=== PATIENT | male | born 1990 | race Two or more races ===

== ENCOUNTER 2019-01-20 19:28 | Inpatient (IN) | payer OTHER, BC ==
[~2019-01-20] VITALS: Ht 177.8 cm; Wt 84.4 kg
[2019-01-20] MEDS ORDERED: Piperacillin/Tazobactam 4.5 GM in NS 110 ML IVPB ONE (19:45)
--- NOTE | 2019-01-20 20:32 | Emergency Room Report ---
History of Present Illness General Chief Complaint: Flu Like Symptoms Source: Patient (Rod Carey) Present Illness HPI 28-year-old male with no significant past medical history brought in by paramedics complaining of 1 week of worsening cough and fever. Patient reports that for the past 4 months he has been coughing green mucus and feeling feverish on and off with night sweats. Denies recent travel or unintentional weight loss. Denies hemoptysis. Reports that this morning he realized that his fever has spiked and took ibuprofen, went to work however started throwing up. Denies chest pain and shortness of breath. Reports that his primary care doctor has worked him up for possible pneumonia or bronchitis however labs have been normal. Denies exposure to tuberculosis. 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 Reports that he is sexually active with men. Denies penile discharge or urinary symptoms. Patient has elevated heart rate, elevated temperature, and appears to be mildly distressed. Patient laid there tells me that he has been sexually active with the same partner for the past several months who has a positive HIV status and is compliant with taking medication. Patient admits to receiving anal intercourse. Reports that he has been tested for HIV twice in the past year and both tested negative. However has not been tested in the past 5 months. (Rod Carey) Allergies: Coded Allergies: No Known Allergies (Unverified , 01/20/19) Patient History Past Medical History: see triage record Past Surgical History: unable to obtain Pertinent Family History: none Immunizations: UTD Reviewed Nursing Documentation: PMH: Agreed; PSxH: Agreed (Rod Carey) Nursing Documentation-PMH Past Medical History: No Stated History (Rod Carey) Review of Systems All Other Systems: negative except mentioned in HPI (Rod Carey) Physical Exam Vital Signs Date Time Temp Pulse Resp B/P (MAP) Pulse Ox O2 Delivery O2 Flow Rate FiO2 01/20/19 19:21 102.7 147 18 117/68 (84) 98 Room Air Sp02 EP Interpretation: abnormal General Appearance: mild distress Head: normocephalic, atraumatic Eyes: bilateral eye normal inspection, bilateral eye PERRL ENT: hearing grossly normal, normal pharynx, no angioedema, normal voice Neck: full range of motion, supple/symm/no masses Respiratory: chest non-tender, lungs clear, normal breath sounds, no rhonchi, no wheezing, speaking full sentences Cardiovascular #1: normal inspection, normal peripheral pulses, regular rate, rhythm, no edema, no gallop, no murmur, JVD, normal capillary refill Gastrointestinal: normal bowel sounds, non tender, soft, non-distended, no guarding, no rebound Genitourinary: no CVA tenderness, no vertebral tenderness Musculoskeletal: back normal, gait/station normal, normal range of motion, non- tender, no calf tenderness, pelvis stable Neurologic: normal inspection, alert, oriented x3, responsive, activity aid III-XII nml as tested Psychiatric: judgement/insight normal, memory normal, mood/affect normal, no suicidal/homicidal ideation Skin: no rash Lymphatic: normal inspection, no adenopathy (Rod Carey) Medical Decision Making PA Attestation All diagnoses and treatment plans were reviewed and discussed with my supervising physician Dr. Fraser (Rod Carey) PA Attestation I supervised the care of this patient along with TALIB Miranda Briefly, this a 28-year-old male presented for evaluation of persistent fevers and cough going on for several months. No recent travel, no known sick contacts. Symptoms have been worsening over the past few days. He is in a same sex relationship with an HIV-positive partner but states his own HIV testing has been negative thus far. Patient is now found to be HIV presumptive positive. No obvious infiltrate or cavitary lesion seen on chest x-ray but chest x-ray did show pneumonia. He was treated with Bactrim, Zosyn on arrival. Admitted to respiratory isolation for further work-up. (Wilian Fraser MD) Diagnostic Impression: Primary Impression: Pneumonia Additional Impression: HIV (human immunodeficiency virus infection) ER Course 28-year-old male with no significant past medical history brought in by paramedics complaining of 1 week of worsening cough and fever. Patient reports that for the past 4 months he has been coughing green mucus and feeling feverish on and off with night sweats. Denies recent travel or unintentional weight loss. Denies hemoptysis. Reports that this morning he realized that his fever has spiked and took ibuprofen, went to work however started throwing up. Denies chest pain and shortness of breath. Reports that his primary care doctor has worked him up for possible pneumonia or bronchitis however labs have been normal. Denies exposure to tuberculosis. 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 Reports that he is sexually active with men. Denies penile discharge or urinary symptoms. Patient has elevated heart rate, elevated temperature, and appears to be mildly distressed. Patient laid there tells me that he has been sexually active with the same partner for the past several months who has a positive HIV status and is compliant with taking medication. Patient admits to receiving anal intercourse. Reports that he has been tested for HIV twice in the past year and both tested negative. However has not been tested in the past 5 months. Ddx considered but are not limited to: Sepsis septic shock, HIV positive, pneumonia bronchitis, PNA, URI viral, bacterial bronchitis Vital signs: are WNL, pt. is febrile H&PE are most consistent with: Pneumonia secondary to HIV ORDERS: Sepsis work-up ED INTERVENTIONS: NS bolus, Zosyn, Bactrim Patient was admitted with diagnosis of pneumonia secondary to HIV to Dr. Barron under supervision of : Evelio pt stable at time of admission (Rod Caery) EKG Diagnostic Results Rate: tachycardiac Rhythm: other - tachycardic ST Segments: no acute changes Other Impression No acute ST changes (Rod Carey) Chest X-Ray Diagnostic Results Chest X-Ray Diagnostic Results : Chest X-Ray Ordered: Yes # of Views/Limited/Complete: 1 View Indication: Other EP Interpretation: Yes PA Xray: Interpretation reviewed, by supervising MD, and agrees with findings. Interpretation: no pneumothorax, other - infiltrates RLL Impression: Other - PNA RLL Electronically Signed by: Rod Buchanan PA-C (oRd Carey) CT/MRI/US Diagnostic Results CT/MRI/US Diagnostic Results : Imaging Test Ordered: CT chest/abd/pelvis with contrast Impression CT ABDOMEN & PELVIS With Contrast: Severe Splenomegaly. Cholecystectomy clips. Normal appendix and remainder of the bowel. Prominent periaortic lymph nodes and bilateral inguinal lymph nodes are nonspecific. CT CHEST With Contrast: Small consolidation in posterior medial right lower lobe indicates pneumonia. Subtle airspace opacities in left lower lobe on series 3 image 35-37, may suggest early pneumonia. Prominent bilateral axillary lymph nodes are nonspecific. (Rod Carey) Last Vital Signs Date Time Temp Pulse Resp B/P (MAP) Pulse Ox O2 Delivery O2 Flow Rate FiO2 01/20/19 19:21 102.7 147 18 117/68 (84) 98 Room Air (Rod Carey) Disposition: ADMITTED INPATIENT Condition: Stable Rod Carey Jan 20, 2019 20:32 Wilian Fraser MD Jan 20, 2019 22:51
[2019-01-20 20:35] LABS: HEMATOCRIT 29.5 % (42.0-52.0); HEMOGLOBIN 10.1 G/DL (14.2-18.0); MEAN CORPUSCULAR VOLUME 82 FL (80-99); PLATELET COUNT 34 K/UL (150-450); RED CELL DISTRIBUTION WIDTH 14.9 % (11.6-14.8); WHITE BLOOD COUNT 3.9 K/UL (4.8-10.8)
[2019-01-20 20:36] LABS: APPEARANCE,URINE CLEAR; BILIRUBIN, URINE NEGATIVE (NEGATIVE); GLUCOSE, URINE (UA) NEGATIVE (NEGATIVE); KETONES,URINE NEGATIVE (NEGATIVE); LEUKOCYTE ESTERASE ,URINE 1+ (NEGATIVE); NITRITE,URINE NEGATIVE (NEGATIVE); PH,URINE 7 (4.5-8.0); PROTEIN,URINE 3+ (NEGATIVE); UROBILINOGEN,URINE 4 MG/DL (0.0-1.0)
[2019-01-20 20:37] LABS: COLOR,URINE YELLOW
[2019-01-20 20:46] LABS: INR 1.2 (0.9-1.1)
[2019-01-20 20:59] LABS: ALANINE AMINOTRANSFERASE 26 U/L (12-78); ALBUMIN 2.6 G/DL (3.4-5.0); ALBUMIN/GLOBULIN RATIO 0.5 (1.0-2.7); ALKALINE PHOSPHATASE 111 U/L (46-116); ASPARTATE AMINO TRANSFERASE 26 U/L (15-37); BLOOD UREA NITROGEN 8 mg/dL (7-18); CALCIUM 8.3 MG/DL (8.5-10.1); CKMB < 0.5 NG/ML (0.0-3.6); CREATINE KINASE 18 U/L (26-308); CREATININE 0.7 MG/DL (0.55-1.30)
[2019-01-20 21:00] VITALS: BP 121/71
[2019-01-20] MEDS ORDERED: Omnipaque-300 100ml vial INJ PRN (21:00)
[2019-01-20] MEDS ORDERED: Bactrim-DS 1 tab ORAL ONE (21:15)
[2019-01-20] MEDS ORDERED: Trimethoprim/Sulfamethoxazole 20 ML in D5W 500ml 550 ML IV ONE (21:15)
[2019-01-20 21:27] LABS: ANION GAP 13 mmol/L (5-15); CARBON DIOXIDE 22 MMOL/L (21-32); CHLORIDE 100 MMOL/L (98-107); POTASSIUM 3.3 MMOL/L (3.5-5.1); SODIUM 135 MMOL/L (136-145)
[2019-01-20 22:30] VITALS: BP 126/68
--- NOTE | 2019-01-20 22:57 | Diagnostic Imaging Report ---
CLINICAL INDICATION:Cough, fever, unintentional weight loss, vomiting TECHNIQUE: No oral contrast, per referring physician request . Multiphasic spiral acquisitions obtained through the chest, abdomen, and pelvis. Multiplanar reconstructions were generated. Total dose length product 2054 mGycm. CTDIvol(s) 90, 88, 55, 18, 17 mGy. Radiation dose was minimized using automated exposure control COMPARISON: none FINDINGS Chest: There is a cluster of masslike opacities in the right lower lobe with some slight surrounding groundglass opacity. In aggregate, this area measures 4 cm x 3 cm x 2.8 cm craniocaudad. This is located at the level of the pulmonary hilum. There are some small irregular faint opacities seen within the superior segment of the left lower lobe, measuring up to 7 mm long axis dimension. No other pulmonary parenchymal abnormalities are demonstrated. No pleural effusions. The heart size is normal. No pericardial effusion. There are abundant mediastinal lymph nodes. The largest of these is a subcarinal node which measures 2.5 x 1.5 cm. The remainder are abundant, prominent, but not frankly enlarged. However, there is extensive axillary, supraclavicular, and lower cervical lymphadenopathy. There is mild bilateral gynecomastia. The bones are unremarkable. Abdomen pelvis: There is no evidence of colonic diverticulosis or diverticulitis. The appendix is normal. No small bowel distention. No free or loculated intraperitoneal gas or fluid is evident. The stomach and duodenum are unremarkable. The spleen is massively enlarged, measuring over 20 cm long axis dimension. There is extensive lymphadenopathy, with abundant and enlarged nodes seen in the lesser sac, the peripancreatic region, periaortic and pericaval region, the bilateral iliac chains and bilateral inguinal regions. Only minimal if any mesenteric lymphadenopathy is demonstrated. The liver is mildly enlarged. There are cholecystectomy clips. No focal hepatic abnormality. No biliary ductal dilatation. The pancreas, adrenals, kidneys are unremarkable. The bones are unremarkable. IMPRESSION: Massive splenomegaly Hepatomegaly Extensive lymphadenopathy, involving the bilateral inguinal regions, bilateral iliac chains, retroaortic and retrocaval region, peripancreatic and lesser sac regions, bilateral axillae, bilateral cervical and supraclavicular regions, and the mediastinum. This may reflect infectious or inflammatory lymphadenopathy, particularly in view of recent diagnosis of HIV positivity, or could indicate a lymphoproliferative disorder. 4 x 3 x 2.8 cm aggregate cluster of masslike opacities in the right lower lobe. This could most likely represents an area of infiltrate, but could conceivably represent cluster of small masses. Nonspecific small irregular opacities in the left lower lobe, may reflect early infiltrates. This agrees with the preliminary interpretation provided overnight by [facility]. . The CT scanner at [facility] is accredited by the [employer] and the scans are performed using protocols designed to limit radiation exposure to as low as reasonably achievable to attain images of sufficient resolution adequate for diagnostic evaluation.
[2019-01-21 01:00] VITALS: BP 113/65
[2019-01-21 04:00] VITALS: BP 108/62
[2019-01-21] MEDS ORDERED: Azithromycin 250mg tab ORAL ONE (05:45)
--- NOTE | 2019-01-21 06:10 | Diagnostic Imaging Report ---
Indication: Cough Technique: One view of the chest Comparison: 01/20/2019 Findings: Lungs and pleural spaces are clear. Heart size is normal. No significant interim change Impression: No acute process This agrees with the preliminary interpretation provided overnight by [facility].
[2019-01-21 06:58] LABS: HEMATOCRIT 29.6 % (42.0-52.0); HEMOGLOBIN 10.2 G/DL (14.2-18.0); MEAN CORPUSCULAR VOLUME 83 FL (80-99); PLATELET COUNT 26 K/UL (150-450); RED BLOOD COUNT 3.58 M/UL (4.70-6.10); RED CELL DISTRIBUTION WIDTH 15.1 % (11.6-14.8); WHITE BLOOD COUNT 3.4 K/UL (4.8-10.8)
[2019-01-21 07:27] LABS: ALANINE AMINOTRANSFERASE 20 U/L (12-78); ALBUMIN 2.4 G/DL (3.4-5.0); ALBUMIN/GLOBULIN RATIO 0.5 (1.0-2.7); ALKALINE PHOSPHATASE 98 U/L (46-116); ANION GAP 4 mmol/L (5-15); ASPARTATE AMINO TRANSFERASE 23 U/L (15-37); BLOOD UREA NITROGEN 6 mg/dL (7-18); CARBON DIOXIDE 29 MMOL/L (21-32); CHLORIDE 103 MMOL/L (98-107); CREATININE 0.6 MG/DL (0.55-1.30); LACTATE DEHYDROGENASE 143 U/L (81-234); PHOSPHORUS 2.9 MG/DL (2.5-4.9); POTASSIUM 3.6 MMOL/L (3.5-5.1); SODIUM 135 MMOL/L (136-145)
[2019-01-21 08:00] VITALS: BP 121/80
[2019-01-21] MEDS: cefTRIAXone 1 GM in D5W 55 ML IVPB SCH (08:18)
[2019-01-21 12:00] VITALS: BP 112/66
--- NOTE | 2019-01-21 12:21 | Diagnostic Imaging Report ---
Indication: Chest pain Technique: One view of the chest Comparison: none Findings: Lungs and pleural spaces are clear. Heart size is normal Impression: No acute process
--- NOTE | 2019-01-21 12:42 | Consultation ---
History of Present Illness General Chief Complaint: Flu Like Symptoms Present Illness HPI 28-year-old male with no significant past medical history brought in by paramedics complaining of 1 week of worsening cough and fever. Patient reports that for the past 4 months he has been coughing green mucus and feeling feverish on and off with night sweats. His CT of chest showed confluent infiltrate or mass in right lower lobe. He has new lesions on his right leg and right wrist. Allergies: Coded Allergies: No Known Allergies (Unverified , 01/20/19) Medication History No Active Prescriptions or Reported Meds Patient History Healthcare decision maker Resuscitation status Full Code Advanced Directive on File No Past Medical/Surgical History Past Medical/Surgical History: (1) HIV (human immunodeficiency virus infection) Review of Systems All Other Systems: negative except mentioned in HPI Physical Exam General Appearance: WD/WN, no apparent distress Lines, tubes and drains: peripheral HEENT: normocephalic, atraumatic Neck: non-tender, other - right anterior and left posterior lymph nodes Respiratory/Chest: chest wall non-tender, lungs clear Breasts: no masses Cardiovascular/Chest: normal peripheral pulses Abdomen: normal bowel sounds, non tender Genitourinary/Rectal: normal genital exam Extremities: normal range of motion, non-tender Skin Exam: normal pigmentation, other - right leg, right wrist Kaposi like lesions Last 24 Hour Vital Signs Date Time Temp Pulse Resp B/P (MAP) Pulse Ox O2 Delivery O2 Flow Rate FiO2 01/21/19 08:50 99.3 01/21/19 08:49 99.3 01/21/19 08:00 100.2 124 20 121/80 (94) 97 01/21/19 04:00 98.2 111 17 108/62 (77) 99 01/21/19 02:21 Room Air 01/21/19 01:00 97.7 96 17 113/65 (81) 99 01/21/19 00:55 98.3 103 18 126/68 99 Room Air 01/20/19 22:30 98.3 103 18 126/68 99 Room Air 01/20/19 21:00 98.4 111 18 121/71 99 Room Air 01/20/19 19:35 147 18 Room Air 01/20/19 19:21 102.7 147 18 117/68 (84) 98 Room Air Intake and Output 01/20/19 01/21/19 19:00 07:00 Intake Total 500 ml Output Total 500 ml Balance 0 ml Intake Oral 500 ml Output Urine Total 500 ml # Voids 4 Laboratory Tests Test 01/20/19 19:50 01/20/19 19:53 01/20/19 19:55 01/21/19 05:45 White Blood Count 3.9 K/UL (4.8-10.8) L Pending Red Blood Count 3.60 M/UL (4.70-6.10) L 3.58 M/UL (4.70-6.10) L Hemoglobin 10.1 G/DL (14.2-18.0) L 10.2 G/DL (14.2-18.0) L Hematocrit 29.5 % (42.0-52.0) L 29.6 % (42.0-52.0) L Mean Corpuscular Volume 82 FL (80-99) 83 FL (80-99) Mean Corpuscular Hemoglobin 28.1 PG (27.0-31.0) 28.4 PG (27.0-31.0) Mean Corpuscular Hemoglobin Concent 34.3 G/DL (32.0-36.0) 34.4 G/DL (32.0-36.0) Red Cell Distribution Width 14.9 % (11.6-14.8) H 15.1 % (11.6-14.8) H Platelet Count 34 K/UL (150-450) L 26 K/UL (150-450) L Mean Platelet Volume 9.1 FL (6.5-10.1) 7.8 FL (6.5-10.1) Neutrophils (%) (Auto) % (45.0-75.0) % (45.0-75.0) Lymphocytes (%) (Auto) % (20.0-45.0) % (20.0-45.0) Monocytes (%) (Auto) % (1.0-10.0) % (1.0-10.0) Eosinophils (%) (Auto) % (0.0-3.0) % (0.0-3.0) Basophils (%) (Auto) % (0.0-2.0) % (0.0-2.0) Differential Total Cells Counted 50 100 Neutrophils % (Manual) 38 % (45-75) L 40 % (45-75) L Lymphocytes % (Manual) 38 % (20-45) 47 % (20-45) H Monocytes % (Manual) 14 % (1-10) H 12 % (1-10) H Eosinophils % (Manual) 0 % (0-3) 1 % (0-3) Basophils % (Manual) 0 % (0-2) 0 % (0-2) Band Neutrophils 10 % (0-8) H 0 % (0-8) Platelet Estimate Decreased L Decreased L Platelet Morphology Normal Normal Polychromasia 1+ Anisocytosis 1+ 1+ Prothrombin Time 12.2 SEC (9.30-11.50) H Prothromb Time International Ratio 1.2 (0.9-1.1) H Activated Partial Thromboplast Time 32 SEC (23-33) Sodium Level 135 MMOL/L (136-145) L 135 MMOL/L (136-145) L Potassium Level 3.3 MMOL/L (3.5-5.1) L 3.6 MMOL/L (3.5-5.1) Chloride Level 100 MMOL/L (98-107) 103 MMOL/L (98-107) Carbon Dioxide Level 22 MMOL/L (21-32) 29 MMOL/L (21-32) Anion Gap 13 mmol/L (5-15) 4 mmol/L (5-15) L Blood Urea Nitrogen 8 mg/dL (7-18) 6 mg/dL (7-18) L Creatinine 0.7 MG/DL (0.55-1.30) 0.6 MG/DL (0.55-1.30) Estimat Glomerular Filtration Rate > 60 mL/min (>60) > 60 mL/min (>60) Glucose Level 127 MG/DL (74-106) H 98 MG/DL (74-106) Lactic Acid Level 1.30 mmol/L (0.4-2.0) Calcium Level 8.3 MG/DL (8.5-10.1) L 8.0 MG/DL (8.5-10.1) L Total Bilirubin 1.0 MG/DL (0.2-1.0) 1.0 MG/DL (0.2-1.0) Aspartate Amino Transf (AST/SGOT) 26 U/L (15-37) 23 U/L (15-37) Alanine Aminotransferase (ALT/SGPT) 26 U/L (12-78) 20 U/L (12-78) Alkaline Phosphatase 111 U/L (46-116) 98 U/L (46-116) Total Creatine Kinase 18 U/L (26-308) L Creatine Kinase MB < 0.5 NG/ML (0.0-3.6) Creatine Kinase MB Relative Index 2.7 Troponin I 0.000 ng/mL (0.000-0.056) Pro-B-Type Natriuretic Peptide 69 pg/mL (0-125) Total Protein 8.0 G/DL (6.4-8.2) 7.6 G/DL (6.4-8.2) Albumin 2.6 G/DL (3.4-5.0) L 2.4 G/DL (3.4-5.0) L Globulin 5.4 g/dL 5.2 g/dL Albumin/Globulin Ratio 0.5 (1.0-2.7) L 0.5 (1.0-2.7) L HIV (1&2) Antibody Rapid Preliminary positive Arterial Blood pH 7.525 (7.350-7.450) Arterial Blood Partial Pressure CO2 30.7 mmHg (35.0-45.0) L Arterial Blood Partial Pressure O2 100.1 mmHg (75.0-100.0) H Arterial Blood HCO3 24.8 mmol/L (22.0-26.0) Arterial Blood Oxygen Saturation 97.2 % (95-100) Arterial Blood Base Excess 2.4 (-2-2) H Merrill Test Positive Urine Color Yellow Urine Appearance Clear Urine pH 7 (4.5-8.0) Urine Specific [place] 1.005 (1.005-1.035) Urine Protein 3+ (NEGATIVE) H Urine Glucose (UA) Negative (NEGATIVE) Urine Ketones Negative (NEGATIVE) Urine Blood 2+ (NEGATIVE) H Urine Nitrite Negative (NEGATIVE) Urine Bilirubin Negative (NEGATIVE) Urine Urobilinogen 4 MG/DL (0.0-1.0) H Urine Leukocyte Esterase 1+ (NEGATIVE) H Urine RBC 2-4 /HPF (0 - 0) H Urine WBC 0-2 /HPF (0 - 0) Urine Squamous Epithelial Cells None /LPF (NONE/OCC) Urine Bacteria Occasional /HPF (NONE) Urine Opiates Screen Negative (NEGATIVE) Urine Barbiturates Screen Negative (NEGATIVE) Phencyclidine (PCP) Screen Negative (NEGATIVE) Urine Amphetamines Screen Negative (NEGATIVE) Urine Benzodiazepines Screen Negative (NEGATIVE) Urine Cocaine Screen Negative (NEGATIVE) Urine Marijuana (THC) Screen Negative (NEGATIVE) Lymphocytes Pending Phosphorus Level 2.9 MG/DL (2.5-4.9) Magnesium Level 1.4 MG/DL (1.8-2.4) L Lactate Dehydrogenase 143 U/L (81-234) Percent CD3 Cells Pending Absolute CD3 Count Pending Percent CD4 Cells Pending Absolute CD4 Count Pending T-Lymphocyte CD4/CD8 Ratio Pending Percent CD8 Cells Pending Absolute CD8 Count Pending Microbiology Date/Time Source Procedure Growth Status 01/20/19 19:50 Nasal Nares - Final Complete 01/20/19 19:50 Nasal Nares - Final Complete Height (Feet): 5 Height (Inches): 10.00 Weight (Pounds): 150 Medications Current Medications Medications (Trade) Dose Ordered Sig/Jeff Route PRN Reason Start Time Stop Time Status Last Admin Dose Admin Acetaminophen (Tylenol) 650 mg Q6H PRN ORAL Mild Pain/Temp > 100.5 01/21/19 05:45 02/20/19 05:44 01/21/19 08:19 Azithromycin (Zithromax) 250 mg DAILY ORAL 01/22/19 09:00 01/25/19 09:01 Ceftriaxone Sodium 1 gm/ Dextrose 55 ml @ 110 mls/hr Q24H IVPB 01/21/19 09:00 01/28/19 08:59 01/21/19 08:18 Iohexol (OMNIPAQUE-300 100ml) 100 ml NOW PRN INJ Radiology Procedure 01/20/19 21:00 01/22/19 20:50 Ondansetron HCl (Zofran) 4 mg Q4H PRN IVP Nausea & Vomiting 01/21/19 05:45 02/20/19 05:44 Tuberculin PPD (Tubersol (PPD)) 0.1 ml ONCE ONCE IDERMAL 01/21/19 13:30 01/21/19 13:31 Assessment/Plan Problem List: (1) Pneumonia ICD Codes: J18.9 - Pneumonia, unspecified organism SNOMED: 239187224 (2) Lymphadenopathy ICD Codes: R59.1 - Generalized enlarged lymph nodes SNOMED: 74531535 (3) Lymphadenopathy, cervical ICD Codes: R59.0 - Localized enlarged lymph nodes SNOMED: 331201792 (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 Dr. Gibbs called ID evaluation serology for opportunistic infections Suzanne Terrell MD Jan 21, 2019 12:42
[2019-01-21] MEDS ORDERED: PPD Tuberculin Skin Test 5TU IDERMAL ONE (13:30)
--- NOTE | 2019-01-21 14:44 | Diagnostic Imaging Report ---
Indication: An mass Technique: IV administration nonionic contrast. Spiral acquisitions obtained through the neck. Multiplanar reconstructions were generated. Total dose length product and 64 mGycm. CTDIvol(s) 39, 262, 25 mGy. Dose reduction achieved using automated exposure control Comparison: none Findings: There is bilateral cervical lymphadenopathy. The largest jugulodigastric nodes on the right measure 30 mm long axis dimension by 19 mm short axis dimension. On the left, largest node measures 24 x 20 mm. Numerous other nodes measuring up to 2.4 cm are demonstrated in the bilateral anterior and posterior triangles. Innumerable other prominent smaller nodes are seen throughout the neck, including in the anterior and posterior triangles, submandibular region and bilateral supraclavicular fossae. Nodes are also seen in the subcutaneous fat, particularly of the left nuchal region and left upper back. No necrotic nodes are demonstrated. There is prominence to the adenoids. There is mild asymmetric right tonsillar pillar prominence. The nasopharynx, oropharynx, hypopharynx and larynx are otherwise unremarkable. The thyroid is unremarkable. The salivary glands are unremarkable. The dentition is intact. There is right maxillary sinus disease incidentally noted. The bones are unremarkable. Findings in the upper thorax are described on separate chest abdomen pelvis CT report Impression: Extensive cervical and supraclavicular lymphadenopathy, as described. Could be reactive or infectious, possibly related to stated clinical history of recent HIV diagnosis. However, the possibility of lymphoproliferative disorder should also be considered Mild adenoidal and right tonsillar pillar prominence, if real possibly related to the above Incidental finding right maxillary sinus disease The CT scanner at [facility] is accredited by the [employer] and the scans are performed using protocols designed to limit radiation exposure to as low as reasonably achievable to attain images of sufficient resolution adequate for diagnostic evaluation.
[2019-01-21 16:00] VITALS: BP 127/72
--- NOTE | 2019-01-21 16:45 | Consultation ---
DATE OF CONSULTATION: 01/21/2019 PREOPERATIVE CONSULTATION CONSULTING PHYSICIAN: Fidelina Guerra M.D. REFERRING PHYSICIAN: Suzanne Terrell M.D. REASON FOR CONSULTATION: Skin lesion on the right leg. HISTORY OF PRESENT ILLNESS: This is a 28-year-old male, who presented to emergency room complaining of cough for about 4 months. The patient stated that has been coughing for 4 months with greenish sputum. He has had a low-grade fever off and on and recently has felt cold. He denies any weight loss. He denies diarrhea. He has noticed some bumps on his neck. He stated that he has been checked for HIV twice before, but it had been negative, but the test at this hospital has been positive. He has noticed small lesion on the right leg about a month ago, which has gradually enlarged. He denies any bleeding or itching. He has similar lesions on his hand. PAST MEDICAL HISTORY: He denies allergies, asthma, diabetes, hypertension, and cardiac and renal diseases. PAST SURGICAL HISTORY: None. MEDICATIONS: None. SOCIAL HISTORY: The patient is a 28-year-old male who lives with his partner. No children. 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 He denies smoking and drinks occasionally. REVIEW OF SYSTEMS: Noncontributory. PHYSICAL EXAMINATION: GENERAL: The patient appeared to be a well-developed, well-nourished, 28-year-old male, in no acute distress. HEENT: Head is normocephalic and atraumatic. Eyes, pupils are equal, round, and reactive to light. Mouth is clear. NECK: He has adenopathy on the posterior chain of the neck especially on the left side. CHEST: Breath sounds are reduced. HEART: Rate is tachycardic. ABDOMEN: Soft, flat, nontender. There is no palpable organomegaly. GENITAL: Deferred. EXTREMITIES: The right leg at the lateral side of the calf, he has elevated skin lesion about 1.5 x 1 inch, rough, pigmented, hard. ASSESSMENT: Skin lesion, rule out Kaposi sarcoma. PLAN: The patient requires biopsy of this lesion, which will be performed in the next day or two. The risks and benefits have been explained to him. He understood and granted consent. Fidelina Guerra M.D. DR: MANDO JOB#: [id number] CC:
[2019-01-21] MEDS ORDERED: Lidocaine 1% 10mg/ml/Epi 0.005mg/ml 30ml vial INJ PRN (17:15)
--- NOTE | 2019-01-21 17:40 | History & Physical ---
History and Physical History & Physicial Akil Barron MD Jan 21, 2019 17:40
[2019-01-21] MEDS ORDERED: Lidocaine 1% Plain 30 ml INJ PRN (18:00)
--- NOTE | 2019-01-21 18:14 | Consultation ---
History of Present Illness General Date patient seen: Jan 21, 2019 Chief Complaint: Flu Like Symptoms Present Illness HPI 28 y/o M with no prior medical history presented to ED on 01/20 with R leg skin lesion, 4 months of productive cough, intermittent low grade fever and night sweats. has also noted some bumps on his neck. Reported has been checked for HIV twice before (last one 5 months ago) and negative but now the one done here is positive. R leg lesion appeared 1 month ago. Patient has been sexually active with the same partner for the past several months and partner is HIV positive and is complaint with taking medication. Admits to anal intercourse. Denied wt loss, diarrhea, recent travel wt loss, hemoptysis, chest pain, SOB, TB exposure, penile discharge, urinary symptoms. Allergies: Coded Allergies: No Known Allergies (Unverified , 01/20/19) Medication History No Active Prescriptions or Reported Meds Patient History Healthcare decision maker Resuscitation status Full Code Advanced Directive on File No Patient History Narrative Pmhx: as above Shx: reviewed Fhx: non contributory Review of Systems All Other Systems: negative except mentioned in HPI Physical Exam Physical Exam Narrative GENERAL: The patient appeared to be a well-developed, well-nourished, 28-year-old male, in no acute distress. HEENT: Head is normocephalic and atraumatic. Eyes, pupils are equal, round, and reactive to light. Mouth is clear. NECK: He has adenopathy on the posterior chain of the neck especially on the left side. CHEST: Breath sounds are reduced. HEART: Rate is tachycardic. ABDOMEN: Soft, flat, nontender. There is no palpable organomegaly. EXTREMITIES: The right leg at the lateral side of the calf, he has elevated skin lesion about 1.5 x 1 inch, rough, pigmented, hard. Last 24 Hour Vital Signs Date Time Temp Pulse Resp B/P (MAP) Pulse Ox O2 Delivery O2 Flow Rate FiO2 01/21/19 16:00 97.0 123 20 127/72 (90) 97 01/21/19 12:00 99.7 111 20 112/66 (81) 97 01/21/19 09:00 Room Air 01/21/19 08:50 99.3 01/21/19 08:49 99.3 01/21/19 08:00 100.2 124 20 121/80 (94) 97 01/21/19 04:00 98.2 111 17 108/62 (77) 99 01/21/19 02:21 Room Air 01/21/19 01:00 97.7 96 17 113/65 (81) 99 01/21/19 00:55 98.3 103 18 126/68 99 Room Air 01/20/19 22:30 98.3 103 18 126/68 99 Room Air 01/20/19 21:00 98.4 111 18 121/71 99 Room Air 01/20/19 19:35 147 18 Room Air 01/20/19 19:21 102.7 147 18 117/68 (84) 98 Room Air Intake and Output 01/20/19 01/21/19 18:59 06:59 Intake Total 500 ml Output Total 500 ml Balance 0 ml Intake Oral 500 ml Output Urine Total 500 ml # Voids 4 Laboratory Tests Test 01/20/19 19:50 01/20/19 19:53 01/20/19 19:55 01/21/19 05:45 White Blood Count 3.9 K/UL (4.8-10.8) L Pending Red Blood Count 3.60 M/UL (4.70-6.10) L 3.58 M/UL (4.70-6.10) L Hemoglobin 10.1 G/DL (14.2-18.0) L 10.2 G/DL (14.2-18.0) L Hematocrit 29.5 % (42.0-52.0) L 29.6 % (42.0-52.0) L Mean Corpuscular Volume 82 FL (80-99) 83 FL (80-99) Mean Corpuscular Hemoglobin 28.1 PG (27.0-31.0) 28.4 PG (27.0-31.0) Mean Corpuscular Hemoglobin Concent 34.3 G/DL (32.0-36.0) 34.4 G/DL (32.0-36.0) Red Cell Distribution Width 14.9 % (11.6-14.8) H 15.1 % (11.6-14.8) H Platelet Count 34 K/UL (150-450) L 26 K/UL (150-450) L Mean Platelet Volume 9.1 FL (6.5-10.1) 7.8 FL (6.5-10.1) Neutrophils (%) (Auto) % (45.0-75.0) % (45.0-75.0) Lymphocytes (%) (Auto) % (20.0-45.0) % (20.0-45.0) Monocytes (%) (Auto) % (1.0-10.0) % (1.0-10.0) Eosinophils (%) (Auto) % (0.0-3.0) % (0.0-3.0) Basophils (%) (Auto) % (0.0-2.0) % (0.0-2.0) Differential Total Cells Counted 50 100 Neutrophils % (Manual) 38 % (45-75) L 40 % (45-75) L Lymphocytes % (Manual) 38 % (20-45) 47 % (20-45) H Monocytes % (Manual) 14 % (1-10) H 12 % (1-10) H Eosinophils % (Manual) 0 % (0-3) 1 % (0-3) Basophils % (Manual) 0 % (0-2) 0 % (0-2) Band Neutrophils 10 % (0-8) H 0 % (0-8) Platelet Estimate Decreased L Decreased L Platelet Morphology Normal Normal Polychromasia 1+ Anisocytosis 1+ 1+ Prothrombin Time 12.2 SEC (9.30-11.50) H Prothromb Time International Ratio 1.2 (0.9-1.1) H Activated Partial Thromboplast Time 32 SEC (23-33) Sodium Level 135 MMOL/L (136-145) L 135 MMOL/L (136-145) L Potassium Level 3.3 MMOL/L (3.5-5.1) L 3.6 MMOL/L (3.5-5.1) Chloride Level 100 MMOL/L (98-107) 103 MMOL/L (98-107) Carbon Dioxide Level 22 MMOL/L (21-32) 29 MMOL/L (21-32) Anion Gap 13 mmol/L (5-15) 4 mmol/L (5-15) L Blood Urea Nitrogen 8 mg/dL (7-18) 6 mg/dL (7-18) L Creatinine 0.7 MG/DL (0.55-1.30) 0.6 MG/DL (0.55-1.30) Estimat Glomerular Filtration Rate > 60 mL/min (>60) > 60 mL/min (>60) Glucose Level 127 MG/DL (74-106) H 98 MG/DL (74-106) Lactic Acid Level 1.30 mmol/L (0.4-2.0) Calcium Level 8.3 MG/DL (8.5-10.1) L 8.0 MG/DL (8.5-10.1) L Total Bilirubin 1.0 MG/DL (0.2-1.0) 1.0 MG/DL (0.2-1.0) Aspartate Amino Transf (AST/SGOT) 26 U/L (15-37) 23 U/L (15-37) Alanine Aminotransferase (ALT/SGPT) 26 U/L (12-78) 20 U/L (12-78) Alkaline Phosphatase 111 U/L (46-116) 98 U/L (46-116) Total Creatine Kinase 18 U/L (26-308) L Creatine Kinase MB < 0.5 NG/ML (0.0-3.6) Creatine Kinase MB Relative Index 2.7 Troponin I 0.000 ng/mL (0.000-0.056) Pro-B-Type Natriuretic Peptide 69 pg/mL (0-125) Total Protein 8.0 G/DL (6.4-8.2) 7.6 G/DL (6.4-8.2) Albumin 2.6 G/DL (3.4-5.0) L 2.4 G/DL (3.4-5.0) L Globulin 5.4 g/dL 5.2 g/dL Albumin/Globulin Ratio 0.5 (1.0-2.7) L 0.5 (1.0-2.7) L HIV (1&2) Antibody Rapid Preliminary positive Arterial Blood pH 7.525 (7.350-7.450) Arterial Blood Partial Pressure CO2 30.7 mmHg (35.0-45.0) L Arterial Blood Partial Pressure O2 100.1 mmHg (75.0-100.0) H Arterial Blood HCO3 24.8 mmol/L (22.0-26.0) Arterial Blood Oxygen Saturation 97.2 % (95-100) Arterial Blood Base Excess 2.4 (-2-2) H Merrill Test Positive Urine Color Yellow Urine Appearance Clear Urine pH 7 (4.5-8.0) Urine Specific [place] 1.005 (1.005-1.035) Urine Protein 3+ (NEGATIVE) H Urine Glucose (UA) Negative (NEGATIVE) Urine Ketones Negative (NEGATIVE) Urine Blood 2+ (NEGATIVE) H Urine Nitrite Negative (NEGATIVE) Urine Bilirubin Negative (NEGATIVE) Urine Urobilinogen 4 MG/DL (0.0-1.0) H Urine Leukocyte Esterase 1+ (NEGATIVE) H Urine RBC 2-4 /HPF (0 - 0) H Urine WBC 0-2 /HPF (0 - 0) Urine Squamous Epithelial Cells None /LPF (NONE/OCC) Urine Bacteria Occasional /HPF (NONE) Urine Opiates Screen Negative (NEGATIVE) Urine Barbiturates Screen Negative (NEGATIVE) Phencyclidine (PCP) Screen Negative (NEGATIVE) Urine Amphetamines Screen Negative (NEGATIVE) Urine Benzodiazepines Screen Negative (NEGATIVE) Urine Cocaine Screen Negative (NEGATIVE) Urine Marijuana (THC) Screen Negative (NEGATIVE) Lymphocytes Pending Phosphorus Level 2.9 MG/DL (2.5-4.9) Magnesium Level 1.4 MG/DL (1.8-2.4) L Lactate Dehydrogenase 143 U/L (81-234) Percent CD3 Cells Pending Absolute CD3 Count Pending Percent CD4 Cells Pending Absolute CD4 Count Pending T-Lymphocyte CD4/CD8 Ratio Pending Percent CD8 Cells Pending Absolute CD8 Count Pending Microbiology Date/Time Source Procedure Growth Status 01/20/19 19:50 Nasal Nares - Final Complete 01/20/19 19:50 Nasal Nares - Final Complete Height (Feet): 5 Height (Inches): 10.00 Weight (Pounds): 150 Medications Current Medications Medications (Trade) Dose Ordered Sig/Jeff Route PRN Reason Start Time Stop Time Status Last Admin Dose Admin Acetaminophen (Tylenol) 650 mg Q6H PRN ORAL Mild Pain/Temp > 100.5 01/21/19 05:45 02/20/19 05:44 01/21/19 08:19 Azithromycin (Zithromax) 250 mg DAILY ORAL 01/22/19 09:00 01/25/19 09:01 Ceftriaxone Sodium 1 gm/ Dextrose 55 ml @ 110 mls/hr Q24H IVPB 01/21/19 09:00 01/28/19 08:59 01/21/19 08:18 Iohexol (OMNIPAQUE-300 100ml) 100 ml NOW PRN INJ Radiology Procedure 01/20/19 21:00 01/22/19 20:50 Lidocaine/ Epinephrine (Lidocaine 1% 10mg/ml/Epi 0.005mg/ml 30ml vial) 30 ml NEEDED PRN INJ FOR BIOPSY 01/21/19 17:15 01/23/19 17:14 Ondansetron HCl (Zofran) 4 mg Q4H PRN IVP Nausea & Vomiting 01/21/19 05:45 02/20/19 05:44 Assessment/Plan Assessment/Plan: Abx: Ceftriaxone 01/21- Azithromycin 01/21- IV Zosyn x1 01/20 Bactrim x 01/20 Assessment: Sepsis Pneumonia- r/o TB Diffuse lymphadenopathy/splenomegaly/hepatomegaly - DDx: TB, lymphoma, HIV/AIDS related, [place] disease -CT neck: : Extensive cervical and supraclavicular lymphadenopathy, as described. Could be reactive or infectious, possibly related to stated clinical history of recent HIV diagnosis. However, the possibility of lymphoproliferative disorder should also be considered. Mild adenoidal and right tonsillar pillar prominence, if real possibly related to the above. Incidental finding right maxillary sinus disease. -CT c/ab/p: Massive splenomegaly. Hepatomegaly. Extensive lymphadenopathy, involving the bilateral inguinal regions, bilateral iliac chains, retroaortic and retrocaval region, peripancreatic and lesser sac regions, bilateral axillae , bilateral cervical and supraclavicular regions, and the mediastinum. This may reflect infectious or inflammatory lymphadenopathy, particularly in view of recent diagnosis of HIV positivity, or could indicate a lymphoproliferative disorder. 4 x 3 x 2.8 cm aggregate cluster of masslike opacities in the right lower lobe. This could most likely represents an area of infiltrate, but could conceivably represent cluster of small masses. Nonspecific small irregular opacities in the left lower lobe, may reflect early infiltrates. New diagnosis of HIV- high suspicion for AIDS -HIV ab sc preliminary positive -CD4 p Fever pancytopenia R leg skin lesion- suspicious for Kaposi Plan: -Continue empiric Ceftriaxone #1 and Switch Azithromycin #1 to PO Doxycycline -Airborne isolation: AFB sputum x3, MTB PCR -biopsy of Leg skin lesion as well as core biopsy cervical lymph node -send lymph node for culture (bacterial, fungal, AFB, MTB PCR) and path -Cocci, CrAg, RPR, GC/CL, TB spot, AFB sp cx, ESR, CRP, CD4, HIV VL, fungitell, histoplasma ag and ab, Blasto ab, PCP DFA -f/u cx -Monitor CBC/CMP, temperatures Thank you for this consultation. Will continue to follow along with you. Discussed with Ana Rosa Sheffield M.D. Jan 21, 2019 18:14
[2019-01-21 19:19] LABS: HEMATOCRIT 28.9 % (42.0-52.0); HEMOGLOBIN 10.1 G/DL (14.2-18.0); MEAN CORPUSCULAR VOLUME 83 FL (80-99); PLATELET COUNT 29 K/UL (150-450); RED BLOOD COUNT 3.48 M/UL (4.70-6.10); RED CELL DISTRIBUTION WIDTH 13.5 % (11.6-14.8)
[2019-01-21 20:00] VITALS: BP 131/65
--- NOTE | 2019-01-21 23:15 | History and Physical Report ---
DATE OF ADMISSION: 01/20/2019 CHIEF COMPLAINT: Dry cough, weakness, and fatigue. HISTORY OF PRESENT ILLNESS: This is a 28-year-old gentleman, denies any past medical history or past surgical history, who has presented to the hospital complaining about 4 months of coughing, greenish mucosa, and feeling feverish, on and off with night sweats. The patient denies any recent travel or unintentional weight loss. Denies any hemoptysis. He has been treated with multiple series of antibiotics and has been taking ibuprofen for his fever and he was worked up for possible pneumonia versus bronchitis by his primary physician and denies any tuberculosis exposure in the past. 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 He lives with the same partner for the past several months, who has a positive HIV status and is compliant with his medication intake. The patient has been having anal intercourse and he has been tested for the human immunodeficiency virus twice past year and has been negative. Recent one was 5 months ago. Shortly after initial evaluation in the emergency room, the patient was admitted to the hospital with a chronic cough as well as fever, chills, general nephropathy, possible due to the opportunistic infection versus tuberculosis. The patient has noted that the human immunodeficiency virus test has been positive. PAST MEDICAL/PAST SURGICAL HISTORY: None. MEDICATIONS AT HOME: None. ALLERGIES: No known drug allergies. SOCIAL HISTORY: Denies any smoking. Socially drinks. No substance abuse. FAMILY HISTORY: Noncontributory. REVIEW OF SYSTEMS: Mostly as above. Denies any dysuria, frequency, or hematuria. Complained about fever and chills. Denies any hemoptysis or hematochezia. Denies any bright red blood per rectum. Denies any loss of consciousness. PHYSICAL EXAMINATION: VITAL SIGNS: On admission, temperature was 102.7, pulse of 147, respirations 18, and blood pressure 117/68. GENERAL: The patient is awake and responsive, in no acute distress. HEAD AND NECK: Pupils are reactive to light. Extraocular movements intact. Neck was supple. No JVD. LUNGS: Good air entry. No wheezing or rales. HEART: Reveals S1, S2. Regular rhythm. No gallops. ABDOMEN: Soft, nondistended, and nontender. Positive bowel sounds. EXTREMITIES: No cyanosis, clubbing, edema NEUROLOGIC: Cranial nerves II through XII grossly intact. Motor is 5/5 in all extremities. Gait is intact. RECTAL/GENITOURINARY: Refused and deferred. PSYCHIATRIC: Mood and affect is intact. LYMPH NODES: Showed the patient has a positive lymphadenopathy in the cervical lymph node in the neck as well as in the pelvic area. LABORATORY DATA: On admission from the ER, WBC 3.9, hemoglobin 10, hematocrit 29, and platelets is 34,000. The patient's neutrophil percentage is at 38, low and neutrophil bands 10%. ABG, pH of 7.52, pCO2 of 30, PO2 of 100, and saturating 97%. Sodium 135, potassium 3.3, chloride 100, bicarb 22, BUN 8, creatinine 0.7, and glucose is 127. Calcium is 8.3. Total bilirubin of 1.0. AST of 26, ALT of 26. The patient's LDH is 143. Troponin 0.00. Total protein is 8.0. PT 12, INR 1.2, and PTT of 32. Urine drug screen is negative. Urinalysis, +3 protein, +4 urine bilirubin, +1 leukocytes, 2 to 4 rbc's. The patient's human immunodeficiency virus 1 and 2 antibody rapid test positive. Chest x-ray, no acute process. CT of the chest, abdomen, and pelvis noted the patient has massive splenomegaly, hepatomegaly, and extensive lymphadenopathy involving the bilateral inguinal region, bilateral iliac chain, retroaortic and retrocaval region, peripancreatic, and lesser sac region, and mediastinum. This may be reflection of an infection or inflammatory lymphadenopathy, particularly in view of the recent diagnosis of human immunodeficiency virus positive or could indicate a lymph node proliferative disorder. A 4 x 3 x 2.8 cm aggregated cluster of the mass-like opacities in the right lower lobe. This could most likely represent an area of the infiltrate, but could basically represents cluster of the small masses. Nonspecific small irregular opacity in the left lower lobe may reflect early infiltrate. CT of the neck also confirmed the patient has an extensive cervical as well as supraclavicular lymphadenopathy could be reactive to the infectious and mild adenoid and right tonsillar prominence. Incidental finding of the right maxillary sinus disease. ASSESSMENT: 1. Generalized lymphadenopathy. 2. New diagnosis of human immunodeficiency virus. 3. Lung infiltrate, possible pneumonia versus tuberculosis. 4. Splenomegaly. 5. LEO. 6. Hepatomegaly. 7. Thrombocytopenia. PLAN: 1. Admit the patient to respiratory isolation. 2. Follow up with the AFB x3. 3. Discussed case with Dr. Terrell from Pulmonary Critical Care and Infectious Disease consultation. 4. Follow up with the infection workup. 5. Code status is Full code. 6. DVT prophylaxis with heparin subcutaneous. 7. We will discuss with the mother extensively at the bedside. 8. The patient at this time does not want the mother or any family member informed about the human immunodeficiency virus status. Akil Barron M.D. DR: FABIANA JOB#: [id number] CC:
[2019-01-21] MEDS: Guaifenesin/DM 10ml syrup ORAL PRN (23:18)
[2019-01-22] VITALS: BP 118/69
[2019-01-22 04:30] VITALS: BP 127/63
[2019-01-22 08:00] VITALS: BP 124/73
[2019-01-22] MEDS: Guaifenesin/DM 10ml syrup ORAL PRN ×2 (08:45→17:56)
[2019-01-22] MEDS: Doxycycline Monohydrate 100mg ORAL SCH ×2 (08:45→21:39)
[2019-01-22] MEDS: cefTRIAXone 1 GM in D5W 55 ML IVPB SCH (08:45)
[2019-01-22] MEDS ORDERED: Azithromycin 250mg tab ORAL SCH (09:00)
--- NOTE | 2019-01-22 09:44 | Pulmonology Progress Note ---
Assessment/Plan Assessment/Plan ASSESSMENT Sepsis Pneumonia, rule out TB HIV, newly diagnosed, - AIDS/CD4-41 Pancytopenia Electrolyte abnormalities: hypo K, hypo Mg Lymphadenopathy Right LE skin lesion r/o Kaposi's sarcoma PLAN OF CARE MS floor airborne isolation empiric abx as per ID BCX 04/02 GPC SCX negative O2 HHN PRN PPD antitussive PRN CXR, CT chest and CT neck noted. AFB x3, induced sputum as needed MTB PCR, TB spot fungal serology RPR, GC/CL, PCP by DFA CD4-41, c/w AIDS, VL pending start IVF a/emetic oprn replace Mg, check Mg in am dietary eval biopsy of skin lesion pending replace electrolytes as needed monitor counts Addendum: tachycardia up to 140, will transfer to tele case discussed and evaluated by supervising physician Subjective Allergies: Coded Allergies: No Known Allergies (Unverified , 01/20/19) Subjective low grade fever last night, currently afebrile +dry cough +SOB +gen weakness Objective Last 24 Hour Vital Signs Date Time Temp Pulse Resp B/P (MAP) Pulse Ox O2 Delivery O2 Flow Rate FiO2 01/22/19 08:00 99.3 134 18 124/73 (90) 98 01/22/19 04:30 99.0 118 20 127/63 (84) 98 01/22/19 00:00 98.6 137 20 118/69 (85) 98 01/21/19 21:00 Room Air 01/21/19 20:00 100.2 122 20 131/65 (87) 95 01/21/19 16:00 97.0 123 20 127/72 (90) 97 01/21/19 12:00 99.7 111 20 112/66 (81) 97 Intake and Output 01/21/19 01/22/19 19:00 07:00 Intake Total 700 ml 750 ml Balance 700 ml 750 ml Intake Oral 700 ml 750 ml # Voids 4 4 General Appearance: no acute distress HEENT: normocephalic, atraumatic, anicteric, mucous membranes moist Respiratory/Chest: lungs clear, no respiratory distress, no accessory muscle use Cardiovascular: normal peripheral pulses, normal rate, no JVD Abdomen: normal bowel sounds, soft, non tender, non distended Extremities: no edema, pedal pulses normal Skin: other - The right leg at the lateral side of the calf, he has pigmented red lesion, hard Neurologic/Psychiatric: no motor/sensory deficits, alert, oriented x 3, responsive Musculoskeletal: normal muscle bulk Microbiology Date/Time Source Procedure Growth Status 01/20/19 20:00 Blood Blood Culture - Preliminary Resulted 01/20/19 19:50 Blood Blood Culture - Preliminary NO GROWTH AFTER 24 HOURS Resulted 01/21/19 08:30 Sputum Induced Gram Stain Pending Resulted 01/21/19 08:30 Sputum Induced Sputum Culture - Preliminary NORMAL UPPER RESPIRATORY WILFRIDO PRESENT Resulted 01/20/19 19:50 Nasal Nares - Final Complete 01/20/19 19:50 Nasal Nares - Final Complete Laboratory Tests 01/21/19 18:30: White Blood Count 3.0L, Red Blood Count 3.48L, Hemoglobin 10.1L, Hematocrit 28.9L, Mean Corpuscular Volume 83, Mean Corpuscular Hemoglobin 28.9, Mean Corpuscular Hemoglobin Concent 34.8, Red Cell Distribution Width 13.5, Platelet Count 29L, Mean Platelet Volume 9.8, Neutrophils (%) (Auto) , Lymphocytes (%) ( Auto) , Monocytes (%) (Auto) , Eosinophils (%) (Auto) , Basophils (%) (Auto) , Differential Total Cells Counted 100, Neutrophils % (Manual) 38L, Lymphocytes % (Manual) 6L, Monocytes % (Manual) 16H, Eosinophils % (Manual) 0, Basophils % ( Manual) 0, Band Neutrophils 0, Platelet Estimate DecreasedL, Platelet Morphology Normal, Giant Platelets Occasional, Anisocytosis 1+, Lactate Dehydrogenase 153, Carcinoembryonic Antigen [Pending], Blastomyces Ab Immunodiffusion [Pending], Cryptococcus Antigen [Pending], Histoplasma Mycelial Antibody [Pending], Histoplasma Antibody w Mycelial Ag [Pending], Histoplasma Antibody with Yeast Ag [Pending] 01/22/19 06:00: Erythrocyte Sedimentation Rate [Pending], C-Reactive Protein, Quantitative 19.4H , Rapid Plasma Reagin [Pending], Coccidioides Antibody (Comp Fix) [Pending], Cytomegalovirus DNA Qual (PCR) [Pending], Cassie-Melgar DNA Quant copies/mL [ Pending], Cassie-Melgar Quant PCR Plasma log10 [Pending], HIV-1 RNA, Quantitative copies/mL [Pending], HIV-1 RNA (PCR) log10 Value [Pending], HIV-1 RNA Ultraquantitative (PCR) [Pending], HIV Genotype [Pending] Current Medications Medications (Trade) Dose Ordered Sig/Jeff Route PRN Reason Start Time Stop Time Status Last Admin Dose Admin Acetaminophen (Tylenol) 650 mg Q6H PRN ORAL Mild Pain/Temp > 100.5 01/21/19 05:45 02/20/19 05:44 01/22/19 01:27 Ceftriaxone Sodium 1 gm/ Dextrose 55 ml @ 110 mls/hr Q24H IVPB 01/21/19 09:00 01/28/19 08:59 01/22/19 08:45 Doxycycline Monohydrate (Doxycycline Monohydrate) 100 mg EVERY 12 HOURS ORAL 01/22/19 09:00 01/29/19 08:59 01/22/19 08:45 Guaifenesin/ Dextromethorphan (Robitussin DM Syrup) 10 ml Q6HR PRN ORAL For Cough 01/21/19 22:30 02/20/19 22:29 01/22/19 08:45 Iohexol (OMNIPAQUE-300 100ml) 100 ml NOW PRN INJ Radiology Procedure 01/20/19 21:00 01/22/19 20:50 Lidocaine HCl (Xylocaine 1% 30ml) 30 ml NOW PRN INJ Radiology Procedure 01/21/19 18:00 01/23/19 17:57 Lidocaine/ Epinephrine (Lidocaine 1% 10mg/ml/Epi 0.005mg/ml 30ml vial) 30 ml NEEDED PRN INJ FOR BIOPSY 01/21/19 17:15 01/23/19 17:14 Ondansetron HCl (Zofran) 4 mg Q4H PRN IVP Nausea & Vomiting 01/21/19 05:45 02/20/19 05:44 01/22/19 07:08 Janae Wu NP Jan 22, 2019 09:44
[2019-01-22 12:00] VITALS: BP 114/75
--- NOTE | 2019-01-22 12:03 | Infectious Diseases Prog Note ---
Assessment/Plan Assessment/Plan Assessment: Sepsis Pneumonia- r/o TB Diffuse lymphadenopathy/splenomegaly/hepatomegaly - DDx: TB, lymphoma, HIV/AIDS related, [place]man disease -CT neck: : Extensive cervical and supraclavicular lymphadenopathy, as described. Could be reactive or infectious, possibly related to stated clinical history of recent HIV diagnosis. However, the possibility of lymphoproliferative disorder should also be considered. Mild adenoidal and right tonsillar pillar prominence, if real possibly related to the above. Incidental finding right maxillary sinus disease. -CT c/ab/p: Massive splenomegaly. Hepatomegaly. Extensive lymphadenopathy, involving the bilateral inguinal regions, bilateral iliac chains, retroaortic and retrocaval region, peripancreatic and lesser sac regions, bilateral axillae , bilateral cervical and supraclavicular regions, and the mediastinum. This may reflect infectious or inflammatory lymphadenopathy, particularly in view of recent diagnosis of HIV positivity, or could indicate a lymphoproliferative disorder. 4 x 3 x 2.8 cm aggregate cluster of masslike opacities in the right lower lobe. This could most likely represents an area of infiltrate, but could conceivably represent cluster of small masses. Nonspecific small irregular opacities in the left lower lobe, may reflect early infiltrates. Gram positive bacteremia- real vs contaminant -01/20 Bcx 1/ GPC clusters New diagnosis of HIV/ AIDS -HIV ab sc preliminary positive -CD4 41 (2.7%) Fever pancytopenia R leg skin lesion- suspicious for Kaposi Plan: -Continue empiric Ceftriaxone #2 and PO Doxycycline #2 -01/21 SP Azithromycin #1 -01/20 SP Zosyn x1, Bactrim x1 -Airborne isolation: AFB sputum x3, MTB PCR -biopsy of Leg skin lesion as well as core biopsy cervical lymph node -send lymph node for culture (bacterial, fungal, AFB, MTB PCR) and path -f/u Cocci, CrAg, RPR, GC/CL, TB spot, AFB sp cx, ESR, CRP, HIV VL, fungitell, histoplasma ag and ab, Blasto ab, PCP DFA -f/u cx -Monitor CBC/CMP, temperatures -Repeat Bcx x2 -Heme onc c/s Thank you for this consultation. Will continue to follow along with you. Discussed with RN Subjective Allergies: Coded Allergies: No Known Allergies (Unverified , 01/20/19) Subjective Tm 100.2 bacteremic at RA Objective Vital Signs Last 24 Hour Vital Signs Date Time Temp Pulse Resp B/P (MAP) Pulse Ox O2 Delivery O2 Flow Rate FiO2 01/22/19 09:00 Room Air 01/22/19 08:00 99.3 134 18 124/73 (90) 98 01/22/19 04:30 99.0 118 20 127/63 (84) 98 01/22/19 00:00 98.6 137 20 118/69 (85) 98 01/21/19 21:00 Room Air 01/21/19 20:00 100.2 122 20 131/65 (87) 95 01/21/19 16:00 97.0 123 20 127/72 (90) 97 01/21/19 12:00 99.7 111 20 112/66 (81) 97 Height (Feet): 5 Height (Inches): 10.00 Weight (Pounds): 150 Objective GENERAL: The patient appeared to be a well-developed, well-nourished, 28-year-old male, in no acute distress. HEENT: Head is normocephalic and atraumatic. Eyes, pupils are equal, round, and reactive to light. Mouth is clear. NECK: He has adenopathy on the posterior chain of the neck especially on the left side. CHEST: Breath sounds are reduced. HEART: Rate is tachycardic. ABDOMEN: Soft, flat, nontender. There is no palpable organomegaly. EXTREMITIES: The right leg at the lateral side of the calf, he has elevated skin lesion about 1.5 x 1 inch, rough, pigmented, hard. Microbiology Date/Time Source Procedure Growth Status 01/20/19 20:00 Blood Blood Culture - Preliminary Resulted 01/20/19 19:50 Blood Blood Culture - Preliminary NO GROWTH AFTER 24 HOURS Resulted 01/21/19 08:30 Sputum Induced Gram Stain Pending Resulted 01/21/19 08:30 Sputum Induced Sputum Culture - Preliminary NORMAL UPPER RESPIRATORY WILFRIDO PRESENT Resulted 01/20/19 19:50 Nasal Nares - Final Complete 01/20/19 19:50 Nasal Nares - Final Complete Laboratory Tests Test 01/21/19 18:30 01/22/19 06:00 White Blood Count 3.0 K/UL (4.8-10.8) L Red Blood Count 3.48 M/UL (4.70-6.10) L Hemoglobin 10.1 G/DL (14.2-18.0) L Hematocrit 28.9 % (42.0-52.0) L Mean Corpuscular Volume 83 FL (80-99) Mean Corpuscular Hemoglobin 28.9 PG (27.0-31.0) Mean Corpuscular Hemoglobin Concent 34.8 G/DL (32.0-36.0) Red Cell Distribution Width 13.5 % (11.6-14.8) Platelet Count 29 K/UL (150-450) L Mean Platelet Volume 9.8 FL (6.5-10.1) Neutrophils (%) (Auto) % (45.0-75.0) Lymphocytes (%) (Auto) % (20.0-45.0) Monocytes (%) (Auto) % (1.0-10.0) Eosinophils (%) (Auto) % (0.0-3.0) Basophils (%) (Auto) % (0.0-2.0) Differential Total Cells Counted 100 Neutrophils % (Manual) 38 % (45-75) L Lymphocytes % (Manual) 6 % (20-45) L Monocytes % (Manual) 16 % (1-10) H Eosinophils % (Manual) 0 % (0-3) Basophils % (Manual) 0 % (0-2) Band Neutrophils 0 % (0-8) Platelet Estimate Decreased L Platelet Morphology Normal Giant Platelets Occasional Anisocytosis 1+ Lactate Dehydrogenase 153 U/L (81-234) Carcinoembryonic Antigen Pending Blastomyces Ab Immunodiffusion Pending Cryptococcus Antigen Pending Histoplasma Mycelial Antibody Pending Histoplasma Antibody w Mycelial Ag Pending Histoplasma Antibody with Yeast Ag Pending Erythrocyte Sedimentation Rate 105 MM/HR (0-15) H C-Reactive Protein, Quantitative 19.4 mg/dL (0.00-0.90) H Rapid Plasma Reagin Pending Coccidioides Antibody (Comp Fix) Pending Cytomegalovirus DNA Qual (PCR) Pending Cassie-Melgar DNA Quant copies/mL Pending Cassie-Melgar Quant PCR Plasma log10 Pending HIV-1 RNA, Quantitative copies/mL Pending HIV-1 RNA (PCR) log10 Value Pending HIV-1 RNA Ultraquantitative (PCR) Pending HIV Genotype Pending Current Medications Medications (Trade) Dose Ordered Sig/Jeff Route PRN Reason Start Time Stop Time Status Last Admin Dose Admin Acetaminophen (Tylenol) 650 mg Q6H PRN ORAL Mild Pain/Temp > 100.5 01/21/19 05:45 02/20/19 05:44 01/22/19 11:33 Albuterol/ Ipratropium (Albuterol/ Ipratropium) 3 ml Q4H PRN HHN Shortness of Breath 01/22/19 11:30 01/27/19 11:29 Ceftriaxone Sodium 1 gm/ Dextrose 55 ml @ 110 mls/hr Q24H IVPB 01/21/19 09:00 01/28/19 08:59 01/22/19 08:45 Doxycycline Monohydrate (Doxycycline Monohydrate) 100 mg EVERY 12 HOURS ORAL 01/22/19 09:00 01/29/19 08:59 01/22/19 08:45 Guaifenesin/ Dextromethorphan (Robitussin DM Syrup) 10 ml Q6HR PRN ORAL For Cough 01/21/19 22:30 02/20/19 22:29 01/22/19 08:45 Iohexol (OMNIPAQUE-300 100ml) 100 ml NOW PRN INJ Radiology Procedure 01/20/19 21:00 01/22/19 20:50 Lidocaine HCl (Xylocaine 1% 30ml) 30 ml NOW PRN INJ Radiology Procedure 01/21/19 18:00 01/23/19 17:57 Lidocaine/ Epinephrine (Lidocaine 1% 10mg/ml/Epi 0.005mg/ml 30ml vial) 30 ml NEEDED PRN INJ FOR BIOPSY 01/21/19 17:15 01/23/19 17:14 Magnesium Sulfate 100 ml @ 100 mls/hr Q1H IVPB 01/22/19 12:30 01/22/19 14:29 Ondansetron HCl (Zofran) 4 mg Q4H PRN IVP Nausea & Vomiting 01/21/19 05:45 02/20/19 05:44 01/22/19 07:08 Potassium Chloride 10 meq/ Dextrose/Sodium Chloride 1,005 ml @ 75 mls/hr [id number] IV 01/22/19 13:00 02/21/19 12:59 Ana Rosa Sam M.D. Jan 22, 2019 12:03
--- NOTE | 2019-01-22 12:12 | Consultation ---
History of Present Illness General Chief Complaint: Flu Like Symptoms Present Illness Allergies: Coded Allergies: No Known Allergies (Unverified , 01/20/19) Medication History No Active Prescriptions or Reported Meds Patient History Healthcare decision maker Resuscitation status Full Code Advanced Directive on File No Physical Exam Last 24 Hour Vital Signs Date Time Temp Pulse Resp B/P (MAP) Pulse Ox O2 Delivery O2 Flow Rate FiO2 01/22/19 09:00 Room Air 01/22/19 08:00 99.3 134 18 124/73 (90) 98 01/22/19 04:30 99.0 118 20 127/63 (84) 98 01/22/19 00:00 98.6 137 20 118/69 (85) 98 01/21/19 21:00 Room Air 01/21/19 20:00 100.2 122 20 131/65 (87) 95 01/21/19 16:00 97.0 123 20 127/72 (90) 97 Intake and Output 01/21/19 01/22/19 19:00 07:00 Intake Total 700 ml 750 ml Balance 700 ml 750 ml Intake Oral 700 ml 750 ml # Voids 4 4 Laboratory Tests Test 01/21/19 18:30 01/22/19 06:00 White Blood Count 3.0 K/UL (4.8-10.8) L Red Blood Count 3.48 M/UL (4.70-6.10) L Hemoglobin 10.1 G/DL (14.2-18.0) L Hematocrit 28.9 % (42.0-52.0) L Mean Corpuscular Volume 83 FL (80-99) Mean Corpuscular Hemoglobin 28.9 PG (27.0-31.0) Mean Corpuscular Hemoglobin Concent 34.8 G/DL (32.0-36.0) Red Cell Distribution Width 13.5 % (11.6-14.8) Platelet Count 29 K/UL (150-450) L Mean Platelet Volume 9.8 FL (6.5-10.1) Neutrophils (%) (Auto) % (45.0-75.0) Lymphocytes (%) (Auto) % (20.0-45.0) Monocytes (%) (Auto) % (1.0-10.0) Eosinophils (%) (Auto) % (0.0-3.0) Basophils (%) (Auto) % (0.0-2.0) Differential Total Cells Counted 100 Neutrophils % (Manual) 38 % (45-75) L Lymphocytes % (Manual) 6 % (20-45) L Monocytes % (Manual) 16 % (1-10) H Eosinophils % (Manual) 0 % (0-3) Basophils % (Manual) 0 % (0-2) Band Neutrophils 0 % (0-8) Platelet Estimate Decreased L Platelet Morphology Normal Giant Platelets Occasional Anisocytosis 1+ Lactate Dehydrogenase 153 U/L (81-234) Carcinoembryonic Antigen Pending Blastomyces Ab Immunodiffusion Pending Cryptococcus Antigen Pending Histoplasma Mycelial Antibody Pending Histoplasma Antibody w Mycelial Ag Pending Histoplasma Antibody with Yeast Ag Pending Erythrocyte Sedimentation Rate 105 MM/HR (0-15) H C-Reactive Protein, Quantitative 19.4 mg/dL (0.00-0.90) H Rapid Plasma Reagin Pending Coccidioides Antibody (Comp Fix) Pending Cytomegalovirus DNA Qual (PCR) Pending Cassie-Melgar DNA Quant copies/mL Pending Cassie-Melgar Quant PCR Plasma log10 Pending HIV-1 RNA, Quantitative copies/mL Pending HIV-1 RNA (PCR) log10 Value Pending HIV-1 RNA Ultraquantitative (PCR) Pending HIV Genotype Pending Height (Feet): 5 Height (Inches): 10.00 Weight (Pounds): 150 Medications Current Medications Medications (Trade) Dose Ordered Sig/Jeff Route PRN Reason Start Time Stop Time Status Last Admin Dose Admin Acetaminophen (Tylenol) 650 mg Q6H PRN ORAL Mild Pain/Temp > 100.5 01/21/19 05:45 02/20/19 05:44 01/22/19 11:33 Albuterol/ Ipratropium (Albuterol/ Ipratropium) 3 ml Q4H PRN HHN Shortness of Breath 01/22/19 11:30 01/27/19 11:29 Ceftriaxone Sodium 1 gm/ Dextrose 55 ml @ 110 mls/hr Q24H IVPB 01/21/19 09:00 01/28/19 08:59 01/22/19 08:45 Doxycycline Monohydrate (Doxycycline Monohydrate) 100 mg EVERY 12 HOURS ORAL 01/22/19 09:00 01/29/19 08:59 01/22/19 08:45 Guaifenesin/ Dextromethorphan (Robitussin DM Syrup) 10 ml Q6HR PRN ORAL For Cough 01/21/19 22:30 02/20/19 22:29 01/22/19 08:45 Iohexol (OMNIPAQUE-300 100ml) 100 ml NOW PRN INJ Radiology Procedure 01/20/19 21:00 01/22/19 20:50 Lidocaine HCl (Xylocaine 1% 30ml) 30 ml NOW PRN INJ Radiology Procedure 01/21/19 18:00 01/23/19 17:57 Lidocaine/ Epinephrine (Lidocaine 1% 10mg/ml/Epi 0.005mg/ml 30ml vial) 30 ml NEEDED PRN INJ FOR BIOPSY 01/21/19 17:15 01/23/19 17:14 Magnesium Sulfate 100 ml @ 100 mls/hr Q1H IVPB 01/22/19 12:30 01/22/19 14:29 01/22/19 12:04 Ondansetron HCl (Zofran) 4 mg Q4H PRN IVP Nausea & Vomiting 01/21/19 05:45 02/20/19 05:44 01/22/19 07:08 Potassium Chloride 10 meq/ Dextrose/Sodium Chloride 1,005 ml @ 75 mls/hr [id number] IV 01/22/19 13:00 02/21/19 12:59 Assessment/Plan Assessment/Plan: Consulted -- New Dx AIDS, diffuse LAD, hepatosplenomegaly,pancytopenia, 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 Damaso Ventura MD Jan 22, 2019 12:12
[2019-01-22] MEDS: Potassium Chloride 10 MEQ in D5 1/2NS 1,000 ML IV SCH (13:08)
[2019-01-22 13:25] LABS: FERRITIN 1239 NG/ML (8-388)
[2019-01-22 14:13] LABS: % IRON SATURATION 9 % (15-50); IRON 15 ug/dL (50-175); TOTAL IRON BINDING CAPACITY 175 ug/dL (250-450)
[2019-01-22 16:00] VITALS: BP 119/69
--- NOTE | 2019-01-22 16:54 | Internal Med Progress Note ---
Subjective Date of Service: Jan 22, 2019 Physician Name Abhijeet Uriostegui Attending Physician Akil Barron MD Current Medications Medications (Trade) Dose Ordered Sig/Jeff Route PRN Reason Start Time Stop Time Status Last Admin Dose Admin Acetaminophen (Tylenol) 650 mg Q6H PRN ORAL Mild Pain/Temp > 100.5 01/21/19 05:45 02/20/19 05:44 01/22/19 11:33 Albuterol/ Ipratropium (Albuterol/ Ipratropium) 3 ml Q4H PRN HHN Shortness of Breath 01/22/19 11:30 01/27/19 11:29 Ceftriaxone Sodium 1 gm/ Dextrose 55 ml @ 110 mls/hr Q24H IVPB 01/21/19 09:00 01/28/19 08:59 01/22/19 08:45 Doxycycline Monohydrate (Doxycycline Monohydrate) 100 mg EVERY 12 HOURS ORAL 01/22/19 09:00 01/29/19 08:59 01/22/19 08:45 Guaifenesin/ Dextromethorphan (Robitussin DM Syrup) 10 ml Q6HR PRN ORAL For Cough 01/21/19 22:30 02/20/19 22:29 01/22/19 08:45 Iohexol (OMNIPAQUE-300 100ml) 100 ml NOW PRN INJ Radiology Procedure 01/20/19 21:00 01/22/19 20:50 Lidocaine HCl (Xylocaine 1% 30ml) 30 ml NOW PRN INJ Radiology Procedure 01/21/19 18:00 01/23/19 17:57 Lidocaine/ Epinephrine (Lidocaine 1% 10mg/ml/Epi 0.005mg/ml 30ml vial) 30 ml NEEDED PRN INJ FOR BIOPSY 01/21/19 17:15 01/23/19 17:14 Ondansetron HCl (Zofran) 4 mg Q4H PRN IVP Nausea & Vomiting 01/21/19 05:45 02/20/19 05:44 01/22/19 07:08 Potassium Chloride 10 meq/ Dextrose/Sodium Chloride 1,005 ml @ 75 mls/hr [id number] IV 01/22/19 13:00 02/21/19 12:59 01/22/19 13:08 Allergies: Coded Allergies: No Known Allergies (Unverified , 01/20/19) ROS Limited/Unobtainable: No Constitutional: Reports: no symptoms HEENT: Reports: no symptoms Cardiovascular: Reports: no symptoms Respiratory: Reports: cough Gastrointestinal/Abdominal: Reports: no symptoms Genitourinary: Reports: no symptoms Neurologic/Psychiatric: Reports: no symptoms Subjective 28 YO M admitted with cough. Now new dx HIV, lymphadenopathy and pneumonia. Cover for Int Med- Dr Barron. [facility] Objective Last Vital Signs Date Time Temp Pulse Resp B/P (MAP) Pulse Ox O2 Delivery O2 Flow Rate FiO2 01/22/19 12:03 98.4 01/22/19 12:00 137 18 114/75 (88) 97 01/22/19 09:00 Room Air Laboratory Tests Test 01/21/19 18:30 01/22/19 06:00 01/22/19 15:00 White Blood Count 3.0 K/UL (4.8-10.8) L Red Blood Count 3.48 M/UL (4.70-6.10) L Hemoglobin 10.1 G/DL (14.2-18.0) L Hematocrit 28.9 % (42.0-52.0) L Mean Corpuscular Volume 83 FL (80-99) Mean Corpuscular Hemoglobin 28.9 PG (27.0-31.0) Mean Corpuscular Hemoglobin Concent 34.8 G/DL (32.0-36.0) Red Cell Distribution Width 13.5 % (11.6-14.8) Platelet Count 29 K/UL (150-450) L Mean Platelet Volume 9.8 FL (6.5-10.1) Neutrophils (%) (Auto) % (45.0-75.0) Lymphocytes (%) (Auto) % (20.0-45.0) Monocytes (%) (Auto) % (1.0-10.0) Eosinophils (%) (Auto) % (0.0-3.0) Basophils (%) (Auto) % (0.0-2.0) Differential Total Cells Counted 100 Neutrophils % (Manual) 38 % (45-75) L Lymphocytes % (Manual) 6 % (20-45) L Monocytes % (Manual) 16 % (1-10) H Eosinophils % (Manual) 0 % (0-3) Basophils % (Manual) 0 % (0-2) Band Neutrophils 0 % (0-8) Platelet Estimate Decreased L Platelet Morphology Normal Giant Platelets Occasional Anisocytosis 1+ Lactate Dehydrogenase 153 U/L (81-234) Carcinoembryonic Antigen Pending Blastomyces Ab Immunodiffusion Pending Cryptococcus Antigen Pending Histoplasma Mycelial Antibody Pending Histoplasma Antibody w Mycelial Ag Pending Histoplasma Antibody with Yeast Ag Pending Erythrocyte Sedimentation Rate 105 MM/HR (0-15) H Reticulocyte Count 1.6 % (0.5-2.0) Iron Level 15 ug/dL (50-175) L Total Iron Binding Capacity 175 ug/dL (250-450) L Percent Iron Saturation 9 % (15-50) L Unsaturated Iron Binding 160 ug/dL (112-346) Ferritin 1239 NG/ML (8-388) H C-Reactive Protein, Quantitative 19.4 mg/dL (0.00-0.90) H Vitamin B12 Level 310 PG/ML (193-986) Rapid Plasma Reagin Pending Coccidioides Antibody (Comp Fix) Pending Cytomegalovirus DNA Qual (PCR) Pending Cassie-Melgar DNA Quant copies/mL Pending Cassie-Melgar Quant PCR Plasma log10 Pending HIV-1 RNA, Quantitative copies/mL Pending HIV-1 RNA (PCR) log10 Value Pending HIV-1 RNA Ultraquantitative (PCR) Pending HIV Genotype Pending Beta-(1,3)-D-Glucan Pending Microbiology Date/Time Source Procedure Growth Status 01/20/19 20:00 Blood Blood Culture - Preliminary Resulted 01/20/19 19:50 Blood Blood Culture - Preliminary NO GROWTH AFTER 24 HOURS Resulted 01/21/19 16:30 Sputum AFB Specimen Processing Tissue - Final Resulted 01/21/19 16:30 Sputum Acid Fast Bacilli Smear - Final Resulted 01/21/19 16:30 Sputum Acid Fast Bacilli Culture Pending Resulted 01/21/19 08:30 Sputum Induced Gram Stain - Final Resulted 01/21/19 08:30 Sputum Induced Sputum Culture - Preliminary NORMAL UPPER RESPIRATORY WILFRIDO PRESENT Resulted 01/20/19 19:50 Nasal Nares - Final Complete 01/20/19 19:50 Nasal Nares - Final Complete Intake and Output 01/21/19 01/22/19 19:00 07:00 Intake Total 700 ml 750 ml Balance 700 ml 750 ml Intake Oral 700 ml 750 ml # Voids 4 4 Objective PHYSICAL EXAMINATION: GENERAL: The patient is awake and responsive, in no acute distress. HEAD AND NECK: Pupils are reactive to light. Extraocular movements intact. Neck was supple. No JVD. LUNGS: Good air entry. No wheezing or rales. HEART: Reveals S1, S2. Regular rhythm. No gallops. ABDOMEN: Soft, nondistended, and nontender. Positive bowel sounds. EXTREMITIES: No cyanosis, clubbing, edema NEUROLOGIC: Cranial nerves II through XII grossly intact. Motor is 5/5 in all extremities. Gait is intact. RECTAL/GENITOURINARY: Refused and deferred. PSYCHIATRIC: Mood and affect is intact. LYMPH NODES: Showed the patient has a positive lymphadenopathy in the cervical lymph node in the neck as well as in the pelvic area. Assessment/Plan Assessment/Plan ASSESSMENT: 1. Generalized lymphadenopathy. 2. New diagnosis of human immunodeficiency virus. 3. Right Lung infiltrate, possible pneumonia versus tuberculosis. 4. Splenomegaly. 5. LEO. 6. Hepatomegaly. 7. Thrombocytopenia. 8. Right leg skin lesion-suspicious for Kaposi PLAN: 1. Admit the patient to respiratory isolation. 2. Follow up with the AFB x3. 3. Discussed case with Dr. Terrell from Pulmonary Critical Care and Infectious Disease consultation. 4. Follow up with the infection workup. 5. Code status is Full code. 6. DVT prophylaxis with heparin subcutaneous. 7. We will discuss with the mother extensively at the bedside. 8. The patient at this time does not want the mother or any family member informed about the human immunodeficiency virus status 9. ABX=ceftriaxone and doxycycline Abhijeet Uriostegui MD Jan 22, 2019 16:54
[2019-01-22] MEDS: Albuterol/Ipratropium 3ml neb HHN PRN (19:42)
[2019-01-22 20:00] VITALS: BP 135/78
[2019-01-23] VITALS: BP 123/75
[2019-01-23] MEDS: Guaifenesin/DM 10ml syrup ORAL PRN ×4 (00:30→21:04)
[2019-01-23] MEDS ORDERED: D5 1/2NS w/KCL 10meq 1,000 ML IV ONE (02:24)
[2019-01-23] MEDS: Potassium Chloride 10 MEQ in D5 1/2NS 1,000 ML IV SCH ×3 (02:28→22:55)
[2019-01-23 04:00] VITALS: BP 130/70
[2019-01-23 06:47] LABS: HEMATOCRIT 26.7 % (42.0-52.0); HEMOGLOBIN 9.2 G/DL (14.2-18.0); MEAN CORPUSCULAR VOLUME 81 FL (80-99); PLATELET COUNT 35 K/UL (150-450); RED BLOOD COUNT 3.29 M/UL (4.70-6.10); RED CELL DISTRIBUTION WIDTH 14.2 % (11.6-14.8); WHITE BLOOD COUNT 3.6 K/UL (4.8-10.8)
[2019-01-23 07:17] LABS: ANION GAP 8 mmol/L (5-15); BLOOD UREA NITROGEN 8 mg/dL (7-18); CARBON DIOXIDE 26 MMOL/L (21-32); CHLORIDE 99 MMOL/L (98-107); CREATININE 0.6 MG/DL (0.55-1.30); POTASSIUM 3.7 MMOL/L (3.5-5.1); SODIUM 133 MMOL/L (136-145)
--- NOTE | 2019-01-23 07:40 | Pulmonology Progress Note ---
Assessment/Plan Assessment/Plan ASSESSMENT Sepsis Pneumonia, rule out TB HIV, newly diagnosed, - AIDS/CD4-41 Pancytopenia Electrolyte abnormalities: hypo K, hypo Mg Lymphadenopathy Right LE skin lesion r/o Kaposi's sarcoma tachycardia, probably at least partially due to dehydration PLAN OF CARE [facility] IVF, increase rate airborne isolation abx as per ID BCX 04/02 GPC SCX negative O2 HHN PRN PPD to be read antitussive PRN CXR, CT chest and CT neck noted. 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 now on case case discussed and evaluated by supervising physician Subjective Allergies: Coded Allergies: No Known Allergies (Unverified , 01/20/19) Subjective transferred to [facility] yesterday due to tachycardia fever yesterday at noon, currently afebrile +dry cough +SOB +gen weakness + episode of emesis earlier this am, Objective Last 24 Hour Vital Signs Date Time Temp Pulse Resp B/P (MAP) Pulse Ox O2 Delivery O2 Flow Rate FiO2 01/23/19 04:00 120 01/23/19 04:00 97.8 113 20 130/70 (90) 99 01/23/19 00:00 97.6 130 21 123/75 (91) 99 01/23/19 00:00 118 01/22/19 21:00 Room Air 01/22/19 20:00 98.3 121 20 135/78 (97) 99 01/22/19 20:00 124 01/22/19 18:27 141 21 99 Room Air 21 01/22/19 16:00 118 01/22/19 16:00 98.4 121 21 119/69 (86) 100 01/22/19 12:03 98.4 01/22/19 12:00 101.0 137 18 114/75 (88) 97 01/22/19 09:00 Room Air 01/22/19 08:00 99.3 134 18 124/73 (90) 98 Intake and Output 01/22/19 01/23/19 19:00 07:00 Intake Total 780 ml 675 ml Output Total 50 ml 20 ml Balance 730 ml 655 ml Intake Oral 480 ml IV Total 300 ml 675 ml Emesis 50 ml 20 ml Objective General Appearance: no acute distress, depressed HEENT: normocephalic, atraumatic, anicteric, mucous membranes moist Respiratory/Chest: lungs clear, no respiratory distress, no accessory muscle use Cardiovascular: normal peripheral pulses, tachy, ST on tele, no JVD Abdomen: normal bowel sounds, soft, non tender, non distended Extremities: no edema, pedal pulses normal Skin: right leg at the lateral side of the calf pigmented red lesion, hard Neurologic/Psychiatric: no motor/sensory deficits, alert, oriented x 3, responsive Musculoskeletal: normal muscle bulk Microbiology Date/Time Source Procedure Growth Status 01/20/19 20:00 Blood Blood Culture - Preliminary Staphylococcus Sp Coag Neg Resulted 01/20/19 19:50 Blood Blood Culture - Preliminary Resulted 01/21/19 16:30 Sputum AFB Specimen Processing Tissue - Final Resulted 01/21/19 16:30 Sputum Acid Fast Bacilli Smear - Final Resulted 01/21/19 16:30 Sputum Acid Fast Bacilli Culture Pending Resulted 01/21/19 08:30 Sputum Induced Gram Stain - Final Resulted 01/21/19 08:30 Sputum Induced Sputum Culture - Preliminary NORMAL UPPER RESPIRATORY WILFRIDO PRESENT Resulted 01/20/19 19:50 Nasal Nares - Final Complete 01/20/19 19:50 Nasal Nares - Final Complete Laboratory Tests 01/22/19 15:00: Beta-(1,3)-D-Glucan [Pending] 01/23/19 04:42: White Blood Count 3.6L, Red Blood Count 3.29L, Hemoglobin 9.2L, Hematocrit 26.7L , Mean Corpuscular Volume 81, Mean Corpuscular Hemoglobin 28.1, Mean Corpuscular Hemoglobin Concent 34.5, Red Cell Distribution Width 14.2, Platelet Count 35L, Mean Platelet Volume 10.2H, Neutrophils (%) (Auto) , Lymphocytes (%) (Auto) , Monocytes (%) (Auto) , Eosinophils (%) (Auto) , Basophils (%) (Auto) , Neutrophils % (Manual) [Pending], Lymphocytes % (Manual) [Pending], Platelet Estimate [Pending], Platelet Morphology [Pending], Sodium Level 133L, Potassium Level 3.7, Chloride Level 99, Carbon Dioxide Level 26, Anion Gap 8, Blood Urea Nitrogen 8, Creatinine 0.6, Estimat Glomerular Filtration Rate > 60, Glucose Level 123H, Calcium Level 8.0L, Magnesium Level 1.6L Current Medications Medications (Trade) Dose Ordered Sig/Jeff Route PRN Reason Start Time Stop Time Status Last Admin Dose Admin Acetaminophen (Tylenol) 650 mg Q6H PRN ORAL Mild Pain/Temp > 100.5 01/21/19 05:45 02/20/19 05:44 01/22/19 17:54 Albuterol/ Ipratropium (Albuterol/ Ipratropium) 3 ml Q4H PRN HHN Shortness of Breath 01/22/19 11:30 01/27/19 11:29 01/22/19 19:42 Ceftriaxone Sodium 1 gm/ Dextrose 55 ml @ 110 mls/hr Q24H IVPB 01/21/19 09:00 01/28/19 08:59 01/22/19 08:45 Doxycycline Monohydrate (Doxycycline Monohydrate) 100 mg EVERY 12 HOURS ORAL 01/22/19 09:00 01/29/19 08:59 01/22/19 21:39 Guaifenesin/ Dextromethorphan (Robitussin DM Syrup) 10 ml Q6HR PRN ORAL For Cough 01/21/19 22:30 02/20/19 22:29 01/23/19 00:30 Lidocaine HCl (Xylocaine 1% 30ml) 30 ml NOW PRN INJ Radiology Procedure 01/21/19 18:00 01/23/19 17:57 Lidocaine/ Epinephrine (Lidocaine 1% 10mg/ml/Epi 0.005mg/ml 30ml vial) 30 ml NEEDED PRN INJ FOR BIOPSY 01/21/19 17:15 01/23/19 17:14 Ondansetron HCl (Zofran) 4 mg Q4H PRN IVP Nausea & Vomiting 01/21/19 05:45 02/20/19 05:44 01/23/19 03:39 Potassium Chloride 10 meq/ Dextrose/Sodium Chloride 1,005 ml @ 75 mls/hr [id number] IV 01/22/19 13:00 02/21/19 12:59 01/23/19 02:28 Janae Wu NP Jan 23, 2019 07:40
[2019-01-23 08:00] VITALS: BP 126/77
[2019-01-23] MEDS: Doxycycline Monohydrate 100mg ORAL SCH ×2 (08:46→21:03)
[2019-01-23] MEDS: cefTRIAXone 1 GM in D5W 55 ML IVPB SCH (08:46)
[2019-01-23] MEDS: Albuterol/Ipratropium 3ml neb HHN PRN (09:59)
[2019-01-23 12:00] VITALS: BP 122/71
[2019-01-23] MEDS ORDERED: NS 275ml ONE (13:29)
[2019-01-23] MEDS ORDERED: Tubing IV Secondary IV ONE (13:29)
[2019-01-23 16:00] VITALS: BP 125/60
--- NOTE | 2019-01-23 16:46 | Internal Med Progress Note ---
Subjective Date of Service: Jan 23, 2019 Physician Name Abhijeet Uriostegui Attending Physician Akil Barron MD Current Medications Medications (Trade) Dose Ordered Sig/Jeff Route PRN Reason Start Time Stop Time Status Last Admin Dose Admin Acetaminophen (Tylenol) 650 mg Q6H PRN ORAL Mild Pain/Temp > 100.5 01/21/19 05:45 02/20/19 05:44 01/23/19 10:17 Albuterol/ Ipratropium (Albuterol/ Ipratropium) 3 ml Q4H PRN HHN Shortness of Breath 01/22/19 11:30 01/27/19 11:29 01/23/19 09:59 Ceftriaxone Sodium 1 gm/ Dextrose 55 ml @ 110 mls/hr Q24H IVPB 01/21/19 09:00 01/28/19 08:59 01/23/19 08:46 Doxycycline Monohydrate (Doxycycline Monohydrate) 100 mg EVERY 12 HOURS ORAL 01/22/19 09:00 01/29/19 08:59 01/23/19 08:46 Guaifenesin/ Dextromethorphan (Robitussin DM Syrup) 10 ml Q6HR PRN ORAL For Cough 01/21/19 22:30 02/20/19 22:29 01/23/19 14:51 Lidocaine HCl (Xylocaine 1% 30ml) 30 ml NOW PRN INJ Radiology Procedure 01/21/19 18:00 01/23/19 17:57 Lidocaine/ Epinephrine (Lidocaine 1% 10mg/ml/Epi 0.005mg/ml 30ml vial) 30 ml NEEDED PRN INJ FOR BIOPSY 01/21/19 17:15 01/23/19 17:14 Ondansetron HCl (Zofran) 4 mg Q4H PRN IVP Nausea & Vomiting 01/21/19 05:45 02/20/19 05:44 01/23/19 14:51 Potassium Chloride 10 meq/ Dextrose/Sodium Chloride 1,005 ml @ 100 mls/hr Q10H3M IV 01/23/19 13:00 02/21/19 12:59 01/23/19 12:31 Allergies: Coded Allergies: No Known Allergies (Unverified , 01/20/19) ROS Limited/Unobtainable: No Constitutional: Reports: no symptoms HEENT: Reports: no symptoms Cardiovascular: Reports: no symptoms Respiratory: Reports: cough Gastrointestinal/Abdominal: Reports: no symptoms Genitourinary: Reports: no symptoms Neurologic/Psychiatric: Reports: no symptoms Subjective 28 YO M admitted with cough. Now new dx HIV, lymphadenopathy and pneumonia. Cover for Int Med- Dr Barron. JYOTHI Objective Last Vital Signs Date Time Temp Pulse Resp B/P (MAP) Pulse Ox O2 Delivery O2 Flow Rate FiO2 01/23/19 16:00 104 01/23/19 14:29 98.1 01/23/19 12:00 20 122/71 (88) 98 01/23/19 10:09 Room Air 01/23/19 08:15 21 Laboratory Tests Test 01/23/19 04:42 White Blood Count 3.6 K/UL (4.8-10.8) L Red Blood Count 3.29 M/UL (4.70-6.10) L Hemoglobin 9.2 G/DL (14.2-18.0) L Hematocrit 26.7 % (42.0-52.0) L Mean Corpuscular Volume 81 FL (80-99) Mean Corpuscular Hemoglobin 28.1 PG (27.0-31.0) Mean Corpuscular Hemoglobin Concent 34.5 G/DL (32.0-36.0) Red Cell Distribution Width 14.2 % (11.6-14.8) Platelet Count 35 K/UL (150-450) L Mean Platelet Volume 10.2 FL (6.5-10.1) H Neutrophils (%) (Auto) % (45.0-75.0) Lymphocytes (%) (Auto) % (20.0-45.0) Monocytes (%) (Auto) % (1.0-10.0) Eosinophils (%) (Auto) % (0.0-3.0) Basophils (%) (Auto) % (0.0-2.0) Differential Total Cells Counted 100 Neutrophils % (Manual) 34 % (45-75) L Lymphocytes % (Manual) 48 % (20-45) H Monocytes % (Manual) 17 % (1-10) H Eosinophils % (Manual) 1 % (0-3) Basophils % (Manual) 0 % (0-2) Band Neutrophils 0 % (0-8) Platelet Estimate Decreased L Platelet Morphology Normal Anisocytosis 1+ Spherocytes 2+ Sodium Level 133 MMOL/L (136-145) L Potassium Level 3.7 MMOL/L (3.5-5.1) Chloride Level 99 MMOL/L (98-107) Carbon Dioxide Level 26 MMOL/L (21-32) Anion Gap 8 mmol/L (5-15) Blood Urea Nitrogen 8 mg/dL (7-18) Creatinine 0.6 MG/DL (0.55-1.30) Estimat Glomerular Filtration Rate > 60 mL/min (>60) Glucose Level 123 MG/DL (74-106) H Calcium Level 8.0 MG/DL (8.5-10.1) L Magnesium Level 1.6 MG/DL (1.8-2.4) L Microbiology Date/Time Source Procedure Growth Status 01/20/19 20:00 Blood Blood Culture - Preliminary Staphylococcus Sp Coag Neg Resulted 01/20/19 19:50 Blood Blood Culture - Preliminary Resulted 01/22/19 00:00 Sputum AFB Specimen Processing Tissue - Final Resulted 01/22/19 00:00 Sputum Acid Fast Bacilli Smear - Final Resulted 01/22/19 00:00 Sputum Acid Fast Bacilli Culture Pending Resulted 01/21/19 16:30 Sputum AFB Specimen Processing Tissue - Final Resulted 01/21/19 16:30 Sputum Acid Fast Bacilli Smear - Final Resulted 01/21/19 16:30 Sputum Acid Fast Bacilli Culture Pending Resulted 01/21/19 08:30 Sputum Induced Gram Stain - Final Complete 01/21/19 08:30 Sputum Induced Sputum Culture - Final NORMAL UPPER RESPIRATORY WILFRIDO PRESENT Complete 01/20/19 19:50 Nasal Nares - Final Complete 01/20/19 19:50 Nasal Nares - Final Complete Intake and Output 01/22/19 01/23/19 19:00 07:00 Intake Total 780 ml 750 ml Output Total 50 ml 20 ml Balance 730 ml 730 ml Intake Oral 480 ml IV Total 300 ml 750 ml Emesis 50 ml 20 ml Objective PHYSICAL EXAMINATION: GENERAL: The patient is awake and responsive, in no acute distress. HEAD AND NECK: Pupils are reactive to light. Extraocular movements intact. Neck was supple. No JVD. LUNGS: Good air entry. No wheezing or rales. HEART: Reveals S1, S2. Regular rhythm. No gallops. ABDOMEN: Soft, nondistended, and nontender. Positive bowel sounds. EXTREMITIES: No cyanosis, clubbing, edema NEUROLOGIC: Cranial nerves II through XII grossly intact. Motor is 5/5 in all extremities. Gait is intact. RECTAL/GENITOURINARY: Refused and deferred. PSYCHIATRIC: Mood and affect is intact. LYMPH NODES: Showed the patient has a positive lymphadenopathy in the cervical lymph node in the neck as well as in the pelvic area. Assessment/Plan Assessment/Plan ASSESSMENT: 1. Generalized lymphadenopathy. 2. New diagnosis of human immunodeficiency virus. 3. Right Lung infiltrate, possible pneumonia versus tuberculosis. 4. Splenomegaly. 5. LEO. 6. Hepatomegaly. 7. Thrombocytopenia. 8. Right leg skin lesion-suspicious for Kaposi PLAN: 1. Admit the patient to respiratory isolation. 2. Follow up with the AFB x3. 3. Discussed case with Dr. Terrell from Pulmonary Critical Care and Infectious Disease consultation. 4. Follow up with the infection workup. 5. Code status is Full code. 6. DVT prophylaxis with heparin subcutaneous. 7. We will discuss with the mother extensively at the bedside. 8. The patient at this time does not want the mother or any family member informed about the human immunodeficiency virus status 9. ABX=ceftriaxone and doxycycline Abhijeet Uriostegui MD Jan 23, 2019 16:46
--- NOTE | 2019-01-23 17:40 | General Surgery Progress Note ---
General Surgery-Progress Note Subjective Reason for Consult skin lesion right lower leg Objective Last 24 Hour Vital Signs Date Time Temp Pulse Resp B/P (MAP) Pulse Ox O2 Delivery O2 Flow Rate FiO2 01/23/19 16:00 104 01/23/19 14:29 98.1 01/23/19 12:00 100.7 116 20 122/71 (88) 98 01/23/19 12:00 122 01/23/19 10:50 100.0 01/23/19 10:09 141 20 100 Room Air 100 20 100 01/23/19 09:00 Room Air 01/23/19 08:15 92 18 100 Room Air 21 01/23/19 08:00 100.0 137 20 126/77 (93) 98 01/23/19 04:00 120 01/23/19 04:00 97.8 113 20 130/70 (90) 99 01/23/19 00:00 97.6 130 21 123/75 (91) 99 01/23/19 00:00 118 01/22/19 21:00 Room Air 01/22/19 20:00 98.3 121 20 135/78 (97) 99 01/22/19 20:00 124 01/22/19 18:27 141 21 99 Room Air 21 I&O Intake and Output 01/22/19 01/23/19 19:00 07:00 Intake Total 780 ml 750 ml Output Total 50 ml 20 ml Balance 730 ml 730 ml Intake Oral 480 ml IV Total 300 ml 750 ml Emesis 50 ml 20 ml Extremities: other - large pigmented lesion on lateral side of right lower leg Laboratory Tests Test 01/23/19 04:42 White Blood Count 3.6 K/UL (4.8-10.8) L Red Blood Count 3.29 M/UL (4.70-6.10) L Hemoglobin 9.2 G/DL (14.2-18.0) L Hematocrit 26.7 % (42.0-52.0) L Mean Corpuscular Volume 81 FL (80-99) Mean Corpuscular Hemoglobin 28.1 PG (27.0-31.0) Mean Corpuscular Hemoglobin Concent 34.5 G/DL (32.0-36.0) Red Cell Distribution Width 14.2 % (11.6-14.8) Platelet Count 35 K/UL (150-450) L Mean Platelet Volume 10.2 FL (6.5-10.1) H Neutrophils (%) (Auto) % (45.0-75.0) Lymphocytes (%) (Auto) % (20.0-45.0) Monocytes (%) (Auto) % (1.0-10.0) Eosinophils (%) (Auto) % (0.0-3.0) Basophils (%) (Auto) % (0.0-2.0) Differential Total Cells Counted 100 Neutrophils % (Manual) 34 % (45-75) L Lymphocytes % (Manual) 48 % (20-45) H Monocytes % (Manual) 17 % (1-10) H Eosinophils % (Manual) 1 % (0-3) Basophils % (Manual) 0 % (0-2) Band Neutrophils 0 % (0-8) Platelet Estimate Decreased L Platelet Morphology Normal Anisocytosis 1+ Spherocytes 2+ Sodium Level 133 MMOL/L (136-145) L Potassium Level 3.7 MMOL/L (3.5-5.1) Chloride Level 99 MMOL/L (98-107) Carbon Dioxide Level 26 MMOL/L (21-32) Anion Gap 8 mmol/L (5-15) Blood Urea Nitrogen 8 mg/dL (7-18) Creatinine 0.6 MG/DL (0.55-1.30) Estimat Glomerular Filtration Rate > 60 mL/min (>60) Glucose Level 123 MG/DL (74-106) H Calcium Level 8.0 MG/DL (8.5-10.1) L Magnesium Level 1.6 MG/DL (1.8-2.4) L Assessment Additional Comments R/O Kaposi sarcoma Plan Additional Comments Under local anesthesia biopsy was performed tylenol for pain suture can be removed in 10 days Fidelina Guerra MD Jan 23, 2019 17:39
[2019-01-23 20:00] VITALS: BP 125/63
--- NOTE | 2019-01-23 21:02 | Operative Note - Dictated ---
DATE OF OPERATION: 01/23/2019 PREOPERATIVE DIAGNOSIS: Skin lesion of the right leg, rule out Kaposi sarcoma. POSTOPERATIVE DIAGNOSIS: Skin lesion of the right leg, rule out Kaposi sarcoma. OPERATION: Excision of biopsy of the skin lesion. COMPLICATION: None. SURGEON: Fidelina Guerra M.D. TENDER LABOR: None. ANESTHESIA: Local. ANESTHESIOLOGIST: Dr. Guerra. INDICATION: This is a 28-year-old male who presented with productive cough and during the evaluation, it was noticed that the patient had a large skin lesion on the right leg and the smaller wounds on the hand besides he is HIV positive and the lesion is suspicious for Kaposi sarcoma and I was requested to perform a biopsy for diagnosis. DESCRIPTION OF PROCEDURE: The patient was placed supine at the bedside and the lesion on the right lower leg was properly prepped and draped. Local anesthesia was obtained with infiltration of 10 mL of Marcaine with lidocaine 1% and the elliptical incision was given at the upper border of this lesion and a part of the lesion under the normal skin was removed. The defect was repaired with multiple interrupted sutures with 3-0 nylon. The patient tolerated the procedure very well. Sponge and needle count correct. Estimated blood loss, none. Condition of the patient at the end of procedure is stable. Fidelina Guerra M.D. DR: DONNA JOB#: [id number] CC:
[2019-01-24] VITALS: BP 106/61
[2019-01-24 03:39] VITALS: BP 126/64
[2019-01-24 07:58] LABS: HEMATOCRIT 26.6 % (42.0-52.0); MEAN CORPUSCULAR VOLUME 81 FL (80-99); PLATELET COUNT 30 K/UL (150-450); RED BLOOD COUNT 3.29 M/UL (4.70-6.10); RED CELL DISTRIBUTION WIDTH 14.5 % (11.6-14.8)
[2019-01-24 08:00] VITALS: BP 120/74
[2019-01-24 08:10] LABS: ANION GAP 4 mmol/L (5-15); BLOOD UREA NITROGEN 7 mg/dL (7-18); CALCIUM 7.9 MG/DL (8.5-10.1); CARBON DIOXIDE 28 MMOL/L (21-32); CHLORIDE 103 MMOL/L (98-107); CREATININE 0.6 MG/DL (0.55-1.30); POTASSIUM 3.9 MMOL/L (3.5-5.1); SODIUM 135 MMOL/L (136-145)
[2019-01-24] MEDS: Doxycycline Monohydrate 100mg ORAL SCH ×2 (09:51→21:58)
[2019-01-24] MEDS: cefTRIAXone 1 GM in D5W 55 ML IVPB SCH (09:51)
[2019-01-24] MEDS: Potassium Chloride 10 MEQ in D5 1/2NS 1,000 ML IV SCH ×2 (09:56→19:09)
--- NOTE | 2019-01-24 11:12 | Pulmonology Progress Note ---
Assessment/Plan Problems: (1) Pneumonia (2) Lymphadenopathy, cervical (3) Kaposi sarcoma (4) Thrombocytopenia (5) AIDS (6) HIV (human immunodeficiency virus infection) Assessment/Plan biopsy of skin lesion scheduled check cultures pathologist to look at blood smear f/u ID recommendations CT neck noted and reviewed might need excisional LN biopsy of neck. Subjective ROS Limited/Unobtainable: No Constitutional: Reports: no symptoms HEENT: Repors: no symptoms Respiratory: Reports: no symptoms Allergies: Coded Allergies: No Known Allergies (Unverified , 01/20/19) Objective Last 24 Hour Vital Signs Date Time Temp Pulse Resp B/P (MAP) Pulse Ox O2 Delivery O2 Flow Rate FiO2 01/24/19 07:10 117 18 100 Room Air 21 01/24/19 04:00 113 01/24/19 03:39 97.7 109 18 126/64 (84) 96 01/24/19 00:00 98.9 103 20 106/61 (76) 95 01/24/19 00:00 104 01/23/19 21:00 Room Air 01/23/19 20:00 100.0 134 19 125/63 (83) 96 01/23/19 20:00 120 01/23/19 19:00 91 18 99 Room Air 21 01/23/19 16:00 98.2 116 21 125/60 (81) 98 01/23/19 16:00 104 01/23/19 14:29 98.1 01/23/19 12:00 100.7 116 20 122/71 (88) 98 01/23/19 12:00 122 Intake and Output 01/23/19 01/24/19 19:00 07:00 Intake Total 1288.333 ml 120 ml Balance 1288.333 ml 120 ml Intake Oral 355 ml 120 ml IV Total 933.333 ml # Voids 2 General Appearance: WD/WN HEENT: normocephalic Respiratory/Chest: chest wall non-tender, lungs clear, normal breath sounds Cardiovascular: normal peripheral pulses, regular rhythm Abdomen: normal bowel sounds, soft, non tender, no organomegaly Microbiology Date/Time Source Procedure Growth Status 01/22/19 16:10 Blood Blood Culture - Preliminary NO GROWTH AFTER 24 HOURS Resulted 01/22/19 16:00 Blood Blood Culture - Preliminary NO GROWTH AFTER 24 HOURS Resulted 01/22/19 00:00 Sputum AFB Specimen Processing Tissue - Final Resulted 01/22/19 00:00 Sputum Acid Fast Bacilli Smear - Final Resulted 01/22/19 00:00 Sputum Acid Fast Bacilli Culture Pending Resulted 01/21/19 16:30 Sputum AFB Specimen Processing Tissue - Final Resulted 01/21/19 16:30 Sputum Acid Fast Bacilli Smear - Final Resulted 01/21/19 16:30 Sputum Acid Fast Bacilli Culture Pending Resulted Laboratory Tests 01/24/19 07:00: White Blood Count 3.0L, Red Blood Count 3.29L, Hemoglobin 9.0L, Hematocrit 26.6L , Mean Corpuscular Volume 81, Mean Corpuscular Hemoglobin 27.5, Mean Corpuscular Hemoglobin Concent 34.0, Red Cell Distribution Width 14.5, Platelet Count 30L, Mean Platelet Volume 8.5, Neutrophils (%) (Auto) , Lymphocytes (%) ( Auto) , Monocytes (%) (Auto) , Eosinophils (%) (Auto) , Basophils (%) (Auto) , Differential Total Cells Counted 100, Neutrophils % (Manual) 45, Lymphocytes % ( Manual) 35, Monocytes % (Manual) 17H, Eosinophils % (Manual) 3, Basophils % ( Manual) 0, Band Neutrophils 0, Platelet Estimate DecreasedL, Platelet Morphology Normal, Red Blood Cell Morphology Normal, Sodium Level 135L, Potassium Level 3.9, Chloride Level 103, Carbon Dioxide Level 28, Anion Gap 4L, Blood Urea Nitrogen 7, Creatinine 0.6, Estimat Glomerular Filtration Rate > 60, Glucose Level 109H, Calcium Level 7.9L, Magnesium Level 1.7L, TB Test (T-Spot) [ Pending], TB Test Nil Control (T-Spot) [Pending], TB Test Panel A (T-Spot) [ Pending], TB Test Panel B (T-Spot) [Pending], TB Test Positive Control (T-Spot) [Pending] 01/24/19 11:00: Prothrombin Time [Pending], Prothromb Time International Ratio [Pending] Current Medications Medications (Trade) Dose Ordered Sig/Jeff Route PRN Reason Start Time Stop Time Status Last Admin Dose Admin Acetaminophen (Tylenol) 650 mg Q6H PRN ORAL Mild Pain/Temp > 100.5 01/21/19 05:45 02/20/19 05:44 01/24/19 03:09 Albuterol/ Ipratropium (Albuterol/ Ipratropium) 3 ml Q4H PRN HHN Shortness of Breath 01/22/19 11:30 01/27/19 11:29 01/23/19 09:59 Ceftriaxone Sodium 1 gm/ Dextrose 55 ml @ 110 mls/hr Q24H IVPB 01/21/19 09:00 01/28/19 08:59 01/24/19 09:51 Doxycycline Monohydrate (Doxycycline Monohydrate) 100 mg EVERY 12 HOURS ORAL 01/22/19 09:00 01/29/19 08:59 01/24/19 09:51 Guaifenesin/ Dextromethorphan (Robitussin DM Syrup) 10 ml Q6HR PRN ORAL For Cough 01/21/19 22:30 02/20/19 22:29 01/23/19 21:04 Ondansetron HCl (Zofran) 4 mg Q4H PRN IVP Nausea & Vomiting 01/21/19 05:45 02/20/19 05:44 01/23/19 21:04 Potassium Chloride 10 meq/ Dextrose/Sodium Chloride 1,005 ml @ 100 mls/hr Q10H3M IV 01/23/19 13:00 02/21/19 12:59 01/24/19 09:56 Suzanne Terrell MD Jan 24, 2019 11:12
[2019-01-24 11:17] LABS: INR 1.1 (0.9-1.1)
[2019-01-24] MEDS: Guaifenesin/DM 10ml syrup ORAL PRN ×2 (11:30→18:35)
[2019-01-24 11:48] VITALS: BP 118/72
--- NOTE | 2019-01-24 13:50 | Internal Med Progress Note ---
Subjective Date of Service: Jan 24, 2019 Physician Name Abhiejet Uriostegui Attending Physician Akil Barron MD Current Medications Medications (Trade) Dose Ordered Sig/Jeff Route PRN Reason Start Time Stop Time Status Last Admin Dose Admin Acetaminophen (Tylenol) 650 mg Q6H PRN ORAL Mild Pain/Temp > 100.5 01/21/19 05:45 02/20/19 05:44 01/24/19 11:16 Albuterol/ Ipratropium (Albuterol/ Ipratropium) 3 ml Q4H PRN HHN Shortness of Breath 01/22/19 11:30 01/27/19 11:29 01/23/19 09:59 Ceftriaxone Sodium 1 gm/ Dextrose 55 ml @ 110 mls/hr Q24H IVPB 01/21/19 09:00 01/28/19 08:59 01/24/19 09:51 Doxycycline Monohydrate (Doxycycline Monohydrate) 100 mg EVERY 12 HOURS ORAL 01/22/19 09:00 01/29/19 08:59 01/24/19 09:51 Guaifenesin/ Dextromethorphan (Robitussin DM Syrup) 10 ml Q6HR PRN ORAL For Cough 01/21/19 22:30 02/20/19 22:29 01/24/19 11:30 Magnesium Sulfate 100 ml @ 100 mls/hr Q1H IVPB 01/24/19 12:00 01/24/19 13:59 01/24/19 13:41 Ondansetron HCl (Zofran) 4 mg Q4H PRN IVP Nausea & Vomiting 01/21/19 05:45 02/20/19 05:44 01/23/19 21:04 Potassium Chloride 10 meq/ Dextrose/Sodium Chloride 1,005 ml @ 100 mls/hr Q10H3M IV 01/23/19 13:00 02/21/19 12:59 01/24/19 09:56 Allergies: Coded Allergies: No Known Allergies (Unverified , 01/20/19) ROS Limited/Unobtainable: No Constitutional: Reports: no symptoms HEENT: Reports: no symptoms Cardiovascular: Reports: no symptoms Respiratory: Reports: cough Gastrointestinal/Abdominal: Reports: no symptoms Genitourinary: Reports: no symptoms Neurologic/Psychiatric: Reports: no symptoms Subjective 28 YO M admitted with cough. Now new dx HIV, lymphadenopathy and pneumonia. Cover for Int Med- Dr Barron. Objective Last Vital Signs Date Time Temp Pulse Resp B/P (MAP) Pulse Ox O2 Delivery O2 Flow Rate FiO2 01/24/19 12:00 119 01/24/19 11:48 98.2 18 118/72 (87) 99 01/24/19 08:00 Room Air 01/24/19 07:10 21 Laboratory Tests Test 01/24/19 07:00 01/24/19 11:00 White Blood Count 3.0 K/UL (4.8-10.8) L Red Blood Count 3.29 M/UL (4.70-6.10) L Hemoglobin 9.0 G/DL (14.2-18.0) L Hematocrit 26.6 % (42.0-52.0) L Mean Corpuscular Volume 81 FL (80-99) Mean Corpuscular Hemoglobin 27.5 PG (27.0-31.0) Mean Corpuscular Hemoglobin Concent 34.0 G/DL (32.0-36.0) Red Cell Distribution Width 14.5 % (11.6-14.8) Platelet Count 30 K/UL (150-450) L Mean Platelet Volume 8.5 FL (6.5-10.1) Neutrophils (%) (Auto) % (45.0-75.0) Lymphocytes (%) (Auto) % (20.0-45.0) Monocytes (%) (Auto) % (1.0-10.0) Eosinophils (%) (Auto) % (0.0-3.0) Basophils (%) (Auto) % (0.0-2.0) Differential Total Cells Counted 100 Neutrophils % (Manual) 45 % (45-75) Lymphocytes % (Manual) 35 % (20-45) Monocytes % (Manual) 17 % (1-10) H Eosinophils % (Manual) 3 % (0-3) Basophils % (Manual) 0 % (0-2) Band Neutrophils 0 % (0-8) Platelet Estimate Decreased L Platelet Morphology Normal Red Blood Cell Morphology Normal Sodium Level 135 MMOL/L (136-145) L Potassium Level 3.9 MMOL/L (3.5-5.1) Chloride Level 103 MMOL/L (98-107) Carbon Dioxide Level 28 MMOL/L (21-32) Anion Gap 4 mmol/L (5-15) L Blood Urea Nitrogen 7 mg/dL (7-18) Creatinine 0.6 MG/DL (0.55-1.30) Estimat Glomerular Filtration Rate > 60 mL/min (>60) Glucose Level 109 MG/DL (74-106) H Calcium Level 7.9 MG/DL (8.5-10.1) L Magnesium Level 1.7 MG/DL (1.8-2.4) L TB Test (T-Spot) Pending TB Test Nil Control (T-Spot) Pending TB Test Panel A (T-Spot) Pending TB Test Panel B (T-Spot) Pending TB Test Positive Control (T-Spot) Pending Prothrombin Time 11.8 SEC (9.30-11.50) H Prothromb Time International Ratio 1.1 (0.9-1.1) Microbiology Date/Time Source Procedure Growth Status 01/22/19 16:10 Blood Blood Culture - Preliminary NO GROWTH AFTER 24 HOURS Resulted 01/22/19 16:00 Blood Blood Culture - Preliminary NO GROWTH AFTER 24 HOURS Resulted 01/22/19 00:00 Sputum AFB Specimen Processing Tissue - Final Resulted 01/22/19 00:00 Sputum Acid Fast Bacilli Smear - Final Resulted 01/22/19 00:00 Sputum Acid Fast Bacilli Culture Pending Resulted 01/21/19 16:30 Sputum AFB Specimen Processing Tissue - Final Resulted 01/21/19 16:30 Sputum Acid Fast Bacilli Smear - Final Resulted 01/21/19 16:30 Sputum Acid Fast Bacilli Culture Pending Resulted Intake and Output 01/23/19 01/24/19 19:00 07:00 Intake Total 1288.333 ml 120 ml Balance 1288.333 ml 120 ml Intake Oral 355 ml 120 ml IV Total 933.333 ml # Voids 2 Objective PHYSICAL EXAMINATION: GENERAL: The patient is awake and responsive, in no acute distress. HEAD AND NECK: Pupils are reactive to light. Extraocular movements intact. Neck was supple. No JVD. LUNGS: Good air entry. No wheezing or rales. HEART: Reveals S1, S2. Regular rhythm. No gallops. ABDOMEN: Soft, nondistended, and nontender. Positive bowel sounds. EXTREMITIES: No cyanosis, clubbing, edema NEUROLOGIC: Cranial nerves II through XII grossly intact. Motor is 5/5 in all extremities. Gait is intact. RECTAL/GENITOURINARY: Refused and deferred. PSYCHIATRIC: Mood and affect is intact. LYMPH NODES: Showed the patient has a positive lymphadenopathy in the cervical lymph node in the neck as well as in the pelvic area. Assessment/Plan Assessment/Plan ASSESSMENT: 1. Generalized lymphadenopathy. 2. New diagnosis of human immunodeficiency virus. 3. Right Lung infiltrate, possible pneumonia versus tuberculosis. 4. Splenomegaly. 5. LEO. 6. Hepatomegaly. 7. Thrombocytopenia. 8. Right leg skin lesion-suspicious for Kaposi PLAN: 1. Admit the patient to respiratory isolation. 2. Follow up with the AFB x3. 3. Discussed case with Dr. Terrell from Pulmonary Critical Care and Infectious Disease consultation. 4. Follow up with the infection workup. 5. Code status is Full code. 6. DVT prophylaxis with heparin subcutaneous. 7. We will discuss with the mother extensively at the bedside. 8. The patient at this time does not want the mother or any family member informed about the human immunodeficiency virus status 9. ABX=ceftriaxone and doxycycline 10. S/P biopsy right leg skin lesion Abhijeet Uriostegui MD Jan 24, 2019 13:50
--- NOTE | 2019-01-24 14:52 | Diagnostic Imaging Report ---
Indication: Dyspnea Comparison: 01/21/2019 A single view chest radiograph was obtained. Findings: Cardiomediastinal appearance is within normal limits for age. The lungs are clear. Pulmonary vascularity is appropriate. The diaphragmatic contour is smooth and costophrenic angles are sharp. No pleural effusions are identified. The bones are unremarkable. Impression: No acute findings
[2019-01-24 16:00] VITALS: BP 120/74
--- NOTE | 2019-01-24 16:55 | Infectious Diseases Prog Note ---
Assessment/Plan Assessment/Plan Sepsis Pneumonia- r/o TB Diffuse lymphadenopathy/splenomegaly/hepatomegaly - DDx: TB, lymphoma, HIV/AIDS related, Castleman disease -CT neck: : Extensive cervical and supraclavicular lymphadenopathy, as described. Could be reactive or infectious, possibly related to stated clinical history of recent HIV diagnosis. However, the possibility of lymphoproliferative disorder should also be considered. Mild adenoidal and right tonsillar pillar prominence, if real possibly related to the above. Incidental finding right maxillary sinus disease. -CT c/ab/p: Massive splenomegaly. Hepatomegaly. Extensive lymphadenopathy, involving the bilateral inguinal regions, bilateral iliac chains, retroaortic and retrocaval region, peripancreatic and lesser sac regions, bilateral axillae , bilateral cervical and supraclavicular regions, and the mediastinum. This may reflect infectious or inflammatory lymphadenopathy, particularly in view of recent diagnosis of HIV positivity, or could indicate a lymphoproliferative disorder. 4 x 3 x 2.8 cm aggregate cluster of masslike opacities in the right lower lobe. This could most likely represents an area of infiltrate, but could conceivably represent cluster of small masses. Nonspecific small irregular opacities in the left lower lobe, may reflect early infiltrates. Gram positive bacteremia- likely contaminant -01/20 Bcx 04/02 Staph epi New diagnosis of HIV/ AIDS -HIV ab sc preliminary positive -CD4 41 (2.7%) Fever pancytopenia R leg skin lesion- suspicious for Kaposi SP biopsy Plan: -Continue empiric Ceftriaxone #4 and PO Doxycycline #4 -01/21 SP Azithromycin #1 -01/20 SP Zosyn x1, Bactrim x1 -Airborne isolation: AFB sputum x3, MTB PCR -SP biopsy of Leg skin lesion -recommend core biopsy cervical lymph node -send lymph node for culture (bacterial, fungal, AFB, MTB PCR) and path -f/u Cocci, CrAg, RPR, GC/CL, TB spot, AFB sp cx, ESR, CRP, HIV VL, fungitell, histoplasma ag and ab, Blasto ab, PCP DFA -f/u cx -Monitor CBC/CMP, temperatures -Repeat Bcx x2 -Heme onc c/s Thank you for this consultation. Will continue to follow along with you. Subjective Allergies: Coded Allergies: No Known Allergies (Unverified , 01/20/19) Subjective Tmax 100.7 Still with cough Some chills Objective Vital Signs Last 24 Hour Vital Signs Date Time Temp Pulse Resp B/P (MAP) Pulse Ox O2 Delivery O2 Flow Rate FiO2 01/24/19 12:00 119 01/24/19 11:48 98.2 118 18 118/72 (87) 99 01/24/19 11:46 98.2 01/24/19 08:00 98.2 117 20 120/74 (89) 100 01/24/19 08:00 110 01/24/19 08:00 Room Air 01/24/19 07:10 117 18 100 Room Air 21 01/24/19 04:00 113 01/24/19 03:39 97.7 109 18 126/64 (84) 96 01/24/19 00:00 98.9 103 20 106/61 (76) 95 01/24/19 00:00 104 01/23/19 21:00 Room Air 01/23/19 20:00 100.0 134 19 125/63 (83) 96 01/23/19 20:00 120 01/23/19 19:00 91 18 99 Room Air 21 Height (Feet): 5 Height (Inches): 10.00 Weight (Pounds): 150 General Appearance: no acute distress HEENT: other - LAD Respiratory/Chest: no accessory muscle use, decreased breath sounds Cardiovascular: normal rate, regular rhythm Abdomen: normal bowel sounds, soft, non tender, non distended Skin: lesions Neurologic/Psychiatric: alert, normal mood/affect Microbiology Date/Time Source Procedure Growth Status 01/22/19 16:10 Blood Blood Culture - Preliminary NO GROWTH AFTER 24 HOURS Resulted 01/22/19 16:00 Blood Blood Culture - Preliminary NO GROWTH AFTER 24 HOURS Resulted 01/22/19 00:00 Sputum AFB Specimen Processing Tissue - Final Resulted 01/22/19 00:00 Sputum Acid Fast Bacilli Smear - Final Resulted 01/22/19 00:00 Sputum Acid Fast Bacilli Culture Pending Resulted Laboratory Tests Test 01/24/19 07:00 01/24/19 11:00 White Blood Count 3.0 K/UL (4.8-10.8) L Red Blood Count 3.29 M/UL (4.70-6.10) L Hemoglobin 9.0 G/DL (14.2-18.0) L Hematocrit 26.6 % (42.0-52.0) L Mean Corpuscular Volume 81 FL (80-99) Mean Corpuscular Hemoglobin 27.5 PG (27.0-31.0) Mean Corpuscular Hemoglobin Concent 34.0 G/DL (32.0-36.0) Red Cell Distribution Width 14.5 % (11.6-14.8) Platelet Count 30 K/UL (150-450) L Mean Platelet Volume 8.5 FL (6.5-10.1) Neutrophils (%) (Auto) % (45.0-75.0) Lymphocytes (%) (Auto) % (20.0-45.0) Monocytes (%) (Auto) % (1.0-10.0) Eosinophils (%) (Auto) % (0.0-3.0) Basophils (%) (Auto) % (0.0-2.0) Differential Total Cells Counted 100 Neutrophils % (Manual) 45 % (45-75) Lymphocytes % (Manual) 35 % (20-45) Monocytes % (Manual) 17 % (1-10) H Eosinophils % (Manual) 3 % (0-3) Basophils % (Manual) 0 % (0-2) Band Neutrophils 0 % (0-8) Platelet Estimate Decreased L Platelet Morphology Normal Red Blood Cell Morphology Normal Sodium Level 135 MMOL/L (136-145) L Potassium Level 3.9 MMOL/L (3.5-5.1) Chloride Level 103 MMOL/L (98-107) Carbon Dioxide Level 28 MMOL/L (21-32) Anion Gap 4 mmol/L (5-15) L Blood Urea Nitrogen 7 mg/dL (7-18) Creatinine 0.6 MG/DL (0.55-1.30) Estimat Glomerular Filtration Rate > 60 mL/min (>60) Glucose Level 109 MG/DL (74-106) H Calcium Level 7.9 MG/DL (8.5-10.1) L Magnesium Level 1.7 MG/DL (1.8-2.4) L TB Test (T-Spot) Pending TB Test Nil Control (T-Spot) Pending TB Test Panel A (T-Spot) Pending TB Test Panel B (T-Spot) Pending TB Test Positive Control (T-Spot) Pending Prothrombin Time 11.8 SEC (9.30-11.50) H Prothromb Time International Ratio 1.1 (0.9-1.1) Current Medications Medications (Trade) Dose Ordered Sig/Jeff Route PRN Reason Start Time Stop Time Status Last Admin Dose Admin Acetaminophen (Tylenol) 650 mg Q6H PRN ORAL Mild Pain/Temp > 100.5 01/21/19 05:45 02/20/19 05:44 01/24/19 11:16 Albuterol/ Ipratropium (Albuterol/ Ipratropium) 3 ml Q4H PRN HHN Shortness of Breath 01/22/19 11:30 01/27/19 11:29 01/23/19 09:59 Ceftriaxone Sodium 1 gm/ Dextrose 55 ml @ 110 mls/hr Q24H IVPB 01/21/19 09:00 01/28/19 08:59 01/24/19 09:51 Doxycycline Monohydrate (Doxycycline Monohydrate) 100 mg EVERY 12 HOURS ORAL 01/22/19 09:00 01/29/19 08:59 01/24/19 09:51 Guaifenesin/ Dextromethorphan (Robitussin DM Syrup) 10 ml Q6HR PRN ORAL For Cough 01/21/19 22:30 02/20/19 22:29 01/24/19 11:30 Ondansetron HCl (Zofran) 4 mg Q4H PRN IVP Nausea & Vomiting 01/21/19 05:45 02/20/19 05:44 01/23/19 21:04 Potassium Chloride 10 meq/ Dextrose/Sodium Chloride 1,005 ml @ 100 mls/hr Q10H3M IV 01/23/19 13:00 02/21/19 12:59 01/24/19 09:56 Olvin Grover MD Jan 24, 2019 16:55
[2019-01-24 20:00] VITALS: BP 124/79
[2019-01-25] VITALS: BP 121/74
[2019-01-25 04:00] VITALS: BP 110/62
[2019-01-25] MEDS: Potassium Chloride 10 MEQ in D5 1/2NS 1,000 ML IV SCH ×2 (05:12→13:52)
[2019-01-25 07:58] LABS: HEMOGLOBIN 8.5 G/DL (14.2-18.0); MEAN CORPUSCULAR VOLUME 81 FL (80-99); PLATELET COUNT 44 K/UL (150-450); RED CELL DISTRIBUTION WIDTH 14.2 % (11.6-14.8); WHITE BLOOD COUNT 3.3 K/UL (4.8-10.8)
[2019-01-25 08:00] VITALS: BP 117/50
[2019-01-25 08:19] LABS: ALANINE AMINOTRANSFERASE 73 U/L (12-78); ALBUMIN 1.9 G/DL (3.4-5.0); ALBUMIN/GLOBULIN RATIO 0.4 (1.0-2.7); ALKALINE PHOSPHATASE 85 U/L (46-116); ANION GAP 6 mmol/L (5-15); ASPARTATE AMINO TRANSFERASE 78 U/L (15-37); BILIRUBIN,TOTAL 0.9 MG/DL (0.2-1.0); BLOOD UREA NITROGEN 6 mg/dL (7-18); CALCIUM 8.3 MG/DL (8.5-10.1); CARBON DIOXIDE 28 MMOL/L (21-32); CHLORIDE 102 MMOL/L (98-107); CREATININE 0.6 MG/DL (0.55-1.30); PHOSPHORUS 4.1 MG/DL (2.5-4.9); POTASSIUM 3.7 MMOL/L (3.5-5.1); SODIUM 136 MMOL/L (136-145)
[2019-01-25] MEDS: cefTRIAXone 1 GM in D5W 55 ML IVPB SCH (08:24)
[2019-01-25] MEDS: Doxycycline Monohydrate 100mg ORAL SCH ×2 (08:25→21:28)
--- NOTE | 2019-01-25 11:46 | Pulmonology Progress Note ---
Assessment/Plan Problems: (1) Pneumonia (2) Positive RPR test (3) Lymphadenopathy, cervical (4) Kaposi sarcoma (5) Thrombocytopenia (6) Fever (7) HIV (human immunodeficiency virus infection) (8) AIDS Assessment/Plan biopsy of skin pending check cultures pathologist to look at blood smear f/u ID recommendations RPR is positive 1:2. 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 the nodes got smaller in the last few days. Subjective ROS Limited/Unobtainable: No Constitutional: Reports: no symptoms HEENT: Repors: no symptoms Allergies: Coded Allergies: No Known Allergies (Unverified , 01/20/19) Objective Last 24 Hour Vital Signs Date Time Temp Pulse Resp B/P (MAP) Pulse Ox O2 Delivery O2 Flow Rate FiO2 01/25/19 09:00 Room Air 01/25/19 08:00 98.2 93 18 117/50 (72) 96 01/25/19 08:00 98 01/25/19 04:00 102 01/25/19 04:00 98.8 100 19 110/62 (78) 97 01/25/19 00:00 93 01/25/19 00:00 98.1 106 18 121/74 (90) 100 01/24/19 21:00 Room Air 01/24/19 20:00 110 18 98 Room Air 21 01/24/19 20:00 115 01/24/19 20:00 97.9 109 19 124/79 (94) 99 01/24/19 19:05 98.2 01/24/19 16:00 98.2 117 20 120/74 (89) 100 01/24/19 16:00 111 01/24/19 12:00 119 01/24/19 11:48 98.2 118 18 118/72 (87) 99 Intake and Output 01/24/19 01/25/19 19:00 07:00 Intake Total 1340 ml 561 ml Balance 1340 ml 561 ml Intake Oral 240 ml 240 ml IV Total 1100 ml Blood Product 321 ml # Voids 3 2 General Appearance: WD/WN HEENT: normocephalic, atraumatic Respiratory/Chest: chest wall non-tender, normal breath sounds Cardiovascular: normal peripheral pulses, normal rate, regular rhythm Abdomen: normal bowel sounds, soft, non tender Extremities: no clubbing Skin: no lesions 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 Lymphatic: no groin adenopathy Musculoskeletal: normal muscle bulk Microbiology Date/Time Source Procedure Growth Status 01/22/19 16:10 Blood Blood Culture - Preliminary NO GROWTH AFTER 48 HOURS Resulted 01/22/19 16:00 Blood Blood Culture - Preliminary NO GROWTH AFTER 48 HOURS Resulted Laboratory Tests 01/25/19 07:30: White Blood Count 3.3L, Red Blood Count 3.10L, Hemoglobin 8.5L, Hematocrit 25.0L , Mean Corpuscular Volume 81, Mean Corpuscular Hemoglobin 27.5, Mean Corpuscular Hemoglobin Concent 34.1, Red Cell Distribution Width 14.2, Platelet Count 44L, Mean Platelet Volume 8.0, Neutrophils (%) (Auto) , Lymphocytes (%) ( Auto) , Monocytes (%) (Auto) , Eosinophils (%) (Auto) , Basophils (%) (Auto) , Differential Total Cells Counted 100, Neutrophils % (Manual) 44L, Lymphocytes % (Manual) 42, Monocytes % (Manual) 11H, Eosinophils % (Manual) 3, Basophils % ( Manual) 0, Band Neutrophils 0, Platelet Estimate DecreasedL, Platelet Morphology Normal, Erythrocyte Sedimentation Rate 129H, Sodium Level 136, Potassium Level 3.7, Chloride Level 102, Carbon Dioxide Level 28, Anion Gap 6, Blood Urea Nitrogen 6L, Creatinine 0.6, Estimat Glomerular Filtration Rate > 60 , Glucose Level 108H, Calcium Level 8.3L, Phosphorus Level 4.1, Magnesium Level 1.9, Total Bilirubin 0.9, Aspartate Amino Transf (AST/SGOT) 78H, Alanine Aminotransferase (ALT/SGPT) 73, Alkaline Phosphatase 85, C-Reactive Protein, Quantitative 15.1H, Total Protein 7.1, Albumin 1.9L, Globulin 5.2, Albumin/ Globulin Ratio 0.4L Current Medications Medications (Trade) Dose Ordered Sig/Jeff Route PRN Reason Start Time Stop Time Status Last Admin Dose Admin Acetaminophen (Tylenol) 650 mg Q6H PRN ORAL Mild Pain/Temp > 100.5 01/21/19 05:45 02/20/19 05:44 01/25/19 02:44 Albuterol/ Ipratropium (Albuterol/ Ipratropium) 3 ml Q4H PRN HHN Shortness of Breath 01/22/19 11:30 01/27/19 11:29 01/23/19 09:59 Ceftriaxone Sodium 1 gm/ Dextrose 55 ml @ 110 mls/hr Q24H IVPB 01/21/19 09:00 01/28/19 08:59 01/25/19 08:24 Doxycycline Monohydrate (Doxycycline Monohydrate) 100 mg EVERY 12 HOURS ORAL 01/22/19 09:00 01/29/19 08:59 01/25/19 08:25 Guaifenesin/ Dextromethorphan (Robitussin DM Syrup) 10 ml Q6HR PRN ORAL For Cough 01/21/19 22:30 02/20/19 22:29 01/24/19 18:35 Ondansetron HCl (Zofran) 4 mg Q4H PRN IVP Nausea & Vomiting 01/21/19 05:45 02/20/19 05:44 01/25/19 01:08 Potassium Chloride 10 meq/ Dextrose/Sodium Chloride 1,005 ml @ 100 mls/hr Q10H3M IV 01/23/19 13:00 02/21/19 12:59 01/24/19 09:56 Suzanne Terrell MD Jan 25, 2019 11:46
[2019-01-25 12:00] VITALS: BP 117/72
--- NOTE | 2019-01-25 15:56 | Infectious Diseases Prog Note ---
Assessment/Plan Assessment/Plan Sepsis Pneumonia- r/o TB flu negative sputum normal shelbi 01/20 CT chest: There is a cluster of masslike opacities in the right lower lobe with some slight surrounding groundglass opacity. In aggregate, this area measures 4 cm x3 cm x 2.8 cm craniocaudad. This is located at the level of the pulmonary hilum.There are some small irregular faint opacities seen within the superior segment ofthe left lower lobe, measuring up to 7 mm long axis dimension. No other pulmonary parenchymal abnormalities are demonstrated. No pleural effusions. There are abundant mediastinal lymph nodes. The largest of these is a subcarinal node which measures 2.5 x 1.5 cm.The remainder are abundant, prominent, but not frankly enlarged. However, there is extensive axillary, supraclavicular, and lower cervical lymphadenopathy. There is mild bilateral gynecomastia. Diffuse lymphadenopathy/splenomegaly/hepatomegaly - DDx: TB, lymphoma, HIV/AIDS related, Castleman disease CT neck: : Extensive cervical and supraclavicular lymphadenopathy, as described. Could be reactive or infectious, possibly related to stated clinical history of recent HIV diagnosis. However, the possibility of lymphoproliferative disorder should also be considered. Mild adenoidal and right tonsillar pillar prominence, if real possibly related to the above. Incidental finding right maxillary sinus disease. CT c/ab/p: Massive splenomegaly. Hepatomegaly. Extensive lymphadenopathy, involving the bilateral inguinal regions, bilateral iliac chains, retroaortic and retrocaval region, peripancreatic and lesser sac regions, bilateral axillae , bilateral cervical and supraclavicular regions, and the mediastinum. This may reflect infectious or inflammatory lymphadenopathy, particularly in view of recent diagnosis of HIV positivity, or could indicate a lymphoproliferative disorder. 4 x 3 x 2.8 cm aggregate cluster of masslike opacities in the right lower lobe. This could most likely represents an area of infiltrate, but could conceivably represent cluster of small masses. Nonspecific small irregular opacities in the left lower lobe, may reflect early infiltrates. Gram positive bacteremia- likely contaminant -01/20 Bcx 04/02 Staph epi MSM HIV-1 Abt positive CD4 41 (2.7%). VL: P CrAg negative RPR 1:2 pt denies history of ever being tested denies any genital lesions. no headache. no rash. no record in [facility] STD office of previous titers Fever, SP pancytopenia R leg skin lesion- suspicious for Kaposi SP biopsy Plan: -Continue empiric Ceftriaxone #5/7 and PO Doxycycline #5/7 -PCN IM weekly x3 -01/21 SP Azithromycin #1 -01/20 SP Zosyn x1, Bactrim x1 -Airborne isolation: AFB sputum x3, MTB PCRx2(spoke to lab) -SP biopsy of Leg skin lesion -SP core biopsy cervical lymph node -send lymph node for culture (bacterial, fungal, AFB, MTB PCR) and path -f/u Cocci, GC/CL, TB spot, AFB sp cx, ESR, CRP, HIV VL, fungitell, histoplasma ag and ab, Blasto ab, PCP DFA -f/u cx -Monitor CBC/CMP, temperatures -Repeat Bcx x2 will discuss with pulmonary regarding BAL, biopsy Thank you for this consultation. Will continue to follow along with you. Subjective Allergies: Coded Allergies: No Known Allergies (Unverified , 01/20/19) Subjective Afebrile. Anxious about starting treatment Same cough Objective Vital Signs Last 24 Hour Vital Signs Date Time Temp Pulse Resp B/P (MAP) Pulse Ox O2 Delivery O2 Flow Rate FiO2 01/25/19 13:58 114 20 100 Room Air 21 01/25/19 12:00 97.5 103 20 117/72 (87) 97 01/25/19 12:00 108 01/25/19 09:00 Room Air 01/25/19 08:00 98.2 93 18 117/50 (72) 96 01/25/19 08:00 98 01/25/19 04:00 102 01/25/19 04:00 98.8 100 19 110/62 (78) 97 01/25/19 00:00 93 01/25/19 00:00 98.1 106 18 121/74 (90) 100 01/24/19 21:00 Room Air 01/24/19 20:00 110 18 98 Room Air 21 01/24/19 20:00 115 01/24/19 20:00 97.9 109 19 124/79 (94) 99 01/24/19 19:05 98.2 01/24/19 16:00 98.2 117 20 120/74 (89) 100 01/24/19 16:00 111 Height (Feet): 5 Height (Inches): 10.00 Weight (Pounds): 150 Objective Gen: NAD HEENT: poor dentition CV: RRR Resp: coarse. no wheezes or crackles. Abd: soft. no TTP Neuro: alert. appropriate Microbiology Date/Time Source Procedure Growth Status 01/22/19 16:10 Blood Blood Culture - Preliminary NO GROWTH AFTER 48 HOURS Resulted 01/22/19 16:00 Blood Blood Culture - Preliminary NO GROWTH AFTER 48 HOURS Resulted 01/24/19 07:30 Sputum AFB Specimen Processing Tissue - Final Resulted 01/24/19 07:30 Sputum Acid Fast Bacilli Smear - Final Resulted 01/24/19 07:30 Sputum Acid Fast Bacilli Culture Pending Resulted Laboratory Tests Test 01/25/19 07:30 01/25/19 14:00 White Blood Count 3.3 K/UL (4.8-10.8) L Red Blood Count 3.10 M/UL (4.70-6.10) L Hemoglobin 8.5 G/DL (14.2-18.0) L Hematocrit 25.0 % (42.0-52.0) L Mean Corpuscular Volume 81 FL (80-99) Mean Corpuscular Hemoglobin 27.5 PG (27.0-31.0) Mean Corpuscular Hemoglobin Concent 34.1 G/DL (32.0-36.0) Red Cell Distribution Width 14.2 % (11.6-14.8) Platelet Count 44 K/UL (150-450) L Mean Platelet Volume 8.0 FL (6.5-10.1) Neutrophils (%) (Auto) % (45.0-75.0) Lymphocytes (%) (Auto) % (20.0-45.0) Monocytes (%) (Auto) % (1.0-10.0) Eosinophils (%) (Auto) % (0.0-3.0) Basophils (%) (Auto) % (0.0-2.0) Differential Total Cells Counted 100 Neutrophils % (Manual) 44 % (45-75) L Lymphocytes % (Manual) 42 % (20-45) Monocytes % (Manual) 11 % (1-10) H Eosinophils % (Manual) 3 % (0-3) Basophils % (Manual) 0 % (0-2) Band Neutrophils 0 % (0-8) Platelet Estimate Decreased L Platelet Morphology Normal Erythrocyte Sedimentation Rate 129 MM/HR (0-15) H Sodium Level 136 MMOL/L (136-145) Potassium Level 3.7 MMOL/L (3.5-5.1) Chloride Level 102 MMOL/L (98-107) Carbon Dioxide Level 28 MMOL/L (21-32) Anion Gap 6 mmol/L (5-15) Blood Urea Nitrogen 6 mg/dL (7-18) L Creatinine 0.6 MG/DL (0.55-1.30) Estimat Glomerular Filtration Rate > 60 mL/min (>60) Glucose Level 108 MG/DL (74-106) H Calcium Level 8.3 MG/DL (8.5-10.1) L Phosphorus Level 4.1 MG/DL (2.5-4.9) Magnesium Level 1.9 MG/DL (1.8-2.4) Total Bilirubin 0.9 MG/DL (0.2-1.0) Aspartate Amino Transf (AST/SGOT) 78 U/L (15-37) H Alanine Aminotransferase (ALT/SGPT) 73 U/L (12-78) Alkaline Phosphatase 85 U/L (46-116) C-Reactive Protein, Quantitative 15.1 mg/dL (0.00-0.90) H Total Protein 7.1 G/DL (6.4-8.2) Albumin 1.9 G/DL (3.4-5.0) L Globulin 5.2 g/dL Albumin/Globulin Ratio 0.4 (1.0-2.7) L M. tuberculosis Complex DNA (PCR) Pending Current Medications Medications (Trade) Dose Ordered Sig/Jeff Route PRN Reason Start Time Stop Time Status Last Admin Dose Admin Acetaminophen (Tylenol) 650 mg Q6H PRN ORAL Mild Pain/Temp > 100.5 01/21/19 05:45 02/20/19 05:44 01/25/19 02:44 Albuterol/ Ipratropium (Albuterol/ Ipratropium) 3 ml Q4H PRN HHN Shortness of Breath 01/22/19 11:30 01/27/19 11:29 01/23/19 09:59 Ceftriaxone Sodium 1 gm/ Dextrose 55 ml @ 110 mls/hr Q24H IVPB 01/21/19 09:00 01/28/19 08:59 01/25/19 08:24 Doxycycline Monohydrate (Doxycycline Monohydrate) 100 mg EVERY 12 HOURS ORAL 01/22/19 09:00 01/29/19 08:59 01/25/19 08:25 Guaifenesin/ Dextromethorphan (Robitussin DM Syrup) 10 ml Q6HR PRN ORAL For Cough 01/21/19 22:30 02/20/19 22:29 01/24/19 18:35 Ondansetron HCl (Zofran) 4 mg Q4H PRN IVP Nausea & Vomiting 01/21/19 05:45 02/20/19 05:44 01/25/19 01:08 Potassium Chloride 10 meq/ Dextrose/Sodium Chloride 1,005 ml @ 100 mls/hr Q10H3M IV 01/23/19 13:00 02/21/19 12:59 01/25/19 13:52 Olvin Grover MD Jan 25, 2019 15:56
[2019-01-25 16:00] VITALS: BP 119/74
--- NOTE | 2019-01-25 16:21 | Pre-Procedure Note/Attestation ---
Pre-Procedure Note/Attestation Complete Prior to Procedure Planned Procedure: not applicable Procedure Narrative: US guided lymph node biopsy Indications for Procedure Pre-Operative Diagnosis: lymphadenopathy Attestation I attest that I discussed the nature of the procedure; its benefits; risks and complications; and alternatives (and the risks and benefits of such alternatives ), prior to the procedure, with the patient (or the patient's legal artist representative). I attest that, if there was a reasonable possibility of needing a blood transfusion, the patient (or the patient's legal artist representative) was given the [facility] standardized written summary, pursuant to the [place] Blood Safety Act ([place] Health and Safety Code # 1645, as amended). I attest that I re-evaluated the patient just prior to the surgery and that there has been no change in the patient's H&P, except as documented below: Irving Locke MD Jan 25, 2019 16:21
--- NOTE | 2019-01-25 16:22 | Brief Operative Note ---
Immediate Post Operative Note Operative Note Pre-op Diagnosis: lymphadenopathy Procedure: US guided lymph node bx R submandibular Post-op Diagnosis: same as pre-op Surgeon: Cortez Singletary Anesthesia: local Specimen: yes - 6 20G cores Complications: none Condition: stable Fluids: none Implant(s) used?: No Irving Singletary MD Jan 25, 2019 16:22
--- NOTE | 2019-01-25 16:55 | Cardiology Report ---
APPROVED REPORT EKG Measurement Heart [id number] Sinus tachycardia Otherwise normal ECG
--- NOTE | 2019-01-25 16:59 | Diagnostic Imaging Report ---
Indication: Lymphadenopathy seen on prior imaging studies, also palpable lymphadenopathy Technique: Prior imaging studies reviewed. Informed consent obtained prior to commencement of the procedure. Procedure timeout performed. A dominant node in the upper right neck was selected due to its size. Sterile prepping and draping. Local anesthesia functional lidocaine. Under real-time ultrasound guidance, a 19-gauge guide needle was directed to the periphery of the lesion. Total of 6 20-gauge core specimens obtained using automated biopsy gun in semiautomatic mode. These were submitted to pathology for histologic, flow cytometry, and microbial studies. The patient tolerated the procedure well, without immediate complication. Comparison: none Findings: For procedural images document needle placement within the target lymph node Impression: Apparently successful right cervical lymph node biopsy, as described. Pathology pending
--- NOTE | 2019-01-25 17:04 | Cardiology Report ---
APPROVED REPORT EKG Measurement Heart [id number] Sinus tachycardia Otherwise normal ECG
--- NOTE | 2019-01-25 17:10 | Hematology/Onc Progress Note ---
Assessment/Plan Assessment/Plan Assessment and Recs: # Pancytopenia is likely related to newly diagnoised HIV/Aids, has not been in prior treated, ct of the abdomen and pelvis shows extensive lad and likely cause of splenic sequestration --> also r/o underlying malignancy, with cervical biopsy 01/25 --> reverse isolation if ANC is <2000 --> Give neupogen if ANC <1000 --> Transfuse if hgb <7, with 1 unit prbc --> consider bone marrow biopsy if no other causes are found --> plts were given 01/25 pre-procedure # Pneumonia on imaging, sputum normal shelbi --> 01/20 CT chest: There is a cluster of masslike opacities in the right lower lobe with some slight surrounding groundglass opacity. --> s/p abx as per id PCN/DOxy/CTX --> monitor for improvement # Diffuse lymphadenopathy/splenomegaly/hepatomegaly - DDx: TB, lymphoma, HIV/ AIDS related, Castleman disease --> CT neck: : Extensive cervical and supraclavicular lymphadenopathy, as described. Could be reactive or infectious, possibly related to stated clinical history of recent HIV diagnosis. However, the possibility of lymphoproliferative disorder should also be considered. Mild adenoidal and right tonsillar pillar prominence, if real possibly related to the above. Incidental finding right maxillary sinus disease. --> CT c/ab/p: Massive splenomegaly. Hepatomegaly. Extensive lymphadenopathy, involving the bilateral inguinal regions, bilateral iliac chains, retroaortic and retrocaval region, peripancreatic and lesser sac regions, bilateral axillae , bilateral cervical and supraclavicular regions, and the mediastinum. This may reflect infectious or inflammatory lymphadenopathy, particularly in view of recent diagnosis of HIV positivity, or could indicate a lymphoproliferative disorder. 4 x 3 x 2.8 cm aggregate cluster of masslike opacities in the right lower lobe. This could most likely represents an area of infiltrate, but could conceivably represent cluster of small masses. Nonspecific small irregular opacities in the left lower lobe, may reflect early infiltrates. --> for a cervical lymph node biopsy 01/25 # R leg skin lesion- suspicious for Kaposi --> pending and now SP biopsy # HIV-1 Abt positive, CD4 41 (2.7%). VL: P --> CrAg negative, RPR 1:2 --> per id in re to HAART # Dvt ppx with scds The timing of this note does not necessarily reflect the time of the patient was seen. Greatly appreciate consultation. Subjective HEENT: Denies: no symptoms, eye pain, blurred vision, tearing, double vision, ear pain, ear discharge, nose pain, nose congestion, throat pain, throat swelling, mouth pain, mouth swelling, other Cardiovascular: Denies: no symptoms, chest pain, edema, irregular heart rate, lightheadedness, palpitations, syncope, other Respiratory: Denies: no symptoms, cough, shortness of breath, SOB with excertion, SOB at rest, sputum, wheezing, other Genitourinary: Denies: no symptoms, burning, discharge, frequency, flank pain, hematuria, incontinence, pain, urgency, other Neurologic/Psychiatric: Denies: no symptoms, anxiety, depressed, emotional problems, headache, numbness, paresthesia, pre-existing deficit, seizure, tingling, tremors, weakness, other Endocrine: Denies: no symptoms, excessive sweating, flushing, intolerance to cold, intolerance to heat, increased hunger, increased thirst, increased urine, unexplained weight gain, unexplained weight loss, other Hematologic/Lymphatic: Denies: no symptoms, anemia, easy bleeding, easy bruising, adenopathy, other Allergies: Coded Allergies: No Known Allergies (Unverified , 01/20/19) Subjective 01/25: no events, remains on airborne isolation, labs noted, received plts last night Objective Objective Current Medications Medications (Trade) Dose Ordered Sig/Jeff Route PRN Reason Start Time Stop Time Status Last Admin Dose Admin Acetaminophen (Tylenol) 650 mg Q6H PRN ORAL Mild Pain/Temp > 100.5 01/21/19 05:45 02/20/19 05:44 01/25/19 02:44 Albuterol/ Ipratropium (Albuterol/ Ipratropium) 3 ml Q4H PRN HHN Shortness of Breath 01/22/19 11:30 01/27/19 11:29 01/23/19 09:59 Ceftriaxone Sodium 1 gm/ Dextrose 55 ml @ 110 mls/hr Q24H IVPB 01/21/19 09:00 01/28/19 08:59 01/25/19 08:24 Doxycycline Monohydrate (Doxycycline Monohydrate) 100 mg EVERY 12 HOURS ORAL 01/22/19 09:00 01/29/19 08:59 01/25/19 08:25 Guaifenesin/ Dextromethorphan (Robitussin DM Syrup) 10 ml Q6HR PRN ORAL For Cough 01/21/19 22:30 02/20/19 22:29 01/24/19 18:35 Ondansetron HCl (Zofran) 4 mg Q4H PRN IVP Nausea & Vomiting 01/21/19 05:45 02/20/19 05:44 01/25/19 01:08 Penicillin G Benzathine (Bicillin L-A) 2,400,000 unit ONCE IM 01/25/19 18:00 01/25/19 20:00 Potassium Chloride 10 meq/ Dextrose/Sodium Chloride 1,005 ml @ 100 mls/hr Q10H3M IV 01/23/19 13:00 02/21/19 12:59 01/25/19 13:52 Last 24 Hour Vital Signs Date Time Temp Pulse Resp B/P (MAP) Pulse Ox O2 Delivery O2 Flow Rate FiO2 01/25/19 16:00 98.0 112 18 119/74 (89) 98 01/25/19 13:58 114 20 100 Room Air 21 01/25/19 12:00 97.5 103 20 117/72 (87) 97 01/25/19 12:00 108 01/25/19 09:00 Room Air 01/25/19 08:00 98.2 93 18 117/50 (72) 96 01/25/19 08:00 98 01/25/19 04:00 102 01/25/19 04:00 98.8 100 19 110/62 (78) 97 01/25/19 00:00 93 01/25/19 00:00 98.1 106 18 121/74 (90) 100 01/24/19 21:00 Room Air 01/24/19 20:00 110 18 98 Room Air 21 01/24/19 20:00 115 01/24/19 20:00 97.9 109 19 124/79 (94) 99 01/24/19 19:05 98.2 01/24/19 16:00 98.2 117 20 120/74 (89) 100 01/24/19 16:00 111 01/24/19 12:00 119 01/24/19 11:48 98.2 118 18 118/72 (87) 99 01/24/19 08:00 98.2 117 20 120/74 (89) 100 01/24/19 08:00 110 01/24/19 08:00 Room Air 01/24/19 07:10 117 18 100 Room Air 21 01/24/19 04:00 113 01/24/19 03:39 97.7 109 18 126/64 (84) 96 01/24/19 00:00 98.9 103 20 106/61 (76) 95 01/24/19 00:00 104 01/23/19 21:00 Room Air 01/23/19 20:00 100.0 134 19 125/63 (83) 96 01/23/19 20:00 120 01/23/19 19:00 91 18 99 Room Air 21 Intake and Output 01/24/19 01/25/19 19:00 07:00 Intake Total 1340 ml 561 ml Balance 1340 ml 561 ml Intake Oral 240 ml 240 ml IV Total 1100 ml Blood Product 321 ml # Voids 3 2 Labs Test 01/23/19 04:42 01/24/19 07:00 01/24/19 11:00 01/25/19 07:30 White Blood Count 3.6 K/UL (4.8-10.8) 3.0 K/UL (4.8-10.8) 3.3 K/UL (4.8-10.8) Red Blood Count 3.29 M/UL (4.70-6.10) 3.29 M/UL (4.70-6.10) 3.10 M/UL (4.70-6.10) Hemoglobin 9.2 G/DL (14.2-18.0) 9.0 G/DL (14.2-18.0) 8.5 G/DL (14.2-18.0) Hematocrit 26.7 % (42.0-52.0) 26.6 % (42.0-52.0) 25.0 % (42.0-52.0) Mean Corpuscular Volume 81 FL (80-99) 81 FL (80-99) 81 FL (80-99) Mean Corpuscular Hemoglobin 28.1 PG (27.0-31.0) 27.5 PG (27.0-31.0) 27.5 PG (27.0-31.0) Mean Corpuscular Hemoglobin Concent 34.5 G/DL (32.0-36.0) 34.0 G/DL (32.0-36.0) 34.1 G/DL (32.0-36.0) Red Cell Distribution Width 14.2 % (11.6-14.8) 14.5 % (11.6-14.8) 14.2 % (11.6-14.8) Platelet Count 35 K/UL (150-450) 30 K/UL (150-450) 44 K/UL (150-450) Mean Platelet Volume 10.2 FL (6.5-10.1) 8.5 FL (6.5-10.1) 8.0 FL (6.5-10.1) Neutrophils (%) (Auto) % (45.0-75.0) % (45.0-75.0) % (45.0-75.0) Lymphocytes (%) (Auto) % (20.0-45.0) % (20.0-45.0) % (20.0-45.0) Monocytes (%) (Auto) % (1.0-10.0) % (1.0-10.0) % (1.0-10.0) Eosinophils (%) (Auto) % (0.0-3.0) % (0.0-3.0) % (0.0-3.0) Basophils (%) (Auto) % (0.0-2.0) % (0.0-2.0) % (0.0-2.0) Differential Total Cells Counted 100 100 100 Neutrophils % (Manual) 34 % (45-75) 45 % (45-75) 44 % (45-75) Lymphocytes % (Manual) 48 % (20-45) 35 % (20-45) 42 % (20-45) Monocytes % (Manual) 17 % (1-10) 17 % (1-10) 11 % (1-10) Eosinophils % (Manual) 1 % (0-3) 3 % (0-3) 3 % (0-3) Basophils % (Manual) 0 % (0-2) 0 % (0-2) 0 % (0-2) Band Neutrophils 0 % (0-8) 0 % (0-8) 0 % (0-8) Platelet Estimate Decreased Decreased Decreased Platelet Morphology Normal Normal Normal Anisocytosis 1+ Spherocytes 2+ Sodium Level 133 MMOL/L (136-145) 135 MMOL/L (136-145) 136 MMOL/L (136-145) Potassium Level 3.7 MMOL/L (3.5-5.1) 3.9 MMOL/L (3.5-5.1) 3.7 MMOL/L (3.5-5.1) Chloride Level 99 MMOL/L (98-107) 103 MMOL/L (98-107) 102 MMOL/L (98-107) Carbon Dioxide Level 26 MMOL/L (21-32) 28 MMOL/L (21-32) 28 MMOL/L (21-32) Anion Gap 8 mmol/L (5-15) 4 mmol/L (5-15) 6 mmol/L (5-15) Blood Urea Nitrogen 8 mg/dL (7-18) 7 mg/dL (7-18) 6 mg/dL (7-18) Creatinine 0.6 MG/DL (0.55-1.30) 0.6 MG/DL (0.55-1.30) 0.6 MG/DL (0.55-1.30) Estimat Glomerular Filtration Rate > 60 mL/min (>60) > 60 mL/min (>60) > 60 mL/min (>60) Glucose Level 123 MG/DL (74-106) 109 MG/DL (74-106) 108 MG/DL (74-106) Calcium Level 8.0 MG/DL (8.5-10.1) 7.9 MG/DL (8.5-10.1) 8.3 MG/DL (8.5-10.1) Magnesium Level 1.6 MG/DL (1.8-2.4) 1.7 MG/DL (1.8-2.4) 1.9 MG/DL (1.8-2.4) Red Blood Cell Morphology Normal Prothrombin Time 11.8 SEC (9.30-11.50) Prothromb Time International Ratio 1.1 (0.9-1.1) Erythrocyte Sedimentation Rate 129 MM/HR (0-15) Phosphorus Level 4.1 MG/DL (2.5-4.9) Total Bilirubin 0.9 MG/DL (0.2-1.0) Aspartate Amino Transf (AST/SGOT) 78 U/L (15-37) Alanine Aminotransferase (ALT/SGPT) 73 U/L (12-78) Alkaline Phosphatase 85 U/L (46-116) C-Reactive Protein, Quantitative 15.1 mg/dL (0.00-0.90) Total Protein 7.1 G/DL (6.4-8.2) Albumin 1.9 G/DL (3.4-5.0) Globulin 5.2 g/dL Albumin/Globulin Ratio 0.4 (1.0-2.7) Test 01/25/19 14:00 01/25/19 16:10 Height (Feet): 5 Height (Inches): 10.00 Weight (Pounds): 150 Objective Gen: NAd, Pulm: Ctab, no cwr CV: Rrr, no mgr Abd: soft, nt, nd Ext: no cce, skin lesions on legs noted kaposis likely Damaso Ventura MD Jan 25, 2019 17:10
--- NOTE | 2019-01-25 17:21 | Internal Med Progress Note ---
Subjective Date of Service: Jan 25, 2019 Physician Name Abhijeet Urisotegui Attending Physician Akil Barron MD Current Medications Medications (Trade) Dose Ordered Sig/Jeff Route PRN Reason Start Time Stop Time Status Last Admin Dose Admin Acetaminophen (Tylenol) 650 mg Q6H PRN ORAL Mild Pain/Temp > 100.5 01/21/19 05:45 02/20/19 05:44 01/25/19 02:44 Albuterol/ Ipratropium (Albuterol/ Ipratropium) 3 ml Q4H PRN HHN Shortness of Breath 01/22/19 11:30 01/27/19 11:29 01/23/19 09:59 Ceftriaxone Sodium 1 gm/ Dextrose 55 ml @ 110 mls/hr Q24H IVPB 01/21/19 09:00 01/28/19 08:59 01/25/19 08:24 Doxycycline Monohydrate (Doxycycline Monohydrate) 100 mg EVERY 12 HOURS ORAL 01/22/19 09:00 01/29/19 08:59 01/25/19 08:25 Guaifenesin/ Dextromethorphan (Robitussin DM Syrup) 10 ml Q6HR PRN ORAL For Cough 01/21/19 22:30 02/20/19 22:29 01/24/19 18:35 Ondansetron HCl (Zofran) 4 mg Q4H PRN IVP Nausea & Vomiting 01/21/19 05:45 02/20/19 05:44 01/25/19 01:08 Penicillin G Benzathine (Bicillin L-A) 2,400,000 unit ONCE IM 01/25/19 18:00 01/25/19 20:00 Potassium Chloride 10 meq/ Dextrose/Sodium Chloride 1,005 ml @ 100 mls/hr Q10H3M IV 01/23/19 13:00 02/21/19 12:59 01/25/19 13:52 Allergies: Coded Allergies: No Known Allergies (Unverified , 01/20/19) Subjective 28 YO M admitted with cough. Now new dx HIV, lymphadenopathy and pneumonia. Cover for Int Med- Dr Barron. Objective Last Vital Signs Date Time Temp Pulse Resp B/P (MAP) Pulse Ox O2 Delivery O2 Flow Rate FiO2 01/25/19 16:00 98.0 112 18 119/74 (89) 98 01/25/19 13:58 Room Air 21 Laboratory Tests Test 01/25/19 07:30 01/25/19 14:00 01/25/19 16:10 White Blood Count 3.3 K/UL (4.8-10.8) L Red Blood Count 3.10 M/UL (4.70-6.10) L Hemoglobin 8.5 G/DL (14.2-18.0) L Hematocrit 25.0 % (42.0-52.0) L Mean Corpuscular Volume 81 FL (80-99) Mean Corpuscular Hemoglobin 27.5 PG (27.0-31.0) Mean Corpuscular Hemoglobin Concent 34.1 G/DL (32.0-36.0) Red Cell Distribution Width 14.2 % (11.6-14.8) Platelet Count 44 K/UL (150-450) L Mean Platelet Volume 8.0 FL (6.5-10.1) Neutrophils (%) (Auto) % (45.0-75.0) Lymphocytes (%) (Auto) % (20.0-45.0) Monocytes (%) (Auto) % (1.0-10.0) Eosinophils (%) (Auto) % (0.0-3.0) Basophils (%) (Auto) % (0.0-2.0) Differential Total Cells Counted 100 Neutrophils % (Manual) 44 % (45-75) L Lymphocytes % (Manual) 42 % (20-45) Monocytes % (Manual) 11 % (1-10) H Eosinophils % (Manual) 3 % (0-3) Basophils % (Manual) 0 % (0-2) Band Neutrophils 0 % (0-8) Platelet Estimate Decreased L Platelet Morphology Normal Erythrocyte Sedimentation Rate 129 MM/HR (0-15) H Sodium Level 136 MMOL/L (136-145) Potassium Level 3.7 MMOL/L (3.5-5.1) Chloride Level 102 MMOL/L (98-107) Carbon Dioxide Level 28 MMOL/L (21-32) Anion Gap 6 mmol/L (5-15) Blood Urea Nitrogen 6 mg/dL (7-18) L Creatinine 0.6 MG/DL (0.55-1.30) Estimat Glomerular Filtration Rate > 60 mL/min (>60) Glucose Level 108 MG/DL (74-106) H Calcium Level 8.3 MG/DL (8.5-10.1) L Phosphorus Level 4.1 MG/DL (2.5-4.9) Magnesium Level 1.9 MG/DL (1.8-2.4) Total Bilirubin 0.9 MG/DL (0.2-1.0) Aspartate Amino Transf (AST/SGOT) 78 U/L (15-37) H Alanine Aminotransferase (ALT/SGPT) 73 U/L (12-78) Alkaline Phosphatase 85 U/L (46-116) C-Reactive Protein, Quantitative 15.1 mg/dL (0.00-0.90) H Total Protein 7.1 G/DL (6.4-8.2) Albumin 1.9 G/DL (3.4-5.0) L Globulin 5.2 g/dL Albumin/Globulin Ratio 0.4 (1.0-2.7) L Hepatitis A IgM Antibody Pending Hepatitis B Surface Antigen Pending Hepatitis B Core IgM Antibody Pending Hepatitis C Antibody Pending M. tuberculosis Complex DNA (PCR) Pending Pending Microbiology Date/Time Source Procedure Growth Status 01/24/19 07:30 Sputum AFB Specimen Processing Tissue - Final Resulted 01/24/19 07:30 Sputum Acid Fast Bacilli Smear - Final Resulted 01/24/19 07:30 Sputum Acid Fast Bacilli Culture Pending Resulted Intake and Output 01/24/19 01/25/19 19:00 07:00 Intake Total 1340 ml 561 ml Balance 1340 ml 561 ml Intake Oral 240 ml 240 ml IV Total 1100 ml Blood Product 321 ml # Voids 3 2 Objective PHYSICAL EXAMINATION: GENERAL: The patient is awake and responsive, in no acute distress. HEAD AND NECK: Pupils are reactive to light. Extraocular movements intact. Neck was supple. No JVD. LUNGS: Good air entry. No wheezing or rales. HEART: Reveals S1, S2. Regular rhythm. No gallops. ABDOMEN: Soft, nondistended, and nontender. Positive bowel sounds. EXTREMITIES: No cyanosis, clubbing, edema NEUROLOGIC: Cranial nerves II through XII grossly intact. Motor is 5/5 in all extremities. Gait is intact. RECTAL/GENITOURINARY: Refused and deferred. PSYCHIATRIC: Mood and affect is intact. LYMPH NODES: Showed the patient has a positive lymphadenopathy in the cervical lymph node in the neck as well as in the pelvic area. Assessment/Plan Assessment/Plan ASSESSMENT: 1. Generalized lymphadenopathy. 2. New diagnosis of human immunodeficiency virus. 3. Right Lung infiltrate, possible pneumonia versus tuberculosis. 4. Splenomegaly. 5. LEO. 6. Hepatomegaly. 7. Thrombocytopenia. 8. Right leg skin lesion-suspicious for Kaposi PLAN: 1. Admit the patient to respiratory isolation. 2. Follow up with the AFB x3. 3. Discussed case with Dr. Terrell from Pulmonary Critical Care and Infectious Disease consultation. 4. Follow up with the infection workup. 5. Code status is Full code. 6. DVT prophylaxis with heparin subcutaneous. 7. We will discuss with the mother extensively at the bedside. 8. The patient at this time does not want the mother or any family member informed about the human immunodeficiency virus status 9. ABX=ceftriaxone and doxycycline 10. S/P biopsy right leg skin lesion 11. CD4=41 Abhijeet Uriostegui MD Jan 25, 2019 17:21
[2019-01-25] MEDS ORDERED: Bicillin LA 2.4MMU/4ML SYR IM SCH (18:00)
[2019-01-25 20:00] VITALS: BP 118/70
[2019-01-26] VITALS: BP 120/80
[2019-01-26] MEDS: Potassium Chloride 10 MEQ in D5 1/2NS 1,000 ML IV SCH ×3 (01:53→21:42)
[2019-01-26] MEDS: Guaifenesin/DM 10ml syrup ORAL PRN (01:56)
[2019-01-26 04:00] VITALS: BP 133/75
[2019-01-26 07:19] LABS: HEMATOCRIT 22.7 % (42.0-52.0); HEMOGLOBIN 7.9 G/DL (14.2-18.0); MEAN CORPUSCULAR VOLUME 81 FL (80-99); PLATELET COUNT 53 K/UL (150-450); RED BLOOD COUNT 2.81 M/UL (4.70-6.10); RED CELL DISTRIBUTION WIDTH 14.2 % (11.6-14.8); WHITE BLOOD COUNT 3.1 K/UL (4.8-10.8)
[2019-01-26 07:39] LABS: ANION GAP 6 mmol/L (5-15); BLOOD UREA NITROGEN 6 mg/dL (7-18); CALCIUM 8.3 MG/DL (8.5-10.1); CARBON DIOXIDE 27 MMOL/L (21-32); CHLORIDE 104 MMOL/L (98-107); CREATININE 0.6 MG/DL (0.55-1.30); POTASSIUM 3.6 MMOL/L (3.5-5.1); SODIUM 137 MMOL/L (136-145)
[2019-01-26 08:00] VITALS: BP 118/72
[2019-01-26] MEDS: cefTRIAXone 1 GM in D5W 55 ML IVPB SCH (08:49)
[2019-01-26] MEDS: Doxycycline Monohydrate 100mg ORAL SCH (08:50)
[2019-01-26] MEDS ORDERED: Lidocaine 1% MPF 10mg/ml 5ml HHN PRN (11:30)
--- NOTE | 2019-01-26 11:42 | Pulmonology Progress Note ---
Assessment/Plan Problems: (1) Pneumonia (2) Positive RPR test (3) Lymphadenopathy, cervical (4) Kaposi sarcoma (5) Thrombocytopenia (6) Fever (7) HIV (human immunodeficiency virus infection) (8) AIDS Assessment/Plan biopsy of skin showing Kaposi Sarcoma check cultures fine needle aspiration pending f/u ID recommendations RPR is positive 1:2. 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 Subjective ROS Limited/Unobtainable: No Constitutional: Reports: no symptoms HEENT: Repors: no symptoms Respiratory: Reports: no symptoms Allergies: Coded Allergies: No Known Allergies (Unverified , 01/20/19) Objective Last 24 Hour Vital Signs Date Time Temp Pulse Resp B/P (MAP) Pulse Ox O2 Delivery O2 Flow Rate FiO2 01/26/19 09:25 98 18 98 Room Air 21 01/26/19 09:00 Room Air 01/26/19 08:00 81 01/26/19 08:00 98.2 86 20 118/72 (87) 100 01/26/19 04:00 98.4 104 20 133/75 (94) 100 01/26/19 04:00 100 01/26/19 00:00 97.2 86 19 120/80 (93) 100 01/26/19 00:00 86 01/25/19 21:00 Room Air 01/25/19 20:25 110 20 97 Room Air 21 01/25/19 20:00 103 01/25/19 20:00 97.1 103 19 118/70 (86) 99 01/25/19 16:00 98.0 112 18 119/74 (89) 98 01/25/19 16:00 124 01/25/19 13:58 114 20 100 Room Air 21 01/25/19 12:00 97.5 103 20 117/72 (87) 97 01/25/19 12:00 108 Intake and Output 01/25/19 01/26/19 18:59 06:59 Intake Total 480 ml 561 ml Output Total 520 ml Balance 480 ml 41 ml Intake Oral 480 ml 240 ml Blood Product 321 ml Output Urine Total 500 ml Emesis 20 ml # Voids 4 2 # Bowel Movements 1 General Appearance: WD/WN HEENT: normocephalic, atraumatic Respiratory/Chest: chest wall non-tender, lungs clear Cardiovascular: normal peripheral pulses, normal rate Abdomen: normal bowel sounds, soft, non tender Genitourinary: normal external genitalia Extremities: no clubbing Neurologic/Psychiatric: pharmacologist II-XII grossly normal, no motor/sensory deficits Microbiology Date/Time Source Procedure Growth Status 01/24/19 07:30 Sputum AFB Specimen Processing Tissue - Final Resulted 01/24/19 07:30 Sputum Acid Fast Bacilli Smear - Final Resulted 01/24/19 07:30 Sputum Acid Fast Bacilli Culture Pending Resulted Laboratory Tests 01/25/19 14:00: M. tuberculosis Complex DNA (PCR) [Pending] 01/25/19 16:10: M. tuberculosis Complex DNA (PCR) [Pending] 01/26/19 06:30: White Blood Count 3.1L, Red Blood Count 2.81L, Hemoglobin 7.9L, Hematocrit 22.7L , Mean Corpuscular Volume 81, Mean Corpuscular Hemoglobin 27.9, Mean Corpuscular Hemoglobin Concent 34.7, Red Cell Distribution Width 14.2, Platelet Count 53L, Mean Platelet Volume 7.9, Neutrophils (%) (Auto) , Lymphocytes (%) ( Auto) , Monocytes (%) (Auto) , Eosinophils (%) (Auto) , Basophils (%) (Auto) , Differential Total Cells Counted 100, Neutrophils % (Manual) 56, Lymphocytes % ( Manual) 37, Monocytes % (Manual) 6, Eosinophils % (Manual) 1, Basophils % ( Manual) 0, Band Neutrophils 0, Platelet Estimate DecreasedL, Platelet Morphology Normal, Hypochromasia 1+, Anisocytosis 1+, Sodium Level 137, Potassium Level 3.6, Chloride Level 104, Carbon Dioxide Level 27, Anion Gap 6, Blood Urea Nitrogen 6L, Creatinine 0.6, Estimat Glomerular Filtration Rate > 60 , Glucose Level 119H, Calcium Level 8.3L Current Medications Medications (Trade) Dose Ordered Sig/Jeff Route PRN Reason Start Time Stop Time Status Last Admin Dose Admin Acetaminophen (Tylenol) 650 mg Q6H PRN ORAL Mild Pain/Temp > 100.5 01/21/19 05:45 02/20/19 05:44 01/26/19 01:59 Albuterol/ Ipratropium (Albuterol/ Ipratropium) 3 ml Q4H PRN HHN Shortness of Breath 01/22/19 11:30 01/27/19 11:29 01/23/19 09:59 Ceftriaxone Sodium 1 gm/ Dextrose 55 ml @ 110 mls/hr Q24H IVPB 01/21/19 09:00 01/28/19 08:59 01/26/19 08:49 Doxycycline Monohydrate (Doxycycline Monohydrate) 100 mg EVERY 12 HOURS ORAL 01/22/19 09:00 01/29/19 08:59 01/26/19 08:50 Guaifenesin/ Dextromethorphan (Robitussin DM Syrup) 10 ml Q6HR PRN ORAL For Cough 01/21/19 22:30 02/20/19 22:29 01/26/19 01:56 Lidocaine (Xylocaine 1% MPF 5ml) 10 ml Q4H PRN HHN cough 01/26/19 11:30 02/25/19 11:29 Ondansetron HCl (Zofran) 4 mg Q4H PRN IVP Nausea & Vomiting 01/21/19 05:45 02/20/19 05:44 01/25/19 01:08 Potassium Chloride 10 meq/ Dextrose/Sodium Chloride 1,005 ml @ 100 mls/hr Q10H3M IV 01/23/19 13:00 02/21/19 12:59 01/26/19 01:53 Suzanne Terrell MD Jan 26, 2019 11:42
[2019-01-26 12:00] VITALS: BP 119/67
--- NOTE | 2019-01-26 14:11 | Hematology/Onc Progress Note ---
Assessment/Plan Assessment/Plan Assessment and Recs: # Pancytopenia is likely related to newly diagnoised HIV/Aids, has not been in prior treated, ct of the abdomen and pelvis shows extensive lad and likely cause of splenic sequestration, in addition may be related to NHL v kaposis --> also r/o underlying malignancy, with cervical biopsy 01/25 --> reverse isolation if ANC is <2000 --> Give neupogen if ANC <1000 --> Transfuse if hgb <7, with 1 unit prbc --> consider bone marrow biopsy if no other causes are found --> plts were given 01/25 pre-procedure 35-->44-->53k # Diffuse lymphadenopathy/splenomegaly/hepatomegaly - DDx: TB, lymphoma, HIV/ AIDS related, Castleman disease --> CT neck: : Extensive cervical and supraclavicular lymphadenopathy, as described. Could be reactive or infectious, possibly related to stated clinical history of recent HIV diagnosis. However, the possibility of lymphoproliferative disorder should also be considered. Mild adenoidal and right tonsillar pillar prominence, if real possibly related to the above. Incidental finding right maxillary sinus disease. --> CT c/ab/p: Massive splenomegaly. Hepatomegaly. Extensive lymphadenopathy, involving the bilateral inguinal regions, bilateral iliac chains, retroaortic and retrocaval region, peripancreatic and lesser sac regions, bilateral axillae , bilateral cervical and supraclavicular regions, and the mediastinum. This may reflect infectious or inflammatory lymphadenopathy, particularly in view of recent diagnosis of HIV positivity, or could indicate a lymphoproliferative disorder. 4 x 3 x 2.8 cm aggregate cluster of masslike opacities in the right lower lobe. This could most likely represents an area of infiltrate, but could conceivably represent cluster of small masses. Nonspecific small irregular opacities in the left lower lobe, may reflect early infiltrates. --> for a cervical lymph node biopsy 01/25--> report pending --> further recs based on above # Pneumonia on imaging, sputum normal shelbi --> 01/20 CT chest: There is a cluster of masslike opacities in the right lower lobe with some slight surrounding groundglass opacity. 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 VL: P --> CrAg negative, RPR 1:2 --> per id in re to HAART --> monitor if needed for reconstitutional syndrome # Dvt ppx with scds The timing of this note does not necessarily reflect the time of the patient was seen. Greatly appreciate consultation. Subjective HEENT: Denies: no symptoms, eye pain, blurred vision, tearing, double vision, ear pain, ear discharge, nose pain, nose congestion, throat pain, throat swelling, mouth pain, mouth swelling, other Cardiovascular: Denies: no symptoms, chest pain, edema, irregular heart rate, lightheadedness, palpitations, syncope, other Gastrointestinal/Abdominal: Denies: no symptoms, abdomen distended, abdominal pain, black stools, tarry stools, blood in stool, constipated, diarrhea, difficulty swallowing, nausea, poor appetite, poor fluid intake, rectal bleeding , vomiting, other Genitourinary: Denies: no symptoms, burning, discharge, frequency, flank pain, hematuria, incontinence, pain, urgency, other Neurologic/Psychiatric: Denies: no symptoms, anxiety, depressed, emotional problems, headache, numbness, paresthesia, pre-existing deficit, seizure, tingling, tremors, weakness, other Endocrine: Denies: no symptoms, excessive sweating, flushing, intolerance to cold, intolerance to heat, increased hunger, increased thirst, increased urine, unexplained weight gain, unexplained weight loss, other Hematologic/Lymphatic: Denies: no symptoms, anemia, easy bleeding, easy bruising, adenopathy, other Allergies: Coded Allergies: No Known Allergies (Unverified , 01/20/19) Subjective 01/25: no events, remains on airborne isolation, labs noted, received plts last night 01/26: very sleepy this am, no bleeding or chills, no night sweats noted, dw id Objective Objective Current Medications Medications (Trade) Dose Ordered Sig/Jeff Route PRN Reason Start Time Stop Time Status Last Admin Dose Admin Acetaminophen (Tylenol) 650 mg Q6H PRN ORAL Mild Pain/Temp > 100.5 01/21/19 05:45 02/20/19 05:44 01/26/19 01:59 Albuterol/ Ipratropium (Albuterol/ Ipratropium) 3 ml Q4H PRN HHN Shortness of Breath 01/22/19 11:30 01/27/19 11:29 01/23/19 09:59 Ceftriaxone Sodium 1 gm/ Dextrose 55 ml @ 110 mls/hr Q24H IVPB 01/21/19 09:00 01/28/19 08:59 01/26/19 08:49 Doxycycline Monohydrate (Doxycycline Monohydrate) 100 mg EVERY 12 HOURS ORAL 01/22/19 09:00 01/29/19 08:59 01/26/19 08:50 Guaifenesin/ Dextromethorphan (Robitussin DM Syrup) 10 ml Q6HR PRN ORAL For Cough 01/21/19 22:30 02/20/19 22:29 01/26/19 01:56 Lidocaine (Xylocaine 1% MPF 5ml) 10 ml Q4H PRN HHN cough 01/26/19 11:30 02/25/19 11:29 01/26/19 13:29 Ondansetron HCl (Zofran) 4 mg Q4H PRN IVP Nausea & Vomiting 01/21/19 05:45 02/20/19 05:44 01/25/19 01:08 Potassium Chloride 10 meq/ Dextrose/Sodium Chloride 1,005 ml @ 100 mls/hr Q10H3M IV 01/23/19 13:00 02/21/19 12:59 01/26/19 12:33 Last 24 Hour Vital Signs Date Time Temp Pulse Resp B/P (MAP) Pulse Ox O2 Delivery O2 Flow Rate FiO2 01/26/19 13:31 106 20 99 Room Air 36 102 22 100 01/26/19 12:00 97.5 92 21 119/67 (84) 100 01/26/19 09:25 98 18 98 Room Air 21 01/26/19 09:00 Room Air 01/26/19 08:00 81 01/26/19 08:00 98.2 86 20 118/72 (87) 100 01/26/19 04:00 98.4 104 20 133/75 (94) 100 01/26/19 04:00 100 01/26/19 00:00 97.2 86 19 120/80 (93) 100 01/26/19 00:00 86 01/25/19 21:00 Room Air 01/25/19 20:25 110 20 97 Room Air 21 01/25/19 20:00 103 01/25/19 20:00 97.1 103 19 118/70 (86) 99 01/25/19 16:00 98.0 112 18 119/74 (89) 98 01/25/19 16:00 124 01/25/19 13:58 114 20 100 Room Air 21 01/25/19 12:00 97.5 103 20 117/72 (87) 97 01/25/19 12:00 108 01/25/19 09:00 Room Air 01/25/19 08:00 98.2 93 18 117/50 (72) 96 01/25/19 08:00 98 01/25/19 04:00 102 01/25/19 04:00 98.8 100 19 110/62 (78) 97 01/25/19 00:00 93 01/25/19 00:00 98.1 106 18 121/74 (90) 100 01/24/19 21:00 Room Air 01/24/19 20:00 110 18 98 Room Air 21 01/24/19 20:00 115 01/24/19 20:00 97.9 109 19 124/79 (94) 99 01/24/19 19:05 98.2 01/24/19 16:00 98.2 117 20 120/74 (89) 100 01/24/19 16:00 111 Intake and Output 01/25/19 01/26/19 19:00 07:00 Intake Total 480 ml 561 ml Output Total 520 ml Balance 480 ml 41 ml Intake Oral 480 ml 240 ml Blood Product 321 ml Output Urine Total 500 ml Emesis 20 ml # Voids 4 2 # Bowel Movements 1 Labs Test 01/24/19 07:00 01/24/19 11:00 01/25/19 07:30 01/25/19 14:00 White Blood Count 3.0 K/UL (4.8-10.8) 3.3 K/UL (4.8-10.8) Red Blood Count 3.29 M/UL (4.70-6.10) 3.10 M/UL (4.70-6.10) Hemoglobin 9.0 G/DL (14.2-18.0) 8.5 G/DL (14.2-18.0) Hematocrit 26.6 % (42.0-52.0) 25.0 % (42.0-52.0) Mean Corpuscular Volume 81 FL (80-99) 81 FL (80-99) Mean Corpuscular Hemoglobin 27.5 PG (27.0-31.0) 27.5 PG (27.0-31.0) Mean Corpuscular Hemoglobin Concent 34.0 G/DL (32.0-36.0) 34.1 G/DL (32.0-36.0) Red Cell Distribution Width 14.5 % (11.6-14.8) 14.2 % (11.6-14.8) Platelet Count 30 K/UL (150-450) 44 K/UL (150-450) Mean Platelet Volume 8.5 FL (6.5-10.1) 8.0 FL (6.5-10.1) Neutrophils (%) (Auto) % (45.0-75.0) % (45.0-75.0) Lymphocytes (%) (Auto) % (20.0-45.0) % (20.0-45.0) Monocytes (%) (Auto) % (1.0-10.0) % (1.0-10.0) Eosinophils (%) (Auto) % (0.0-3.0) % (0.0-3.0) Basophils (%) (Auto) % (0.0-2.0) % (0.0-2.0) Differential Total Cells Counted 100 100 Neutrophils % (Manual) 45 % (45-75) 44 % (45-75) Lymphocytes % (Manual) 35 % (20-45) 42 % (20-45) Monocytes % (Manual) 17 % (1-10) 11 % (1-10) Eosinophils % (Manual) 3 % (0-3) 3 % (0-3) Basophils % (Manual) 0 % (0-2) 0 % (0-2) Band Neutrophils 0 % (0-8) 0 % (0-8) Platelet Estimate Decreased Decreased Platelet Morphology Normal Normal Red Blood Cell Morphology Normal Sodium Level 135 MMOL/L (136-145) 136 MMOL/L (136-145) Potassium Level 3.9 MMOL/L (3.5-5.1) 3.7 MMOL/L (3.5-5.1) Chloride Level 103 MMOL/L (98-107) 102 MMOL/L (98-107) Carbon Dioxide Level 28 MMOL/L (21-32) 28 MMOL/L (21-32) Anion Gap 4 mmol/L (5-15) 6 mmol/L (5-15) Blood Urea Nitrogen 7 mg/dL (7-18) 6 mg/dL (7-18) Creatinine 0.6 MG/DL (0.55-1.30) 0.6 MG/DL (0.55-1.30) Estimat Glomerular Filtration Rate > 60 mL/min (>60) > 60 mL/min (>60) Glucose Level 109 MG/DL (74-106) 108 MG/DL (74-106) Calcium Level 7.9 MG/DL (8.5-10.1) 8.3 MG/DL (8.5-10.1) Magnesium Level 1.7 MG/DL (1.8-2.4) 1.9 MG/DL (1.8-2.4) Prothrombin Time 11.8 SEC (9.30-11.50) Prothromb Time International Ratio 1.1 (0.9-1.1) Erythrocyte Sedimentation Rate 129 MM/HR (0-15) Phosphorus Level 4.1 MG/DL (2.5-4.9) Total Bilirubin 0.9 MG/DL (0.2-1.0) Aspartate Amino Transf (AST/SGOT) 78 U/L (15-37) Alanine Aminotransferase (ALT/SGPT) 73 U/L (12-78) Alkaline Phosphatase 85 U/L (46-116) C-Reactive Protein, Quantitative 15.1 mg/dL (0.00-0.90) Total Protein 7.1 G/DL (6.4-8.2) Albumin 1.9 G/DL (3.4-5.0) Globulin 5.2 g/dL Albumin/Globulin Ratio 0.4 (1.0-2.7) Hepatitis A IgM Antibody Negative (Negative) Hepatitis B Surface Antigen Negative (Negative) Hepatitis B Core IgM Antibody Negative (Negative) Hepatitis C Antibody 0.2 s/co ratio (0.0-0.9) Test 01/25/19 16:10 01/26/19 06:30 White Blood Count 3.1 K/UL (4.8-10.8) Red Blood Count 2.81 M/UL (4.70-6.10) Hemoglobin 7.9 G/DL (14.2-18.0) Hematocrit 22.7 % (42.0-52.0) Mean Corpuscular Volume 81 FL (80-99) Mean Corpuscular Hemoglobin 27.9 PG (27.0-31.0) Mean Corpuscular Hemoglobin Concent 34.7 G/DL (32.0-36.0) Red Cell Distribution Width 14.2 % (11.6-14.8) Platelet Count 53 K/UL (150-450) Mean Platelet Volume 7.9 FL (6.5-10.1) Neutrophils (%) (Auto) % (45.0-75.0) Lymphocytes (%) (Auto) % (20.0-45.0) Monocytes (%) (Auto) % (1.0-10.0) Eosinophils (%) (Auto) % (0.0-3.0) Basophils (%) (Auto) % (0.0-2.0) Differential Total Cells Counted 100 Neutrophils % (Manual) 56 % (45-75) Lymphocytes % (Manual) 37 % (20-45) Monocytes % (Manual) 6 % (1-10) Eosinophils % (Manual) 1 % (0-3) Basophils % (Manual) 0 % (0-2) Band Neutrophils 0 % (0-8) Platelet Estimate Decreased Platelet Morphology Normal Hypochromasia 1+ Anisocytosis 1+ Sodium Level 137 MMOL/L (136-145) Potassium Level 3.6 MMOL/L (3.5-5.1) Chloride Level 104 MMOL/L (98-107) Carbon Dioxide Level 27 MMOL/L (21-32) Anion Gap 6 mmol/L (5-15) Blood Urea Nitrogen 6 mg/dL (7-18) Creatinine 0.6 MG/DL (0.55-1.30) Estimat Glomerular Filtration Rate > 60 mL/min (>60) Glucose Level 119 MG/DL (74-106) Calcium Level 8.3 MG/DL (8.5-10.1) Height (Feet): 5 Height (Inches): 10.00 Weight (Pounds): 187 Objective Gen: NAd, Pulm: Ctab, no cwr CV: Rrr, no mgr Abd: soft, nt, nd Ext: no cce, skin lesions on legs noted kaposis likely Damaso Ventura MD Jan 26, 2019 14:11
[2019-01-26 16:00] VITALS: BP 115/66
--- NOTE | 2019-01-26 16:21 | Infectious Diseases Prog Note ---
Assessment/Plan Assessment/Plan Sepsis Pneumonia- r/o TB flu negative sputum normal shelbi 01/20 CT chest: There is a cluster of masslike opacities in the right lower lobe with some slight surrounding groundglass opacity. In aggregate, this area measures 4 cm x3 cm x 2.8 cm craniocaudad. This is located at the level of the pulmonary hilum.There are some small irregular faint opacities seen within the superior segment ofthe left lower lobe, measuring up to 7 mm long axis dimension. No other pulmonary parenchymal abnormalities are demonstrated. No pleural effusions. There are abundant mediastinal lymph nodes. The largest of these is a subcarinal node which measures 2.5 x 1.5 cm.The remainder are abundant, prominent, but not frankly enlarged. However, there is extensive axillary, supraclavicular, and lower cervical lymphadenopathy. There is mild bilateral gynecomastia. Diffuse lymphadenopathy/splenomegaly/hepatomegaly - DDx: TB, lymphoma, HIV/AIDS related, Castleman disease CT neck: : Extensive cervical and supraclavicular lymphadenopathy, as described. Could be reactive or infectious, possibly related to stated clinical history of recent HIV diagnosis. However, the possibility of lymphoproliferative disorder should also be considered. Mild adenoidal and right tonsillar pillar prominence, if real possibly related to the above. Incidental finding right maxillary sinus disease. CT c/ab/p: Massive splenomegaly. Hepatomegaly. Extensive lymphadenopathy, involving the bilateral inguinal regions, bilateral iliac chains, retroaortic and retrocaval region, peripancreatic and lesser sac regions, bilateral axillae , bilateral cervical and supraclavicular regions, and the mediastinum. This may reflect infectious or inflammatory lymphadenopathy, particularly in view of recent diagnosis of HIV positivity, or could indicate a lymphoproliferative disorder. 4 x 3 x 2.8 cm aggregate cluster of masslike opacities in the right lower lobe. This could most likely represents an area of infiltrate, but could conceivably represent cluster of small masses. Nonspecific small irregular opacities in the left lower lobe, may reflect early infiltrates. SP bx 01/25: P Gram positive bacteremia- likely contaminant -01/20 Bcx 04/02 Staph epi MSM HIV-1 Abt positive CD4 41 (2.7%). VL: P CrAg negative Hep ABC negative CMV PCR qualitative positive RPR 1:2 pt denies history of ever being tested denies any genital lesions. no headache. no rash. no record in [facility] STD office of previous titers Fever, SP pancytopenia R leg skin lesion SP bx--KS Plan: -Continue empiric Ceftriaxone #6/7 and PO Doxycycline #6/7 -PCN IM weekly x3(01/25, 02/01, 02/08) -01/21 SP Azithromycin #1 -01/20 SP Zosyn x1, Bactrim x1 -Airborne isolation: AFB sputum x3, MTB PCRx2(spoke to lab) -SP biopsy of Leg skin lesion -SP core biopsy cervical lymph node -send lymph node for culture (bacterial, fungal, AFB, MTB PCR) and path -f/u Cocci, GC/CL, TB spot, AFB sp cx, ESR, CRP, HIV VL, fungitell, histoplasma ag and ab, Blasto ab, PCP DFA -f/u cx -Monitor CBC/CMP, temperatures -Repeat Bcx x2 MRI Ophthalmology Thank you for this consultation. Will continue to follow along with you. Subjective Allergies: Coded Allergies: No Known Allergies (Unverified , 01/20/19) Subjective Afebrile. Cough better Denies headache or blurry vision. reports tinnitus since day of admission that is getting worse. Objective Vital Signs Last 24 Hour Vital Signs Date Time Temp Pulse Resp B/P (MAP) Pulse Ox O2 Delivery O2 Flow Rate FiO2 01/26/19 16:00 97.9 98 21 115/66 (82) 99 01/26/19 13:31 106 20 99 Room Air 36 102 22 100 01/26/19 12:00 95 01/26/19 12:00 97.5 92 21 119/67 (84) 100 01/26/19 09:25 98 18 98 Room Air 21 01/26/19 09:00 Room Air 01/26/19 08:00 81 01/26/19 08:00 98.2 86 20 118/72 (87) 100 01/26/19 04:00 98.4 104 20 133/75 (94) 100 01/26/19 04:00 100 01/26/19 00:00 97.2 86 19 120/80 (93) 100 01/26/19 00:00 86 01/25/19 21:00 Room Air 01/25/19 20:25 110 20 97 Room Air 21 01/25/19 20:00 103 01/25/19 20:00 97.1 103 19 118/70 (86) 99 Height (Feet): 5 Height (Inches): 10.00 Weight (Pounds): 187 Objective Gen: NAD HEENT: poor dentition CV: RRR Resp: coarse. no wheezes or crackles. Abd: soft. no TTP Neuro: alert. appropriate Microbiology Date/Time Source Procedure Growth Status 01/24/19 07:30 Sputum AFB Specimen Processing Tissue - Final Resulted 01/24/19 07:30 Sputum Acid Fast Bacilli Smear - Final Resulted 01/24/19 07:30 Sputum Acid Fast Bacilli Culture Pending Resulted 01/25/19 13:00 Lymph Node Gram Stain - Final Resulted 01/25/19 13:00 Lymph Node Aerobic Culture - Preliminary NO GROWTH Resulted 01/25/19 13:00 Lymph Node Anaerobic Culture Pending Resulted Laboratory Tests Test 01/26/19 06:30 White Blood Count 3.1 K/UL (4.8-10.8) L Red Blood Count 2.81 M/UL (4.70-6.10) L Hemoglobin 7.9 G/DL (14.2-18.0) L Hematocrit 22.7 % (42.0-52.0) L Mean Corpuscular Volume 81 FL (80-99) Mean Corpuscular Hemoglobin 27.9 PG (27.0-31.0) Mean Corpuscular Hemoglobin Concent 34.7 G/DL (32.0-36.0) Red Cell Distribution Width 14.2 % (11.6-14.8) Platelet Count 53 K/UL (150-450) L Mean Platelet Volume 7.9 FL (6.5-10.1) Neutrophils (%) (Auto) % (45.0-75.0) Lymphocytes (%) (Auto) % (20.0-45.0) Monocytes (%) (Auto) % (1.0-10.0) Eosinophils (%) (Auto) % (0.0-3.0) Basophils (%) (Auto) % (0.0-2.0) Differential Total Cells Counted 100 Neutrophils % (Manual) 56 % (45-75) Lymphocytes % (Manual) 37 % (20-45) Monocytes % (Manual) 6 % (1-10) Eosinophils % (Manual) 1 % (0-3) Basophils % (Manual) 0 % (0-2) Band Neutrophils 0 % (0-8) Platelet Estimate Decreased L Platelet Morphology Normal Hypochromasia 1+ Anisocytosis 1+ Sodium Level 137 MMOL/L (136-145) Potassium Level 3.6 MMOL/L (3.5-5.1) Chloride Level 104 MMOL/L (98-107) Carbon Dioxide Level 27 MMOL/L (21-32) Anion Gap 6 mmol/L (5-15) Blood Urea Nitrogen 6 mg/dL (7-18) L Creatinine 0.6 MG/DL (0.55-1.30) Estimat Glomerular Filtration Rate > 60 mL/min (>60) Glucose Level 119 MG/DL (74-106) H Calcium Level 8.3 MG/DL (8.5-10.1) L Current Medications Medications (Trade) Dose Ordered Sig/Jeff Route PRN Reason Start Time Stop Time Status Last Admin Dose Admin Acetaminophen (Tylenol) 650 mg Q6H PRN ORAL Mild Pain/Temp > 100.5 01/21/19 05:45 02/20/19 05:44 01/26/19 01:59 Albuterol/ Ipratropium (Albuterol/ Ipratropium) 3 ml Q4H PRN HHN Shortness of Breath 01/22/19 11:30 01/27/19 11:29 01/23/19 09:59 Ceftriaxone Sodium 1 gm/ Dextrose 55 ml @ 110 mls/hr Q24H IVPB 01/21/19 09:00 01/28/19 08:59 01/26/19 08:49 Doxycycline Monohydrate (Doxycycline Monohydrate) 100 mg EVERY 12 HOURS ORAL 01/22/19 09:00 01/29/19 08:59 01/26/19 08:50 Guaifenesin/ Dextromethorphan (Robitussin DM Syrup) 10 ml Q6HR PRN ORAL For Cough 01/21/19 22:30 02/20/19 22:29 01/26/19 01:56 Lidocaine (Xylocaine 1% MPF 5ml) 10 ml Q4H PRN HHN cough 01/26/19 11:30 02/25/19 11:29 01/26/19 13:29 Ondansetron HCl (Zofran) 4 mg Q4H PRN IVP Nausea & Vomiting 01/21/19 05:45 02/20/19 05:44 01/25/19 01:08 Potassium Chloride 10 meq/ Dextrose/Sodium Chloride 1,005 ml @ 100 mls/hr Q10H3M IV 01/23/19 13:00 02/21/19 12:59 01/26/19 12:33 Olvin Grover MD Jan 26, 2019 16:21
[2019-01-26] MEDS ORDERED: Gadavist 7.5mMol/7.5ml vial IV PRN (16:30)
--- NOTE | 2019-01-26 18:36 | Internal Med Progress Note ---
Subjective Date of Service: Jan 26, 2019 Physician Name Abhijeet Uriostegui Attending Physician Akil Barron MD Current Medications Medications (Trade) Dose Ordered Sig/Jeff Route PRN Reason Start Time Stop Time Status Last Admin Dose Admin Acetaminophen (Tylenol) 650 mg Q6H PRN ORAL Mild Pain/Temp > 100.5 01/21/19 05:45 02/20/19 05:44 01/26/19 01:59 Albuterol/ Ipratropium (Albuterol/ Ipratropium) 3 ml Q4H PRN HHN Shortness of Breath 01/22/19 11:30 01/27/19 11:29 01/23/19 09:59 Ceftriaxone Sodium 1 gm/ Dextrose 55 ml @ 110 mls/hr Q24H IVPB 01/21/19 09:00 01/28/19 08:59 01/26/19 08:49 Gadobutrol (Gadavist) 7.5 mmol NOW PRN IV Radiology Procedure 01/26/19 16:30 01/30/19 16:23 Guaifenesin/ Dextromethorphan (Robitussin DM Syrup) 10 ml Q6HR PRN ORAL For Cough 01/21/19 22:30 02/20/19 22:29 01/26/19 01:56 Lidocaine (Xylocaine 1% MPF 5ml) 10 ml Q4H PRN HHN cough 01/26/19 11:30 02/25/19 11:29 01/26/19 13:29 Ondansetron HCl (Zofran) 4 mg Q4H PRN IVP Nausea & Vomiting 01/21/19 05:45 02/20/19 05:44 01/25/19 01:08 Potassium Chloride 10 meq/ Dextrose/Sodium Chloride 1,005 ml @ 100 mls/hr Q10H3M IV 01/23/19 13:00 02/21/19 12:59 01/26/19 12:33 Allergies: Coded Allergies: No Known Allergies (Unverified , 01/20/19) ROS Limited/Unobtainable: No Constitutional: Reports: no symptoms HEENT: Reports: no symptoms Cardiovascular: Reports: no symptoms Respiratory: Reports: cough Gastrointestinal/Abdominal: Reports: no symptoms Genitourinary: Reports: no symptoms Neurologic/Psychiatric: Reports: no symptoms Subjective 28 YO M admitted with cough. Now new dx HIV, lymphadenopathy and pneumonia. Cover for Int Med- Dr Barron. Objective Last Vital Signs Date Time Temp Pulse Resp B/P (MAP) Pulse Ox O2 Delivery O2 Flow Rate FiO2 01/26/19 16:00 103 01/26/19 16:00 97.9 21 115/66 (82) 99 01/26/19 13:31 Room Air 36 Laboratory Tests Test 01/26/19 06:30 White Blood Count 3.1 K/UL (4.8-10.8) L Red Blood Count 2.81 M/UL (4.70-6.10) L Hemoglobin 7.9 G/DL (14.2-18.0) L Hematocrit 22.7 % (42.0-52.0) L Mean Corpuscular Volume 81 FL (80-99) Mean Corpuscular Hemoglobin 27.9 PG (27.0-31.0) Mean Corpuscular Hemoglobin Concent 34.7 G/DL (32.0-36.0) Red Cell Distribution Width 14.2 % (11.6-14.8) Platelet Count 53 K/UL (150-450) L Mean Platelet Volume 7.9 FL (6.5-10.1) Neutrophils (%) (Auto) % (45.0-75.0) Lymphocytes (%) (Auto) % (20.0-45.0) Monocytes (%) (Auto) % (1.0-10.0) Eosinophils (%) (Auto) % (0.0-3.0) Basophils (%) (Auto) % (0.0-2.0) Differential Total Cells Counted 100 Neutrophils % (Manual) 56 % (45-75) Lymphocytes % (Manual) 37 % (20-45) Monocytes % (Manual) 6 % (1-10) Eosinophils % (Manual) 1 % (0-3) Basophils % (Manual) 0 % (0-2) Band Neutrophils 0 % (0-8) Platelet Estimate Decreased L Platelet Morphology Normal Hypochromasia 1+ Anisocytosis 1+ Sodium Level 137 MMOL/L (136-145) Potassium Level 3.6 MMOL/L (3.5-5.1) Chloride Level 104 MMOL/L (98-107) Carbon Dioxide Level 27 MMOL/L (21-32) Anion Gap 6 mmol/L (5-15) Blood Urea Nitrogen 6 mg/dL (7-18) L Creatinine 0.6 MG/DL (0.55-1.30) Estimat Glomerular Filtration Rate > 60 mL/min (>60) Glucose Level 119 MG/DL (74-106) H Calcium Level 8.3 MG/DL (8.5-10.1) L Microbiology Date/Time Source Procedure Growth Status 01/24/19 07:30 Sputum AFB Specimen Processing Tissue - Final Resulted 01/24/19 07:30 Sputum Acid Fast Bacilli Smear - Final Resulted 01/24/19 07:30 Sputum Acid Fast Bacilli Culture Pending Resulted 01/25/19 13:00 Lymph Node Gram Stain - Final Resulted 01/25/19 13:00 Lymph Node Aerobic Culture - Preliminary NO GROWTH Resulted 01/25/19 13:00 Lymph Node Anaerobic Culture Pending Resulted Intake and Output 01/25/19 01/26/19 19:00 07:00 Intake Total 480 ml 561 ml Output Total 520 ml Balance 480 ml 41 ml Intake Oral 480 ml 240 ml Blood Product 321 ml Output Urine Total 500 ml Emesis 20 ml # Voids 4 2 # Bowel Movements 1 Objective PHYSICAL EXAMINATION: GENERAL: The patient is awake and responsive, in no acute distress. HEAD AND NECK: Pupils are reactive to light. Extraocular movements intact. Neck was supple. No JVD. LUNGS: Good air entry. No wheezing or rales. HEART: Reveals S1, S2. Regular rhythm. No gallops. ABDOMEN: Soft, nondistended, and nontender. Positive bowel sounds. EXTREMITIES: No cyanosis, clubbing, edema NEUROLOGIC: Cranial nerves II through XII grossly intact. Motor is 5/5 in all extremities. Gait is intact. RECTAL/GENITOURINARY: Refused and deferred. PSYCHIATRIC: Mood and affect is intact. LYMPH NODES: Showed the patient has a positive lymphadenopathy in the cervical lymph node in the neck as well as in the pelvic area. Assessment/Plan Assessment/Plan ASSESSMENT: 1. Generalized lymphadenopathy. 2. New diagnosis of human immunodeficiency virus. 3. Right Lung infiltrate, possible pneumonia versus tuberculosis. 4. Splenomegaly. 5. LEO. 6. Hepatomegaly. 7. Thrombocytopenia. 8. Right leg skin lesion-suspicious for Kaposi 9. Positive RPR PLAN: 1. Admit the patient to respiratory isolation. 2. Follow up with the AFB x3. 3. Discussed case with Dr. Terrell from Pulmonary Critical Care and Infectious Disease consultation. 4. Follow up with the infection workup. 5. Code status is Full code. 6. DVT prophylaxis with heparin subcutaneous. 7. We will discuss with the mother extensively at the bedside. 8. The patient at this time does not want the mother or any family member informed about the human immunodeficiency virus status 9. ABX=ceftriaxone and doxycycline 10. S/P biopsy right leg skin lesion 11. CD4=41 12. Bicillin penicillin IM q week X3 Abhijeet Uriostegui MD Jan 26, 2019 18:36
[2019-01-26 20:00] VITALS: BP 117/64
[2019-01-27] VITALS: BP 103/56
[2019-01-27 04:00] VITALS: BP 113/63
[2019-01-27] MEDS: Guaifenesin/DM 10ml syrup ORAL PRN (04:54)
--- NOTE | 2019-01-27 05:37 | Hematology/Onc Progress Note ---
Assessment/Plan Assessment/Plan Assessment and Recs: # Pancytopenia is likely related to newly diagnoised HIV/Aids, has not been in prior treated, ct of the abdomen and pelvis shows extensive lad and likely cause of splenic sequestration, in addition may be related to NHL v kaposis --> also r/o underlying malignancy, with cervical biopsy 01/25 --> reverse isolation if ANC is <2000 --> Give neupogen if ANC <1000 --> Transfuse if hgb <7, with 1 unit prbc --> consider bone marrow biopsy if no other causes are found --> plts were given 01/25 pre-procedure 35-->44-->53k # Diffuse lymphadenopathy/splenomegaly/hepatomegaly - DDx: TB, lymphoma, HIV/ AIDS related, Castleman disease --> CT neck: : Extensive cervical and supraclavicular lymphadenopathy, as described. Could be reactive or infectious, possibly related to stated clinical history of recent HIV diagnosis. However, the possibility of lymphoproliferative disorder should also be considered. Mild adenoidal and right tonsillar pillar prominence, if real possibly related to the above. Incidental finding right maxillary sinus disease. --> CT c/ab/p: Massive splenomegaly. Hepatomegaly. Extensive lymphadenopathy, involving the bilateral inguinal regions, bilateral iliac chains, retroaortic and retrocaval region, peripancreatic and lesser sac regions, bilateral axillae , bilateral cervical and supraclavicular regions, and the mediastinum. This may reflect infectious or inflammatory lymphadenopathy, particularly in view of recent diagnosis of HIV positivity, or could indicate a lymphoproliferative disorder. 4 x 3 x 2.8 cm aggregate cluster of masslike opacities in the right lower lobe. This could most likely represents an area of infiltrate, but could conceivably represent cluster of small masses. Nonspecific small irregular opacities in the left lower lobe, may reflect early infiltrates. --> for a cervical lymph node biopsy 01/25--> report pending prelim shows KS --> further recs based on above # Pneumonia on imaging, sputum normal shelbi --> 01/20 CT chest: There is a cluster of masslike opacities in the right lower lobe with some slight surrounding groundglass opacity. --> s/p abx as per id PCN/DOxy/CTX --> monitor for improvement # R leg skin lesion- suspicious for Kaposi --> did in fact yeild kaposis plaque stage likely --> dw id # HIV-1 Abt positive, CD4 41 (2.7%). VL: P --> CrAg negative, RPR 1:2 --> per id in re to HAART --> monitor if needed for reconstitutional syndrome # Dvt ppx with scds The timing of this note does not necessarily reflect the time of the patient was seen. Greatly appreciate consultation. Subjective Constitutional: Denies: no symptoms, chills, fever, malaise, weakness, other HEENT: Denies: no symptoms, eye pain, blurred vision, tearing, double vision, ear pain, ear discharge, nose pain, nose congestion, throat pain, throat swelling, mouth pain, mouth swelling, other Cardiovascular: Denies: no symptoms, chest pain, edema, irregular heart rate, lightheadedness, palpitations, syncope, other Respiratory: Denies: no symptoms, cough, shortness of breath, SOB with excertion, SOB at rest, sputum, wheezing, other Gastrointestinal/Abdominal: Denies: no symptoms, abdomen distended, abdominal pain, black stools, tarry stools, blood in stool, constipated, diarrhea, difficulty swallowing, nausea, poor appetite, poor fluid intake, rectal bleeding , vomiting, other Genitourinary: Denies: no symptoms, burning, discharge, frequency, flank pain, hematuria, incontinence, pain, urgency, other Allergies: Coded Allergies: No Known Allergies (Unverified , 01/20/19) Subjective 01/25: no events, remains on airborne isolation, labs noted, received plts last night 01/26: very sleepy this am, no bleeding or chills, no night sweats noted, dw id 01/27: pending biopsy still, labs noted, no bleeding, no complaints Objective Objective Current Medications Medications (Trade) Dose Ordered Sig/Jeff Route PRN Reason Start Time Stop Time Status Last Admin Dose Admin Acetaminophen (Tylenol) 650 mg Q6H PRN ORAL Mild Pain/Temp > 100.5 01/21/19 05:45 02/20/19 05:44 01/26/19 01:59 Albuterol/ Ipratropium (Albuterol/ Ipratropium) 3 ml Q4H PRN HHN Shortness of Breath 01/22/19 11:30 01/27/19 11:29 01/23/19 09:59 Ceftriaxone Sodium 1 gm/ Dextrose 55 ml @ 110 mls/hr Q24H IVPB 01/21/19 09:00 01/28/19 08:59 01/26/19 08:49 Gadobutrol (Gadavist) 7.5 mmol NOW PRN IV Radiology Procedure 01/26/19 16:30 01/30/19 16:23 Guaifenesin/ Dextromethorphan (Robitussin DM Syrup) 10 ml Q6HR PRN ORAL For Cough 01/21/19 22:30 02/20/19 22:29 01/27/19 04:54 Lidocaine (Xylocaine 1% MPF 5ml) 10 ml Q4H PRN HHN cough 01/26/19 11:30 02/25/19 11:29 01/26/19 13:29 Ondansetron HCl (Zofran) 4 mg Q4H PRN IVP Nausea & Vomiting 01/21/19 05:45 02/20/19 05:44 01/25/19 01:08 Potassium Chloride 10 meq/ Dextrose/Sodium Chloride 1,005 ml @ 100 mls/hr Q10H3M IV 01/23/19 13:00 02/21/19 12:59 01/26/19 21:42 Last 24 Hour Vital Signs Date Time Temp Pulse Resp B/P (MAP) Pulse Ox O2 Delivery O2 Flow Rate FiO2 01/27/19 04:00 92 01/27/19 04:00 97.3 98 18 113/63 (80) 98 01/27/19 00:00 106 01/27/19 00:00 97.7 92 18 103/56 (72) 100 01/26/19 21:00 Room Air 01/26/19 20:23 97 18 99 Room Air 21 01/26/19 20:00 98.1 100 18 117/64 (81) 98 01/26/19 20:00 94 01/26/19 16:00 103 01/26/19 16:00 97.9 98 21 115/66 (82) 99 01/26/19 13:31 106 20 99 Room Air 36 102 22 100 01/26/19 12:00 95 01/26/19 12:00 97.5 92 21 119/67 (84) 100 01/26/19 09:25 98 18 98 Room Air 21 01/26/19 09:00 Room Air 01/26/19 08:00 81 01/26/19 08:00 98.2 86 20 118/72 (87) 100 01/26/19 04:00 98.4 104 20 133/75 (94) 100 01/26/19 04:00 100 01/26/19 00:00 97.2 86 19 120/80 (93) 100 01/26/19 00:00 86 01/25/19 21:00 Room Air 01/25/19 20:25 110 20 97 Room Air 21 01/25/19 20:00 103 01/25/19 20:00 97.1 103 19 118/70 (86) 99 01/25/19 16:00 98.0 112 18 119/74 (89) 98 01/25/19 16:00 124 01/25/19 13:58 114 20 100 Room Air 21 01/25/19 12:00 97.5 103 20 117/72 (87) 97 01/25/19 12:00 108 01/25/19 09:00 Room Air 01/25/19 08:00 98.2 93 18 117/50 (72) 96 01/25/19 08:00 98 Intake and Output 01/26/19 01/27/19 19:00 07:00 Intake Total 1800 ml Balance 1800 ml Intake Oral 1200 ml IV Total 600 ml Labs Test 01/24/19 07:00 01/24/19 11:00 01/25/19 07:30 01/25/19 14:00 White Blood Count 3.0 K/UL (4.8-10.8) 3.3 K/UL (4.8-10.8) Red Blood Count 3.29 M/UL (4.70-6.10) 3.10 M/UL (4.70-6.10) Hemoglobin 9.0 G/DL (14.2-18.0) 8.5 G/DL (14.2-18.0) Hematocrit 26.6 % (42.0-52.0) 25.0 % (42.0-52.0) Mean Corpuscular Volume 81 FL (80-99) 81 FL (80-99) Mean Corpuscular Hemoglobin 27.5 PG (27.0-31.0) 27.5 PG (27.0-31.0) Mean Corpuscular Hemoglobin Concent 34.0 G/DL (32.0-36.0) 34.1 G/DL (32.0-36.0) Red Cell Distribution Width 14.5 % (11.6-14.8) 14.2 % (11.6-14.8) Platelet Count 30 K/UL (150-450) 44 K/UL (150-450) Mean Platelet Volume 8.5 FL (6.5-10.1) 8.0 FL (6.5-10.1) Neutrophils (%) (Auto) % (45.0-75.0) % (45.0-75.0) Lymphocytes (%) (Auto) % (20.0-45.0) % (20.0-45.0) Monocytes (%) (Auto) % (1.0-10.0) % (1.0-10.0) Eosinophils (%) (Auto) % (0.0-3.0) % (0.0-3.0) Basophils (%) (Auto) % (0.0-2.0) % (0.0-2.0) Differential Total Cells Counted 100 100 Neutrophils % (Manual) 45 % (45-75) 44 % (45-75) Lymphocytes % (Manual) 35 % (20-45) 42 % (20-45) Monocytes % (Manual) 17 % (1-10) 11 % (1-10) Eosinophils % (Manual) 3 % (0-3) 3 % (0-3) Basophils % (Manual) 0 % (0-2) 0 % (0-2) Band Neutrophils 0 % (0-8) 0 % (0-8) Platelet Estimate Decreased Decreased Platelet Morphology Normal Normal Red Blood Cell Morphology Normal Sodium Level 135 MMOL/L (136-145) 136 MMOL/L (136-145) Potassium Level 3.9 MMOL/L (3.5-5.1) 3.7 MMOL/L (3.5-5.1) Chloride Level 103 MMOL/L (98-107) 102 MMOL/L (98-107) Carbon Dioxide Level 28 MMOL/L (21-32) 28 MMOL/L (21-32) Anion Gap 4 mmol/L (5-15) 6 mmol/L (5-15) Blood Urea Nitrogen 7 mg/dL (7-18) 6 mg/dL (7-18) Creatinine 0.6 MG/DL (0.55-1.30) 0.6 MG/DL (0.55-1.30) Estimat Glomerular Filtration Rate > 60 mL/min (>60) > 60 mL/min (>60) Glucose Level 109 MG/DL (74-106) 108 MG/DL (74-106) Calcium Level 7.9 MG/DL (8.5-10.1) 8.3 MG/DL (8.5-10.1) Magnesium Level 1.7 MG/DL (1.8-2.4) 1.9 MG/DL (1.8-2.4) Prothrombin Time 11.8 SEC (9.30-11.50) Prothromb Time International Ratio 1.1 (0.9-1.1) Erythrocyte Sedimentation Rate 129 MM/HR (0-15) Phosphorus Level 4.1 MG/DL (2.5-4.9) Total Bilirubin 0.9 MG/DL (0.2-1.0) Aspartate Amino Transf (AST/SGOT) 78 U/L (15-37) Alanine Aminotransferase (ALT/SGPT) 73 U/L (12-78) Alkaline Phosphatase 85 U/L (46-116) C-Reactive Protein, Quantitative 15.1 mg/dL (0.00-0.90) Total Protein 7.1 G/DL (6.4-8.2) Albumin 1.9 G/DL (3.4-5.0) Globulin 5.2 g/dL Albumin/Globulin Ratio 0.4 (1.0-2.7) Hepatitis A IgM Antibody Negative (Negative) Hepatitis B Surface Antigen Negative (Negative) Hepatitis B Core IgM Antibody Negative (Negative) Hepatitis C Antibody 0.2 s/co ratio (0.0-0.9) Test 01/25/19 16:10 01/26/19 06:30 White Blood Count 3.1 K/UL (4.8-10.8) Red Blood Count 2.81 M/UL (4.70-6.10) Hemoglobin 7.9 G/DL (14.2-18.0) Hematocrit 22.7 % (42.0-52.0) Mean Corpuscular Volume 81 FL (80-99) Mean Corpuscular Hemoglobin 27.9 PG (27.0-31.0) Mean Corpuscular Hemoglobin Concent 34.7 G/DL (32.0-36.0) Red Cell Distribution Width 14.2 % (11.6-14.8) Platelet Count 53 K/UL (150-450) Mean Platelet Volume 7.9 FL (6.5-10.1) Neutrophils (%) (Auto) % (45.0-75.0) Lymphocytes (%) (Auto) % (20.0-45.0) Monocytes (%) (Auto) % (1.0-10.0) Eosinophils (%) (Auto) % (0.0-3.0) Basophils (%) (Auto) % (0.0-2.0) Differential Total Cells Counted 100 Neutrophils % (Manual) 56 % (45-75) Lymphocytes % (Manual) 37 % (20-45) Monocytes % (Manual) 6 % (1-10) Eosinophils % (Manual) 1 % (0-3) Basophils % (Manual) 0 % (0-2) Band Neutrophils 0 % (0-8) Platelet Estimate Decreased Platelet Morphology Normal Hypochromasia 1+ Anisocytosis 1+ Sodium Level 137 MMOL/L (136-145) Potassium Level 3.6 MMOL/L (3.5-5.1) Chloride Level 104 MMOL/L (98-107) Carbon Dioxide Level 27 MMOL/L (21-32) Anion Gap 6 mmol/L (5-15) Blood Urea Nitrogen 6 mg/dL (7-18) Creatinine 0.6 MG/DL (0.55-1.30) Estimat Glomerular Filtration Rate > 60 mL/min (>60) Glucose Level 119 MG/DL (74-106) Calcium Level 8.3 MG/DL (8.5-10.1) Height (Feet): 5 Height (Inches): 10.00 Weight (Pounds): 187 Objective Gen: NAd, Pulm: Ctab, no cwr CV: Rrr, no mgr Abd: soft, nt, nd Ext: no cce, skin lesions on legs noted kaposis likely Damaso Ventura MD Jan 27, 2019 05:37
[2019-01-27 07:12] LABS: ANION GAP 8 mmol/L (5-15); BLOOD UREA NITROGEN 3 mg/dL (7-18); CALCIUM 8.2 MG/DL (8.5-10.1); CARBON DIOXIDE 23 MMOL/L (21-32); CHLORIDE 104 MMOL/L (98-107); CREATININE 0.6 MG/DL (0.55-1.30); POTASSIUM 3.7 MMOL/L (3.5-5.1); SODIUM 135 MMOL/L (136-145)
[2019-01-27 07:18] LABS: HEMATOCRIT 22.6 % (42.0-52.0); HEMOGLOBIN 7.8 G/DL (14.2-18.0); MEAN CORPUSCULAR VOLUME 80 FL (80-99); PLATELET COUNT 73 K/UL (150-450); RED BLOOD COUNT 2.82 M/UL (4.70-6.10); RED CELL DISTRIBUTION WIDTH 14.5 % (11.6-14.8); WHITE BLOOD COUNT 3.2 K/UL (4.8-10.8)
[2019-01-27] MEDS: Potassium Chloride 10 MEQ in D5 1/2NS 1,000 ML IV SCH ×3 (07:28→23:50)
[2019-01-27 08:00] VITALS: BP 115/49
[2019-01-27] MEDS: cefTRIAXone 1 GM in D5W 55 ML IVPB SCH (08:28)
--- NOTE | 2019-01-27 10:47 | Infectious Diseases Prog Note ---
Assessment/Plan Assessment/Plan Sepsis Pneumonia- r/o TB flu negative sputum normal shelbi T spot negative AFB smear neg x3 MTB PCR: P 01/20 CT chest: There is a cluster of masslike opacities in the right lower lobe with some slight surrounding groundglass opacity. In aggregate, this area measures 4 cm x3 cm x 2.8 cm craniocaudad. This is located at the level of the pulmonary hilum.There are some small irregular faint opacities seen within the superior segment ofthe left lower lobe, measuring up to 7 mm long axis dimension. No other pulmonary parenchymal abnormalities are demonstrated. No pleural effusions. There are abundant mediastinal lymph nodes. The largest of these is a subcarinal node which measures 2.5 x 1.5 cm.The remainder are abundant, prominent, but not frankly enlarged. However, there is extensive axillary, supraclavicular, and lower cervical lymphadenopathy. There is mild bilateral gynecomastia. Diffuse lymphadenopathy/splenomegaly/hepatomegaly - DDx: TB, lymphoma, HIV/AIDS related, Castleman disease CT neck: : Extensive cervical and supraclavicular lymphadenopathy, as described. Could be reactive or infectious, possibly related to stated clinical history of recent HIV diagnosis. However, the possibility of lymphoproliferative disorder should also be considered. Mild adenoidal and right tonsillar pillar prominence, if real possibly related to the above. Incidental finding right maxillary sinus disease. CT c/ab/p: Massive splenomegaly. Hepatomegaly. Extensive lymphadenopathy, involving the bilateral inguinal regions, bilateral iliac chains, retroaortic and retrocaval region, peripancreatic and lesser sac regions, bilateral axillae , bilateral cervical and supraclavicular regions, and the mediastinum. This may reflect infectious or inflammatory lymphadenopathy, particularly in view of recent diagnosis of HIV positivity, or could indicate a lymphoproliferative disorder. 4 x 3 x 2.8 cm aggregate cluster of masslike opacities in the right lower lobe. This could most likely represents an area of infiltrate, but could conceivably represent cluster of small masses. Nonspecific small irregular opacities in the left lower lobe, may reflect early infiltrates. SP bx 01/25: P Gram positive bacteremia- likely contaminant -01/20 Bcx 04/02 Staph epi MSM HIV-1 Abt positive CD4 41 (2.7%). VL: P CrAg negative Hep ABC negative Blastomyces Abt negative CMV PCR qualitative positive RPR 1:2 pt denies history of ever being tested denies any genital lesions. no headache. no rash. no record in [facility] STD office of previous titers Fever, SP pancytopenia R leg skin lesion SP bx--KS Plan: -Continue empiric Ceftriaxone #7/ -PCN IM weekly x3(01/25, 02/01, 02/08) - 01/26 SP doxy #6 - 01/21 SP Azithromycin #1 - 01/20 SP Zosyn x1, Bactrim x1 -Airborne isolation: AFB sputum x3, MTB PCRx2(spoke to lab) -SP core biopsy cervical lymph node -send lymph node for culture (bacterial, fungal, AFB, MTB PCR) and path -f/u Cocci, GC/CL, AFB sp cx, ESR, CRP, HIV VL, fungitell, histoplasma ag and ab , PCP DFA -f/u cx -Monitor CBC/CMP, temperatures -Repeat Bcx x2 MRI brain Ophthalmology f/u CT chest Thank you for this consultation. Will continue to follow along with you. Subjective Allergies: Coded Allergies: No Known Allergies (Unverified , 01/20/19) Subjective Afebrile. SP CT chest and MRI head this morning Pending ophtho evaluation today Still with tinnitus Objective Vital Signs Last 24 Hour Vital Signs Date Time Temp Pulse Resp B/P (MAP) Pulse Ox O2 Delivery O2 Flow Rate FiO2 01/27/19 09:00 Room Air 01/27/19 08:00 98.6 75 19 115/49 (71) 97 01/27/19 08:00 72 01/27/19 04:00 92 01/27/19 04:00 97.3 98 18 113/63 (80) 98 01/27/19 00:00 106 01/27/19 00:00 97.7 92 18 103/56 (72) 100 01/26/19 21:00 Room Air 01/26/19 20:23 97 18 99 Room Air 21 01/26/19 20:00 98.1 100 18 117/64 (81) 98 01/26/19 20:00 94 01/26/19 16:00 103 01/26/19 16:00 97.9 98 21 115/66 (82) 99 01/26/19 13:31 106 20 99 Room Air 36 102 22 100 01/26/19 12:00 95 01/26/19 12:00 97.5 92 21 119/67 (84) 100 Height (Feet): 5 Height (Inches): 10.00 Weight (Pounds): 187 Objective Gen: NAD HEENT: poor dentition CV: RRR Resp: coarse. no wheezes or crackles. Abd: soft. no TTP Neuro: alert. appropriate Microbiology Date/Time Source Procedure Growth Status 01/25/19 13:00 Lymph Node Gram Stain - Final Resulted 01/25/19 13:00 Lymph Node Aerobic Culture - Preliminary NO GROWTH AFTER 24 HOURS Resulted 01/25/19 13:00 Lymph Node Anaerobic Culture - Preliminary NO GROWTH AFTER 24 HOURS Resulted Laboratory Tests Test 01/27/19 06:20 White Blood Count 3.2 K/UL (4.8-10.8) L Red Blood Count 2.82 M/UL (4.70-6.10) L Hemoglobin 7.8 G/DL (14.2-18.0) L Hematocrit 22.6 % (42.0-52.0) L Mean Corpuscular Volume 80 FL (80-99) Mean Corpuscular Hemoglobin 27.7 PG (27.0-31.0) Mean Corpuscular Hemoglobin Concent 34.7 G/DL (32.0-36.0) Red Cell Distribution Width 14.5 % (11.6-14.8) Platelet Count 73 K/UL (150-450) L Mean Platelet Volume 6.7 FL (6.5-10.1) Neutrophils (%) (Auto) % (45.0-75.0) Lymphocytes (%) (Auto) % (20.0-45.0) Monocytes (%) (Auto) % (1.0-10.0) Eosinophils (%) (Auto) % (0.0-3.0) Basophils (%) (Auto) % (0.0-2.0) Differential Total Cells Counted 100 Neutrophils % (Manual) 43 % (45-75) L Lymphocytes % (Manual) 45 % (20-45) Monocytes % (Manual) 10 % (1-10) Eosinophils % (Manual) 1 % (0-3) Basophils % (Manual) 1 % (0-2) Band Neutrophils 0 % (0-8) Platelet Estimate Decreased L Platelet Morphology Normal Hypochromasia 3+ Anisocytosis 1+ Sodium Level 135 MMOL/L (136-145) L Potassium Level 3.7 MMOL/L (3.5-5.1) Chloride Level 104 MMOL/L (98-107) Carbon Dioxide Level 23 MMOL/L (21-32) Anion Gap 8 mmol/L (5-15) Blood Urea Nitrogen 3 mg/dL (7-18) L Creatinine 0.6 MG/DL (0.55-1.30) Estimat Glomerular Filtration Rate > 60 mL/min (>60) Glucose Level 124 MG/DL (74-106) H Calcium Level 8.2 MG/DL (8.5-10.1) L Current Medications Medications (Trade) Dose Ordered Sig/Jeff Route PRN Reason Start Time Stop Time Status Last Admin Dose Admin Acetaminophen (Tylenol) 650 mg Q6H PRN ORAL Mild Pain/Temp > 100.5 01/21/19 05:45 02/20/19 05:44 01/26/19 01:59 Albuterol/ Ipratropium (Albuterol/ Ipratropium) 3 ml Q4H PRN HHN Shortness of Breath 01/22/19 11:30 01/27/19 11:29 01/23/19 09:59 Ceftriaxone Sodium 1 gm/ Dextrose 55 ml @ 110 mls/hr Q24H IVPB 01/21/19 09:00 01/28/19 08:59 01/27/19 08:28 Gadobutrol (Gadavist) 7.5 mmol NOW PRN IV Radiology Procedure 01/26/19 16:30 01/30/19 16:23 Guaifenesin/ Dextromethorphan (Robitussin DM Syrup) 10 ml Q6HR PRN ORAL For Cough 01/21/19 22:30 02/20/19 22:29 01/27/19 04:54 Lidocaine (Xylocaine 1% MPF 5ml) 10 ml Q4H PRN HHN cough 01/26/19 11:30 02/25/19 11:29 01/26/19 13:29 Ondansetron HCl (Zofran) 4 mg Q4H PRN IVP Nausea & Vomiting 01/21/19 05:45 02/20/19 05:44 01/25/19 01:08 Potassium Chloride 10 meq/ Dextrose/Sodium Chloride 1,005 ml @ 100 mls/hr Q10H3M IV 01/23/19 13:00 02/21/19 12:59 01/27/19 07:28 Olvin Grover MD Jan 27, 2019 10:47
--- NOTE | 2019-01-27 10:58 | Pulmonology Progress Note ---
Assessment/Plan Problems: (1) Pneumonia (2) Positive RPR test (3) Lymphadenopathy, cervical (4) Kaposi sarcoma (5) Thrombocytopenia (6) Fever (7) HIV (human immunodeficiency virus infection) (8) AIDS Assessment/Plan biopsy of skin showing Kaposi Sarcoma check cultures fine needle aspiration pending f/u ID recommendations RPR is positive 1:2. 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 d/w pathologist: it will take a few days to get the reports of fine needle aspiration. Subjective ROS Limited/Unobtainable: No Constitutional: Reports: no symptoms HEENT: Repors: no symptoms Respiratory: Reports: no symptoms Allergies: Coded Allergies: No Known Allergies (Unverified , 01/20/19) Objective Last 24 Hour Vital Signs Date Time Temp Pulse Resp B/P (MAP) Pulse Ox O2 Delivery O2 Flow Rate FiO2 01/27/19 09:00 Room Air 01/27/19 08:00 98.6 75 19 115/49 (71) 97 01/27/19 08:00 72 01/27/19 04:00 92 01/27/19 04:00 97.3 98 18 113/63 (80) 98 01/27/19 00:00 106 01/27/19 00:00 97.7 92 18 103/56 (72) 100 01/26/19 21:00 Room Air 01/26/19 20:23 97 18 99 Room Air 21 01/26/19 20:00 98.1 100 18 117/64 (81) 98 01/26/19 20:00 94 01/26/19 16:00 103 01/26/19 16:00 97.9 98 21 115/66 (82) 99 01/26/19 13:31 106 20 99 Room Air 36 102 22 100 01/26/19 12:00 95 01/26/19 12:00 97.5 92 21 119/67 (84) 100 Intake and Output 01/26/19 01/27/19 18:59 06:59 Intake Total 1800 ml Balance 1800 ml Intake Oral 1200 ml IV Total 600 ml # Voids 2 # Bowel Movements 1 HEENT: normocephalic, atraumatic Respiratory/Chest: chest wall non-tender, lungs clear Cardiovascular: normal peripheral pulses, normal rate Abdomen: normal bowel sounds, soft, non tender Genitourinary: normal external genitalia Extremities: no cyanosis Neurologic/Psychiatric: 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 normal Microbiology Date/Time Source Procedure Growth Status 01/25/19 13:00 Lymph Node Gram Stain - Final Resulted 01/25/19 13:00 Lymph Node Aerobic Culture - Preliminary NO GROWTH AFTER 24 HOURS Resulted 01/25/19 13:00 Lymph Node Anaerobic Culture - Preliminary NO GROWTH AFTER 24 HOURS Resulted Laboratory Tests 01/27/19 06:20: White Blood Count 3.2L, Red Blood Count 2.82L, Hemoglobin 7.8L, Hematocrit 22.6L , Mean Corpuscular Volume 80, Mean Corpuscular Hemoglobin 27.7, Mean Corpuscular Hemoglobin Concent 34.7, Red Cell Distribution Width 14.5, Platelet Count 73L, Mean Platelet Volume 6.7, Neutrophils (%) (Auto) , Lymphocytes (%) ( Auto) , Monocytes (%) (Auto) , Eosinophils (%) (Auto) , Basophils (%) (Auto) , Differential Total Cells Counted 100, Neutrophils % (Manual) 43L, Lymphocytes % (Manual) 45, Monocytes % (Manual) 10, Eosinophils % (Manual) 1, Basophils % ( Manual) 1, Band Neutrophils 0, Platelet Estimate DecreasedL, Platelet Morphology Normal, Hypochromasia 3+, Anisocytosis 1+, Sodium Level 135L, Potassium Level 3.7, Chloride Level 104, Carbon Dioxide Level 23, Anion Gap 8, Blood Urea Nitrogen 3L, Creatinine 0.6, Estimat Glomerular Filtration Rate > 60 , Glucose Level 124H, Calcium Level 8.2L Current Medications Medications (Trade) Dose Ordered Sig/Jeff Route PRN Reason Start Time Stop Time Status Last Admin Dose Admin Acetaminophen (Tylenol) 650 mg Q6H PRN ORAL Mild Pain/Temp > 100.5 01/21/19 05:45 02/20/19 05:44 01/26/19 01:59 Albuterol/ Ipratropium (Albuterol/ Ipratropium) 3 ml Q4H PRN HHN Shortness of Breath 01/22/19 11:30 01/27/19 11:29 01/23/19 09:59 Ceftriaxone Sodium 1 gm/ Dextrose 55 ml @ 110 mls/hr Q24H IVPB 01/21/19 09:00 01/28/19 08:59 01/27/19 08:28 Gadobutrol (Gadavist) 7.5 mmol NOW PRN IV Radiology Procedure 01/26/19 16:30 01/30/19 16:23 Guaifenesin/ Dextromethorphan (Robitussin DM Syrup) 10 ml Q6HR PRN ORAL For Cough 01/21/19 22:30 02/20/19 22:29 01/27/19 04:54 Lidocaine (Xylocaine 1% MPF 5ml) 10 ml Q4H PRN HHN cough 01/26/19 11:30 02/25/19 11:29 01/26/19 13:29 Ondansetron HCl (Zofran) 4 mg Q4H PRN IVP Nausea & Vomiting 01/21/19 05:45 02/20/19 05:44 01/25/19 01:08 Potassium Chloride 10 meq/ Dextrose/Sodium Chloride 1,005 ml @ 100 mls/hr Q10H3M IV 01/23/19 13:00 02/21/19 12:59 01/27/19 07:28 Suzanne Terrell MD Jan 27, 2019 10:58
[2019-01-27 12:00] VITALS: BP 121/76
[2019-01-27] MEDS ORDERED: Proparacaine 0.5% Opth Soln 15ml BOTH EYES SCH (12:28)
[2019-01-27] MEDS ORDERED: Tropicamide 1% Opth 15ml Soln LEFT EYE SCH (12:30)
[2019-01-27] MEDS ORDERED: Tropicamide 1% Opth 15ml Soln RIGHT EYE SCH (12:30)
[2019-01-27] MEDS ORDERED: Phenylephrine 2.5% Op 2ml Soln BOTH EYES SCH (12:30)
--- NOTE | 2019-01-27 14:47 | Diagnostic Imaging Report ---
Indication: Tinnitus Technique: The head was imaged in a 1.5 [place] magnet. Sequences obtained include sagittal and axial T1 FLAIR, axial T2 fast spin echo with fat saturation, axial T2 FLAIR, diffusion and ADC map. Gadolinium-enhanced axial and coronal T1 FLAIR obtained also. Comparison: None Findings: The size, contour, and configuration of the sulci, ventricles, and basal cisterns appear normal. Wolf-white differentiation is normal. There is no restricted diffusion. There is no mass effect, midline shift, edema, or hemorrhage. There are no abnormal extra-axial or intra-axial fluid collections. The corpus callosum is unremarkable. The brainstem and cerebellum are unremarkable. The sella is unremarkable. Bone marrow signal within the visualized osseous structures appears age appropriate and unremarkable otherwise. There is mucosal thickening within the maxillary/ethmoid sinus with the congestion of the left nasal cavity. No abnormal enhancement is identified. Impression: Negative MRI brain with and without contrast. Sinusitis
--- NOTE | 2019-01-27 15:42 | Consultation ---
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 He is pending complete workup and dilated eye exam is warranted to rule out CMV retinitis. He denies flashes, floaters, field loss, redness, pain or discharge. He wears glasses and has no current eye complaints. No past ocular trauma or surgery. Allergies: Coded Allergies: No Known Allergies (Unverified , 01/20/19) Medication History No Active Prescriptions or Reported Meds Patient History Healthcare decision maker Resuscitation status Full Code Advanced Directive on File No Review of Systems Review of Symptoms General ROS: no weight loss or fever Psychological ROS: no depression or mood changes, no memory loss Ophthalmic ROS: no visual changes or eye irritation ENT ROS: no nasal congestion, hearing loss, dizziness Allergy and Immunology ROS: no allergic symptoms or urticaria Hematological and Lymphatic ROS: no swollen glands, unusual bleeding or bruising Endocrine ROS: no polyuria, polydipsia, weight changes, temperature intolerance Respiratory ROS: no cough, shortness of breath, or wheezing Cardiovascular ROS: no chest pain or dyspnea on exertion Gastrointestinal ROS: denies abdominal pain, bright red blood in stool. Musculoskeletal ROS: no myalgias or arthralgias Neurological ROS: no TIA or stroke symptoms Dermatological ROS: no new or changing skin lesions, rashes or pruritis Physical Exam Physical Exam General appearance: alert, cooperative, no distress, appears stated age Head: Normocephalic, without obvious abnormality, atraumatic Eyes: conjunctivae/corneas clear. PERRL, EOM's intact. Fundi benign Throat: Lips, mucosa, and tongue normal. Teeth and gums normal Neck: supple, symmetrical, trachea midline, no adenopathy, thyroid: not enlarged, symmetric, no tenderness/mass/nodules, no carotid bruit and no JVD Lungs: clear to auscultation bilaterally Heart: regular rate and rhythm, S1, S2 normal, no murmur, click, rub or gallop Abdomen: soft, non-tender. Bowel sounds normal. No masses, no organomegaly Extremities: extremities normal, atraumatic, no cyanosis or edema Pulses: 2+ and symmetric Skin: Skin color, texture, turgor normal. No rashes or lesions Neurologic: Grossly normal Last 24 Hour Vital Signs Date Time Temp Pulse Resp B/P (MAP) Pulse Ox O2 Delivery O2 Flow Rate FiO2 10/31/19 12:00 97.9 81 17 121/76 (91) 98 01/27/19 12:00 84 01/27/19 09:00 Room Air 01/27/19 08:42 87 18 99 Room Air 21 01/27/19 08:00 98.6 75 19 115/49 (71) 97 01/27/19 08:00 72 01/27/19 04:00 92 01/27/19 04:00 97.3 98 18 113/63 (80) 98 01/27/19 00:00 106 01/27/19 00:00 97.7 92 18 103/56 (72) 100 01/26/19 21:00 Room Air 01/26/19 20:23 97 18 99 Room Air 21 01/26/19 20:00 98.1 100 18 117/64 (81) 98 01/26/19 20:00 94 01/26/19 16:00 103 01/26/19 16:00 97.9 98 21 115/66 (82) 99 Intake and Output 01/26/19 01/27/19 18:59 06:59 Intake Total 1800 ml Balance 1800 ml Intake Oral 1200 ml IV Total 600 ml # Voids 2 # Bowel Movements 1 Laboratory Tests Test 01/27/19 06:20 White Blood Count 3.2 K/UL (4.8-10.8) L Red Blood Count 2.82 M/UL (4.70-6.10) L Hemoglobin 7.8 G/DL (14.2-18.0) L Hematocrit 22.6 % (42.0-52.0) L Mean Corpuscular Volume 80 FL (80-99) Mean Corpuscular Hemoglobin 27.7 PG (27.0-31.0) Mean Corpuscular Hemoglobin Concent 34.7 G/DL (32.0-36.0) Red Cell Distribution Width 14.5 % (11.6-14.8) Platelet Count 73 K/UL (150-450) L Mean Platelet Volume 6.7 FL (6.5-10.1) Neutrophils (%) (Auto) % (45.0-75.0) Lymphocytes (%) (Auto) % (20.0-45.0) Monocytes (%) (Auto) % (1.0-10.0) Eosinophils (%) (Auto) % (0.0-3.0) Basophils (%) (Auto) % (0.0-2.0) Differential Total Cells Counted 100 Neutrophils % (Manual) 43 % (45-75) L Lymphocytes % (Manual) 45 % (20-45) Monocytes % (Manual) 10 % (1-10) Eosinophils % (Manual) 1 % (0-3) Basophils % (Manual) 1 % (0-2) Band Neutrophils 0 % (0-8) Platelet Estimate Decreased L Platelet Morphology Normal Hypochromasia 3+ Anisocytosis 1+ Sodium Level 135 MMOL/L (136-145) L Potassium Level 3.7 MMOL/L (3.5-5.1) Chloride Level 104 MMOL/L (98-107) Carbon Dioxide Level 23 MMOL/L (21-32) Anion Gap 8 mmol/L (5-15) Blood Urea Nitrogen 3 mg/dL (7-18) L Creatinine 0.6 MG/DL (0.55-1.30) Estimat Glomerular Filtration Rate > 60 mL/min (>60) Glucose Level 124 MG/DL (74-106) H Calcium Level 8.2 MG/DL (8.5-10.1) L Height (Feet): 5 Height (Inches): 10.00 Weight (Pounds): 187 Medications Current Medications Medications (Trade) Dose Ordered Sig/Jeff Route PRN Reason Start Time Stop Time Status Last Admin Dose Admin Acetaminophen (Tylenol) 650 mg Q6H PRN ORAL Mild Pain/Temp > 100.5 01/21/19 05:45 02/20/19 05:44 01/26/19 01:59 Ceftriaxone Sodium 1 gm/ Dextrose 55 ml @ 110 mls/hr Q24H IVPB 01/21/19 09:00 01/28/19 08:59 01/27/19 08:28 Gadobutrol (Gadavist) 7.5 mmol NOW PRN IV Radiology Procedure 01/26/19 16:30 01/30/19 16:23 Guaifenesin/ Dextromethorphan (Robitussin DM Syrup) 10 ml Q6HR PRN ORAL For Cough 01/21/19 22:30 02/20/19 22:29 01/27/19 04:54 Lidocaine (Xylocaine 1% MPF 5ml) 10 ml Q4H PRN HHN cough 01/26/19 11:30 02/25/19 11:29 01/26/19 13:29 Ondansetron HCl (Zofran) 4 mg Q4H PRN IVP Nausea & Vomiting 01/21/19 05:45 02/20/19 05:44 01/25/19 01:08 Potassium Chloride 10 meq/ Dextrose/Sodium Chloride 1,005 ml @ 100 mls/hr Q10H3M IV 01/23/19 13:00 02/21/19 12:59 01/27/19 07:28 Objective Narrative Tp: STP OU VA sc OU PLE: Normal OU DFE: Normal d/m/v/p OU Assessment/Plan Assessment/Plan: AIDS with CD4 < 50 No evidence of CMV Retinitis Recommend routine monitoring and dilated fundus exam in 2-3M Return precautions reviewed with the patient [facility] Hospital declaration INPATIENT level of care is warranted for this patient because patient is a 89 year old with who presents with suspicion of . I have a high level of concern because . Patient is at high risk for . Plan of care/treatment include . Patient care is expected to be greater than 2 midnights. OBSERVATION level of care is warranted for this patient. Patient is a 89 year old with who presents with . Patient will be admitted for 1 midnight, but if additional night(s) is/are necessary, patient will be converted to inpatient status for the entire hospitalization Disposition: Once the patient is stable to leave the hospital, I anticipate the patient will likely be discharged to the following environment: Estimated discharge date: I spent 70 minutes on this patient's case, and minutes was dedicated to counseling and/or care coordination. MIPS ([employer]it-based Incentive Payment System) Applicable CPT: 20698, 40256 CHECK ALL THAT ARE MET: Measure #5 (CHF): All ages. Prescribe OSCAR/ARB upon discharge for patients with left ventricular systolic dysfunction. If not, the reason is clearly documented in the medical chart. Measure #8 (CHF): All ages. Prescribe a beta lakesha upon discharge for patients with left ventricular systolic dysfunction. If not, the reason is clearly documented in the medical chart. Measure #47 Advance care plan or surrogate decision maker documented in the medical record. Measure #130 The provider has documented, updated, or reviewed the patients current medication list and has documented it in the patients note. Measure #374 (All): Send report to referring provider. Measure #407(Sepsis due to MSSA bacteremia): Age 18+ Patient treated with a beta-lactam antibiotic (Nafcillin, Oxacillin or Cefazolin) as definitive therapy. MEDICAL COMPLEXITY High complexity medical decision making (need 2/3 categories) Problem - need 4 points Acute/new problem with new plan for workup (4 points, 1 max) Acute/new problem without additional workup (3 points, 1 max) Unstable chronic problem actively being managed (2 point each, 2 max) Stable chronic problem actively being managed (1 point each, 2 max) Self-limited/transient process (constipation, muscle ache, etc) (1 point each , 2 max) Data - need 4 points Reviewed labs/imaging studies (1 points, 2 max) Independent review of imaging (EKG, xrays, etc) (2 points, 2 max) Discussed case with consult/other MD/RN (2 points, 2 max) High Risk - qualify if have one of the following: Severe exacerbation of acute problem, acute mental status change, IV narcotics , monitoring drug levels (vancomycin, INR, tacrolimus etc) Rigoberto Cruz M.D., MD Jan 27, 2019 15:42
[2019-01-27 16:00] VITALS: BP 110/70
--- NOTE | 2019-01-27 16:19 | Internal Med Progress Note ---
Subjective Date of Service: Jan 27, 2019 Physician Name Abhijeet Uriostegui Attending Physician Akil Barron MD Current Medications Medications (Trade) Dose Ordered Sig/Jeff Route PRN Reason Start Time Stop Time Status Last Admin Dose Admin Acetaminophen (Tylenol) 650 mg Q6H PRN ORAL Mild Pain/Temp > 100.5 01/21/19 05:45 02/20/19 05:44 01/26/19 01:59 Ceftriaxone Sodium 1 gm/ Dextrose 55 ml @ 110 mls/hr Q24H IVPB 01/21/19 09:00 01/28/19 08:59 01/27/19 08:28 Gadobutrol (Gadavist) 7.5 mmol NOW PRN IV Radiology Procedure 01/26/19 16:30 01/30/19 16:23 Guaifenesin/ Dextromethorphan (Robitussin DM Syrup) 10 ml Q6HR PRN ORAL For Cough 01/21/19 22:30 02/20/19 22:29 01/27/19 04:54 Lidocaine (Xylocaine 1% MPF 5ml) 10 ml Q4H PRN HHN cough 01/26/19 11:30 02/25/19 11:29 01/26/19 13:29 Ondansetron HCl (Zofran) 4 mg Q4H PRN IVP Nausea & Vomiting 01/21/19 05:45 02/20/19 05:44 01/25/19 01:08 Potassium Chloride 10 meq/ Dextrose/Sodium Chloride 1,005 ml @ 100 mls/hr Q10H3M IV 01/23/19 13:00 02/21/19 12:59 01/27/19 07:28 Allergies: Coded Allergies: No Known Allergies (Unverified , 01/20/19) ROS Limited/Unobtainable: No Constitutional: Reports: no symptoms HEENT: Reports: no symptoms Cardiovascular: Reports: no symptoms Respiratory: Reports: cough Gastrointestinal/Abdominal: Reports: no symptoms Genitourinary: Reports: no symptoms Neurologic/Psychiatric: Reports: no symptoms Subjective 28 YO M admitted with cough. Now new dx HIV, lymphadenopathy and pneumonia. Cover for Int Med- Dr Barron. Objective Last Vital Signs Date Time Temp Pulse Resp B/P (MAP) Pulse Ox O2 Delivery O2 Flow Rate FiO2 01/27/19 12:00 97.9 81 17 121/76 (91) 98 10/31/19 09:00 Room Air 01/27/19 08:42 21 Laboratory Tests Test 01/27/19 06:20 White Blood Count 3.2 K/UL (4.8-10.8) L Red Blood Count 2.82 M/UL (4.70-6.10) L Hemoglobin 7.8 G/DL (14.2-18.0) L Hematocrit 22.6 % (42.0-52.0) L Mean Corpuscular Volume 80 FL (80-99) Mean Corpuscular Hemoglobin 27.7 PG (27.0-31.0) Mean Corpuscular Hemoglobin Concent 34.7 G/DL (32.0-36.0) Red Cell Distribution Width 14.5 % (11.6-14.8) Platelet Count 73 K/UL (150-450) L Mean Platelet Volume 6.7 FL (6.5-10.1) Neutrophils (%) (Auto) % (45.0-75.0) Lymphocytes (%) (Auto) % (20.0-45.0) Monocytes (%) (Auto) % (1.0-10.0) Eosinophils (%) (Auto) % (0.0-3.0) Basophils (%) (Auto) % (0.0-2.0) Differential Total Cells Counted 100 Neutrophils % (Manual) 43 % (45-75) L Lymphocytes % (Manual) 45 % (20-45) Monocytes % (Manual) 10 % (1-10) Eosinophils % (Manual) 1 % (0-3) Basophils % (Manual) 1 % (0-2) Band Neutrophils 0 % (0-8) Platelet Estimate Decreased L Platelet Morphology Normal Hypochromasia 3+ Anisocytosis 1+ Sodium Level 135 MMOL/L (136-145) L Potassium Level 3.7 MMOL/L (3.5-5.1) Chloride Level 104 MMOL/L (98-107) Carbon Dioxide Level 23 MMOL/L (21-32) Anion Gap 8 mmol/L (5-15) Blood Urea Nitrogen 3 mg/dL (7-18) L Creatinine 0.6 MG/DL (0.55-1.30) Estimat Glomerular Filtration Rate > 60 mL/min (>60) Glucose Level 124 MG/DL (74-106) H Calcium Level 8.2 MG/DL (8.5-10.1) L Microbiology Date/Time Source Procedure Growth Status 01/25/19 13:00 Lymph Node Gram Stain - Final Resulted 01/25/19 13:00 Lymph Node Aerobic Culture - Preliminary NO GROWTH AFTER 24 HOURS Resulted 01/25/19 13:00 Lymph Node Anaerobic Culture - Preliminary NO GROWTH AFTER 24 HOURS Resulted Intake and Output 01/26/19 01/27/19 18:59 06:59 Intake Total 1800 ml Balance 1800 ml Intake Oral 1200 ml IV Total 600 ml # Voids 2 # Bowel Movements 1 Objective PHYSICAL EXAMINATION: GENERAL: The patient is awake and responsive, in no acute distress. HEAD AND NECK: Pupils are reactive to light. Extraocular movements intact. Neck was supple. No JVD. LUNGS: Good air entry. No wheezing or rales. HEART: Reveals S1, S2. Regular rhythm. No gallops. ABDOMEN: Soft, nondistended, and nontender. Positive bowel sounds. EXTREMITIES: No cyanosis, clubbing, edema NEUROLOGIC: Cranial nerves II through XII grossly intact. Motor is 5/5 in all extremities. Gait is intact. RECTAL/GENITOURINARY: Refused and deferred. PSYCHIATRIC: Mood and affect is intact. LYMPH NODES: Showed the patient has a positive lymphadenopathy in the cervical lymph node in the neck as well as in the pelvic area. Assessment/Plan Assessment/Plan ASSESSMENT: 1. Generalized lymphadenopathy. 2. New diagnosis of human immunodeficiency virus. 3. Right Lung infiltrate, possible pneumonia versus tuberculosis. 4. Splenomegaly. 5. LEO. 6. Hepatomegaly. 7. Thrombocytopenia. 8. 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 Positive RPR PLAN: 1. Admit the patient to respiratory isolation. 2. Follow up with the AFB x3. 3. Discussed case with Dr. Terrell from Pulmonary Critical Care 4. Infectious Disease consultation=Dr Grover. 5. Follow up with the infection workup. 6. Code status is Full code. 7. CD4=41 8. Bicillin penicillin IM q week X3 9. Hematology/onc=Abhijeet Moran MD Jan 27, 2019 16:19
--- NOTE | 2019-01-27 16:46 | Diagnostic Imaging Report ---
Indication: HIV positive. Lymphadenopathy. Follow-up and consideration of biopsy for right lung mass. Technique: Continuous helical transaxial imaging of the chest was obtained from the thoracic inlet to the upper abdomen after intravenous nonionic contrast administration. Coronal 2-D reformats were also obtained. Automatic Exposure Control was utilized. Total Dose length Product (DLP): 790.[address] Dose Index Volume (CTDIvol): 17.8 mGy Comparison: CT chest with contrast 01/20/2019 Findings: CT one week earlier showed a somewhat ill-defined nodular appearing focus of consolidation in the posterior medial aspect of the right lung base. We were asked to consider biopsy of this. A follow-up scan at this time shows resolution of most of this density indicating this is inflammatory in nature. There is minimal residual faint density present in this location currently. The lungs are otherwise clear. There are no lung nodules identified. Splenomegaly is again noted. There is adenopathy within the mediastinum and axilla again noted without significant change. The heart is unremarkable. No pleural or pericardial effusion identified. Cholecystectomy clips noted. Adenopathy also demonstrated in the visualized part of the upper abdomen. IMPRESSION: Previously demonstrated abnormal right lung mass in question has largely resolved and is therefore inflammatory. Biopsy is not indicated. Lymphadenopathy within the chest and abdomen. Neoplastic versus inflammatory. Status post cholecystectomy The CT scanner at [facility] is accredited by the [employer] and the scans are performed using dose optimization techniques as appropriate to a performed exam including Automatic Exposure control.
[2019-01-27] MEDS: Fluconazole 100mg tab ORAL SCH (17:20)
[2019-01-27 20:00] VITALS: BP 127/60
[2019-01-28] VITALS: BP 105/56
[2019-01-28 04:00] VITALS: BP 114/63
[2019-01-28 07:25] LABS: ANION GAP 3 mmol/L (5-15); BLOOD UREA NITROGEN 3 mg/dL (7-18); CALCIUM 8.2 MG/DL (8.5-10.1); CARBON DIOXIDE 28 MMOL/L (21-32); CHLORIDE 104 MMOL/L (98-107); CREATININE 0.6 MG/DL (0.55-1.30); POTASSIUM 4.4 MMOL/L (3.5-5.1); SODIUM 135 MMOL/L (136-145)
[2019-01-28 07:26] LABS: HEMATOCRIT 22.6 % (42.0-52.0); HEMOGLOBIN 8.1 G/DL (14.2-18.0); MEAN CORPUSCULAR VOLUME 79 FL (80-99); PLATELET COUNT 97 K/UL (150-450); RED BLOOD COUNT 2.86 M/UL (4.70-6.10); RED CELL DISTRIBUTION WIDTH 14.1 % (11.6-14.8); WHITE BLOOD COUNT 3.3 K/UL (4.8-10.8)
[2019-01-28 08:00] VITALS: BP 116/70
[2019-01-28] MEDS: Fluconazole 100mg tab ORAL SCH (09:27)
[2019-01-28] MEDS: Guaifenesin/DM 10ml syrup ORAL PRN (09:31)
[2019-01-28] MEDS: Potassium Chloride 10 MEQ in D5 1/2NS 1,000 ML IV SCH (09:31)
--- NOTE | 2019-01-28 10:40 | Hematology/Onc Progress Note ---
Assessment/Plan Assessment/Plan Assessment and Recs: # Pancytopenia is likely related to newly diagnoised HIV/Aids, has not been in prior treated, ct of the abdomen and pelvis shows extensive lad and likely cause of splenic sequestration, in addition may be related to NHL v kaposis --> also r/o underlying malignancy, with cervical biopsy 01/25 --> reverse isolation if ANC is <2000 --> Give neupogen if ANC <1000 --> Transfuse if hgb <7, with 1 unit prbc --> consider bone marrow biopsy if no other causes are found --> plts were given 01/25 pre-procedure 35-->44-->53k-->97 --> wbc 3.1-->3.3-->3.3 # Diffuse lymphadenopathy/splenomegaly/hepatomegaly - DDx: TB, lymphoma, HIV/ AIDS related, Castleman disease --> CT neck: : Extensive cervical and supraclavicular lymphadenopathy, as described. Could be reactive or infectious, possibly related to stated clinical history of recent HIV diagnosis. However, the possibility of lymphoproliferative disorder should also be considered. Mild adenoidal and right tonsillar pillar prominence, if real possibly related to the above. Incidental finding right maxillary sinus disease. --> CT c/ab/p: Massive splenomegaly. Hepatomegaly. Extensive lymphadenopathy, involving the bilateral inguinal regions, bilateral iliac chains, retroaortic and retrocaval region, peripancreatic and lesser sac regions, bilateral axillae , bilateral cervical and supraclavicular regions, and the mediastinum. This may reflect infectious or inflammatory lymphadenopathy, particularly in view of recent diagnosis of HIV positivity, or could indicate a lymphoproliferative disorder. 4 x 3 x 2.8 cm aggregate cluster of masslike opacities in the right lower lobe. This could most likely represents an area of infiltrate, but could conceivably represent cluster of small masses. Nonspecific small irregular opacities in the left lower lobe, may reflect early infiltrates. --> for a cervical lymph node biopsy 01/25--> report pending prelim shows KS --> further recs based on above. have discussed with id # Pneumonia on imaging, sputum normal shelbi --> 01/20 CT chest: There is a cluster of masslike opacities in the right lower lobe with some slight surrounding groundglass opacity. --> s/p abx as per id PCN/DOxy/CTX --> monitor for improvement # R leg skin lesion- suspicious for Kaposi --> did in fact yeild kaposis plaque stage likely --> dw id # HIV-1 Ab positive, CD4 41 (2.7%). VL: P --> CrAg negative, RPR 1:2 --> per id in re to HAART --> monitor if needed for reconstitutional syndrome # Dvt ppx with scds The timing of this note does not necessarily reflect the time of the patient was seen. Greatly appreciate consultation. Subjective Constitutional: Denies: no symptoms, chills, fever, malaise, weakness, other HEENT: Denies: no symptoms, eye pain, blurred vision, tearing, double vision, ear pain, ear discharge, nose pain, nose congestion, throat pain, throat swelling, mouth pain, mouth swelling, other Cardiovascular: Denies: no symptoms, chest pain, edema, irregular heart rate, lightheadedness, palpitations, syncope, other Respiratory: Denies: no symptoms, cough, shortness of breath, SOB with excertion, SOB at rest, sputum, wheezing, other Genitourinary: Denies: no symptoms, burning, discharge, frequency, flank pain, hematuria, incontinence, pain, urgency, other Neurologic/Psychiatric: Denies: no symptoms, anxiety, depressed, emotional problems, headache, numbness, paresthesia, pre-existing deficit, seizure, tingling, tremors, weakness, other Endocrine: Denies: no symptoms, excessive sweating, flushing, intolerance to cold, intolerance to heat, increased hunger, increased thirst, increased urine, unexplained weight gain, unexplained weight loss, other Allergies: Coded Allergies: No Known Allergies (Unverified , 01/20/19) Subjective 01/25: no events, remains on airborne isolation, labs noted, received plts last night 01/26: very sleepy this am, no bleeding or chills, no night sweats noted, dw id 01/27: pending biopsy still, labs noted, no bleeding, no complaints 01/28: no events, no bleeding no night sweats, biopsy report pend Objective Objective Current Medications Medications (Trade) Dose Ordered Sig/Jeff Route PRN Reason Start Time Stop Time Status Last Admin Dose Admin Acetaminophen (Tylenol) 650 mg Q6H PRN ORAL Mild Pain/Temp > 100.5 01/21/19 05:45 02/20/19 05:44 01/26/19 01:59 Fluconazole (Diflucan) 200 mg DAILY ORAL 01/27/19 17:00 02/03/19 16:59 01/28/19 09:27 Gadobutrol (Gadavist) 7.5 mmol NOW PRN IV Radiology Procedure 01/26/19 16:30 01/30/19 16:23 Guaifenesin/ Dextromethorphan (Robitussin DM Syrup) 10 ml Q6HR PRN ORAL For Cough 01/21/19 22:30 02/20/19 22:29 01/28/19 09:31 Lidocaine (Xylocaine 1% MPF 5ml) 10 ml Q4H PRN HHN cough 01/26/19 11:30 02/25/19 11:29 01/26/19 13:29 Ondansetron HCl (Zofran) 4 mg Q4H PRN IVP Nausea & Vomiting 01/21/19 05:45 02/20/19 05:44 01/25/19 01:08 Potassium Chloride 10 meq/ Dextrose/Sodium Chloride 1,005 ml @ 100 mls/hr Q10H3M IV 01/23/19 13:00 02/21/19 12:59 01/28/19 09:31 Last 24 Hour Vital Signs Date Time Temp Pulse Resp B/P (MAP) Pulse Ox O2 Delivery O2 Flow Rate FiO2 01/28/19 08:00 99.1 97 18 116/70 (85) 99 01/28/19 07:51 87 16 98 Room Air 21 01/28/19 04:00 97.9 92 20 114/63 (80) 100 01/28/19 04:00 89 01/28/19 00:00 97.7 88 22 105/56 (72) 98 01/28/19 00:00 83 01/27/19 21:23 86 18 98 Room Air 21 01/27/19 21:00 Room Air 01/27/19 20:00 83 01/27/19 20:00 96.3 94 20 127/60 (82) 100 01/27/19 16:00 89 01/27/19 16:00 99.5 95 18 110/70 (83) 99 01/27/19 12:00 97.9 81 17 121/76 (91) 98 01/27/19 12:00 84 01/27/19 09:00 Room Air 01/27/19 08:42 87 18 99 Room Air 21 01/27/19 08:00 98.6 75 19 115/49 (71) 97 01/27/19 08:00 72 01/27/19 04:00 92 01/27/19 04:00 97.3 98 18 113/63 (80) 98 01/27/19 00:00 106 01/27/19 00:00 97.7 92 18 103/56 (72) 100 01/26/19 21:00 Room Air 01/26/19 20:23 97 18 99 Room Air 21 01/26/19 20:00 98.1 100 18 117/64 (81) 98 01/26/19 20:00 94 01/26/19 16:00 103 01/26/19 16:00 97.9 98 21 115/66 (82) 99 01/26/19 13:31 106 20 99 Room Air 36 102 22 100 01/26/19 12:00 95 01/26/19 12:00 97.5 92 21 119/67 (84) 100 Intake and Output 01/27/19 01/28/19 19:00 07:00 Intake Total 1100 ml 1700 ml Balance 1100 ml 1700 ml Intake Oral 1000 ml 800 ml IV Total 100 ml 900 ml # Voids 2 2 Labs Test 01/25/19 14:00 01/26/19 06:30 01/27/19 06:20 01/28/19 06:48 White Blood Count 3.1 K/UL (4.8-10.8) 3.2 K/UL (4.8-10.8) 3.3 K/UL (4.8-10.8) Red Blood Count 2.81 M/UL (4.70-6.10) 2.82 M/UL (4.70-6.10) 2.86 M/UL (4.70-6.10) Hemoglobin 7.9 G/DL (14.2-18.0) 7.8 G/DL (14.2-18.0) 8.1 G/DL (14.2-18.0) Hematocrit 22.7 % (42.0-52.0) 22.6 % (42.0-52.0) 22.6 % (42.0-52.0) Mean Corpuscular Volume 81 FL (80-99) 80 FL (80-99) 79 FL (80-99) Mean Corpuscular Hemoglobin 27.9 PG (27.0-31.0) 27.7 PG (27.0-31.0) 28.2 PG (27.0-31.0) Mean Corpuscular Hemoglobin Concent 34.7 G/DL (32.0-36.0) 34.7 G/DL (32.0-36.0) 35.6 G/DL (32.0-36.0) Red Cell Distribution Width 14.2 % (11.6-14.8) 14.5 % (11.6-14.8) 14.1 % (11.6-14.8) Platelet Count 53 K/UL (150-450) 73 K/UL (150-450) 97 K/UL (150-450) Mean Platelet Volume 7.9 FL (6.5-10.1) 6.7 FL (6.5-10.1) 6.8 FL (6.5-10.1) Neutrophils (%) (Auto) % (45.0-75.0) % (45.0-75.0) % (45.0-75.0) Lymphocytes (%) (Auto) % (20.0-45.0) % (20.0-45.0) % (20.0-45.0) Monocytes (%) (Auto) % (1.0-10.0) % (1.0-10.0) % (1.0-10.0) Eosinophils (%) (Auto) % (0.0-3.0) % (0.0-3.0) % (0.0-3.0) Basophils (%) (Auto) % (0.0-2.0) % (0.0-2.0) % (0.0-2.0) Differential Total Cells Counted 100 100 100 Neutrophils % (Manual) 56 % (45-75) 43 % (45-75) 33 % (45-75) Lymphocytes % (Manual) 37 % (20-45) 45 % (20-45) 58 % (20-45) Monocytes % (Manual) 6 % (1-10) 10 % (1-10) 9 % (1-10) Eosinophils % (Manual) 1 % (0-3) 1 % (0-3) 0 % (0-3) Basophils % (Manual) 0 % (0-2) 1 % (0-2) 0 % (0-2) Band Neutrophils 0 % (0-8) 0 % (0-8) 0 % (0-8) Platelet Estimate Decreased Decreased Decreased Platelet Morphology Normal Normal Normal Hypochromasia 1+ 3+ Anisocytosis 1+ 1+ 1+ Sodium Level 137 MMOL/L (136-145) 135 MMOL/L (136-145) 135 MMOL/L (136-145) Potassium Level 3.6 MMOL/L (3.5-5.1) 3.7 MMOL/L (3.5-5.1) 4.4 MMOL/L (3.5-5.1) Chloride Level 104 MMOL/L (98-107) 104 MMOL/L (98-107) 104 MMOL/L (98-107) Carbon Dioxide Level 27 MMOL/L (21-32) 23 MMOL/L (21-32) 28 MMOL/L (21-32) Anion Gap 6 mmol/L (5-15) 8 mmol/L (5-15) 3 mmol/L (5-15) Blood Urea Nitrogen 6 mg/dL (7-18) 3 mg/dL (7-18) 3 mg/dL (7-18) Creatinine 0.6 MG/DL (0.55-1.30) 0.6 MG/DL (0.55-1.30) 0.6 MG/DL (0.55-1.30) Estimat Glomerular Filtration Rate > 60 mL/min (>60) > 60 mL/min (>60) > 60 mL/min (>60) Glucose Level 119 MG/DL (74-106) 124 MG/DL (74-106) 103 MG/DL (74-106) Calcium Level 8.3 MG/DL (8.5-10.1) 8.2 MG/DL (8.5-10.1) 8.2 MG/DL (8.5-10.1) Height (Feet): 5 Height (Inches): 10.00 Weight (Pounds): 187 Objective Gen: NAd, Pulm: Ctab, no cwr CV: Rrr, no mgr Abd: soft, nt, nd Ext: no cce, skin lesions on legs noted kaposis likely Damaso Ventura MD Jan 28, 2019 10:40
[2019-01-28 12:00] VITALS: BP 116/69
--- NOTE | 2019-01-28 12:36 | Infectious Diseases Prog Note ---
Assessment/Plan Assessment/Plan Sepsis Pneumonia- r/o TB flu negative sputum normal shelbi T spot negative AFB smear neg x3 MTB PCR: P 01/20 CT chest: There is a cluster of masslike opacities in the right lower lobe with some slight surrounding groundglass opacity. In aggregate, this area measures 4 cm x3 cm x 2.8 cm craniocaudad. This is located at the level of the pulmonary hilum.There are some small irregular faint opacities seen within the superior segment ofthe left lower lobe, measuring up to 7 mm long axis dimension. No other pulmonary parenchymal abnormalities are demonstrated. No pleural effusions. There are abundant mediastinal lymph nodes. The largest of these is a subcarinal node which measures 2.5 x 1.5 cm.The remainder are abundant, prominent, but not frankly enlarged. However, there is extensive axillary, supraclavicular, and lower cervical lymphadenopathy. There is mild bilateral gynecomastia. Diffuse lymphadenopathy/splenomegaly/hepatomegaly - DDx: TB, lymphoma, HIV/AIDS related, [place] disease CT neck: : Extensive cervical and supraclavicular lymphadenopathy, as described. Could be reactive or infectious, possibly related to stated clinical history of recent HIV diagnosis. However, the possibility of lymphoproliferative disorder should also be considered. Mild adenoidal and right tonsillar pillar prominence, if real possibly related to the above. Incidental finding right maxillary sinus disease. CT c/ab/p: Massive splenomegaly. Hepatomegaly. Extensive lymphadenopathy, involving the bilateral inguinal regions, bilateral iliac chains, retroaortic and retrocaval region, peripancreatic and lesser sac regions, bilateral axillae , bilateral cervical and supraclavicular regions, and the mediastinum. This may reflect infectious or inflammatory lymphadenopathy, particularly in view of recent diagnosis of HIV positivity, or could indicate a lymphoproliferative disorder. 4 x 3 x 2.8 cm aggregate cluster of masslike opacities in the right lower lobe. This could most likely represents an area of infiltrate, but could conceivably represent cluster of small masses. Nonspecific small irregular opacities in the left lower lobe, may reflect early infiltrates. SP node bx 01/25: P 01/26 CT Chest: Previously demonstrated abnormal right lung mass in question has largely resolved and is therefore inflammatory. Biopsy is not indicated. Lymphadenopathy within the chest and abdomen. Neoplastic versus inflammatory. Status post cholecystectomy Gram positive bacteremia- likely contaminant -01/20 Bcx 04/02 Staph epi MSM HIV-1 Abt positive CD4 41 (2.7%). VL: P CrAg negative Hep ABC negative Blastomyces Abt negative Histoplasma antibody negative Blastomyces antibody negative Cryptococcus antigen negative CMV PCR qualitative positive 01/27 no evidence of CMV retinitis RPR 1:2 pt denies history of ever being tested denies any genital lesions. no headache. no rash. no record in [facility] office of previous titers Fever, SP pancytopenia R leg skin lesion SP bx--KS Plan: - PCN IM weekly x3(01/25, 02/01, 02/08) - 01/27 SP Ceftriaxone #7 - 01/26 SP doxy #6 - 01/21 SP Azithromycin #1 - 01/20 SP Zosyn x1, Bactrim x1 -Airborne isolation: AFB sputum x3, MTB PCR--P -SP core biopsy cervical lymph node -send lymph node for culture (bacterial, fungal, AFB, MTB PCR) and path-- requested AFB stain and HHV8 stain -f/u Cocci, GC/CL, AFB sp cx, HIV VL, fungitell, histoplasma ag and ab, PCP DFA -f/u cx -Monitor CBC/CMP, temperatures -discussed with pulm and patient Thank you for this consultation. Will continue to follow along with you. Subjective Allergies: Coded Allergies: No Known Allergies (Unverified , 01/20/19) Subjective Afebrile. Feels better Cough better but still present tinnitus Objective Vital Signs Last 24 Hour Vital Signs Date Time Temp Pulse Resp B/P (MAP) Pulse Ox O2 Delivery O2 Flow Rate FiO2 01/28/19 09:00 Room Air 01/28/19 08:00 111 01/28/19 08:00 99.1 97 18 116/70 (85) 99 01/28/19 07:51 87 16 98 Room Air 21 01/28/19 04:00 97.9 92 20 114/63 (80) 100 01/28/19 04:00 89 01/28/19 00:00 97.7 88 22 105/56 (72) 98 01/28/19 00:00 83 01/27/19 21:23 86 18 98 Room Air 21 01/27/19 21:00 Room Air 01/27/19 20:00 83 01/27/19 20:00 96.3 94 20 127/60 (82) 100 01/27/19 16:00 89 01/27/19 16:00 99.5 95 18 110/70 (83) 99 Height (Feet): 5 Height (Inches): 10.00 Weight (Pounds): 187 Objective Gen: NAD HEENT: poor dentition CV: RRR Resp: coarse. no wheezes or crackles. Abd: soft. no TTP Neuro: alert. appropriate Microbiology Date/Time Source Procedure Growth Status 01/25/19 13:00 Lymph Node Gram Stain - Final Resulted 01/25/19 13:00 Lymph Node Aerobic Culture - Preliminary NO GROWTH AFTER 24 HOURS Resulted 01/25/19 13:00 Lymph Node Anaerobic Culture - Preliminary NO GROWTH AFTER 48 HOURS Resulted Laboratory Tests Test 01/28/19 06:48 White Blood Count 3.3 K/UL (4.8-10.8) L Red Blood Count 2.86 M/UL (4.70-6.10) L Hemoglobin 8.1 G/DL (14.2-18.0) L Hematocrit 22.6 % (42.0-52.0) L Mean Corpuscular Volume 79 FL (80-99) L Mean Corpuscular Hemoglobin 28.2 PG (27.0-31.0) Mean Corpuscular Hemoglobin Concent 35.6 G/DL (32.0-36.0) Red Cell Distribution Width 14.1 % (11.6-14.8) Platelet Count 97 K/UL (150-450) L Mean Platelet Volume 6.8 FL (6.5-10.1) Neutrophils (%) (Auto) % (45.0-75.0) Lymphocytes (%) (Auto) % (20.0-45.0) Monocytes (%) (Auto) % (1.0-10.0) Eosinophils (%) (Auto) % (0.0-3.0) Basophils (%) (Auto) % (0.0-2.0) Differential Total Cells Counted 100 Neutrophils % (Manual) 33 % (45-75) L Lymphocytes % (Manual) 58 % (20-45) H Monocytes % (Manual) 9 % (1-10) Eosinophils % (Manual) 0 % (0-3) Basophils % (Manual) 0 % (0-2) Band Neutrophils 0 % (0-8) Platelet Estimate Decreased L Platelet Morphology Normal Anisocytosis 1+ Sodium Level 135 MMOL/L (136-145) L Potassium Level 4.4 MMOL/L (3.5-5.1) Chloride Level 104 MMOL/L (98-107) Carbon Dioxide Level 28 MMOL/L (21-32) Anion Gap 3 mmol/L (5-15) L Blood Urea Nitrogen 3 mg/dL (7-18) L Creatinine 0.6 MG/DL (0.55-1.30) Estimat Glomerular Filtration Rate > 60 mL/min (>60) Glucose Level 103 MG/DL (74-106) Calcium Level 8.2 MG/DL (8.5-10.1) L Cytomegalovirus DNA PCR copies/ml Pending Cytomegalovirus DNA PCR log10 Pending Current Medications Medications (Trade) Dose Ordered Sig/Jeff Route PRN Reason Start Time Stop Time Status Last Admin Dose Admin Acetaminophen (Tylenol) 650 mg Q6H PRN ORAL Mild Pain/Temp > 100.5 01/21/19 05:45 02/20/19 05:44 01/26/19 01:59 Fluconazole (Diflucan) 200 mg DAILY ORAL 01/27/19 17:00 02/03/19 16:59 01/28/19 09:27 Gadobutrol (Gadavist) 7.5 mmol NOW PRN IV Radiology Procedure 01/26/19 16:30 01/30/19 16:23 Guaifenesin/ Dextromethorphan (Robitussin DM Syrup) 10 ml Q6HR PRN ORAL For Cough 01/21/19 22:30 02/20/19 22:29 01/28/19 09:31 Lidocaine (Xylocaine 1% MPF 5ml) 10 ml Q4H PRN HHN cough 01/26/19 11:30 02/25/19 11:29 01/26/19 13:29 Ondansetron HCl (Zofran) 4 mg Q4H PRN IVP Nausea & Vomiting 01/21/19 05:45 02/20/19 05:44 01/25/19 01:08 Potassium Chloride 10 meq/ Dextrose/Sodium Chloride 1,005 ml @ 100 mls/hr Q10H3M IV 01/23/19 13:00 02/21/19 12:59 01/28/19 09:31 Olvin Grover MD Jan 28, 2019 12:36
--- NOTE | 2019-01-28 12:59 | Pulmonology Progress Note ---
Assessment/Plan Problems: (1) Pneumonia (2) Positive RPR test (3) Lymphadenopathy, cervical (4) Kaposi sarcoma (5) Thrombocytopenia (6) Fever (7) HIV (human immunodeficiency virus infection) (8) AIDS Assessment/Plan biopsy of skin showing Kaposi Sarcoma check cultures fine needle aspiration didn't show any Lymphoproliferative disease f/u ID recommendations RPR is positive 1:2. 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 Repeat CT Scan showed the infiltrate almost resolving. Lymph nodes remain enlarged. Subjective ROS Limited/Unobtainable: No Constitutional: Reports: no symptoms HEENT: Repors: no symptoms Respiratory: Reports: no symptoms Allergies: Coded Allergies: No Known Allergies (Unverified , 01/20/19) Objective Last 24 Hour Vital Signs Date Time Temp Pulse Resp B/P (MAP) Pulse Ox O2 Delivery O2 Flow Rate FiO2 01/28/19 12:00 90 01/28/19 12:00 98.4 83 20 116/69 (85) 100 01/28/19 09:00 Room Air 01/28/19 08:00 111 01/28/19 08:00 99.1 97 18 116/70 (85) 99 01/28/19 07:51 87 16 98 Room Air 21 01/28/19 04:00 97.9 92 20 114/63 (80) 100 01/28/19 04:00 89 01/28/19 00:00 97.7 88 22 105/56 (72) 98 01/28/19 00:00 83 01/27/19 21:23 86 18 98 Room Air 21 01/27/19 21:00 Room Air 01/27/19 20:00 83 01/27/19 20:00 96.3 94 20 127/60 (82) 100 01/27/19 16:00 89 01/27/19 16:00 99.5 95 18 110/70 (83) 99 Intake and Output 01/27/19 01/28/19 19:00 07:00 Intake Total 1100 ml 1700 ml Balance 1100 ml 1700 ml Intake Oral 1000 ml 800 ml IV Total 100 ml 900 ml # Voids 2 2 General Appearance: WD/WN HEENT: normocephalic, atraumatic Respiratory/Chest: chest wall non-tender, lungs clear, normal breath sounds Cardiovascular: normal peripheral pulses, normal rate Abdomen: normal bowel sounds, soft, non tender, no organomegaly Genitourinary: normal external genitalia 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 normal Microbiology Date/Time Source Procedure Growth Status 01/25/19 13:00 Lymph Node Gram Stain - Final Resulted 01/25/19 13:00 Lymph Node Aerobic Culture - Preliminary NO GROWTH AFTER 24 HOURS Resulted 01/25/19 13:00 Lymph Node Anaerobic Culture - Preliminary NO GROWTH AFTER 48 HOURS Resulted Laboratory Tests 01/28/19 06:48: White Blood Count 3.3L, Red Blood Count 2.86L, Hemoglobin 8.1L, Hematocrit 22.6L , Mean Corpuscular Volume 79L, Mean Corpuscular Hemoglobin 28.2, Mean Corpuscular Hemoglobin Concent 35.6, Red Cell Distribution Width 14.1, Platelet Count 97L, Mean Platelet Volume 6.8, Neutrophils (%) (Auto) , Lymphocytes (%) ( Auto) , Monocytes (%) (Auto) , Eosinophils (%) (Auto) , Basophils (%) (Auto) , Differential Total Cells Counted 100, Neutrophils % (Manual) 33L, Lymphocytes % (Manual) 58H, Monocytes % (Manual) 9, Eosinophils % (Manual) 0, Basophils % ( Manual) 0, Band Neutrophils 0, Platelet Estimate DecreasedL, Platelet Morphology Normal, Anisocytosis 1+, Sodium Level 135L, Potassium Level 4.4, Chloride Level 104, Carbon Dioxide Level 28, Anion Gap 3L, Blood Urea Nitrogen 3L, Creatinine 0.6, Estimat Glomerular Filtration Rate > 60, Glucose Level 103, Calcium Level 8.2L, Cytomegalovirus DNA PCR copies/ml [Pending], Cytomegalovirus DNA PCR log10 [Pending] Current Medications Medications (Trade) Dose Ordered Sig/Jeff Route PRN Reason Start Time Stop Time Status Last Admin Dose Admin Acetaminophen (Tylenol) 650 mg Q6H PRN ORAL Mild Pain/Temp > 100.5 01/21/19 05:45 02/20/19 05:44 01/26/19 01:59 Fluconazole (Diflucan) 200 mg DAILY ORAL 01/27/19 17:00 02/03/19 16:59 01/28/19 09:27 Gadobutrol (Gadavist) 7.5 mmol NOW PRN IV Radiology Procedure 01/26/19 16:30 01/30/19 16:23 Guaifenesin/ Dextromethorphan (Robitussin DM Syrup) 10 ml Q6HR PRN ORAL For Cough 01/21/19 22:30 02/20/19 22:29 01/28/19 09:31 Lidocaine (Xylocaine 1% MPF 5ml) 10 ml Q4H PRN HHN cough 01/26/19 11:30 02/25/19 11:29 01/26/19 13:29 Ondansetron HCl (Zofran) 4 mg Q4H PRN IVP Nausea & Vomiting 01/21/19 05:45 02/20/19 05:44 01/25/19 01:08 Potassium Chloride 10 meq/ Dextrose/Sodium Chloride 1,005 ml @ 100 mls/hr Q10H3M IV 01/23/19 13:00 02/21/19 12:59 01/28/19 09:31 Suzanne Terrell MD Jan 28, 2019 12:58
[2019-01-28 16:00] VITALS: BP 106/65
--- NOTE | 2019-01-28 16:21 | Internal Med Progress Note ---
Subjective Physician Name Akil Barron Attending Physician Aikl Barron MD Current Medications Medications (Trade) Dose Ordered Sig/Jeff Route PRN Reason Start Time Stop Time Status Last Admin Dose Admin Acetaminophen (Tylenol) 650 mg Q6H PRN ORAL Mild Pain/Temp > 100.5 01/21/19 05:45 02/20/19 05:44 01/26/19 01:59 Fluconazole (Diflucan) 200 mg DAILY ORAL 01/27/19 17:00 02/03/19 16:59 01/28/19 09:27 Gadobutrol (Gadavist) 7.5 mmol NOW PRN IV Radiology Procedure 01/26/19 16:30 01/30/19 16:23 Guaifenesin/ Dextromethorphan (Robitussin DM Syrup) 10 ml Q6HR PRN ORAL For Cough 01/21/19 22:30 02/20/19 22:29 01/28/19 09:31 Lidocaine (Xylocaine 1% MPF 5ml) 10 ml Q4H PRN HHN cough 01/26/19 11:30 02/25/19 11:29 01/26/19 13:29 Ondansetron HCl (Zofran) 4 mg Q4H PRN IVP Nausea & Vomiting 01/21/19 05:45 02/20/19 05:44 01/25/19 01:08 Allergies: Coded Allergies: No Known Allergies (Unverified , 01/20/19) Subjective awake, alert, responsive, No CP or SOB, less coughing. Objective Last Vital Signs Date Time Temp Pulse Resp B/P (MAP) Pulse Ox O2 Delivery O2 Flow Rate FiO2 01/28/19 12:00 90 01/28/19 12:00 98.4 20 116/69 (85) 100 01/28/19 09:00 Room Air 01/28/19 07:51 21 Laboratory Tests Test 01/28/19 06:48 01/28/19 15:15 White Blood Count 3.3 K/UL (4.8-10.8) L Red Blood Count 2.86 M/UL (4.70-6.10) L Hemoglobin 8.1 G/DL (14.2-18.0) L Hematocrit 22.6 % (42.0-52.0) L Mean Corpuscular Volume 79 FL (80-99) L Mean Corpuscular Hemoglobin 28.2 PG (27.0-31.0) Mean Corpuscular Hemoglobin Concent 35.6 G/DL (32.0-36.0) Red Cell Distribution Width 14.1 % (11.6-14.8) Platelet Count 97 K/UL (150-450) L Mean Platelet Volume 6.8 FL (6.5-10.1) Neutrophils (%) (Auto) % (45.0-75.0) Lymphocytes (%) (Auto) % (20.0-45.0) Monocytes (%) (Auto) % (1.0-10.0) Eosinophils (%) (Auto) % (0.0-3.0) Basophils (%) (Auto) % (0.0-2.0) Differential Total Cells Counted 100 Neutrophils % (Manual) 33 % (45-75) L Lymphocytes % (Manual) 58 % (20-45) H Monocytes % (Manual) 9 % (1-10) Eosinophils % (Manual) 0 % (0-3) Basophils % (Manual) 0 % (0-2) Band Neutrophils 0 % (0-8) Platelet Estimate Decreased L Platelet Morphology Normal Anisocytosis 1+ Sodium Level 135 MMOL/L (136-145) L Potassium Level 4.4 MMOL/L (3.5-5.1) Chloride Level 104 MMOL/L (98-107) Carbon Dioxide Level 28 MMOL/L (21-32) Anion Gap 3 mmol/L (5-15) L Blood Urea Nitrogen 3 mg/dL (7-18) L Creatinine 0.6 MG/DL (0.55-1.30) Estimat Glomerular Filtration Rate > 60 mL/min (>60) Glucose Level 103 MG/DL (74-106) Calcium Level 8.2 MG/DL (8.5-10.1) L Cytomegalovirus DNA PCR copies/ml Pending Cytomegalovirus DNA PCR log10 Pending M. tuberculosis Complex DNA (PCR) Pending Intake and Output 01/27/19 01/28/19 18:59 06:59 Intake Total 1000 ml 1800 ml Balance 1000 ml 1800 ml Intake Oral 1000 ml 800 ml IV Total 1000 ml # Voids 2 2 Objective General: No acute distress, awake and alert HEENT: NCAT, sclera anicteric, PERRL, EOMI. Neck: Supple, no significant jugular venous distention, Lungs: Good inspiratory effort, clear to auscultation bilaterally, no Wheeze or Rales. Heart: Regular rate and rhythm, normal S1/S2, no murmur. Abdomen: soft, nontender, nondistended. Normoactive bowel sounds. / Rectal: Refused and deferred. Extremities: No Cyanosis , clubbing or edema. Neuro: A&O x 3, Able to move all extremities Skin: warm, no rashes or lesions Psych: Normal mood and affect Assessment/Plan Assessment/Plan (1) Pneumonia (2) Positive RPR test (3) Lymphadenopathy, cervical (4) Kaposi sarcoma (5) Thrombocytopenia (6) Fever (7) HIV (human immunodeficiency virus infection) (8) AIDS Plan: in respiratory isolation F/U with [facility] [employer] [facility] Akil Barron MD Jan 28, 2019 16:21
[2019-01-28 20:00] VITALS: BP 116/65
[2019-01-28] MEDS ORDERED: NS Irrig 1000ml ONE (20:39)
[2019-01-29] VITALS: BP 118/68
[2019-01-29 04:00] VITALS: BP 113/57
[2019-01-29 08:00] VITALS: BP 112/65
[2019-01-29] MEDS: Promethazine/Codeine 5ml UD ORAL PRN (09:08)
[2019-01-29] MEDS: Fluconazole 100mg tab ORAL SCH (09:08)
--- NOTE | 2019-01-29 09:15 | Pulmonology Progress Note ---
Assessment/Plan Problems: (1) Pneumonia (2) Positive RPR test (3) Lymphadenopathy, cervical (4) Kaposi sarcoma (5) Thrombocytopenia (6) Fever (7) HIV (human immunodeficiency virus infection) (8) AIDS Assessment/Plan biopsy of skin showing Kaposi Sarcoma all cultures are negative so far fine needle aspiration didn't show any Lymphoproliferative disease f/u ID recommendations RPR is positive 1:2. 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 Repeat CT Scan showed the infiltrate almost resolving. Lymph nodes remain enlarged. Subjective Constitutional: Reports: no symptoms HEENT: Repors: no symptoms Respiratory: Reports: no symptoms Allergies: Coded Allergies: No Known Allergies (Unverified , 01/20/19) Objective Last 24 Hour Vital Signs Date Time Temp Pulse Resp B/P (MAP) Pulse Ox O2 Delivery O2 Flow Rate FiO2 01/29/19 08:21 97 20 98 Room Air 21 01/29/19 04:00 97.7 80 18 113/57 (75) 98 01/29/19 00:00 98.2 80 18 118/68 (85) 95 01/28/19 21:00 Room Air 01/28/19 20:00 98.4 82 16 116/65 (82) 94 01/28/19 19:00 84 16 97 Room Air 21 01/28/19 16:00 88 01/28/19 16:00 98.0 84 18 106/65 (79) 98 01/28/19 12:00 90 01/28/19 12:00 98.4 83 20 116/69 (85) 100 Intake and Output 01/28/19 01/29/19 19:00 07:00 Intake Total 800 ml 600 ml Balance 800 ml 600 ml Intake Oral 800 ml 600 ml # Voids 2 2 General Appearance: WD/WN HEENT: normocephalic, anicteric Respiratory/Chest: chest wall non-tender, lungs clear Cardiovascular: normal peripheral pulses, normal rate Abdomen: normal bowel sounds, soft, non tender Genitourinary: normal external genitalia Extremities: no cyanosis 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 tuberculosis Complex DNA (PCR) [Pending] Current Medications Medications (Trade) Dose Ordered Sig/Jeff Route PRN Reason Start Time Stop Time Status Last Admin Dose Admin Acetaminophen (Tylenol) 650 mg Q6H PRN ORAL Mild Pain/Temp > 100.5 01/21/19 05:45 02/20/19 05:44 01/26/19 01:59 Fluconazole (Diflucan) 200 mg DAILY ORAL 01/27/19 17:00 02/03/19 16:59 01/29/19 09:08 Gadobutrol (Gadavist) 7.5 mmol NOW PRN IV Radiology Procedure 01/26/19 16:30 01/30/19 16:23 Lidocaine (Xylocaine 1% MPF 5ml) 10 ml Q4H PRN HHN cough 01/26/19 11:30 02/25/19 11:29 01/26/19 13:29 Ondansetron HCl (Zofran) 4 mg Q4H PRN IVP Nausea & Vomiting 01/21/19 05:45 02/20/19 05:44 01/25/19 01:08 Promethazine HCl/ Codeine (Phenergan with Codeine) 5 ml Q4H PRN ORAL For Cough 01/29/19 08:30 02/28/19 08:29 01/29/19 09:08 Suzanne Terrell MD Jan 29, 2019 09:15
--- NOTE | 2019-01-29 10:05 | Infectious Diseases Prog Note ---
Assessment/Plan Assessment/Plan Sepsis Pneumonia- r/o TB flu negative sputum normal shelbi T spot negative AFB smear neg x3 MTB PCR: P 01/20 CT chest: There is a cluster of masslike opacities in the right lower lobe with some slight surrounding groundglass opacity. In aggregate, this area measures 4 cm x3 cm x 2.8 cm craniocaudad. This is located at the level of the pulmonary hilum.There are some small irregular faint opacities seen within the superior segment ofthe left lower lobe, measuring up to 7 mm long axis dimension. No other pulmonary parenchymal abnormalities are demonstrated. No pleural effusions. There are abundant mediastinal lymph nodes. The largest of these is a subcarinal node which measures 2.5 x 1.5 cm.The remainder are abundant, prominent, but not frankly enlarged. However, there is extensive axillary, supraclavicular, and lower cervical lymphadenopathy. There is mild bilateral gynecomastia. Diffuse lymphadenopathy/splenomegaly/hepatomegaly - DDx: TB, lymphoma, HIV/AIDS related, [place] disease CT neck: : Extensive cervical and supraclavicular lymphadenopathy, as described. Could be reactive or infectious, possibly related to stated clinical history of recent HIV diagnosis. However, the possibility of lymphoproliferative disorder should also be considered. Mild adenoidal and right tonsillar pillar prominence, if real possibly related to the above. Incidental finding right maxillary sinus disease. CT c/ab/p: Massive splenomegaly. Hepatomegaly. Extensive lymphadenopathy, involving the bilateral inguinal regions, bilateral iliac chains, retroaortic and retrocaval region, peripancreatic and lesser sac regions, bilateral axillae , bilateral cervical and supraclavicular regions, and the mediastinum. This may reflect infectious or inflammatory lymphadenopathy, particularly in view of recent diagnosis of HIV positivity, or could indicate a lymphoproliferative disorder. 4 x 3 x 2.8 cm aggregate cluster of masslike opacities in the right lower lobe. This could most likely represents an area of infiltrate, but could conceivably represent cluster of small masses. Nonspecific small irregular opacities in the left lower lobe, may reflect early infiltrates. SP node bx 01/25: P 01/26 CT Chest: Previously demonstrated abnormal right lung mass in question has largely resolved and is therefore inflammatory. Biopsy is not indicated. Lymphadenopathy within the chest and abdomen. Neoplastic versus inflammatory. Status post cholecystectomy Gram positive bacteremia- likely contaminant -01/20 Bcx 04/02 Staph epi MSM HIV-1 Abt positive CD4 41 (2.7%). VL: P CrAg negative Hep ABC negative Blastomyces Abt negative Histoplasma antibody negative Blastomyces antibody negative Cryptococcus antigen negative CMV PCR qualitative positive 01/27 no evidence of CMV retinitis RPR 1:2 pt denies history of ever being tested denies any genital lesions. no headache. no rash. no record in [facility] office of previous titers Fever, SP pancytopenia R leg skin lesion SP bx--KS Plan: - On fluconazole #3 - PCN IM weekly x3(01/25, 02/01, 02/08) - 01/27 SP Ceftriaxone #7 - 01/26 SP doxy #6 - 01/21 SP Azithromycin #1 - 01/20 SP Zosyn x1, Bactrim x1 -Airborne isolation: AFB sputum x3, MTB PCR--P -SP core biopsy cervical lymph node -send lymph node for culture (bacterial, fungal, AFB, MTB PCR) and path-- requested AFB stain and HHV8 stain -f/u Cocci, GC/CL, AFB sp cx, HIV VL, fungitell, histoplasma ag and ab, PCP DFA -f/u cx -Monitor CBC/CMP, temperatures -discussed with pulm and patient Thank you for this consultation. Will continue to follow along with you. Subjective Allergies: Coded Allergies: No Known Allergies (Unverified , 01/20/19) Subjective Afebrile No Leukocytosis Objective Vital Signs Last 24 Hour Vital Signs Date Time Temp Pulse Resp B/P (MAP) Pulse Ox O2 Delivery O2 Flow Rate FiO2 01/29/19 08:21 97 20 98 Room Air 01/29/19 04:00 97.7 80 18 113/57 (75) 98 01/29/19 00:00 98.2 80 18 118/68 (85) 95 01/28/19 21:00 Room Air 01/28/19 20:00 98.4 82 16 116/65 (82) 94 01/28/19 19:00 84 16 97 Room Air 21 01/28/19 16:00 88 01/28/19 16:00 98.0 84 18 106/65 (79) 98 01/28/19 12:00 90 01/28/19 12:00 98.4 83 20 116/69 (85) 100 Height (Feet): 5 Height (Inches): 10.00 Weight (Pounds): 187 Objective Gen: NAD HEENT: NCAT, poor dentition CV: RRR Resp: coarse. no wheezes or crackles. Abd: soft. no TTP Neuro: alert. appropriate Laboratory Tests Test 01/28/19 15:15 M. tuberculosis Complex DNA (PCR) Pending Current Medications Medications (Trade) Dose Ordered Sig/Jeff Route PRN Reason Start Time Stop Time Status Last Admin Dose Admin Acetaminophen (Tylenol) 650 mg Q6H PRN ORAL Mild Pain/Temp > 100.5 01/21/19 05:45 02/20/19 05:44 01/26/19 01:59 Fluconazole (Diflucan) 200 mg DAILY ORAL 01/27/19 17:00 02/03/19 16:59 01/29/19 09:08 Gadobutrol (Gadavist) 7.5 mmol NOW PRN IV Radiology Procedure 01/26/19 16:30 01/30/19 16:23 Lidocaine (Xylocaine 1% MPF 5ml) 10 ml Q4H PRN HHN cough 01/26/19 11:30 02/25/19 11:29 01/26/19 13:29 Ondansetron HCl (Zofran) 4 mg Q4H PRN IVP Nausea & Vomiting 01/21/19 05:45 02/20/19 05:44 01/25/19 01:08 Promethazine HCl/ Codeine (Phenergan with Codeine) 5 ml Q4H PRN ORAL For Cough 01/29/19 08:30 02/28/19 08:29 01/29/19 09:08 Alo Gaviria MD Jan 29, 2019 10:05
[2019-01-29 12:00] VITALS: BP 109/61
--- NOTE | 2019-01-29 14:57 | Internal Med Progress Note ---
Subjective Date of Service: Jan 29, 2019 Physician Name Abhijeet Uriostegui Attending Physician Akil Barron MD Current Medications Medications (Trade) Dose Ordered Sig/Jeff Route PRN Reason Start Time Stop Time Status Last Admin Dose Admin Acetaminophen (Tylenol) 650 mg Q6H PRN ORAL Mild Pain/Temp > 100.5 01/21/19 05:45 02/20/19 05:44 01/26/19 01:59 Fluconazole (Diflucan) 200 mg DAILY ORAL 01/27/19 17:00 02/03/19 16:59 01/29/19 09:08 Gadobutrol (Gadavist) 7.5 mmol NOW PRN IV Radiology Procedure 01/26/19 16:30 01/30/19 16:23 Lidocaine (Xylocaine 1% MPF 5ml) 10 ml Q4H PRN HHN cough 01/26/19 11:30 02/25/19 11:29 01/26/19 13:29 Ondansetron HCl (Zofran) 4 mg Q4H PRN IVP Nausea & Vomiting 01/21/19 05:45 02/20/19 05:44 01/25/19 01:08 Promethazine HCl/ Codeine (Phenergan with Codeine) 5 ml Q4H PRN ORAL For Cough 01/29/19 08:30 02/28/19 08:29 01/29/19 09:08 Allergies: Coded Allergies: No Known Allergies (Unverified , 01/20/19) ROS Limited/Unobtainable: No Constitutional: Reports: no symptoms HEENT: Reports: no symptoms Cardiovascular: Reports: no symptoms Respiratory: Reports: cough Gastrointestinal/Abdominal: Reports: no symptoms Genitourinary: Reports: no symptoms Neurologic/Psychiatric: Reports: no symptoms Subjective 28 YO M admitted with cough. Now new dx HIV, lymphadenopathy and pneumonia. Cover for Int Med- Dr Barron. Objective Last Vital Signs Date Time Temp Pulse Resp B/P (MAP) Pulse Ox O2 Delivery O2 Flow Rate FiO2 01/29/19 08:21 97 20 98 Room Air 21 01/29/19 04:00 97.7 113/57 (75) Laboratory Tests Test 01/28/19 15:15 M. tuberculosis Complex DNA (PCR) Pending Intake and Output 01/28/19 01/29/19 19:00 07:00 Intake Total 800 ml 600 ml Balance 800 ml 600 ml Intake Oral 800 ml 600 ml # Voids 2 2 Objective PHYSICAL EXAMINATION: GENERAL: The patient is awake and responsive, in no acute distress. HEAD AND NECK: Pupils are reactive to light. Extraocular movements intact. Neck was supple. No JVD. LUNGS: Good air entry. No wheezing or rales. HEART: Reveals S1, S2. Regular rhythm. No gallops. ABDOMEN: Soft, nondistended, and nontender. Positive bowel sounds. EXTREMITIES: No cyanosis, clubbing, edema NEUROLOGIC: Cranial nerves II through XII grossly intact. Motor is 5/5 in all extremities. Gait is intact. RECTAL/GENITOURINARY: Refused and deferred. PSYCHIATRIC: Mood and affect is intact. LYMPH NODES: Showed the patient has a positive lymphadenopathy in the cervical lymph node in the neck as well as in the pelvic area. Assessment/Plan Assessment/Plan ASSESSMENT: 1. Generalized lymphadenopathy. 2. New diagnosis of human immunodeficiency virus. 3. Right Lung infiltrate, possible pneumonia versus tuberculosis. 4. Splenomegaly. 5. LEO. 6. Hepatomegaly. 7. Thrombocytopenia. 8. 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 Positive RPR PLAN: 1. Admit the patient to respiratory isolation. 2. Follow up with the AFB x3. 3. Discussed case with Dr. Terrell from [facility] 4. Infectious Disease consultation=Dr Grover. 5. Follow up with the infection workup. 6. Code status is Full code. 7. CD4=41 8. Bicillin penicillin IM q week X3 9. Hematology/onc=Dr Ventura 10. S/P ceftriaxone and doxycycline Abhijeet Uriostegui MD Jan 29, 2019 14:57
[2019-01-29 16:00] VITALS: BP 103/64
[2019-01-29] MEDS ORDERED: Metoprolol 5mg/5ml Inj IVP PRN (19:00)
[2019-01-29 20:00] VITALS: BP 109/58
[2019-01-30] VITALS: BP 105/63
[2019-01-30 04:00] VITALS: BP 105/57
[2019-01-30 08:08] VITALS: BP 116/65
--- NOTE | 2019-01-30 08:28 | Hematology/Onc Progress Note ---
Assessment/Plan Assessment/Plan Assessment and Recs: # Pancytopenia is likely related to newly diagnoised HIV/Aids, has not been in prior treated, ct of the abdomen and pelvis shows extensive lad and likely cause of splenic sequestration, in addition may be related to NHL v kaposis --> also r/o underlying malignancy, with cervical biopsy 01/25 --> reverse isolation if ANC is <2000 --> Give neupogen if ANC <1000 --> Transfuse if hgb <7, with 1 unit prbc --> consider bone marrow biopsy if no other causes are found --> plts were given 01/25 pre-procedure 35-->44-->53k-->97 --> wbc 3.1-->3.3-->3.3 # Diffuse lymphadenopathy/splenomegaly/hepatomegaly - DDx: TB, lymphoma, HIV/ AIDS related, Castleman disease --> CT neck: : Extensive cervical and supraclavicular lymphadenopathy, as described. Could be reactive or infectious, possibly related to stated clinical history of recent HIV diagnosis. However, the possibility of lymphoproliferative disorder should also be considered. Mild adenoidal and right tonsillar pillar prominence, if real possibly related to the above. Incidental finding right maxillary sinus disease. --> CT c/ab/p: Massive splenomegaly. Hepatomegaly. Extensive lymphadenopathy, involving the bilateral inguinal regions, bilateral iliac chains, retroaortic and retrocaval region, peripancreatic and lesser sac regions, bilateral axillae , bilateral cervical and supraclavicular regions, and the mediastinum. This may reflect infectious or inflammatory lymphadenopathy, particularly in view of recent diagnosis of HIV positivity, or could indicate a lymphoproliferative disorder. 4 x 3 x 2.8 cm aggregate cluster of masslike opacities in the right lower lobe. This could most likely represents an area of infiltrate, but could conceivably represent cluster of small masses. Nonspecific small irregular opacities in the left lower lobe, may reflect early infiltrates. --> for a cervical lymph node biopsy 01/25--> report pending prelim shows KS ( again final pending) --> further recs based on above. have discussed with id --> continues to have chest and abdomen lymphadeopathy, if doesn't resolve, consider a bone marrow biopsy r/o NHL # Pneumonia on imaging, sputum normal shelbi --> 01/20 CT chest: There is a cluster of masslike opacities in the right lower lobe with some slight surrounding groundglass opacity--> appears resolved on repeat --> s/p abx as per id PCN/DOxy/CTX--> flucon --> monitor for improvement # R leg skin lesion- suspicious for Kaposi --> did in fact yeild kaposis plaque stage likely --> dw id # HIV-1 Ab positive, CD4 41 (2.7%). VL: P --> CrAg negative, RPR 1:2 --> per id in re to HAART --> monitor if needed for reconstitutional syndrome # Dvt ppx with scds The timing of this note does not necessarily reflect the time of the patient was seen. Greatly appreciate consultation. Subjective Constitutional: Denies: no symptoms, chills, fever, malaise, weakness, other HEENT: Denies: no symptoms, eye pain, blurred vision, tearing, double vision, ear pain, ear discharge, nose pain, nose congestion, throat pain, throat swelling, mouth pain, mouth swelling, other Cardiovascular: Denies: no symptoms, chest pain, edema, irregular heart rate, lightheadedness, palpitations, syncope, other Respiratory: Denies: no symptoms, cough, shortness of breath, SOB with excertion, SOB at rest, sputum, wheezing, other Gastrointestinal/Abdominal: Denies: no symptoms, abdomen distended, abdominal pain, black stools, tarry stools, blood in stool, constipated, diarrhea, difficulty swallowing, nausea, poor appetite, poor fluid intake, rectal bleeding , vomiting, other Genitourinary: Denies: no symptoms, burning, discharge, frequency, flank pain, hematuria, incontinence, pain, urgency, other Neurologic/Psychiatric: Denies: no symptoms, anxiety, depressed, emotional problems, headache, numbness, paresthesia, pre-existing deficit, seizure, tingling, tremors, weakness, other Endocrine: Denies: no symptoms, excessive sweating, flushing, intolerance to cold, intolerance to heat, increased hunger, increased thirst, increased urine, unexplained weight gain, unexplained weight loss, other Allergies: Coded Allergies: No Known Allergies (Unverified , 01/20/19) Subjective 01/25: no events, remains on airborne isolation, labs noted, received plts last night 01/26: very sleepy this am, no bleeding or chills, no night sweats noted, dw id 01/27: pending biopsy still, labs noted, no bleeding, no complaints 01/28: no events, no bleeding no night sweats, biopsy report pend 01/30: no bleeding, labs are better, path again reviewed, id aware Objective Objective Current Medications Medications (Trade) Dose Ordered Sig/Jeff Route PRN Reason Start Time Stop Time Status Last Admin Dose Admin Acetaminophen (Tylenol) 650 mg Q6H PRN ORAL Mild Pain/Temp > 100.5 01/21/19 05:45 02/20/19 05:44 01/30/19 03:25 Fluconazole (Diflucan) 200 mg DAILY ORAL 01/27/19 17:00 02/03/19 16:59 01/29/19 09:08 Gadobutrol (Gadavist) 7.5 mmol NOW PRN IV Radiology Procedure 01/26/19 16:30 01/30/19 16:23 Lidocaine (Xylocaine 1% MPF 5ml) 10 ml Q4H PRN HHN cough 01/26/19 11:30 02/25/19 11:29 01/26/19 13:29 Ondansetron HCl (Zofran) 4 mg Q4H PRN IVP Nausea & Vomiting 01/21/19 05:45 02/20/19 05:44 01/25/19 01:08 Promethazine HCl/ Codeine (Phenergan with Codeine) 5 ml Q4H PRN ORAL For Cough 01/29/19 08:30 02/28/19 08:29 01/29/19 09:08 Last 24 Hour Vital Signs Date Time Temp Pulse Resp B/P (MAP) Pulse Ox O2 Delivery O2 Flow Rate FiO2 01/30/19 08:12 72 20 99 Room Air 21 01/30/19 08:08 97.7 86 18 116/65 (82) 100 01/30/19 04:00 98.1 88 20 105/57 (73) 99 01/30/19 00:00 99.0 88 20 105/63 (77) 99 01/29/19 22:06 91 20 99 Room Air 21 01/29/19 21:00 Room Air 01/29/19 20:00 98.2 88 20 109/58 (75) 99 01/29/19 16:00 99.2 91 20 103/64 (77) 99 01/29/19 12:00 98.3 83 18 109/61 (77) 98 01/29/19 09:00 Room Air 01/29/19 08:21 97 20 98 Room Air 21 01/29/19 08:00 97.9 92 20 112/65 (81) 100 01/29/19 04:00 97.7 80 18 113/57 (75) 98 01/29/19 00:00 98.2 80 18 118/68 (85) 95 01/28/19 21:00 Room Air 01/28/19 20:00 98.4 82 16 116/65 (82) 94 01/28/19 19:00 84 16 97 Room Air 21 01/28/19 16:00 88 01/28/19 16:00 98.0 84 18 106/65 (79) 98 01/28/19 12:00 90 01/28/19 12:00 98.4 83 20 116/69 (85) 100 01/28/19 09:00 Room Air Intake and Output 01/29/19 01/30/19 19:00 07:00 Intake Total 400 ml 50 ml Balance 400 ml 50 ml Intake Oral 400 ml 50 ml # Voids 2 2 Labs Test 01/28/19 06:48 01/28/19 15:15 White Blood Count 3.3 K/UL (4.8-10.8) Red Blood Count 2.86 M/UL (4.70-6.10) Hemoglobin 8.1 G/DL (14.2-18.0) Hematocrit 22.6 % (42.0-52.0) Mean Corpuscular Volume 79 FL (80-99) Mean Corpuscular Hemoglobin 28.2 PG (27.0-31.0) Mean Corpuscular Hemoglobin Concent 35.6 G/DL (32.0-36.0) Red Cell Distribution Width 14.1 % (11.6-14.8) Platelet Count 97 K/UL (150-450) Mean Platelet Volume 6.8 FL (6.5-10.1) Neutrophils (%) (Auto) % (45.0-75.0) Lymphocytes (%) (Auto) % (20.0-45.0) Monocytes (%) (Auto) % (1.0-10.0) Eosinophils (%) (Auto) % (0.0-3.0) Basophils (%) (Auto) % (0.0-2.0) Differential Total Cells Counted 100 Neutrophils % (Manual) 33 % (45-75) Lymphocytes % (Manual) 58 % (20-45) Monocytes % (Manual) 9 % (1-10) Eosinophils % (Manual) 0 % (0-3) Basophils % (Manual) 0 % (0-2) Band Neutrophils 0 % (0-8) Platelet Estimate Decreased Platelet Morphology Normal Anisocytosis 1+ Sodium Level 135 MMOL/L (136-145) Potassium Level 4.4 MMOL/L (3.5-5.1) Chloride Level 104 MMOL/L (98-107) Carbon Dioxide Level 28 MMOL/L (21-32) Anion Gap 3 mmol/L (5-15) Blood Urea Nitrogen 3 mg/dL (7-18) Creatinine 0.6 MG/DL (0.55-1.30) Estimat Glomerular Filtration Rate > 60 mL/min (>60) Glucose Level 103 MG/DL (74-106) Calcium Level 8.2 MG/DL (8.5-10.1) Height (Feet): 5 Height (Inches): 10.00 Weight (Pounds): 187 Objective Gen: NAd, Pulm: Ctab, no cwr CV: Rrr, no mgr Abd: soft, nt, nd Ext: no cce, skin lesions on legs noted kaposis likely Damaso Ventura MD Jan 30, 2019 08:28
[2019-01-30 08:41] LABS: BASOPHILS % (AUTO) 1.1 % (0.0-2.0); HEMATOCRIT 26.6 % (42.0-52.0); HEMOGLOBIN 9.5 G/DL (14.2-18.0); MEAN CORPUSCULAR VOLUME 80 FL (80-99); MONOCYTES % (AUTO) 6.2 % (1.0-10.0); NEUTROPHILS % (AUTO) 43.8 % (45.0-75.0); PLATELET COUNT 176 K/UL (150-450); RED BLOOD COUNT 3.31 M/UL (4.70-6.10); RED CELL DISTRIBUTION WIDTH 14.1 % (11.6-14.8); WHITE BLOOD COUNT 4.8 K/UL (4.8-10.8)
--- NOTE | 2019-01-30 08:59 | Pulmonology Progress Note ---
Assessment/Plan Problems: (1) Pneumonia (2) Positive RPR test (3) Lymphadenopathy, cervical (4) Kaposi sarcoma (5) Thrombocytopenia (6) Fever (7) HIV (human immunodeficiency virus infection) (8) AIDS Assessment/Plan biopsy of skin showing Kaposi Sarcoma all cultures are negative so far awaiting final results from the PCR sputum fine needle aspiration didn't show any Lymphoproliferative disease f/u ID recommendations RPR is positive 1:2. 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 Repeat CT Scan showed the infiltrate almost resolving. Lymph nodes remain enlarged. Subjective ROS Limited/Unobtainable: No Interval Events: cough is better controlled Constitutional: Reports: no symptoms HEENT: Repors: no symptoms Respiratory: Reports: no symptoms Allergies: Coded Allergies: No Known Allergies (Unverified , 01/20/19) Objective Last 24 Hour Vital Signs Date Time Temp Pulse Resp B/P (MAP) Pulse Ox O2 Delivery O2 Flow Rate FiO2 01/30/19 08:12 72 20 99 Room Air 21 01/30/19 08:08 97.7 86 18 116/65 (82) 100 01/30/19 04:00 98.1 88 20 105/57 (73) 99 01/30/19 00:00 99.0 88 20 105/63 (77) 99 01/29/19 22:06 91 20 99 Room Air 21 01/29/19 21:00 Room Air 01/29/19 20:00 98.2 88 20 109/58 (75) 99 01/29/19 16:00 99.2 91 20 103/64 (77) 99 01/29/19 12:00 98.3 83 18 109/61 (77) 98 01/29/19 09:00 Room Air Intake and Output 01/29/19 01/30/19 19:00 07:00 Intake Total 400 ml 50 ml Balance 400 ml 50 ml Intake Oral 400 ml 50 ml # Voids 2 2 General Appearance: WD/WN, no acute distress HEENT: normocephalic, atraumatic Respiratory/Chest: chest wall non-tender, lungs clear Cardiovascular: normal peripheral pulses, normal rate Abdomen: normal bowel sounds, soft, non tender Genitourinary: normal external genitalia Neurologic/Psychiatric: dining room host II-XII grossly normal Laboratory Tests 01/30/19 07:51: White Blood Count 4.8, Red Blood Count 3.31L, Hemoglobin 9.5L, Hematocrit 26.6L , Mean Corpuscular Volume 80, Mean Corpuscular Hemoglobin 28.5, Mean Corpuscular Hemoglobin Concent 35.6, Red Cell Distribution Width 14.1, Platelet Count 176, Mean Platelet Volume 6.6, Neutrophils (%) (Auto) 43.8L, Lymphocytes ( %) (Auto) 48.0H, Monocytes (%) (Auto) 6.2, Eosinophils (%) (Auto) 1.0, Basophils (%) (Auto) 1.1, Erythrocyte Sedimentation Rate [Pending], Sodium Level [Pending], Potassium Level [Pending], Chloride Level [Pending], Carbon Dioxide Level [Pending], Blood Urea Nitrogen [Pending], Creatinine [Pending], Estimat Glomerular Filtration Rate [Pending], Glucose Level [Pending], Calcium Level [Pending], Phosphorus Level [Pending], Magnesium Level [Pending], Total Bilirubin [Pending], Aspartate Amino Transf (AST/SGOT) [Pending], Alanine Aminotransferase (ALT/SGPT) [Pending], Alkaline Phosphatase [Pending], C- Reactive Protein, Quantitative [Pending], Total Protein [Pending], Albumin [ Pending], Globulin [Pending] Current Medications Medications (Trade) Dose Ordered Sig/Jeff Route PRN Reason Start Time Stop Time Status Last Admin Dose Admin Acetaminophen (Tylenol) 650 mg Q6H PRN ORAL Mild Pain/Temp > 100.5 01/21/19 05:45 02/20/19 05:44 01/30/19 03:25 Fluconazole (Diflucan) 200 mg DAILY ORAL 01/27/19 17:00 02/03/19 16:59 01/29/19 09:08 Gadobutrol (Gadavist) 7.5 mmol NOW PRN IV Radiology Procedure 01/26/19 16:30 01/30/19 16:23 Lidocaine (Xylocaine 1% MPF 5ml) 10 ml Q4H PRN HHN cough 01/26/19 11:30 02/25/19 11:29 01/26/19 13:29 Ondansetron HCl (Zofran) 4 mg Q4H PRN IVP Nausea & Vomiting 01/21/19 05:45 02/20/19 05:44 01/25/19 01:08 Promethazine HCl/ Codeine (Phenergan with Codeine) 5 ml Q4H PRN ORAL For Cough 01/29/19 08:30 02/28/19 08:29 01/29/19 09:08 Suzanne Terrell MD Jan 30, 2019 08:59
[2019-01-30 09:31] LABS: ALANINE AMINOTRANSFERASE 88 U/L (12-78); ALBUMIN 2.3 G/DL (3.4-5.0); ALBUMIN/GLOBULIN RATIO 0.4 (1.0-2.7); ALKALINE PHOSPHATASE 96 U/L (46-116); ANION GAP 4 mmol/L (5-15); ASPARTATE AMINO TRANSFERASE 85 U/L (15-37); BILIRUBIN,TOTAL 0.5 MG/DL (0.2-1.0); BLOOD UREA NITROGEN 6 mg/dL (7-18); CALCIUM 8.6 MG/DL (8.5-10.1); CARBON DIOXIDE 29 MMOL/L (21-32); CHLORIDE 102 MMOL/L (98-107); CREATININE 0.7 MG/DL (0.55-1.30); PHOSPHORUS 4.5 MG/DL (2.5-4.9); SODIUM 135 MMOL/L (136-145)
[2019-01-30] MEDS: Promethazine/Codeine 5ml UD ORAL PRN (10:16)
[2019-01-30] MEDS: Fluconazole 100mg tab ORAL SCH (10:16)
[2019-01-30 12:00] VITALS: BP 111/73
--- NOTE | 2019-01-30 13:31 | Internal Med Progress Note ---
Subjective Date of Service: Jan 30, 2019 Physician Name Abhijeet Uriostegui Attending Physician Akil Barron MD Current Medications Medications (Trade) Dose Ordered Sig/Jeff Route PRN Reason Start Time Stop Time Status Last Admin Dose Admin Acetaminophen (Tylenol) 650 mg Q6H PRN ORAL Mild Pain/Temp > 100.5 01/21/19 05:45 02/20/19 05:44 01/30/19 03:25 Fluconazole (Diflucan) 200 mg DAILY ORAL 01/27/19 17:00 02/03/19 16:59 01/30/19 10:16 Gadobutrol (Gadavist) 7.5 mmol NOW PRN IV Radiology Procedure 01/26/19 16:30 01/30/19 16:23 Lidocaine (Xylocaine 1% MPF 5ml) 10 ml Q4H PRN HHN cough 01/26/19 11:30 02/25/19 11:29 01/26/19 13:29 Ondansetron HCl (Zofran) 4 mg Q4H PRN IVP Nausea & Vomiting 01/21/19 05:45 02/20/19 05:44 01/25/19 01:08 Promethazine HCl/ Codeine (Phenergan with Codeine) 5 ml Q4H PRN ORAL For Cough 01/29/19 08:30 02/28/19 08:29 01/30/19 10:16 Allergies: Coded Allergies: No Known Allergies (Unverified , 01/20/19) ROS Limited/Unobtainable: No Constitutional: Reports: no symptoms HEENT: Reports: no symptoms Cardiovascular: Reports: no symptoms Respiratory: Reports: cough Gastrointestinal/Abdominal: Reports: no symptoms Genitourinary: Reports: no symptoms Neurologic/Psychiatric: Reports: no symptoms Subjective 28 YO M admitted with cough. Now new dx HIV, lymphadenopathy and pneumonia. Cover for Int Med- Dr Barron. Objective Last Vital Signs Date Time Temp Pulse Resp B/P (MAP) Pulse Ox O2 Delivery O2 Flow Rate FiO2 01/30/19 08:12 72 20 99 Room Air 21 01/30/19 08:08 97.7 116/65 (82) Laboratory Tests Test 01/30/19 07:51 White Blood Count 4.8 K/UL (4.8-10.8) Red Blood Count 3.31 M/UL (4.70-6.10) L Hemoglobin 9.5 G/DL (14.2-18.0) L Hematocrit 26.6 % (42.0-52.0) L Mean Corpuscular Volume 80 FL (80-99) Mean Corpuscular Hemoglobin 28.5 PG (27.0-31.0) Mean Corpuscular Hemoglobin Concent 35.6 G/DL (32.0-36.0) Red Cell Distribution Width 14.1 % (11.6-14.8) Platelet Count 176 K/UL (150-450) Mean Platelet Volume 6.6 FL (6.5-10.1) Neutrophils (%) (Auto) 43.8 % (45.0-75.0) L Lymphocytes (%) (Auto) 48.0 % (20.0-45.0) H Monocytes (%) (Auto) 6.2 % (1.0-10.0) Eosinophils (%) (Auto) 1.0 % (0.0-3.0) Basophils (%) (Auto) 1.1 % (0.0-2.0) Erythrocyte Sedimentation Rate 113 MM/HR (0-15) H Sodium Level 135 MMOL/L (136-145) L Potassium Level 4.0 MMOL/L (3.5-5.1) Chloride Level 102 MMOL/L (98-107) Carbon Dioxide Level 29 MMOL/L (21-32) Anion Gap 4 mmol/L (5-15) L Blood Urea Nitrogen 6 mg/dL (7-18) L Creatinine 0.7 MG/DL (0.55-1.30) Estimat Glomerular Filtration Rate > 60 mL/min (>60) Glucose Level 116 MG/DL (74-106) H Calcium Level 8.6 MG/DL (8.5-10.1) Phosphorus Level 4.5 MG/DL (2.5-4.9) Magnesium Level 1.8 MG/DL (1.8-2.4) Total Bilirubin 0.5 MG/DL (0.2-1.0) Aspartate Amino Transf (AST/SGOT) 85 U/L (15-37) H Alanine Aminotransferase (ALT/SGPT) 88 U/L (12-78) H Alkaline Phosphatase 96 U/L (46-116) C-Reactive Protein, Quantitative 1.3 mg/dL (0.00-0.90) H Total Protein 8.5 G/DL (6.4-8.2) H Albumin 2.3 G/DL (3.4-5.0) L Globulin 6.2 g/dL Albumin/Globulin Ratio 0.4 (1.0-2.7) L Intake and Output 01/29/19 01/30/19 19:00 07:00 Intake Total 400 ml 50 ml Balance 400 ml 50 ml Intake Oral 400 ml 50 ml # Voids 2 2 Objective PHYSICAL EXAMINATION: GENERAL: The patient is awake and responsive, in no acute distress. HEAD AND NECK: Pupils are reactive to light. Extraocular movements intact. Neck was supple. No JVD. LUNGS: Good air entry. No wheezing or rales. HEART: Reveals S1, S2. Regular rhythm. No gallops. ABDOMEN: Soft, nondistended, and nontender. Positive bowel sounds. EXTREMITIES: No cyanosis, clubbing, edema NEUROLOGIC: Cranial nerves II through XII grossly intact. Motor is 5/5 in all extremities. Gait is intact. RECTAL/GENITOURINARY: Refused and deferred. PSYCHIATRIC: Mood and affect is intact. LYMPH NODES: Showed the patient has a positive lymphadenopathy in the cervical lymph node in the neck as well as in the pelvic area. Assessment/Plan Assessment/Plan ASSESSMENT: 1. Generalized lymphadenopathy. 2. New diagnosis of human immunodeficiency virus. 3. Right Lung infiltrate, possible pneumonia versus tuberculosis. 4. Splenomegaly. 5. LEO. 6. Hepatomegaly. 7. Thrombocytopenia. 8. 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 Positive RPR PLAN: 1. Admit the patient to respiratory isolation. 2. Follow up with the AFB x3. 3. Discussed case with Dr. Terrell from [facility] 4. Infectious Disease consultation=Dr Gaviria 5. Follow up with the infection workup. 6. Code status is Full code. 7. CD4=41 8. Bicillin penicillin IM q week X3 9. Hematology/onc=Dr Ventura 10. S/P ceftriaxone and doxycycline per Abhijeet Haq MD Jan 30, 2019 13:30
[2019-01-30 16:00] VITALS: BP 98/64
[2019-01-30 20:00] VITALS: BP 120/70
[2019-01-31] VITALS: BP_SYST 122; BP_SYST 128; BP_DIAS 68; BP_DIAS 72
[2019-01-31 04:00] VITALS: BP 118/75
[2019-01-31] MEDS: Promethazine/Codeine 5ml UD ORAL PRN ×3 (05:26→15:45)
[2019-01-31 07:30] LABS: BASOPHILS % (AUTO) 1.7 % (0.0-2.0); EOSINOPHILS % (AUTO) 1.3 % (0.0-3.0); HEMATOCRIT 25.9 % (42.0-52.0); HEMOGLOBIN 9.1 G/DL (14.2-18.0); LYMPHOCYTES % (AUTO) 46.4 % (20.0-45.0); MEAN CORPUSCULAR VOLUME 80 FL (80-99); NEUTROPHILS % (AUTO) 42.6 % (45.0-75.0); PLATELET COUNT 217 K/UL (150-450); RED BLOOD COUNT 3.23 M/UL (4.70-6.10); RED CELL DISTRIBUTION WIDTH 15.5 % (11.6-14.8); WHITE BLOOD COUNT 4.1 K/UL (4.8-10.8)
[2019-01-31 08:00] VITALS: BP 121/70
[2019-01-31] MEDS: Fluconazole 100mg tab ORAL SCH (09:09)
--- NOTE | 2019-01-31 11:57 | Infectious Diseases Prog Note ---
Assessment/Plan Assessment/Plan Sepsis Pneumonia- r/o TB flu negative sputum normal shelbi T spot negative AFB smear neg x3 MTB PCR: P 01/20 CT chest: There is a cluster of masslike opacities in the right lower lobe with some slight surrounding groundglass opacity. In aggregate, this area measures 4 cm x3 cm x 2.8 cm craniocaudad. This is located at the level of the pulmonary hilum.There are some small irregular faint opacities seen within the superior segment ofthe left lower lobe, measuring up to 7 mm long axis dimension. No other pulmonary parenchymal abnormalities are demonstrated. No pleural effusions. There are abundant mediastinal lymph nodes. The largest of these is a subcarinal node which measures 2.5 x 1.5 cm.The remainder are abundant, prominent, but not frankly enlarged. However, there is extensive axillary, supraclavicular, and lower cervical lymphadenopathy. There is mild bilateral gynecomastia. Diminished hearing R ear MRI Brain: Negative MRI brain with and without contrast no audiology/ENT at [place] will need outpatient referral Diffuse lymphadenopathy/splenomegaly/hepatomegaly - DDx: TB, lymphoma, HIV/AIDS related, Castleman disease CT neck: : Extensive cervical and supraclavicular lymphadenopathy, as described. Could be reactive or infectious, possibly related to stated clinical history of recent HIV diagnosis. However, the possibility of lymphoproliferative disorder should also be considered. Mild adenoidal and right tonsillar pillar prominence, if real possibly related to the above. Incidental finding right maxillary sinus disease. CT c/ab/p: Massive splenomegaly. Hepatomegaly. Extensive lymphadenopathy, involving the bilateral inguinal regions, bilateral iliac chains, retroaortic and retrocaval region, peripancreatic and lesser sac regions, bilateral axillae , bilateral cervical and supraclavicular regions, and the mediastinum. This may reflect infectious or inflammatory lymphadenopathy, particularly in view of recent diagnosis of HIV positivity, or could indicate a lymphoproliferative disorder. 4 x 3 x 2.8 cm aggregate cluster of masslike opacities in the right lower lobe. This could most likely represents an area of infiltrate, but could conceivably represent cluster of small masses. Nonspecific small irregular opacities in the left lower lobe, may reflect early infiltrates. SP node bx 01/25: P 01/25 node bx cx: CoNS, Bacillus species(not anthracis) 01/26 CT Chest: Previously demonstrated abnormal right lung mass in question has largely resolved and is therefore inflammatory. Biopsy is not indicated. Lymphadenopathy within the chest and abdomen. Neoplastic versus inflammatory. Status post cholecystectomy Gram positive bacteremia- likely contaminant -01/20 Bcx 04/02 Staph epi MSM HIV-1 Abt positive CD4 41 (2.7%). VL: P CrAg negative Hep ABC negative Blastomyces Abt negative Histoplasma antibody negative Blastomyces antibody negative Cryptococcus antigen negative CMV PCR qualitative positive 01/27 no evidence of CMV retinitis RPR 1:2 pt denies history of ever being tested denies any genital lesions. no headache. no rash. no record in [facility] STD office of previous titers Fever, SP pancytopenia R leg skin lesion SP bx--KS Plan: - PCN IM weekly x3(01/25, 02/01, 02/08) - 01/27 SP Ceftriaxone #7 - 01/26 SP doxy #6 - 01/21 SP Azithromycin #1 - 01/20 SP Zosyn x1, Bactrim x1 -Airborne isolation: AFB sputum x3, MTB PCR--P -SP core biopsy cervical lymph node -send lymph node for culture (bacterial, fungal, AFB, MTB PCR) and path-- requested AFB stain and HHV8 stain -f/u Cocci, GC/CL, AFB sp cx, HIV VL, PCP DFA, fungitell -f/u cx -Monitor CBC/CMP, temperatures -discussed with pulm and patient Thank you for this consultation. Will continue to follow along with you. Subjective Allergies: Coded Allergies: No Known Allergies (Unverified , 01/20/19) Subjective Afebrile. Cough stable Objective Vital Signs Last 24 Hour Vital Signs Date Time Temp Pulse Resp B/P (MAP) Pulse Ox O2 Delivery O2 Flow Rate FiO2 01/31/19 09:00 Room Air 01/31/19 08:07 69 18 99 Room Air 21 01/31/19 08:00 98.1 94 19 121/70 (87) 98 01/31/19 04:00 97.5 85 19 118/75 (89) 96 01/31/19 00:00 98.0 100 20 122/68 (86) 97 01/30/19 21:00 Room Air 01/30/19 20:00 97.7 79 20 120/70 (87) 100 01/30/19 19:48 80 20 98 Room Air 21 01/30/19 16:00 98.1 84 18 98/64 (75) 100 01/30/19 12:00 98.1 88 20 111/73 (86) 99 Height (Feet): 5 Height (Inches): 10.00 Weight (Pounds): 187 Objective Gen: NAD HEENT: poor dentition CV: RRR Resp: coarse. no wheezes or crackles. Abd: soft. no TTP Neuro: alert. appropriate Laboratory Tests Test 01/31/19 07:11 White Blood Count 4.1 K/UL (4.8-10.8) L Red Blood Count 3.23 M/UL (4.70-6.10) L Hemoglobin 9.1 G/DL (14.2-18.0) L Hematocrit 25.9 % (42.0-52.0) L Mean Corpuscular Volume 80 FL (80-99) Mean Corpuscular Hemoglobin 28.2 PG (27.0-31.0) Mean Corpuscular Hemoglobin Concent 35.2 G/DL (32.0-36.0) Red Cell Distribution Width 15.5 % (11.6-14.8) H Platelet Count 217 K/UL (150-450) Mean Platelet Volume 5.6 FL (6.5-10.1) L Neutrophils (%) (Auto) 42.6 % (45.0-75.0) L Lymphocytes (%) (Auto) 46.4 % (20.0-45.0) H Monocytes (%) (Auto) 8.0 % (1.0-10.0) Eosinophils (%) (Auto) 1.3 % (0.0-3.0) Basophils (%) (Auto) 1.7 % (0.0-2.0) Current Medications Medications (Trade) Dose Ordered Sig/Jeff Route PRN Reason Start Time Stop Time Status Last Admin Dose Admin Acetaminophen (Tylenol) 650 mg Q6H PRN ORAL Mild Pain/Temp > 100.5 01/21/19 05:45 02/20/19 05:44 01/30/19 03:25 Fluconazole (Diflucan) 200 mg DAILY ORAL 01/27/19 17:00 02/03/19 16:59 01/31/19 09:09 Lidocaine (Xylocaine 1% MPF 5ml) 10 ml Q4H PRN HHN cough 01/26/19 11:30 02/25/19 11:29 01/26/19 13:29 Ondansetron HCl (Zofran) 4 mg Q4H PRN IVP Nausea & Vomiting 01/21/19 05:45 02/20/19 05:44 01/25/19 01:08 Promethazine HCl/ Codeine (Phenergan with Codeine) 5 ml Q4H PRN ORAL For Cough 01/29/19 08:30 02/28/19 08:29 01/31/19 09:09 Olvin Grover MD Jan 31, 2019 11:57
[2019-01-31 12:00] VITALS: BP 108/64
--- NOTE | 2019-01-31 12:05 | Pulmonology Progress Note ---
Assessment/Plan Problems: (1) Pneumonia (2) Positive RPR test (3) Lymphadenopathy, cervical (4) Kaposi sarcoma (5) Thrombocytopenia (6) Fever (7) HIV (human immunodeficiency virus infection) (8) AIDS Assessment/Plan biopsy of skin showing Kaposi Sarcoma all cultures are negative so far awaiting final results from the PCR sputum fine needle aspiration didn't show any Lymphoproliferative disease f/u ID recommendations RPR is positive 1:2. 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 Subjective ROS Limited/Unobtainable: No Constitutional: Reports: no symptoms HEENT: Repors: no symptoms Respiratory: Reports: no symptoms Allergies: Coded Allergies: No Known Allergies (Unverified , 01/20/19) Objective Last 24 Hour Vital Signs Date Time Temp Pulse Resp B/P (MAP) Pulse Ox O2 Delivery O2 Flow Rate FiO2 01/31/19 09:00 Room Air 01/31/19 08:07 69 18 99 Room Air 21 01/31/19 08:00 98.1 94 19 121/70 (87) 98 01/31/19 04:00 97.5 85 19 118/75 (89) 96 01/31/19 00:00 98.0 100 20 122/68 (86) 97 01/30/19 21:00 Room Air 01/30/19 20:00 97.7 79 20 120/70 (87) 100 01/30/19 19:48 80 20 98 Room Air 21 01/30/19 16:00 98.1 84 18 98/64 (75) 100 Intake and Output 01/30/19 01/31/19 19:00 07:00 Intake Total 720 ml 120 ml Balance 720 ml 120 ml Intake Oral 720 ml 120 ml # Voids 4 3 General Appearance: WD/WN HEENT: normocephalic, atraumatic, anicteric Respiratory/Chest: chest wall non-tender, lungs clear Cardiovascular: normal peripheral pulses, normal rate, regular rhythm, regularly irregular Abdomen: normal bowel sounds, soft, non tender Genitourinary: normal external genitalia Extremities: no cyanosis 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 normal Lymphatic: no neck adenopathy Musculoskeletal: normal muscle bulk Laboratory Tests 01/31/19 07:11: White Blood Count 4.1L, Red Blood Count 3.23L, Hemoglobin 9.1L, Hematocrit 25.9L , Mean Corpuscular Volume 80, Mean Corpuscular Hemoglobin 28.2, Mean Corpuscular Hemoglobin Concent 35.2, Red Cell Distribution Width 15.5H, Platelet Count 217, Mean Platelet Volume 5.6L, Neutrophils (%) (Auto) 42.6L, Lymphocytes (%) (Auto) 46.4H, Monocytes (%) (Auto) 8.0, Eosinophils (%) (Auto) 1.3, Basophils (%) (Auto) 1.7 Current Medications Medications (Trade) Dose Ordered Sig/Jeff Route PRN Reason Start Time Stop Time Status Last Admin Dose Admin Acetaminophen (Tylenol) 650 mg Q6H PRN ORAL Mild Pain/Temp > 100.5 01/21/19 05:45 02/20/19 05:44 01/30/19 03:25 Fluconazole (Diflucan) 200 mg DAILY ORAL 01/27/19 17:00 02/03/19 16:59 01/31/19 09:09 Lidocaine (Xylocaine 1% MPF 5ml) 10 ml Q4H PRN HHN cough 01/26/19 11:30 02/25/19 11:29 01/26/19 13:29 Ondansetron HCl (Zofran) 4 mg Q4H PRN IVP Nausea & Vomiting 01/21/19 05:45 02/20/19 05:44 01/25/19 01:08 Promethazine HCl/ Codeine (Phenergan with Codeine) 5 ml Q4H PRN ORAL For Cough 01/29/19 08:30 02/28/19 08:29 01/31/19 09:09 Suzanne Terrell MD Jan 31, 2019 12:05
--- NOTE | 2019-01-31 15:23 | Hematology/Onc Progress Note ---
Assessment/Plan Assessment/Plan Assessment and Recs: # Pancytopenia is likely related to newly diagnoised HIV/Aids, has not been in prior treated, ct of the abdomen and pelvis shows extensive lad and likely cause of splenic sequestration, in addition may be related to NHL v kaposis --> also r/o underlying malignancy, with cervical biopsy 01/25 --> reverse isolation if ANC is <2000 --> Give neupogen if ANC <1000 --> Transfuse if hgb <7, with 1 unit prbc --> consider bone marrow biopsy if no other causes are found --> plts were given 01/25 pre-procedure 35-->44-->53k-->97-->217 --> wbc 3.1-->3.3-->3.3->4.1 --> hgb 9.1 # Diffuse lymphadenopathy/splenomegaly/hepatomegaly - DDx: TB, lymphoma, HIV/ AIDS related, Castleman disease --> CT neck: : Extensive cervical and supraclavicular lymphadenopathy, as described. Could be reactive or infectious, possibly related to stated clinical history of recent HIV diagnosis. However, the possibility of lymphoproliferative disorder should also be considered. Mild adenoidal and right tonsillar pillar prominence, if real possibly related to the above. Incidental finding right maxillary sinus disease. --> CT c/ab/p: Massive splenomegaly. Hepatomegaly. Extensive lymphadenopathy, involving the bilateral inguinal regions, bilateral iliac chains, retroaortic and retrocaval region, peripancreatic and lesser sac regions, bilateral axillae , bilateral cervical and supraclavicular regions, and the mediastinum. This may reflect infectious or inflammatory lymphadenopathy, particularly in view of recent diagnosis of HIV positivity, or could indicate a lymphoproliferative disorder. 4 x 3 x 2.8 cm aggregate cluster of masslike opacities in the right lower lobe. This could most likely represents an area of infiltrate, but could conceivably represent cluster of small masses. Nonspecific small irregular opacities in the left lower lobe, may reflect early infiltrates. --> for a cervical lymph node biopsy 01/25--> report pending prelim shows KS ( again final pending) --> further recs based on above. have discussed with id --> continues to have chest and abdomen lymphadeopathy, if doesn't resolve, consider a bone marrow biopsy r/o NHL # Pneumonia on imaging, sputum normal shelbi --> 01/20 CT chest: There is a cluster of masslike opacities in the right lower lobe with some slight surrounding groundglass opacity--> appears resolved on repeat --> s/p abx as per id PCN/DOxy/CTX--> flucon --> monitor for improvement # R leg skin lesion- suspicious for Kaposi --> 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 Greatly appreciate consultation. Subjective HEENT: Denies: no symptoms, eye pain, blurred vision, tearing, double vision, ear pain, ear discharge, nose pain, nose congestion, throat pain, throat swelling, mouth pain, mouth swelling, other Cardiovascular: Denies: no symptoms, chest pain, edema, irregular heart rate, lightheadedness, palpitations, syncope, other Respiratory: Denies: no symptoms, cough, shortness of breath, SOB with excertion, SOB at rest, sputum, wheezing, other Gastrointestinal/Abdominal: Denies: no symptoms, abdomen distended, abdominal pain, black stools, tarry stools, blood in stool, constipated, diarrhea, difficulty swallowing, nausea, poor appetite, poor fluid intake, rectal bleeding , vomiting, other Genitourinary: Denies: no symptoms, burning, discharge, frequency, flank pain, hematuria, incontinence, pain, urgency, other Neurologic/Psychiatric: Denies: no symptoms, anxiety, depressed, emotional problems, headache, numbness, paresthesia, pre-existing deficit, seizure, tingling, tremors, weakness, other Endocrine: Denies: no symptoms, excessive sweating, flushing, intolerance to cold, intolerance to heat, increased hunger, increased thirst, increased urine, unexplained weight gain, unexplained weight loss, other Allergies: Coded Allergies: No Known Allergies (Unverified , 01/20/19) Subjective 01/25: no events, remains on airborne isolation, labs noted, received plts last night 01/26: very sleepy this am, no bleeding or chills, no night sweats noted, dw id 01/27: pending biopsy still, labs noted, no bleeding, no complaints 01/28: no events, no bleeding no night sweats, biopsy report pend 01/30: no bleeding, labs are better, path again reviewed, id aware 01/31: no events, no fevers, no major changes, airborne iso Objective Objective Current Medications Medications (Trade) Dose Ordered Sig/Jeff Route PRN Reason Start Time Stop Time Status Last Admin Dose Admin Acetaminophen (Tylenol) 650 mg Q6H PRN ORAL Mild Pain/Temp > 100.5 01/21/19 05:45 02/20/19 05:44 01/30/19 03:25 Fluconazole (Diflucan) 200 mg DAILY ORAL 01/27/19 17:00 02/03/19 16:59 01/31/19 09:09 Lidocaine (Xylocaine 1% MPF 5ml) 10 ml Q4H PRN HHN cough 01/26/19 11:30 02/25/19 11:29 01/26/19 13:29 Ondansetron HCl (Zofran) 4 mg Q4H PRN IVP Nausea & Vomiting 01/21/19 05:45 02/20/19 05:44 01/25/19 01:08 Promethazine HCl/ Codeine (Phenergan with Codeine) 5 ml Q4H PRN ORAL For Cough 01/29/19 08:30 02/28/19 08:29 01/31/19 09:09 Last 24 Hour Vital Signs Date Time Temp Pulse Resp B/P (MAP) Pulse Ox O2 Delivery O2 Flow Rate FiO2 01/31/19 12:00 98.2 99 20 108/64 (79) 99 01/31/19 09:00 Room Air 01/31/19 08:07 69 18 99 Room Air 21 01/31/19 08:00 98.1 94 19 121/70 (87) 98 01/31/19 04:00 97.5 85 19 118/75 (89) 96 01/31/19 00:00 98.0 100 20 122/68 (86) 97 01/30/19 21:00 Room Air 01/30/19 20:00 97.7 79 20 120/70 (87) 100 01/30/19 19:48 80 20 98 Room Air 21 01/30/19 16:00 98.1 84 18 98/64 (75) 100 01/30/19 12:00 98.1 88 20 111/73 (86) 99 01/30/19 09:00 Room Air 01/30/19 08:12 72 20 99 Room Air 21 01/30/19 08:08 97.7 86 18 116/65 (82) 100 01/30/19 04:00 98.1 88 20 105/57 (73) 99 01/30/19 00:00 99.0 88 20 105/63 (77) 99 01/29/19 22:06 91 20 99 Room Air 21 01/29/19 21:00 Room Air 01/29/19 20:00 98.2 88 20 109/58 (75) 99 01/29/19 16:00 99.2 91 20 103/64 (77) 99 Intake and Output 01/30/19 01/31/19 19:00 07:00 Intake Total 720 ml 120 ml Balance 720 ml 120 ml Intake Oral 720 ml 120 ml # Voids 4 3 Labs Test 01/30/19 07:51 01/31/19 07:11 White Blood Count 4.8 K/UL (4.8-10.8) 4.1 K/UL (4.8-10.8) Red Blood Count 3.31 M/UL (4.70-6.10) 3.23 M/UL (4.70-6.10) Hemoglobin 9.5 G/DL (14.2-18.0) 9.1 G/DL (14.2-18.0) Hematocrit 26.6 % (42.0-52.0) 25.9 % (42.0-52.0) Mean Corpuscular Volume 80 FL (80-99) 80 FL (80-99) Mean Corpuscular Hemoglobin 28.5 PG (27.0-31.0) 28.2 PG (27.0-31.0) Mean Corpuscular Hemoglobin Concent 35.6 G/DL (32.0-36.0) 35.2 G/DL (32.0-36.0) Red Cell Distribution Width 14.1 % (11.6-14.8) 15.5 % (11.6-14.8) Platelet Count 176 K/UL (150-450) 217 K/UL (150-450) Mean Platelet Volume 6.6 FL (6.5-10.1) 5.6 FL (6.5-10.1) Neutrophils (%) (Auto) 43.8 % (45.0-75.0) 42.6 % (45.0-75.0) Lymphocytes (%) (Auto) 48.0 % (20.0-45.0) 46.4 % (20.0-45.0) Monocytes (%) (Auto) 6.2 % (1.0-10.0) 8.0 % (1.0-10.0) Eosinophils (%) (Auto) 1.0 % (0.0-3.0) 1.3 % (0.0-3.0) Basophils (%) (Auto) 1.1 % (0.0-2.0) 1.7 % (0.0-2.0) Erythrocyte Sedimentation Rate 113 MM/HR (0-15) Sodium Level 135 MMOL/L (136-145) Potassium Level 4.0 MMOL/L (3.5-5.1) Chloride Level 102 MMOL/L (98-107) Carbon Dioxide Level 29 MMOL/L (21-32) Anion Gap 4 mmol/L (5-15) Blood Urea Nitrogen 6 mg/dL (7-18) Creatinine 0.7 MG/DL (0.55-1.30) Estimat Glomerular Filtration Rate > 60 mL/min (>60) Glucose Level 116 MG/DL (74-106) Calcium Level 8.6 MG/DL (8.5-10.1) Phosphorus Level 4.5 MG/DL (2.5-4.9) Magnesium Level 1.8 MG/DL (1.8-2.4) Total Bilirubin 0.5 MG/DL (0.2-1.0) Aspartate Amino Transf (AST/SGOT) 85 U/L (15-37) Alanine Aminotransferase (ALT/SGPT) 88 U/L (12-78) Alkaline Phosphatase 96 U/L (46-116) C-Reactive Protein, Quantitative 1.3 mg/dL (0.00-0.90) Total Protein 8.5 G/DL (6.4-8.2) Albumin 2.3 G/DL (3.4-5.0) Globulin 6.2 g/dL Albumin/Globulin Ratio 0.4 (1.0-2.7) Height (Feet): 5 Height (Inches): 10.00 Weight (Pounds): 187 Objective Gen: NAd, Pulm: Ctab, no cwr CV: Rrr, no mgr Abd: soft, nt, nd Ext: no cce, skin lesions on legs noted kaposis likely Damaso Ventura MD Jan 31, 2019 15:23
[2019-01-31 16:00] VITALS: BP 132/77
--- NOTE | 2019-01-31 18:53 | Internal Med Progress Note ---
Subjective Date of Service: Jan 31, 2019 Physician Name Abhijeet Uriostegui Attending Physician Akil Barron MD Current Medications Medications (Trade) Dose Ordered Sig/Jeff Route PRN Reason Start Time Stop Time Status Last Admin Dose Admin Acetaminophen (Tylenol) 650 mg Q6H PRN ORAL Mild Pain/Temp > 100.5 01/21/19 05:45 02/20/19 05:44 01/30/19 03:25 Fluconazole (Diflucan) 200 mg DAILY ORAL 01/27/19 17:00 02/03/19 16:59 01/31/19 09:09 Lidocaine (Xylocaine 1% MPF 5ml) 10 ml Q4H PRN HHN cough 01/26/19 11:30 02/25/19 11:29 01/26/19 13:29 Ondansetron HCl (Zofran) 4 mg Q4H PRN IVP Nausea & Vomiting 01/21/19 05:45 02/20/19 05:44 01/25/19 01:08 Promethazine HCl/ Codeine (Phenergan with Codeine) 5 ml Q4H PRN ORAL For Cough 01/29/19 08:30 02/28/19 08:29 01/31/19 15:45 Allergies: Coded Allergies: No Known Allergies (Unverified , 01/20/19) ROS Limited/Unobtainable: No Constitutional: Reports: no symptoms HEENT: Reports: no symptoms Cardiovascular: Reports: no symptoms Respiratory: Reports: no symptoms Gastrointestinal/Abdominal: Reports: no symptoms Genitourinary: Reports: no symptoms Neurologic/Psychiatric: Reports: no symptoms Subjective 28 YO M admitted with cough. Now new dx HIV, lymphadenopathy and pneumonia. Cover for Int Med- Dr Barron. Objective Last Vital Signs Date Time Temp Pulse Resp B/P (MAP) Pulse Ox O2 Delivery O2 Flow Rate FiO2 01/31/19 16:00 98.2 99 18 132/77 (95) 97 01/31/19 09:00 Room Air 01/31/19 08:07 21 Laboratory Tests Test 01/31/19 07:11 White Blood Count 4.1 K/UL (4.8-10.8) L Red Blood Count 3.23 M/UL (4.70-6.10) L Hemoglobin 9.1 G/DL (14.2-18.0) L Hematocrit 25.9 % (42.0-52.0) L Mean Corpuscular Volume 80 FL (80-99) Mean Corpuscular Hemoglobin 28.2 PG (27.0-31.0) Mean Corpuscular Hemoglobin Concent 35.2 G/DL (32.0-36.0) Red Cell Distribution Width 15.5 % (11.6-14.8) H Platelet Count 217 K/UL (150-450) Mean Platelet Volume 5.6 FL (6.5-10.1) L Neutrophils (%) (Auto) 42.6 % (45.0-75.0) L Lymphocytes (%) (Auto) 46.4 % (20.0-45.0) H Monocytes (%) (Auto) 8.0 % (1.0-10.0) Eosinophils (%) (Auto) 1.3 % (0.0-3.0) Basophils (%) (Auto) 1.7 % (0.0-2.0) Intake and Output 01/30/19 01/31/19 19:00 07:00 Intake Total 720 ml 120 ml Balance 720 ml 120 ml Intake Oral 720 ml 120 ml # Voids 4 3 Objective PHYSICAL EXAMINATION: GENERAL: The patient is awake and responsive, in no acute distress. HEAD AND NECK: Pupils are reactive to light. Extraocular movements intact. Neck was supple. No JVD. LUNGS: Good air entry. No wheezing or rales. HEART: Reveals S1, S2. Regular rhythm. No gallops. ABDOMEN: Soft, nondistended, and nontender. Positive bowel sounds. EXTREMITIES: No cyanosis, clubbing, edema NEUROLOGIC: Cranial nerves II through XII grossly intact. Motor is 5/5 in all extremities. Gait is intact. RECTAL/GENITOURINARY: Refused and deferred. PSYCHIATRIC: Mood and affect is intact. LYMPH NODES: Showed the patient has a positive lymphadenopathy in the cervical lymph node in the neck as well as in the pelvic area. Assessment/Plan Assessment/Plan ASSESSMENT: 1. Generalized lymphadenopathy. 2. New diagnosis of human immunodeficiency virus. 3. Right Lung infiltrate, possible pneumonia versus tuberculosis. 4. Splenomegaly. 5. LEO. 6. Hepatomegaly. 7. Thrombocytopenia. 8. 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 Positive RPR PLAN: 1. Admit the patient to respiratory isolation. 2. Follow up with the AFB x3. 3. Discussed case with Dr. Terrell from Pulmonary Critical Care 4. Infectious Disease consultation=Dr Gaviria 5. Follow up with the infection workup. 6. Code status is Full code. 7. CD4=41 8. Bicillin penicillin IM q week X3 9. Hematology/onc=Dr Ventura 10. S/P ceftriaxone and doxycycline per Abhijeet Haq MD Jan 31, 2019 18:53
[2019-01-31 20:00] VITALS: BP 111/61
[2019-02-01] VITALS (7 sets, daily range): BP systolic 104–121; BP diastolic 58–72
[2019-02-01] MEDS ORDERED: Lidocaine 1% MPF 10mg/ml 5ml HHN PRN (03:30)
[2019-02-01] MEDS ORDERED: Promethazine/Codeine 5ml UD ORAL PRN (04:30)
--- NOTE | 2019-02-01 06:11 | Hematology/Onc Progress Note ---
Assessment/Plan Assessment/Plan Assessment and Recs: # Diffuse lymphadenopathy/splenomegaly/hepatomegaly - DDx: TB, lymphoma, HIV/ AIDS related, /o Castleman disease --> CT neck: : Extensive cervical and supraclavicular lymphadenopathy, as described. Could be reactive or infectious, possibly related to stated clinical history of recent HIV diagnosis. However, the possibility of lymphoproliferative disorder should also be considered. Mild adenoidal and right tonsillar pillar prominence, if real possibly related to the above. Incidental finding right maxillary sinus disease. --> CT c/ab/p: Massive splenomegaly. Hepatomegaly. Extensive lymphadenopathy, involving the bilateral inguinal regions, bilateral iliac chains, retroaortic and retrocaval region, peripancreatic and lesser sac regions, bilateral axillae , bilateral cervical and supraclavicular regions, and the mediastinum. This may reflect infectious or inflammatory lymphadenopathy, particularly in view of recent diagnosis of HIV positivity, or could indicate a lymphoproliferative disorder. 4 x 3 x 2.8 cm aggregate cluster of masslike opacities in the right lower lobe. This could most likely represents an area of infiltrate, but could conceivably represent cluster of small masses. Nonspecific small irregular opacities in the left lower lobe, may reflect early infiltrates. --> for a cervical lymph node biopsy 01/25 completed, results reviewed --> further recs based on above. 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 Lima, to f/u on the biopsy (as per 02/01 dw pathologist one consideration is to get a excisional biopsy if this one is non-diagnostic) # Pancytopenia is likely related to newly diagnoised HIV/Aids, has not been in prior treated, ct of the abdomen and pelvis shows extensive lad and likely cause of splenic sequestration, in addition may be related to NHL v kaposis --> also r/o underlying malignancy, with cervical biopsy 01/25 --> reverse isolation if ANC is <2000 --> Give neupogen if ANC <1000 --> Transfuse if hgb <7, with 1 unit prbc --> consider bone marrow biopsy if no other causes are found --> plts were given 01/25 pre-procedure 35-->44-->53k-->97-->217 --> wbc 3.1-->3.3-->3.3->4.1 --> hgb 9.1->9 # Pneumonia on imaging, sputum normal shelbi --> 01/20 CT chest: There is a cluster of masslike opacities in the right lower lobe with some slight surrounding groundglass opacity--> appears resolved on repeat --> s/p abx as per id PCN/DOxy/CTX--> flucon --> monitor for improvement # R leg skin lesion- suspicious for Kaposi --> 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 Greatly appreciate consultation. Subjective HEENT: Denies: no symptoms, eye pain, blurred vision, tearing, double vision, ear pain, ear discharge, nose pain, nose congestion, throat pain, throat swelling, mouth pain, mouth swelling, other Cardiovascular: Denies: no symptoms, chest pain, edema, irregular heart rate, lightheadedness, palpitations, syncope, other Respiratory: Denies: no symptoms, cough, shortness of breath, SOB with excertion, SOB at rest, sputum, wheezing, other Gastrointestinal/Abdominal: Denies: no symptoms, abdomen distended, abdominal pain, black stools, tarry stools, blood in stool, constipated, diarrhea, difficulty swallowing, nausea, poor appetite, poor fluid intake, rectal bleeding , vomiting, other Genitourinary: Denies: no symptoms, burning, discharge, frequency, flank pain, hematuria, incontinence, pain, urgency, other Neurologic/Psychiatric: Denies: no symptoms, anxiety, depressed, emotional problems, headache, numbness, paresthesia, pre-existing deficit, seizure, tingling, tremors, weakness, other Endocrine: Denies: no symptoms, excessive sweating, flushing, intolerance to cold, intolerance to heat, increased hunger, increased thirst, increased urine, unexplained weight gain, unexplained weight loss, other Allergies: Coded Allergies: No Known Allergies (Unverified , 01/20/19) Subjective 01/25: no events, remains on airborne isolation, labs noted, received plts last night 01/26: very sleepy this am, no bleeding or chills, no night sweats noted, dw id 01/27: pending biopsy still, labs noted, no bleeding, no complaints 01/28: no events, no bleeding no night sweats, biopsy report pend 01/30: no bleeding, labs are better, path again reviewed, id aware 01/31: no events, no fevers, no major changes, airborne iso 02/01: no complaints, no bleeding, labs noted, no changes, still swelling persists+ Objective Objective Current Medications Medications (Trade) Dose Ordered Sig/Jeff Route PRN Reason Start Time Stop Time Status Last Admin Dose Admin Acetaminophen (Tylenol) 650 mg Q6H PRN ORAL Mild Pain/Temp > 100.5 02/01/19 02:00 02/20/19 01:59 02/01/19 02:37 Fluconazole (Diflucan) 200 mg DAILY ORAL 02/01/19 09:00 02/03/19 16:59 Lidocaine (Xylocaine 1% MPF 5ml) 10 ml Q4H PRN HHN cough 02/01/19 03:30 02/25/19 11:29 Ondansetron HCl (Zofran) 4 mg Q4H PRN IVP Nausea & Vomiting 02/01/19 01:45 02/20/19 05:44 Promethazine HCl/ Codeine (Phenergan with Codeine) 5 ml Q4H PRN ORAL For Cough 02/01/19 04:30 02/28/19 08:29 Last 24 Hour Vital Signs Date Time Temp Pulse Resp B/P (MAP) Pulse Ox O2 Delivery O2 Flow Rate FiO2 02/01/19 04:00 98.6 74 18 121/72 (88) 98 90 02/01/19 01:50 99.0 77 18 116/70 (85) 97 02/01/19 00:00 98.7 88 18 104/64 (77) 99 01/31/19 21:00 Room Air 01/31/19 20:18 89 18 98 Room Air 21 01/31/19 20:00 99.6 86 18 111/61 (78) 99 01/31/19 16:00 98.2 99 18 132/77 (95) 97 01/31/19 12:00 98.2 99 20 108/64 (79) 99 01/31/19 09:00 Room Air 01/31/19 08:07 69 18 99 Room Air 21 01/31/19 08:00 98.1 94 19 121/70 (87) 98 01/31/19 04:00 97.5 85 19 118/75 (89) 96 01/31/19 00:00 98.0 100 20 122/68 (86) 97 01/30/19 21:00 Room Air 01/30/19 20:00 97.7 79 20 120/70 (87) 100 01/30/19 19:48 80 20 98 Room Air 21 01/30/19 16:00 98.1 84 18 98/64 (75) 100 01/30/19 12:00 98.1 88 20 111/73 (86) 99 01/30/19 09:00 Room Air 01/30/19 08:12 72 20 99 Room Air 21 01/30/19 08:08 97.7 86 18 116/65 (82) 100 Intake and Output 01/31/19 02/01/19 19:00 07:00 Intake Total 600 ml 120 ml Balance 600 ml 120 ml Intake Oral 600 ml 120 ml # Voids 3 1 Labs Test 01/30/19 07:51 01/31/19 07:11 White Blood Count 4.8 K/UL (4.8-10.8) 4.1 K/UL (4.8-10.8) Red Blood Count 3.31 M/UL (4.70-6.10) 3.23 M/UL (4.70-6.10) Hemoglobin 9.5 G/DL (14.2-18.0) 9.1 G/DL (14.2-18.0) Hematocrit 26.6 % (42.0-52.0) 25.9 % (42.0-52.0) Mean Corpuscular Volume 80 FL (80-99) 80 FL (80-99) Mean Corpuscular Hemoglobin 28.5 PG (27.0-31.0) 28.2 PG (27.0-31.0) Mean Corpuscular Hemoglobin Concent 35.6 G/DL (32.0-36.0) 35.2 G/DL (32.0-36.0) Red Cell Distribution Width 14.1 % (11.6-14.8) 15.5 % (11.6-14.8) Platelet Count 176 K/UL (150-450) 217 K/UL (150-450) Mean Platelet Volume 6.6 FL (6.5-10.1) 5.6 FL (6.5-10.1) Neutrophils (%) (Auto) 43.8 % (45.0-75.0) 42.6 % (45.0-75.0) Lymphocytes (%) (Auto) 48.0 % (20.0-45.0) 46.4 % (20.0-45.0) Monocytes (%) (Auto) 6.2 % (1.0-10.0) 8.0 % (1.0-10.0) Eosinophils (%) (Auto) 1.0 % (0.0-3.0) 1.3 % (0.0-3.0) Basophils (%) (Auto) 1.1 % (0.0-2.0) 1.7 % (0.0-2.0) Erythrocyte Sedimentation Rate 113 MM/HR (0-15) Sodium Level 135 MMOL/L (136-145) Potassium Level 4.0 MMOL/L (3.5-5.1) Chloride Level 102 MMOL/L (98-107) Carbon Dioxide Level 29 MMOL/L (21-32) Anion Gap 4 mmol/L (5-15) Blood Urea Nitrogen 6 mg/dL (7-18) Creatinine 0.7 MG/DL (0.55-1.30) Estimat Glomerular Filtration Rate > 60 mL/min (>60) Glucose Level 116 MG/DL (74-106) Calcium Level 8.6 MG/DL (8.5-10.1) Phosphorus Level 4.5 MG/DL (2.5-4.9) Magnesium Level 1.8 MG/DL (1.8-2.4) Total Bilirubin 0.5 MG/DL (0.2-1.0) Aspartate Amino Transf (AST/SGOT) 85 U/L (15-37) Alanine Aminotransferase (ALT/SGPT) 88 U/L (12-78) Alkaline Phosphatase 96 U/L (46-116) C-Reactive Protein, Quantitative 1.3 mg/dL (0.00-0.90) Total Protein 8.5 G/DL (6.4-8.2) Albumin 2.3 G/DL (3.4-5.0) Globulin 6.2 g/dL Albumin/Globulin Ratio 0.4 (1.0-2.7) Height (Feet): 5 Height (Inches): 10.00 Weight (Pounds): 187 Objective Gen: NAd, Pulm: Ctab, no cwr CV: Rrr, no mgr Abd: soft, nt, nd Ext: no cce, skin lesions on legs noted kaposis likely Damaso Ventura MD Feb 01, 2019 06:11
[2019-02-01 07:03] LABS: BASOPHILS % (AUTO) 1.3 % (0.0-2.0); HEMATOCRIT 26.3 % (42.0-52.0); LYMPHOCYTES % (AUTO) 47.4 % (20.0-45.0); MEAN CORPUSCULAR VOLUME 82 FL (80-99); MONOCYTES % (AUTO) 8.8 % (1.0-10.0); NEUTROPHILS % (AUTO) 41.5 % (45.0-75.0); PLATELET COUNT 203 K/UL (150-450); RED BLOOD COUNT 3.21 M/UL (4.70-6.10); RED CELL DISTRIBUTION WIDTH 16.2 % (11.6-14.8); WHITE BLOOD COUNT 4.3 K/UL (4.8-10.8)
[2019-02-01] MEDS: Fluconazole 100mg tab ORAL SCH (08:55)
--- NOTE | 2019-02-01 11:45 | Pulmonology Progress Note ---
Assessment/Plan Problems: (1) Castleman disease (2) Pneumonia (3) Positive RPR test (4) Lymphadenopathy, cervical (5) Kaposi sarcoma (6) Thrombocytopenia (7) Fever (8) HIV (human immunodeficiency virus infection) (9) AIDS Assessment/Plan new onset of diarrhea biopsy of skin showing Kaposi Sarcoma all cultures are negative so far awaiting final results from the PCR sputum fine needle aspiration didn't show any Lymphoproliferative disease f/u ID recommendations RPR is positive 1:2. 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: the biopsy looks like Castleman disease Subjective ROS Limited/Unobtainable: No Constitutional: Reports: no symptoms HEENT: Repors: no symptoms Respiratory: Reports: no symptoms Cardiovascular: Reports: no symptoms Allergies: Coded Allergies: No Known Allergies (Unverified , 01/20/19) Objective Last 24 Hour Vital Signs Date Time Temp Pulse Resp B/P (MAP) Pulse Ox O2 Delivery O2 Flow Rate FiO2 02/01/19 09:00 Room Air 02/01/19 08:00 98.1 90 20 116/70 (85) 99 90 02/01/19 04:00 98.6 74 18 121/72 (88) 98 90 02/01/19 01:50 99.0 77 18 116/70 (85) 97 02/01/19 00:00 98.7 88 18 104/64 (77) 99 01/31/19 21:00 Room Air 01/31/19 20:18 89 18 98 Room Air 21 01/31/19 20:00 99.6 86 18 111/61 (78) 99 01/31/19 16:00 98.2 99 18 132/77 (95) 97 01/31/19 12:00 98.2 99 20 108/64 (79) 99 Intake and Output 01/31/19 02/01/19 19:00 07:00 Intake Total 600 ml 120 ml Balance 600 ml 120 ml Intake Oral 600 ml 120 ml # Voids 3 1 General Appearance: WD/WN, no acute distress HEENT: atraumatic Respiratory/Chest: chest wall non-tender, lungs clear Cardiovascular: normal peripheral pulses, normal rate Abdomen: normal bowel sounds, soft, non tender, no organomegaly, no scars Extremities: no clubbing Skin: no lesions Laboratory Tests 02/01/19 06:19: White Blood Count 4.3L, Red Blood Count 3.21L, Hemoglobin 9.0L, Hematocrit 26.3L , Mean Corpuscular Volume 82, Mean Corpuscular Hemoglobin 28.1, Mean Corpuscular Hemoglobin Concent 34.2, Red Cell Distribution Width 16.2H, Platelet Count 203, Mean Platelet Volume 5.5L, Neutrophils (%) (Auto) 41.5L, Lymphocytes (%) (Auto) 47.4H, Monocytes (%) (Auto) 8.8, Eosinophils (%) (Auto) 1.0, Basophils (%) (Auto) 1.3 Current Medications Medications (Trade) Dose Ordered Sig/Jeff Route PRN Reason Start Time Stop Time Status Last Admin Dose Admin Acetaminophen (Tylenol) 650 mg Q6H PRN ORAL Mild Pain/Temp > 100.5 02/01/19 02:00 02/20/19 01:59 02/01/19 02:37 Fluconazole (Diflucan) 200 mg DAILY ORAL 02/01/19 09:00 02/03/19 16:59 02/01/19 08:55 Lidocaine (Xylocaine 1% MPF 5ml) 10 ml Q4H PRN HHN cough 02/01/19 03:30 02/25/19 11:29 Ondansetron HCl (Zofran) 4 mg Q4H PRN IVP Nausea & Vomiting 02/01/19 01:45 02/20/19 05:44 Promethazine HCl/ Codeine (Phenergan with Codeine) 5 ml Q4H PRN ORAL For Cough 02/01/19 04:30 02/28/19 08:29 Suzanne Terrell MD Feb 01, 2019 11:45
--- NOTE | 2019-02-01 14:52 | Infectious Diseases Prog Note ---
Assessment/Plan Assessment/Plan Sepsis Pneumonia- r/o TB flu negative sputum normal shelbi T spot negative AFB smear neg x3 MTB PCR: neg 01/20 CT chest: There is a cluster of masslike opacities in the right lower lobe with some slight surrounding groundglass opacity. In aggregate, this area measures 4 cm x3 cm x 2.8 cm craniocaudad. This is located at the level of the pulmonary hilum.There are some small irregular faint opacities seen within the superior segment ofthe left lower lobe, measuring up to 7 mm long axis dimension. No other pulmonary parenchymal abnormalities are demonstrated. No pleural effusions. There are abundant mediastinal lymph nodes. The largest of these is a subcarinal node which measures 2.5 x 1.5 cm.The remainder are abundant, prominent, but not frankly enlarged. However, there is extensive axillary, supraclavicular, and lower cervical lymphadenopathy. There is mild bilateral gynecomastia. Diminished hearing R ear MRI Brain: Negative MRI brain with and without contrast no audiology/ENT at [place] will need outpatient referral Diffuse lymphadenopathy/splenomegaly/hepatomegaly - DDx: TB, lymphoma, HIV/AIDS related, Castleman disease CT neck: : Extensive cervical and supraclavicular lymphadenopathy, as described. Could be reactive or infectious, possibly related to stated clinical history of recent HIV diagnosis. However, the possibility of lymphoproliferative disorder should also be considered. Mild adenoidal and right tonsillar pillar prominence, if real possibly related to the above. Incidental finding right maxillary sinus disease. CT c/ab/p: Massive splenomegaly. Hepatomegaly. Extensive lymphadenopathy, involving the bilateral inguinal regions, bilateral iliac chains, retroaortic and retrocaval region, peripancreatic and lesser sac regions, bilateral axillae , bilateral cervical and supraclavicular regions, and the mediastinum. This may reflect infectious or inflammatory lymphadenopathy, particularly in view of recent diagnosis of HIV positivity, or could indicate a lymphoproliferative disorder. 4 x 3 x 2.8 cm aggregate cluster of masslike opacities in the right lower lobe. This could most likely represents an area of infiltrate, but could conceivably represent cluster of small masses. Nonspecific small irregular opacities in the left lower lobe, may reflect early infiltrates. SP node bx 01/25: P 01/25 node bx cx: CoNS, Bacillus species(not anthracis) 01/26 CT Chest: Previously demonstrated abnormal right lung mass in question has largely resolved and is therefore inflammatory. Biopsy is not indicated. Lymphadenopathy within the chest and abdomen. Neoplastic versus inflammatory. Status post cholecystectomy Gram positive bacteremia- likely contaminant -01/20 Bcx 04/02 Staph epi MSM HIV-1 Abt positive CD4 41 (2.7%). VL: P CrAg negative Hep ABC negative Blastomyces Abt negative Histoplasma antibody negative Blastomyces antibody negative Cryptococcus antigen negative CMV PCR qualitative positive 01/27 no evidence of CMV retinitis RPR 1:2 pt denies history of ever being tested denies any genital lesions. no headache. no rash. no record in [facility] STD office of previous titers Fever, SP pancytopenia R leg skin lesion SP bx--KS Plan: - PCN IM weekly x3(01/25, 02/01, 02/08) - 01/27 SP Ceftriaxone #7 - 01/26 SP doxy #6 - 01/21 SP Azithromycin #1 - 01/20 SP Zosyn x1, Bactrim x1 -SP core biopsy cervical lymph node -send lymph node for culture (bacterial, fungal, AFB, MTB PCR) and path-- requested AFB stain and HHV8 stain -f/u Cocci, GC/CL, AFB sp cx, HIV VL, PCP DFA, fungitell -f/u cx -Monitor CBC/CMP, temperatures Thank you for this consultation. Will continue to follow along with you. Subjective Allergies: Coded Allergies: No Known Allergies (Unverified , 01/20/19) Subjective Afebrile. Cough stable Had loose stool last night after greasy dinner. Had formed stool after lunch today. No abdominal pain Objective Vital Signs Last 24 Hour Vital Signs Date Time Temp Pulse Resp B/P (MAP) Pulse Ox O2 Delivery O2 Flow Rate FiO2 02/01/19 12:00 98.4 91 20 118/71 (87) 99 02/01/19 09:00 Room Air 02/01/19 08:00 98.1 90 20 116/70 (85) 99 90 02/01/19 04:00 98.6 74 18 121/72 (88) 98 90 02/01/19 01:50 99.0 77 18 116/70 (85) 97 02/01/19 00:00 98.7 88 18 104/64 (77) 99 01/31/19 21:00 Room Air 01/31/19 20:18 89 18 98 Room Air 21 01/31/19 20:00 99.6 86 18 111/61 (78) 99 01/31/19 16:00 98.2 99 18 132/77 (95) 97 Height (Feet): 5 Height (Inches): 10.00 Weight (Pounds): 187 Objective Gen: NAD HEENT: poor dentition CV: RRR Resp: coarse. no wheezes or crackles. Abd: soft. no TTP Neuro: alert. appropriate Laboratory Tests Test 02/01/19 06:19 White Blood Count 4.3 K/UL (4.8-10.8) L Red Blood Count 3.21 M/UL (4.70-6.10) L Hemoglobin 9.0 G/DL (14.2-18.0) L Hematocrit 26.3 % (42.0-52.0) L Mean Corpuscular Volume 82 FL (80-99) Mean Corpuscular Hemoglobin 28.1 PG (27.0-31.0) Mean Corpuscular Hemoglobin Concent 34.2 G/DL (32.0-36.0) Red Cell Distribution Width 16.2 % (11.6-14.8) H Platelet Count 203 K/UL (150-450) Mean Platelet Volume 5.5 FL (6.5-10.1) L Neutrophils (%) (Auto) 41.5 % (45.0-75.0) L Lymphocytes (%) (Auto) 47.4 % (20.0-45.0) H Monocytes (%) (Auto) 8.8 % (1.0-10.0) Eosinophils (%) (Auto) 1.0 % (0.0-3.0) Basophils (%) (Auto) 1.3 % (0.0-2.0) Current Medications Medications (Trade) Dose Ordered Sig/Jeff Route PRN Reason Start Time Stop Time Status Last Admin Dose Admin Acetaminophen (Tylenol) 650 mg Q6H PRN ORAL Mild Pain/Temp > 100.5 02/01/19 02:00 02/20/19 01:59 02/01/19 02:37 Fluconazole (Diflucan) 200 mg DAILY ORAL 02/01/19 09:00 02/03/19 16:59 02/01/19 08:55 Lidocaine (Xylocaine 1% MPF 5ml) 10 ml Q4H PRN HHN cough 02/01/19 03:30 02/25/19 11:29 Ondansetron HCl (Zofran) 4 mg Q4H PRN IVP Nausea & Vomiting 02/01/19 01:45 02/20/19 05:44 Penicillin G Benzathine (Bicillin L-A) 2,400,000 unit ONCE IM 02/01/19 15:00 02/01/19 18:00 Promethazine HCl/ Codeine (Phenergan with Codeine) 5 ml Q4H PRN ORAL For Cough 02/01/19 04:30 02/28/19 08:29 Olvin Grover MD Feb 01, 2019 14:52
[2019-02-01] MEDS ORDERED: Bicillin LA 2.4MMU/4ML SYR IM SCH (15:00)
--- NOTE | 2019-02-01 17:09 | Internal Med Progress Note ---
Subjective Date of Service: Feb 01, 2019 Physician Name Abhijeet Uriostegui Attending Physician Akil Barron MD Current Medications Medications (Trade) Dose Ordered Sig/Jeff Route PRN Reason Start Time Stop Time Status Last Admin Dose Admin Acetaminophen (Tylenol) 650 mg Q6H PRN ORAL Mild Pain/Temp > 100.5 02/01/19 02:00 02/20/19 01:59 02/01/19 02:37 Fluconazole (Diflucan) 200 mg DAILY ORAL 02/01/19 09:00 02/03/19 16:59 02/01/19 08:55 Lidocaine (Xylocaine 1% MPF 5ml) 10 ml Q4H PRN HHN cough 02/01/19 03:30 02/25/19 11:29 Ondansetron HCl (Zofran) 4 mg Q4H PRN IVP Nausea & Vomiting 02/01/19 01:45 02/20/19 05:44 Penicillin G Benzathine (Bicillin L-A) 2,400,000 unit ONCE IM 02/01/19 15:00 02/01/19 18:00 02/01/19 15:12 Promethazine HCl/ Codeine (Phenergan with Codeine) 5 ml Q4H PRN ORAL For Cough 02/01/19 04:30 02/28/19 08:29 Allergies: Coded Allergies: No Known Allergies (Unverified , 01/20/19) ROS Limited/Unobtainable: No Constitutional: Reports: no symptoms HEENT: Reports: no symptoms Cardiovascular: Reports: no symptoms Respiratory: Reports: cough Gastrointestinal/Abdominal: Reports: no symptoms Genitourinary: Reports: no symptoms Neurologic/Psychiatric: Reports: no symptoms Subjective 28 YO M admitted with cough. Now new dx HIV, lymphadenopathy and pneumonia. Cover for Int Med- Dr Barron. Objective Last Vital Signs Date Time Temp Pulse Resp B/P (MAP) Pulse Ox O2 Delivery O2 Flow Rate FiO2 02/01/19 16:00 98.4 87 20 120/70 (87) 99 02/01/19 09:00 Room Air 01/31/19 20:18 21 Laboratory Tests Test 02/01/19 06:19 White Blood Count 4.3 K/UL (4.8-10.8) L Red Blood Count 3.21 M/UL (4.70-6.10) L Hemoglobin 9.0 G/DL (14.2-18.0) L Hematocrit 26.3 % (42.0-52.0) L Mean Corpuscular Volume 82 FL (80-99) Mean Corpuscular Hemoglobin 28.1 PG (27.0-31.0) Mean Corpuscular Hemoglobin Concent 34.2 G/DL (32.0-36.0) Red Cell Distribution Width 16.2 % (11.6-14.8) H Platelet Count 203 K/UL (150-450) Mean Platelet Volume 5.5 FL (6.5-10.1) L Neutrophils (%) (Auto) 41.5 % (45.0-75.0) L Lymphocytes (%) (Auto) 47.4 % (20.0-45.0) H Monocytes (%) (Auto) 8.8 % (1.0-10.0) Eosinophils (%) (Auto) 1.0 % (0.0-3.0) Basophils (%) (Auto) 1.3 % (0.0-2.0) Intake and Output 01/31/19 02/01/19 19:00 07:00 Intake Total 600 ml 120 ml Balance 600 ml 120 ml Intake Oral 600 ml 120 ml # Voids 3 1 Objective PHYSICAL EXAMINATION: GENERAL: The patient is awake and responsive, in no acute distress. HEAD AND NECK: Pupils are reactive to light. Extraocular movements intact. Neck was supple. No JVD. LUNGS: Good air entry. No wheezing or rales. HEART: Reveals S1, S2. Regular rhythm. No gallops. ABDOMEN: Soft, nondistended, and nontender. Positive bowel sounds. EXTREMITIES: No cyanosis, clubbing, edema NEUROLOGIC: Cranial nerves II through XII grossly intact. Motor is 5/5 in all extremities. Gait is intact. RECTAL/GENITOURINARY: Refused and deferred. PSYCHIATRIC: Mood and affect is intact. LYMPH NODES: Showed the patient has a positive lymphadenopathy in the cervical lymph node in the neck as well as in the pelvic area. Assessment/Plan Assessment/Plan ASSESSMENT: 1. Generalized lymphadenopathy. 2. New diagnosis of human immunodeficiency virus. 3. Right Lung infiltrate, possible pneumonia versus tuberculosis. 4. Splenomegaly. 5. LEO. 6. Hepatomegaly. 7. Thrombocytopenia. 8. 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 Positive RPR PLAN: 1. Admit the patient to respiratory isolation. 2. Follow up with the AFB x3. 3. Discussed case with Dr. Terrell from Pulmonary Critical Care 4. Infectious Disease consultation=Dr Gaviria 5. Follow up with the infection workup. 6. Code status is Full code. 7. CD4=41 8. Bicillin penicillin IM q week X3 9. Hematology/onc=Dr Ventura 10. S/P ceftriaxone and doxycycline per Abhijeet Haq MD Feb 01, 2019 17:09
[2019-02-02] VITALS: BP 105/61
[2019-02-02 04:00] VITALS: BP 117/62
[2019-02-02 08:26] LABS: BASOPHILS % (AUTO) 0.6 % (0.0-2.0); EOSINOPHILS % (AUTO) 1.3 % (0.0-3.0); HEMATOCRIT 28.1 % (42.0-52.0); HEMOGLOBIN 9.7 G/DL (14.2-18.0); LYMPHOCYTES % (AUTO) 34.3 % (20.0-45.0); MEAN CORPUSCULAR VOLUME 82 FL (80-99); MONOCYTES % (AUTO) 7.5 % (1.0-10.0); NEUTROPHILS % (AUTO) 56.3 % (45.0-75.0); PLATELET COUNT 228 K/UL (150-450); RED BLOOD COUNT 3.41 M/UL (4.70-6.10); RED CELL DISTRIBUTION WIDTH 16.5 % (11.6-14.8); WHITE BLOOD COUNT 5.4 K/UL (4.8-10.8)
[2019-02-02] MEDS: Fluconazole 100mg tab ORAL SCH (09:03)
--- NOTE | 2019-02-02 10:53 | Internal Med Progress Note ---
Subjective Date of Service: Feb 02, 2019 Physician Name Abhijeet Uriostegui Attending Physician Akil Barron MD Current Medications Medications (Trade) Dose Ordered Sig/Jeff Route PRN Reason Start Time Stop Time Status Last Admin Dose Admin Acetaminophen (Tylenol) 650 mg Q6H PRN ORAL Mild Pain/Temp > 100.5 02/01/19 02:00 02/20/19 01:59 02/01/19 20:41 Fluconazole (Diflucan) 200 mg DAILY ORAL 02/01/19 09:00 02/03/19 16:59 02/02/19 09:03 Lidocaine (Xylocaine 1% MPF 5ml) 10 ml Q4H PRN HHN cough 02/01/19 03:30 02/25/19 11:29 Ondansetron HCl (Zofran) 4 mg Q4H PRN IVP Nausea & Vomiting 02/01/19 01:45 02/20/19 05:44 02/02/19 05:06 Promethazine HCl/ Codeine (Phenergan with Codeine) 5 ml Q4H PRN ORAL For Cough 02/01/19 04:30 02/28/19 08:29 02/01/19 20:41 Allergies: Coded Allergies: No Known Allergies (Unverified , 01/20/19) ROS Limited/Unobtainable: No Constitutional: Reports: no symptoms HEENT: Reports: no symptoms Cardiovascular: Reports: no symptoms Respiratory: Reports: cough Gastrointestinal/Abdominal: Reports: no symptoms Genitourinary: Reports: no symptoms Neurologic/Psychiatric: Reports: no symptoms Subjective 28 YO M admitted with cough. Now new dx HIV, lymphadenopathy and pneumonia. Cover for Int Med- Dr Barron. Objective Last Vital Signs Date Time Temp Pulse Resp B/P (MAP) Pulse Ox O2 Delivery O2 Flow Rate FiO2 02/02/19 07:42 74 18 97 Room Air 21 02/02/19 04:00 97.9 117/62 (80) Laboratory Tests Test 02/02/19 07:50 White Blood Count 5.4 K/UL (4.8-10.8) Red Blood Count 3.41 M/UL (4.70-6.10) L Hemoglobin 9.7 G/DL (14.2-18.0) L Hematocrit 28.1 % (42.0-52.0) L Mean Corpuscular Volume 82 FL (80-99) Mean Corpuscular Hemoglobin 28.3 PG (27.0-31.0) Mean Corpuscular Hemoglobin Concent 34.4 G/DL (32.0-36.0) Red Cell Distribution Width 16.5 % (11.6-14.8) H Platelet Count 228 K/UL (150-450) Mean Platelet Volume 5.9 FL (6.5-10.1) L Neutrophils (%) (Auto) 56.3 % (45.0-75.0) Lymphocytes (%) (Auto) 34.3 % (20.0-45.0) Monocytes (%) (Auto) 7.5 % (1.0-10.0) Eosinophils (%) (Auto) 1.3 % (0.0-3.0) Basophils (%) (Auto) 0.6 % (0.0-2.0) HIV-1 RNA, Quantitative copies/mL Pending HIV Genotype Pending Intake and Output 02/01/19 02/02/19 19:00 07:00 Intake Total 1010 ml 780 ml Balance 1010 ml 780 ml Intake Oral 1010 ml 780 ml # Voids 3 4 # Bowel Movements 3 Objective PHYSICAL EXAMINATION: GENERAL: The patient is awake and responsive, in no acute distress. HEAD AND NECK: Pupils are reactive to light. Extraocular movements intact. Neck was supple. No JVD. LUNGS: Good air entry. No wheezing or rales. HEART: Reveals S1, S2. Regular rhythm. No gallops. ABDOMEN: Soft, nondistended, and nontender. Positive bowel sounds. EXTREMITIES: No cyanosis, clubbing, edema NEUROLOGIC: Cranial nerves II through XII grossly intact. Motor is 5/5 in all extremities. Gait is intact. RECTAL/GENITOURINARY: Refused and deferred. PSYCHIATRIC: Mood and affect is intact. LYMPH NODES: Showed the patient has a positive lymphadenopathy in the cervical lymph node in the neck as well as in the pelvic area. Assessment/Plan Assessment/Plan ASSESSMENT: 1. Generalized lymphadenopathy. 2. New diagnosis of human immunodeficiency virus. 3. Right Lung infiltrate, possible pneumonia versus tuberculosis. 4. Splenomegaly. 5. LEO. 6. Hepatomegaly. 7. Thrombocytopenia. 8. 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 Positive RPR PLAN: 1. Admit the patient to respiratory isolation. 2. Follow up with the AFB x3. 3. Discussed case with Dr. Terrell from Pulmonary Critical Care 4. Infectious Disease consultation=Dr Gaviria 5. Follow up with the infection workup. 6. Code status is Full code. 7. CD4=41 8. Bicillin penicillin IM q week X3 9. Hematology/onc=Dr Ventura 10. S/P ceftriaxone and doxycycline per Abhijeet Haq MD Feb 02, 2019 10:53
--- NOTE | 2019-02-02 11:47 | Hematology/Onc Progress Note ---
Assessment/Plan Assessment/Plan Assessment and Recs: # Diffuse lymphadenopathy/splenomegaly/hepatomegaly - DDx: TB, lymphoma, HIV/ AIDS related, /o Castleman disease --> CT neck: : Extensive cervical and supraclavicular lymphadenopathy, as described. Could be reactive or infectious, possibly related to stated clinical history of recent HIV diagnosis. However, the possibility of lymphoproliferative disorder should also be considered. Mild adenoidal and right tonsillar pillar prominence, if real possibly related to the above. Incidental finding right maxillary sinus disease. --> CT c/ab/p: Massive splenomegaly. Hepatomegaly. Extensive lymphadenopathy, involving the bilateral inguinal regions, bilateral iliac chains, retroaortic and retrocaval region, peripancreatic and lesser sac regions, bilateral axillae , bilateral cervical and supraclavicular regions, and the mediastinum. This may reflect infectious or inflammatory lymphadenopathy, particularly in view of recent diagnosis of HIV positivity, or could indicate a lymphoproliferative disorder. 4 x 3 x 2.8 cm aggregate cluster of masslike opacities in the right lower lobe. This could most likely represents an area of infiltrate, but could conceivably represent cluster of small masses. Nonspecific small irregular opacities in the left lower lobe, may reflect early infiltrates. --> for a cervical lymph node biopsy 01/25 completed, results reviewed --> further recs based on above. 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 Lima, to f/u on the biopsy (as per 02/01 dw pathologist one consideration is to get a excisional biopsy if this one is non-diagnostic) # Pancytopenia is likely related to newly diagnoised HIV/Aids, has not been in prior treated, ct of the abdomen and pelvis shows extensive lad and likely cause of splenic sequestration, in addition may be related to NHL v kaposis --> also r/o underlying malignancy, with cervical biopsy 01/25 --> reverse isolation if ANC is <2000 --> Give neupogen if ANC <1000 --> Transfuse if hgb <7, with 1 unit prbc --> consider bone marrow biopsy if no other causes are found --> plts were given 01/25 pre-procedure 35-->44-->53k-->97-->217 --> wbc 3.1-->3.3-->3.3->4.1->5 --> hgb 9.1->9-->9.7 # Pneumonia on imaging, sputum normal shelbi --> 01/20 CT chest: There is a cluster of masslike opacities in the right lower lobe with some slight surrounding groundglass opacity--> appears resolved on repeat --> s/p abx as per id PCN/DOxy/CTX--> flucon --> monitor for improvement # R leg skin lesion- suspicious for Kaposi --> did in fact yeild kaposis plaque stage likely --> dw id # HIV-1 Ab positive, CD4 41 (2.7%) --> per id in re to haart --> monitor if needed for reconstitutional syndrome # Dvt ppx with scds The timing of this note does not necessarily reflect the time of the patient was seen. Greatly appreciate consultation. Subjective Constitutional: Denies: no symptoms, chills, fever, malaise, weakness, other HEENT: Denies: no symptoms, eye pain, blurred vision, tearing, double vision, ear pain, ear discharge, nose pain, nose congestion, throat pain, throat swelling, mouth pain, mouth swelling, other Cardiovascular: Denies: no symptoms, chest pain, edema, irregular heart rate, lightheadedness, palpitations, syncope, other Genitourinary: Denies: no symptoms, burning, discharge, frequency, flank pain, hematuria, incontinence, pain, urgency, other Hematologic/Lymphatic: Denies: no symptoms, anemia, easy bleeding, easy bruising, adenopathy, other Allergies: Coded Allergies: No Known Allergies (Unverified , 01/20/19) Subjective 01/25: no events, remains on airborne isolation, labs noted, received plts last night 01/26: very sleepy this am, no bleeding or chills, no night sweats noted, dw id 01/27: pending biopsy still, labs noted, no bleeding, no complaints 01/28: no events, no bleeding no night sweats, biopsy report pend 01/30: no bleeding, labs are better, path again reviewed, id aware 01/31: no events, no fevers, no major changes, airborne iso 02/01: no complaints, no bleeding, labs noted, no changes, still swelling persists+ 02/02: today without issues, wants to be discharged keron Objective Objective Current Medications Medications (Trade) Dose Ordered Sig/Jeff Route PRN Reason Start Time Stop Time Status Last Admin Dose Admin Acetaminophen (Tylenol) 650 mg Q6H PRN ORAL Mild Pain/Temp > 100.5 02/01/19 02:00 02/20/19 01:59 02/01/19 20:41 Fluconazole (Diflucan) 200 mg DAILY ORAL 02/01/19 09:00 02/03/19 16:59 02/02/19 09:03 Lidocaine (Xylocaine 1% MPF 5ml) 10 ml Q4H PRN HHN cough 02/01/19 03:30 02/25/19 11:29 Ondansetron HCl (Zofran) 4 mg Q4H PRN IVP Nausea & Vomiting 02/01/19 01:45 02/20/19 05:44 02/02/19 05:06 Promethazine HCl/ Codeine (Phenergan with Codeine) 5 ml Q4H PRN ORAL For Cough 02/01/19 04:30 02/28/19 08:29 02/01/19 20:41 Last 24 Hour Vital Signs Date Time Temp Pulse Resp B/P (MAP) Pulse Ox O2 Delivery O2 Flow Rate FiO2 02/02/19 09:00 Room Air 02/02/19 07:42 74 18 97 Room Air 21 02/02/19 04:00 97.9 88 18 117/62 (80) 99 02/02/19 00:00 97.5 71 18 105/61 (76) 99 02/01/19 21:00 Room Air 02/01/19 20:00 98.2 74 18 111/58 (75) 99 02/01/19 16:00 98.4 87 20 120/70 (87) 99 02/01/19 12:00 98.4 91 20 118/71 (87) 99 02/01/19 09:00 Room Air 02/01/19 08:00 98.1 90 20 116/70 (85) 99 90 02/01/19 04:00 98.6 74 18 121/72 (88) 98 90 02/01/19 01:50 99.0 77 18 116/70 (85) 97 02/01/19 00:00 98.7 88 18 104/64 (77) 99 01/31/19 21:00 Room Air 01/31/19 20:18 89 18 98 Room Air 21 01/31/19 20:00 99.6 86 18 111/61 (78) 99 01/31/19 16:00 98.2 99 18 132/77 (95) 97 01/31/19 12:00 98.2 99 20 108/64 (79) 99 Intake and Output 02/01/19 02/02/19 19:00 07:00 Intake Total 1010 ml 780 ml Balance 1010 ml 780 ml Intake Oral 1010 ml 780 ml # Voids 3 4 # Bowel Movements 3 Labs Test 01/31/19 07:11 02/01/19 06:19 02/02/19 07:50 White Blood Count 4.1 K/UL (4.8-10.8) 4.3 K/UL (4.8-10.8) 5.4 K/UL (4.8-10.8) Red Blood Count 3.23 M/UL (4.70-6.10) 3.21 M/UL (4.70-6.10) 3.41 M/UL (4.70-6.10) Hemoglobin 9.1 G/DL (14.2-18.0) 9.0 G/DL (14.2-18.0) 9.7 G/DL (14.2-18.0) Hematocrit 25.9 % (42.0-52.0) 26.3 % (42.0-52.0) 28.1 % (42.0-52.0) Mean Corpuscular Volume 80 FL (80-99) 82 FL (80-99) 82 FL (80-99) Mean Corpuscular Hemoglobin 28.2 PG (27.0-31.0) 28.1 PG (27.0-31.0) 28.3 PG (27.0-31.0) Mean Corpuscular Hemoglobin Concent 35.2 G/DL (32.0-36.0) 34.2 G/DL (32.0-36.0) 34.4 G/DL (32.0-36.0) Red Cell Distribution Width 15.5 % (11.6-14.8) 16.2 % (11.6-14.8) 16.5 % (11.6-14.8) Platelet Count 217 K/UL (150-450) 203 K/UL (150-450) 228 K/UL (150-450) Mean Platelet Volume 5.6 FL (6.5-10.1) 5.5 FL (6.5-10.1) 5.9 FL (6.5-10.1) Neutrophils (%) (Auto) 42.6 % (45.0-75.0) 41.5 % (45.0-75.0) 56.3 % (45.0-75.0) Lymphocytes (%) (Auto) 46.4 % (20.0-45.0) 47.4 % (20.0-45.0) 34.3 % (20.0-45.0) Monocytes (%) (Auto) 8.0 % (1.0-10.0) 8.8 % (1.0-10.0) 7.5 % (1.0-10.0) Eosinophils (%) (Auto) 1.3 % (0.0-3.0) 1.0 % (0.0-3.0) 1.3 % (0.0-3.0) Basophils (%) (Auto) 1.7 % (0.0-2.0) 1.3 % (0.0-2.0) 0.6 % (0.0-2.0) Height (Feet): 5 Height (Inches): 10.00 Weight (Pounds): 186 Objective Gen: NAd, Pulm: Ctab, no cwr CV: Rrr, no mgr Abd: soft, nt, nd Ext: no cce, skin lesions on legs noted kaposis likely Damaso Ventura MD Feb 02, 2019 11:47
[2019-02-02 12:00] VITALS: BP 119/67
--- NOTE | 2019-02-02 13:28 | Infectious Diseases Prog Note ---
Assessment/Plan Assessment/Plan Low grade temp pt feels well and has no new/worsening symptoms. states cough is better. discussed recommendation to stay in the hospital and monitor for one more day. Pt states that he prefer to go home and he has an appointment with his PMD on Thursday. He states that he will seek immediate medical attention if he starts feeling bad. Ddx: AIDS vs KS vs Castleman Sepsis Pneumonia- r/o TB flu negative sputum normal shelbi T spot negative AFB smear neg x3 MTB PCR: neg DC airborne precaution 01/20 CT chest: There is a cluster of masslike opacities in the right lower lobe with some slight surrounding groundglass opacity. In aggregate, this area measures 4 cm x3 cm x 2.8 cm craniocaudad. This is located at the level of the pulmonary hilum.There are some small irregular faint opacities seen within the superior segment ofthe left lower lobe, measuring up to 7 mm long axis dimension. No other pulmonary parenchymal abnormalities are demonstrated. No pleural effusions. There are abundant mediastinal lymph nodes. The largest of these is a subcarinal node which measures 2.5 x 1.5 cm.The remainder are abundant, prominent, but not frankly enlarged. However, there is extensive axillary, supraclavicular, and lower cervical lymphadenopathy. There is mild bilateral gynecomastia. Diminished hearing R ear MRI Brain: Negative MRI brain with and without contrast no audiology/ENT at [facility] will need outpatient referral Diffuse lymphadenopathy/splenomegaly/hepatomegaly - DDx: TB, lymphoma, HIV/AIDS related, Castleman disease CT neck: : Extensive cervical and supraclavicular lymphadenopathy, as described. Could be reactive or infectious, possibly related to stated clinical history of recent HIV diagnosis. However, the possibility of lymphoproliferative disorder should also be considered. Mild adenoidal and right tonsillar pillar prominence, if real possibly related to the above. Incidental finding right maxillary sinus disease. CT c/ab/p: Massive splenomegaly. Hepatomegaly. Extensive lymphadenopathy, involving the bilateral inguinal regions, bilateral iliac chains, retroaortic and retrocaval region, peripancreatic and lesser sac regions, bilateral axillae , bilateral cervical and supraclavicular regions, and the mediastinum. This may reflect infectious or inflammatory lymphadenopathy, particularly in view of recent diagnosis of HIV positivity, or could indicate a lymphoproliferative disorder. 4 x 3 x 2.8 cm aggregate cluster of masslike opacities in the right lower lobe. This could most likely represents an area of infiltrate, but could conceivably represent cluster of small masses. Nonspecific small irregular opacities in the left lower lobe, may reflect early infiltrates. SP node bx 01/25: P 01/25 node bx cx: CoNS, Bacillus species(not anthracis) 01/26 CT Chest: Previously demonstrated abnormal right lung mass in question has largely resolved and is therefore inflammatory. Biopsy is not indicated. Lymphadenopathy within the chest and abdomen. Neoplastic versus inflammatory. Status post cholecystectomy Gram positive bacteremia- likely contaminant -01/20 Bcx 04/02 Staph epi MSM HIV-1 Abt positive CD4 41 (2.7%). VL: P CrAg negative Hep ABC negative Blastomyces Abt negative Histoplasma antibody negative Blastomyces antibody negative Cryptococcus antigen negative CMV PCR qualitative positive 01/27 no evidence of CMV retinitis CMV PCR<200 RPR 1:2 pt denies history of ever being tested denies any genital lesions. no headache. no rash. no record in [facility] STD office of previous titers Fever, SP pancytopenia R leg skin lesion SP bx--KS Plan: - rx of Bactrim DS given. strict ED precautions given. f/u with PMD. f/u in network audiology/ENT. risk of leaving discussed. - PCN IM weekly x3(01/25, 02/01, 02/08) - 01/27 SP Ceftriaxone #7 - 01/26 SP doxy #6 - 01/21 SP Azithromycin #1 - 01/20 SP Zosyn x1, Bactrim x1 -SP core biopsy cervical lymph node -send lymph node for culture (bacterial, fungal, AFB, MTB PCR) and path-- requested AFB stain and HHV8 stain -f/u Cocci, GC/CL, AFB sp cx, HIV VL, PCP DFA, fungitell -f/u cx -Monitor CBC/CMP, temperatures Thank you for this consultation. Will continue to follow along with you. Subjective Allergies: Coded Allergies: No Known Allergies (Unverified , 01/20/19) Subjective Tmax 100.6 at noon Pt states that he felt hungry at the time of the fever but otherwise did not have chills, sweats, worsened cough, sob, pain. Stool is formed today. No new rashes. No new headache. Pt is anxious to leave on RA Objective Vital Signs Last 24 Hour Vital Signs Date Time Temp Pulse Resp B/P (MAP) Pulse Ox O2 Delivery O2 Flow Rate FiO2 02/02/19 12:00 100.6 89 19 119/67 (84) 100 02/02/19 09:00 Room Air 02/02/19 07:42 74 18 97 Room Air 21 02/02/19 04:00 97.9 88 18 117/62 (80) 99 02/02/19 00:00 97.5 71 18 105/61 (76) 99 02/01/19 21:00 Room Air 02/01/19 20:00 98.2 74 18 111/58 (75) 99 02/01/19 16:00 98.4 87 20 120/70 (87) 99 Height (Feet): 5 Height (Inches): 10.00 Weight (Pounds): 186 Objective Gen: NAD HEENT: poor dentition CV: RRR Resp: coarse. no wheezes or crackles. Abd: soft. no TTP Neuro: alert. appropriate Laboratory Tests Test 02/02/19 07:50 White Blood Count 5.4 K/UL (4.8-10.8) Red Blood Count 3.41 M/UL (4.70-6.10) L Hemoglobin 9.7 G/DL (14.2-18.0) L Hematocrit 28.1 % (42.0-52.0) L Mean Corpuscular Volume 82 FL (80-99) Mean Corpuscular Hemoglobin 28.3 PG (27.0-31.0) Mean Corpuscular Hemoglobin Concent 34.4 G/DL (32.0-36.0) Red Cell Distribution Width 16.5 % (11.6-14.8) H Platelet Count 228 K/UL (150-450) Mean Platelet Volume 5.9 FL (6.5-10.1) L Neutrophils (%) (Auto) 56.3 % (45.0-75.0) Lymphocytes (%) (Auto) 34.3 % (20.0-45.0) Monocytes (%) (Auto) 7.5 % (1.0-10.0) Eosinophils (%) (Auto) 1.3 % (0.0-3.0) Basophils (%) (Auto) 0.6 % (0.0-2.0) HIV-1 RNA, Quantitative copies/mL Pending HIV Genotype Pending Current Medications Medications (Trade) Dose Ordered Sig/Jeff Route PRN Reason Start Time Stop Time Status Last Admin Dose Admin Acetaminophen (Tylenol) 650 mg Q6H PRN ORAL Mild Pain/Temp > 100.5 02/01/19 02:00 02/20/19 01:59 02/02/19 11:51 Fluconazole (Diflucan) 200 mg DAILY ORAL 02/01/19 09:00 02/03/19 16:59 02/02/19 09:03 Lidocaine (Xylocaine 1% MPF 5ml) 10 ml Q4H PRN HHN cough 02/01/19 03:30 02/25/19 11:29 Ondansetron HCl (Zofran) 4 mg Q4H PRN IVP Nausea & Vomiting 02/01/19 01:45 02/20/19 05:44 02/02/19 05:06 Promethazine HCl/ Codeine (Phenergan with Codeine) 5 ml Q4H PRN ORAL For Cough 02/01/19 04:30 02/28/19 08:29 02/01/19 20:41 Olvin Grover MD Feb 02, 2019 13:28
--- NOTE | 2019-02-02 14:50 | Pulmonology Progress Note ---
Assessment/Plan Problems: (1) Castleman disease (2) Pneumonia (3) Positive RPR test (4) Lymphadenopathy, cervical (5) Kaposi sarcoma (6) Thrombocytopenia (7) Fever (8) HIV (human immunodeficiency virus infection) (9) AIDS Assessment/Plan FEELING BETTER biopsy of skin showing Kaposi Sarcoma all cultures are negative so far awaiting final results from the PCR sputum fine needle aspiration didn't show any Lymphoproliferative disease f/u ID recommendations RPR is positive 1:2. 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: the biopsy looks like Castleman disease Subjective ROS Limited/Unobtainable: No Allergies: Coded Allergies: No Known Allergies (Unverified , 01/20/19) Objective Last 24 Hour Vital Signs Date Time Temp Pulse Resp B/P (MAP) Pulse Ox O2 Delivery O2 Flow Rate FiO2 02/02/19 12:21 98.4 02/02/19 12:00 100.6 89 19 119/67 (84) 100 02/02/19 09:00 Room Air 02/02/19 07:42 74 18 97 Room Air 21 02/02/19 04:00 97.9 88 18 117/62 (80) 99 02/02/19 00:00 97.5 71 18 105/61 (76) 99 02/01/19 21:00 Room Air 02/01/19 20:00 98.2 74 18 111/58 (75) 99 02/01/19 16:00 98.4 87 20 120/70 (87) 99 Intake and Output 02/01/19 02/02/19 19:00 07:00 Intake Total 1010 ml 780 ml Balance 1010 ml 780 ml Intake Oral 1010 ml 780 ml # Voids 3 4 # Bowel Movements 3 General Appearance: WD/WN HEENT: normocephalic, atraumatic Respiratory/Chest: chest wall non-tender, lungs clear, normal breath sounds Cardiovascular: normal peripheral pulses, normal rate Abdomen: no organomegaly Extremities: no clubbing Neurologic/Psychiatric: club manager II-XII grossly normal Lymphatic: no neck adenopathy Laboratory Tests 02/02/19 07:50: White Blood Count 5.4, Red Blood Count 3.41L, Hemoglobin 9.7L, Hematocrit 28.1L , Mean Corpuscular Volume 82, Mean Corpuscular Hemoglobin 28.3, Mean Corpuscular Hemoglobin Concent 34.4, Red Cell Distribution Width 16.5H, Platelet Count 228, Mean Platelet Volume 5.9L, Neutrophils (%) (Auto) 56.3, Lymphocytes (%) (Auto) 34.3, Monocytes (%) (Auto) 7.5, Eosinophils (%) (Auto) 1.3, Basophils (%) (Auto) 0.6, HIV-1 RNA, Quantitative copies/mL [Pending], HIV Genotype [Pending] Current Medications Medications (Trade) Dose Ordered Sig/Jeff Route PRN Reason Start Time Stop Time Status Last Admin Dose Admin Acetaminophen (Tylenol) 650 mg Q6H PRN ORAL Mild Pain/Temp > 100.5 02/01/19 02:00 02/20/19 01:59 02/02/19 11:51 Fluconazole (Diflucan) 200 mg DAILY ORAL 02/01/19 09:00 02/03/19 16:59 02/02/19 09:03 Lidocaine (Xylocaine 1% MPF 5ml) 10 ml Q4H PRN HHN cough 02/01/19 03:30 02/25/19 11:29 Ondansetron HCl (Zofran) 4 mg Q4H PRN IVP Nausea & Vomiting 02/01/19 01:45 02/20/19 05:44 02/02/19 05:06 Promethazine HCl/ Codeine (Phenergan with Codeine) 5 ml Q4H PRN ORAL For Cough 02/01/19 04:30 02/28/19 08:29 02/01/19 20:41 Suzanne Terrell MD Feb 02, 2019 14:50
[2019-02-02 16:00] VITALS: BP 116/68
--- NOTE | 2019-02-03 08:13 | Discharge Summary ---
Discharge Summary Discharge Summary _ DATE OF ADMISSION: 01/20/2019 DATE OF DISCHARGE: 02/02/2019 DISCHARGED BY: Dr. Barrno REASON FOR ADMISSION: 28 years old male with no significant past medical and surgical history, presented to the hospital complaining of 4 months of coughing greenish mucus , feeling feverish with on and off night sweats. Patient denied recent traveling. Patient denied any unintentional weight loss. No hemoptysis. Patient was treated with multiply antibiotics as outpatient. He was taking ibuprofen as needed for his fever. Patient was working up for possible pneumonia versus bronchitis by his primary physician. Patient denied tuberculosis exposure in the past. 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 He lives with the same partner for the past several months, who was positive for HIV, and was compliant with his medications. The patient admitted having anal intercourse . According to patient, he was tested for HIV virus few times in the past year , all results were negative. Most recent testing was 5 months ago , according to the patient, and was negative as well. In emergency department laboratory work-up revealed leukopenia WBC 2.9, hemoglobin 10.1 , hematocrit 29.5. Platelet count 24. ABG on room air was stable. Chemistry demonstrated potassium 3.3. Lactic acid 1.3. Stable other electrolytes and renal parameters. Stable LFT. Troponin negative. Albumin 2.6. Urinalysis revealed no evidence of urinary tract infection, +3 protein. Urine toxicology screen was negative Rapid HIV test was positive . Nasal swab for influenza was negative. Vital signs revealed fever 102.7, tachycardia 147 , pulse oximetry was stable on room air. Chest x-ray demonstrated no acute process. CT scan of the chest, abdomen and pelvis revealed : - masslike opacity in the right lower lobe with some slight surrounding ground- glass opacity, measuring 4 x 3 x 2.8 cm craniocaudal, located at the level of pulmonary hilum -no pleural effusion -no pericardial effusion -abundant mediastinal lymph nodes -massive splenomegaly -hepatomegaly -extensive lymphadenopathy, involving the bilateral inguinal region, bilateral iliac chain, moderate aortic and retrocaval region, peripancreatic and lesser region, bilateral leg edema, bilateral cervical region and mediastinum. Patient subsequently admitted for further management. CONSULTANTS: pulmonary Dr. Terrell ID specialist Dr Sam shirt turner/oncologist managing Dr. [place] surgery [facility] COURSE: Patient admitted to respiratory isolation room to rule out tuberculosis. Patient started on the IV hydration and empiric antibiotic. Tobacco Farmworker and infectious disease specialist closely followed. Supplemental oxygen provided as needed to keep pulse oximetry above 92%. Pulmonary toilet with bronchodilator provided as needed. Antitussive provided as needed. Antibiotic provided as per ID specialist recommendations . Sputum culture was negative. Blood culture 1 out of 4 revealed Staph epidermidis. Repeated blood cultures were negative. Initial blood culture was likely contaminant as per ID specialist. AFB x3 smear negative. MTB by PCR was negative. T spot was negative. Respiratory isolation was discontinued. Patient was followed-up with chest x-ray. Cryptococci antigen negative, Blastomyces antibody negative, Histoplasma antibody negative. CMV by PCR qualitative was positive. Laundry Helper evaluation requested to rule out CMV retinitis. Patient denied flashes, floaters, redness, pain or discharge. Per wetland scientist no evidence of cytomegalovirus retinitis. Laundry Helper recommended routine monitoring with dilated fundus exam in 2 to 3 months. Currently no evidence of CMV retinitis. RPR reactive- 1:2. Patient denied history of ever been tested. He denied any genital lesions, headaches or rash. No record an [place] at the office of previous titers. Patient completed weekly penicillin intramuscular x3 . Patient complained of decreased hearing in his right ear. Patient undergone MRI of the brain , which was negative. Patient undergone punch biopsy of skin lesion of the right leg to rule out Kaposi's sarcoma on 01/23. 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 Patient undergone ultrasound-guided lymph node biopsy of right submandibular node 01/25. Flow cytometry showed no evidence of lymphoproliferative disorder . Last pathology report on 02/03 showed findings highly suspicious for Castleman's disease . Recommended excisional biopsy of lymph node for definite diagnosis . Repeated CT chest showed, that previously demonstrated abnormal right lung mass was largely resolved, and therefore was inflammatory. Biopsy was not indicated. Electrolytes corrected as needed. Supportive care providd. Patient clinically stabilized and was ready for discharge home. Patient remained afebrile. Pulse oximetry stable on room air Counts stable: WBC 5.4; Hgb 9.7, Hct 28,1. PLT 228. Patient received prescription for Bactrim DS for PCP prophylaxis. Return to ED precautions discussed with patient in detail. Follow up with primary care provider and in network HIV provider and ENT. 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 DISCHARGE INSTRUCTIONS: Patient was discharged home. Follow up with primary care provider in one week. Janae Wu NP Feb 03, 2019 08:13
== END 2019-02-02 16:55 | disposition home or self-care (01) | DRG 975 ==
LOC: EDBD 19:28 → EMR 20:30 → 3E 22:10 → EDBEDREQ 23:00 → 2W 01-22 15:56 → 2E 01-23 17:46 → 4E 02-01 01:05
PROC: 0HBLXZX Excision of Left Lower Leg Skin, External Approach, Diagnostic (ICD-10-PCS; principal; 2019-01-23)
PROC: 07D13ZX Extraction of Right Neck Lymphatic, Percutaneous Approach, Diagnostic (ICD-10-PCS; 2019-01-25)
DX: A41.9 Sepsis, unspecified organism (principal); B20 Human immunodeficiency virus [HIV] disease; D47.Z2 Castleman disease; J18.9 Pneumonia, unspecified organism; C46.0 Kaposi's sarcoma of skin; B25.9 Cytomegaloviral disease, unspecified; D69.6 Thrombocytopenia, unspecified; R16.1 Splenomegaly, not elsewhere classified
CPT/HCPCS: 36415; 36600; 70491; 70553; 71045; 71046; 71260; 74177; 76942; 80048; 80053; 80307; 81003; 82378; 82550; 82553; 82607; 82728; 82803; 83540; 83550; 83605; 83615; 83735; 83880; 84100; 84484; 85007; 85025; 85044; 85060; 85610; 85651; 85730; 86140; 86171; 86360; 86580; 86592; 86612; 86635; 86689; 86703; 86705; 86709; 86710; 86803; 86850; 86900; 86901; 87040; 87070; 87075; 87116; 87181; 87205; 87340; 87449; 87496; 87497; 87535; 87536; 87556; 87798; 93005; 94640; 94664; 96365; 99285; A9585; J2405; J7030; J7620